=== PATIENT | female | born 1960 | race Caucasian/White ===

== ENCOUNTER → 2016-05-05 | Outpatient (REF) | payer OTHER, MEDICARE ==
[~2016-05-05] MED LIST: /DULO30CA PO; ACET500C PO; AMRIX ER PO; BABY81CH PO; BIOT50004 PO; CALC500T49 PO; CINN500C9 PO; ESTR0.5T OR; FEXO30TA PO; FISH100035 PO; HYDR1TAB97 PO; HYDR25TA6; IRON1TAB PO; Iron PO; KEFL500C PO; LYSINE PO; MULTLIQ7 PO; NAPR375T2 PO; Nucynta PO; OMEP20TA7 OR; OXYC1TAB23 PO; SOMA350T OR; TIZA4CAP3 PO; TRAM50TA2 PO; VITA500S3 SL; VITAMIN D50000 UNT PO; [UNRECOGNIZED DRUG - REMARK]; tps cream TD
[2016-05-05 12:07] LABS: MEAN CORPUSCULAR HEMOGLOBIN 28.9 pg (27.0-33.0); MEAN CORPUSCULAR HGB CONC 32.2 g/dl (32.0-36.5); MEAN CORPUSCULAR VOLUME 89.8 fl (80.0-96.0); RED CELL DISTRIBUTION WIDTH 14.1 % (11.5-14.5); WHITE BLOOD COUNT 3.6 K/mm3 (4.0-10.0)
[2016-05-05 12:29] LABS: ALBUMIN 3.6 GM/DL (3.2-5.2); ALBUMIN/GLOBULIN RATIO 1.03 (1.00-1.93); BILIRUBIN,TOTAL 0.4 MG/DL (0.2-1.0); CALCIUM LEVEL 9.6 MG/DL (8.5-10.1); CREATININE FOR GFR 1.04 MG/DL (0.55-1.02); FREE T4 0.91 NG/DL (0.76-1.46); GLOMERULAR FILTRATION RATE 58.8 (>51); MAGNESIUM LEVEL 2.2 MG/DL (1.8-2.4); POTASSIUM SERUM 4.4 MEQ/L (3.5-5.1); TOTAL PROTEIN 7.1 GM/DL (6.4-8.2)
== END | disposition home or self-care (01) ==
LOC: M SFHCPLAZ 09:36
PROVIDERS: ATTEND Nurse Practitioner Family
DX: R05 Cough (principal); E66.01 Morbid (severe) obesity due to excess calories; K21.9 Gastro-esophageal reflux disease without esophagitis

== ENCOUNTER → 2016-07-22 | Outpatient (CLI) | payer OTHER, MEDICARE ==
[~2016-07-22] MED LIST changes: +BUPIVACAINE HCL 0.25% 10 ML VIAL As Ordered ONE; +BUPIVACAINE HCL 0.25% 30 ML VIAL As Ordered ONE; +HYDR-3713 PO; -HYDR1TAB97 PO; +TRIAMCINOLONE ACETONIDE SUSP 40 MG/ML VIAL (J3301) As Ordered ONE; +diazePAM 5 MG TAB As Ordered ONE; +oxyCODONE 5MG TAB As Ordered ONE
--- NOTE | 2016-07-28 02:00 | ECWPNPC ---
PATIENT NAME: JANAE PORTER : 1960 GENDER: FEMALE VISIT DATE: 07/22/2016 DISCHARGE DATE: 07/22/16 1615 VISIT LOCKED DATE TIME: PHYSICIAN: ILENE TEMPLE RESOURCE: ILENE TEMLPE REASON FOR APPOINTMENT 1. TPI- W/C NECK HISTORY OF PRESENT ILLNESS HISTORY OF PRESENT ILLNESS: PAIN THE PATIENT DESCRIBES THE PAIN... THE PATIENT DESCRIBES THE PAIN... PAIN THE PATIENT DESCRIBES THE PAIN... THE PATIENT DESCRIBES THE PAIN... FALL RISK SCREENING: SCREENING :NO FALLS IN THE PAST YEAR :NO FALLS IN THE PAST YEAR SCREENING :NO FALLS IN THE PAST YEAR :NO FALLS IN THE PAST YEAR CURRENT MEDICATIONS TAKING ASPIR-81 81 MG TABLET DELAYED RELEASE 1 TABLET ORALLY ONCE A DAY, NOTES: 07/22/16899 TAKING CALCIUM CITRATE PLUS TABLET 1 TAB ORALLY THREE TIMES DAILY, NOTES: 07/22/16899 TAKING LYSINE 500 MG TABLET 1 TABLET ORALLY TWICE DAILY, NOTES: 07/22/16899 TAKING VITAMIN D3 5000 UNIT CAPSULE 2 CAPS ORALLY 5 DAYS A WEEK, NOTES: 07/22/16899 TAKING FISH OIL 1200 MG CAPSULE 1 CAPSULE ORALLY ONCE A DAY, NOTES: 07/22/16899 TAKING MULTIVITAMINS TABLET 1 TAB ORALLY DAILY, NOTES: 07/22/16899 TAKING VITAMIN B-12 500 MCG TABLET SUBLINGUAL 1 TABLET UNDER THE TONGUE AND ALLOW TO DISSOLVE SUBLINGUAL ONCE A DAY, NOTES: 07/22/16899 TAKING BIOTIN 5000 MCG TABLET 2 TAB ORALLY ONCE A DAY, NOTES: 07/22/16899 TAKING FERROUS SULFATE 325 (65 FE) MG TABLET 1 TABLET ORALLY THREE TIMES A WEEK, NOTES: 07/22/16899 TAKING COLACE 100 MG CAPSULE 1 CAPSULE NEEDED ORALLY ONCE A DAY, NOTES: 07/22/16899 TAKING OMEPRAZOLE 20 MG CAPSULE DELAYED RELEASE 1 CAPSULE ORALLY TWICE DAILY, NOTES: 07/22/16899 TAKING CYMBALTA 30 MG CAPSULE DELAYED RELEASE PARTICLES 1 CAPSULE ORALLY TWICE A DAY, NOTES: 07/22/16899 TAKING NUCYNTA 50 MG TABLET 1 ORALLY Q8H MDD2, NOTES: 07/21/16 1300 TAKING ESTRADIOL 1 MG TABLET [address] BUSBY ORALLY ONCE A DAY, NOTES: 07/22/16899 NOT-TAKING BLACK COHOSH 40 MG CAPSULE 2 TABS ORALLY DAILY NOT-TAKING ESTROVEN MAXIMUM STRENGTH 1 CAP ORALLY DAILY NOT-TAKING TUSSIONEX PENNKINETIC ER 10-8 MG/5ML SUSPENSION EXTENDED RELEASE 5 ML NEEDED ORALLY EVERY 12 HRS NOT-TAKING FLUTICASONE PROPIONATE 50 MCG/ACT SUSPENSION 1 SPRAY IN EACH NOSTRIL NASALLY ONCE A DAY NOT-TAKING SALINE NASAL SPRAY 0.65 % SOLUTION DIRECTED NASALLY MEDICATION LIST REVIEWED AND RECONCILED WITH THE PATIENT PAST MEDICAL HISTORY CHRONIC PAIN: BACK, NECK, R SHOULDER- FOLLOWS WITH PAIN CLINIC, UNDER WORKER'S COMP ESOPHAGEAL REFLUX - (PULMONARY EVAL FOR COUGH NEG.) OBESITY ALLERGIES RUBELLA VIRUS VACCINE: KNEES LOCKED: ALLERGY FOSAMAX: HAND SWELLING: ALLERGY CODEINE SULFATE: NAUSEA/VOMITING: ALLERGY REVIEW OF SYSTEMS CONSTITUTIONAL: ANY CHANGE IN YOUR MEDICAL CONDITION? YES RETORE RIGHT ROTATOR CUFF, NO . CHILLS NO, NO . FEVER NO, NO . INFECTION: DO YOU HAVE NEW INFECTIONS? NO, NO . DO YOU HAVE HISTORY OF MRSA? NO, NO . MUSCULOSKELETAL: ANY NEW PATTERNS OF PAIN OR NUMBNESS? NO, NO . GASTROENTEROLOGY: ANY NEW CHANGE IN BOWEL CONTROL? NO, NO . GENITOURINARY: ANY NEW CHANGE IN BLADDER CONTROL? NO, NO . IS THERE A CHANCE YOU COULD BE ? NO, NO . HEMATOLOGY/LYMPH: DO YOU TAKE ANY BLOOD THINNERS? (FOR EXAMPLE- COUMADIN, PLAVIX, AGGRENOX, PLATEL, PRADAXA, OR XARELTO) NO, NO . WHEN WAS YOUR LAST DOSE? DATE: TIME: , DATE: TIME: . NEUROLOGY: HAVE YOU FALLEN IN THE PAST 6 MONTHS? NO, NO . ANY NEW EXTREMITY NUMBNESS OR WEAKNESS? NO, NO . CARDIOLOGY: DO YOU HAVE A PACEMAKER OR DEFIBRILLATOR? NO, NO . RESPIRATORY: HAVE YOU BEEN SICK IN THE PAST WEEK? NO, NO . FEVER NO, NO . FLU LIKE SYMPTOMS? NO, NO . COUGH NO, NO . INTEGUMENTARY: DO YOU HAVE ANY RASHES OR OPEN SORES? NO, NO . ALLERGIC/IMMUNO: ARE YOU ALLERGIC TO SHELLFISH OR IV DYE? NO, NO . ANY NEW ALLERGIES? NO, NO . PSYCHIATRIC: DO YOU HAVE THOUGHTS OF HURTING YOURSELF OR SOMEONE ELSE? NO, NO . ARE YOU ABUSED, NEGLECTED, OR IN AN UNSAFE ENVIRONMENT? NO, NO . ENDOCRINOLOGY: ARE YOU DIABETIC? NO, NO . OTHER: DO YOU NEED ANY PRESCRIPTIONS? NO, NO . IF YES, PLEASE LIST: ____, ____ . ANY NEW PROBLEMS WITH YOUR MEDICATIONS? NO, NO . WHEN DID YOU LAST EAT? ____07/21/16 1900, ____ . WHEN DID YOU LAST DRINK? ____07/22/16 0900, ____ . WHAT DID YOU LAST DRINK? ____WATER, ____ . NAME OF PERSON DRIVING YOU HOME? ____DORIS, ____ . DO YOU HAVE ANY OTHER QUESTIONS OR CONCERNS NO, NO . REVIEWED BY: PROVIDER: , . VITAL SIGNS WT 209.8 LBS, HT 63 IN, BMI 37.16 INDEX, BP 138/80 MM HG, HR 72 /MIN, RR 16 /MIN, TEMP 99.1 F, OXYGEN SAT % 98, SAFE IN ENV? (Y/N) YES, NA INITIALS TL 1416, REVIEWED BY: RUTH TEMP, 99.1- TL. ASSESSMENTS MYALGIA - M79.1 (PRIMARY) PROCEDURES PN TRIGGER POINT INJECTION WITH STEROIDS PRE PROCEDURE DIAGNOSIS 1. MYALGIA 2. PAIN AT BILATERAL NECK AREA POST PROCEDURE DIAGNOSIS 1. MYALGIA 2. PAIN AT BILATERAL NECK AREA PROCEDURE TRIGGER POINT INJECTION AT BILATERAL NECK AREA SURGEON DR. ILENE TEMPLE FUEL TECHNICIAN NONE ANESTHESIA LOCAL PRE PROCEDURE NOTE THE PATIENT HAS A HISTORY OF CHRONIC PAIN AT THE RIGHT AND LEFT NECK AREA. I EVALUATE THE PATIENT AND REVIEWED THE CHART. THERE IS EVIDENCE OF BANDS OF TISSUE WITH RESTRICTION OF MOVEMENT AND PRESENCE OF TRIGGER POINT AT THE AFFECTED AREA. I WENT OVER THE RISKS, ALTERNATIVES, AND BENEFITS ASSOCIATED WITH THIS PROCEDURE. THE PATIENT WOULD LIKE TO PROCEED AND GIVE CONSENT TO PERFORMED THE PROCEDURE. THE PATIENT DENIES UNEXPLAINABLE WEIGHT LOSS, FEVER, CHILLS, OR NEW CHANGES IN URINARY OR BOWEL CONTROL DESCRIPTION OF PROCEDURE THE PATIENT WAS BROUGHT TO THE PROCEDURE ROOM AND PLACED IN THE SITTING POSITION. THE AREA WAS CLEANED WITH ALCOHOL. THE PROCEDURE WAS DONE USING ASEPTIC STERILE TECHNIQUE. I CHECKED LATERALITY AND THE LEVEL WHERE THE PROCEDURE WAS GOING TO BE PERFORMED WITH THE PATIENT AND THE SUPPORTING STAFF AT THE MOMENT OF THE TIME OUT IN THE PROCEDURE ROOM. USING A 25-GAUGE NEEDLE, TRIGGER POINTS WERE INJECTED AT THE RIGHT AND LEFT NECK AREA WITH A TOTAL OF 40 ML OF BUPIVACAINE 0.25% AND KENALOG 40 MG. THERE WAS NO EVIDENCE OF BLOOD, PARESTHESIA OR CEREBROSPINAL FLUID DURING THE PROCEDURE. THE PATIENT WAS SENT TO THE RECOVERY ROOM. THE PATIENT WAS MOVING THE EXTREMITIES AND DOING WELL. THERE WAS NO COMPLICATION DURING THE PROCEDURE POST PROCEDURE NOTE THE PATIENT WILL BE SEEN IN A FOLLOW UP IN THE NEXT FEW WEEKS. INSTRUCTIONS WERE GIVEN, QUESTIONS WERE ANSWERED, AND THE PATIENT EXPRESSED UNDERSTANDING AND AGREES WITH THE PLAN. I, TOPHER LOVE, DOCUMENTED THE ABOVE INFORMATION ACTING A SCRIBE FOR DR. TEMPLE. I HAVE REVIEWED THE ABOVE DOCUMENT, WRITTEN BY TOPHER LOVE SCRIBBrijesh AND I VERIFY THAT IT IS ACCURATE PROCEDURE CODES 01292 INJ TRIGGER POINT / MUSCL DISPOSITION & COMMUNICATION FOLLOW UP 3 WEEKS ELECTRONICALLY SIGNED BY ILENE TEMPLE MD ON 07/27/2016 AT 09:33 AM EDT DISCLAIMER : THIS IS A VISIT SUMMARY EXTRACTED FROM THE [email or web address] CHART. IT IS NOT A COPY OF THE [email or web address] PROGRESS NOTE. MTDFannie
== END ==
LOC: M PAIN 14:20
PROVIDERS: ATTEND Anesthesiology
DX: G89.29 Other chronic pain (principal); M79.1 Myalgia; M54.2 Cervicalgia; M25.511 Pain in right shoulder; K21.9 Gastro-esophageal reflux disease without esophagitis; E66.9 Obesity, unspecified; Z68.37 Body mass index [BMI] 37.0-37.9, adult; Z79.82 Long term (current) use of aspirin; Z79.899 Other long term (current) drug therapy; Z79.891 Long term (current) use of opiate analgesic; Z88.7 Allergy status to serum and vaccine; Z88.8 Allergy status to other drugs, medicaments and biological substances; Z88.5 Allergy status to narcotic agent
CPT/HCPCS: 20552; J3301

== ENCOUNTER → 2016-08-19 | Outpatient (CLI) | payer OTHER, MEDICARE ==
[~2016-08-19] MED LIST changes: -BUPIVACAINE HCL 0.25% 10 ML VIAL As Ordered ONE; -BUPIVACAINE HCL 0.25% 30 ML VIAL As Ordered ONE; -TRIAMCINOLONE ACETONIDE SUSP 40 MG/ML VIAL (J3301) As Ordered ONE; -diazePAM 5 MG TAB As Ordered ONE; -oxyCODONE 5MG TAB As Ordered ONE
--- NOTE | 2016-08-24 00:24 | ECWPNPC ---
PATIENT NAME: JANAE PORTER : 1960 GENDER: FEMALE VISIT DATE: 08/19/2016 DISCHARGE DATE: 08/19/16 0846 VISIT LOCKED DATE TIME: PHYSICIAN: ILENE TEMPLE RESOURCE: ILENE TEMPLE REASON FOR APPOINTMENT 1. WC NECK PAIN HISTORY OF PRESENT ILLNESS HISTORY OF PRESENT ILLNESS: PAIN THE PATIENT DESCRIBES THE PAIN... 56 YEAR OLD FEMALE PATIENT WITH HISTORY OF CHRONIC CERVICAL PAIN. PATIENT DESCRIBES THE PAIN ACHING, SHARP, TENDER, SORE, AND HAVING IT ALL THE TIME WITH A PAIN SCORE OF 6/10. 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 PATIENT RECEIVED A NECK SURGERY IN 2010 AND STATES THAT IT DID AID IN FUNCTIONALITY BUT SHE IS STILL IN CONSTANT PAIN. PATIENT RECEIVED TRIGGER POINT INJECTIONS ON 07/22/16 AND PATIENT STATES THAT SHE HAS HAD OVER 50% PAIN RELIEF FROM THE INJECTION FOR OVER 3 WEEKS AT THIS TIME. CURRENTLY THE PATIENT IS USING NUCYNTA AND CYMBALTA WHICH SHE STATES KEEPS HER MOBILE AND FUNCTIONAL. PATIENT DENIES UNEXPLAINABLE WEIGHT LOSS, FEVER, CHILLS, NEW CHANGES ON HER URINARY OR BOWEL CONTROL. FALL RISK SCREENING: SCREENING :NO FALLS IN THE PAST YEAR CURRENT MEDICATIONS TAKING ASPIR-81 81 MG TABLET DELAYED RELEASE 1 TABLET ORALLY ONCE A DAY TAKING CALCIUM CITRATE PLUS TABLET 1 TAB ORALLY THREE TIMES DAILY TAKING LYSINE 500 MG TABLET 1 TABLET ORALLY TWICE DAILY TAKING VITAMIN D3 5000 UNIT CAPSULE 2 CAPS ORALLY 5 DAYS A WEEK TAKING FISH OIL 1200 MG CAPSULE 1 CAPSULE ORALLY ONCE A DAY TAKING MULTIVITAMINS TABLET 1 TAB ORALLY DAILY TAKING VITAMIN B-12 500 MCG TABLET SUBLINGUAL 1 TABLET UNDER THE TONGUE AND ALLOW TO DISSOLVE SUBLINGUAL ONCE A DAY TAKING BIOTIN 5000 MCG TABLET 2 TAB ORALLY ONCE A DAY TAKING FERROUS SULFATE 325 (65 FE) MG TABLET 1 TABLET ORALLY THREE TIMES A WEEK TAKING COLACE 100 MG CAPSULE 1 CAPSULE NEEDED ORALLY ONCE A DAY TAKING OMEPRAZOLE 20 MG CAPSULE DELAYED RELEASE 1 CAPSULE ORALLY TWICE DAILY TAKING ESTRADIOL 1 MG TABLET [address] BUSBY ORALLY ONCE A DAY TAKING NUCYNTA 50 MG TABLET 1 ORALLY Q8H MDD2 TAKING CYMBALTA 30 MG CAPSULE DELAYED RELEASE PARTICLES 1 CAPSULE ORALLY TWICE A DAY NOT-TAKING BLACK COHOSH 40 MG CAPSULE 2 TABS ORALLY DAILY NOT-TAKING ESTROVEN MAXIMUM STRENGTH 1 CAP ORALLY DAILY NOT-TAKING TUSSIONEX PENNKINETIC ER 10-8 MG/5ML SUSPENSION EXTENDED RELEASE 5 ML NEEDED ORALLY EVERY 12 HRS NOT-TAKING FLUTICASONE PROPIONATE 50 MCG/ACT SUSPENSION 1 SPRAY IN EACH NOSTRIL NASALLY ONCE A DAY NOT-TAKING SALINE NASAL SPRAY 0.65 % SOLUTION DIRECTED NASALLY MEDICATION LIST REVIEWED AND RECONCILED WITH THE PATIENT PAST MEDICAL HISTORY CHRONIC PAIN: BACK, NECK, R SHOULDER- FOLLOWS WITH PAIN CLINIC, UNDER WORKER'S COMP ESOPHAGEAL REFLUX - (PULMONARY EVAL FOR COUGH NEG.) OBESITY ALLERGIES RUBELLA VIRUS VACCINE: KNEES LOCKED: ALLERGY FOSAMAX: HAND SWELLING: ALLERGY CODEINE SULFATE: NAUSEA/VOMITING: ALLERGY SURGICAL HISTORY R ANKLE SURGERY RECONSTRUCTION - DR Virginia MABRY WRIST SURGERY R - DR Virginia MABRY BREAST REDUCTION - CARLOS A ZAID & BSO - ROSAS KNEE ARTHROSCOPY- DR Virginia MABRY SHOULDER SURGERY R - DR Virginia MABRY KNEE SURGERY L MICROFRACTURING - DR YUNIER MABRY 04-06 R FOOT NERVE BX - DR Virginia MABRY R FOOT SCAR TISSUE - DR WILLS L FOOT HEEL SPUR - MICH CERVICAL DORSAL COLUMN STIMULATOR (TRIAL) - MAVERICK 07-09-10 SPINAL CORD STIMULATOR IMPLANT - DR GIBSON 08-26-10 L WRIST DEQUERVAINS RELEASE - DR SHANA RIVERO 10-05-12 COLONOSCOPY, INTERNAL HEMORRHOIDS - ABELARDO 09/24/11 EXCISION OF SCALP CYST - BENIGN, DR WADSWORTH 11/02 LAP VERTICAL SLEEVE GASTRECTOMY - DR BEST 04/25/13 LEFT BREAST BIOPSY - BENIGN, INTERVENTIONAL RADIOLOGY F/UP PER DR PARSONS 05/10 L WRIST ARTHOPLASTY - DR YUNIER MABRY 05-11 FAMILY HISTORY FATHER: ALIVE 83 YRS, DIAGNOSED WITH HYPERTENSION, HEART DISEASE MOTHER: ALIVE 81 YRS, DIAGNOSED WITH HYPERTENSION SIBLINGS: HTN - 2 BROTHERS, HEART DISEASE/ CABG - 1BR, DIAGNOSED WITH HEART DISEASE 2 BROTHER(S) , 1 SISTER(S) . SOCIAL HISTORY GENERAL: PAIN CLINIC PFS, CLERGY, PUBLIC HEALTH REFERRALS CLERGY REFERRAL NEEDED?NO WAS THE PROVIDER NOTIFIED OF ANY PERTINENT INFO?NO PFS REFERRAL NEEDED?NO PUBLIC HEALTH REFERRAL NEEDED?NO PATIENT: ____. HOSPITALIZATION/MAJOR DIAGNOSTIC PROCEDURE NO HOSPITALIZATION HISTORY. REVIEW OF SYSTEMS CONSTITUTIONAL: ANY CHANGE IN YOUR MEDICAL CONDITION? YES, TORN RIGHT ROTATOR CUFF . CHILLS NO . FEVER NO . INFECTION: DO YOU HAVE NEW INFECTIONS? NO . DO YOU HAVE HISTORY OF MRSA? NO . MUSCULOSKELETAL: ANY NEW PATTERNS OF PAIN OR NUMBNESS? NO . GASTROENTEROLOGY: ANY NEW CHANGE IN BOWEL CONTROL? NO . GENITOURINARY: ANY NEW CHANGE IN BLADDER CONTROL? NO . IS THERE A CHANCE YOU COULD BE ? NO . HEMATOLOGY/LYMPH: DO YOU TAKE ANY BLOOD THINNERS? (FOR EXAMPLE- COUMADIN, PLAVIX, AGGRENOX, PLATEL, PRADAXA, OR XARELTO) NO . WHEN WAS YOUR LAST DOSE? DATE: TIME: . NEUROLOGY: HAVE YOU FALLEN IN THE PAST 6 MONTHS? YES, SOFT LANDING ON [place] GROUND NO INJURY. (WALKING BACKWARD) . ANY NEW EXTREMITY NUMBNESS OR WEAKNESS? NO . CARDIOLOGY: DO YOU HAVE A PACEMAKER OR DEFIBRILLATOR? NO . RESPIRATORY: HAVE YOU BEEN SICK IN THE PAST WEEK? NO . FEVER NO . FLU LIKE SYMPTOMS? NO . COUGH NO . INTEGUMENTARY: DO YOU HAVE ANY RASHES OR OPEN SORES? NO . ALLERGIC/IMMUNO: ARE YOU ALLERGIC TO SHELLFISH OR IV DYE? NO . ANY NEW ALLERGIES? NO . PSYCHIATRIC: DO YOU HAVE THOUGHTS OF HURTING YOURSELF OR SOMEONE ELSE? NO . ARE YOU ABUSED, NEGLECTED, OR IN AN UNSAFE ENVIRONMENT? NO . ENDOCRINOLOGY: ARE YOU DIABETIC? NO . OTHER: DO YOU NEED ANY PRESCRIPTIONS? NO . IF YES, PLEASE LIST: ____ . ANY NEW PROBLEMS WITH YOUR MEDICATIONS? NO . WHEN DID YOU LAST EAT? ____ . WHEN DID YOU LAST DRINK? ____ . WHAT DID YOU LAST DRINK? ____ . NAME OF PERSON DRIVING YOU HOME? ____ . DO YOU HAVE ANY OTHER QUESTIONS OR CONCERNS NO . REVIEWED BY: PROVIDER: ILENE TEMPLE MD . VITAL SIGNS WT 208.6 LBS, HT 63 IN, BMI 36.95 INDEX, BP 139/80 MM HG, HR 83 /MIN, RR 18 /MIN, TEMP 98.3 F, OXYGEN SAT % 97%, NA INITIALS TL 1603. EXAMINATION : PATIENT IS ALERT O X 3 AND COOPERATIVE. TENDERNESS IN THE CERVICAL AREA AND PARASPINAL MUSCLE GROUP. PATIENT ABLE TO EXTEND THE NECK 30 DEGREES FLEX 45 DEGREES AND HAS LATERAL ROTATION OF 50 DEGREES. ASSESSMENTS MYALGIA - M79.1 (PRIMARY) CERVICALGIA - M54.2 TREATMENT OTHERS REFILL NUCYNTA TABLET, 50 MG, 1, ORALLY NEEDED FOR PAIN, Q8H MDD2, 30 DAY(S), 60, REFILLS 0 REFILL CYMBALTA CAPSULE DELAYED RELEASE PARTICLES, 30 MG, 1 CAPSULE, ORALLY, TWICE A DAY, 30 DAY(S), 60 CAPSULE, REFILLS 2 NOTES: WE DISCUSSED SEVERAL ISSUES WITH MRS. PORTER'S PAIN MANAGEMENT CASE. AT THIS TIME THE PATIENT WILL CONTINUE WITH THE SAME MEDICATION REGIME BEFORE. PATIENT WILL CONTINUE TO USE THE NUCYNTA FOR THE SOMATIC PAIN AND THE CYMBALTA FOR THE NEUROPATHIC PAIN. PATIENT DENIES ABUSE OF ANY MEDICATION, DENIES USE OF ILLEGAL SUBSTANCES, AND STATES THAT HE IS ONLY USING THE MEDICATION FOR PAIN MANAGEMENT. URINE TOXICOLOGY REPORT DONE ON 01/03/16 SHOWS CONSISTENT RESULTS WITH THE PATIENT'S MEDICATION LIST. AT THIS TIME THE PATIENT STATES THAT SHE DOES NOT NEED INTERVENTIONS THE TRIGGER POINT DONE ON 07/22/16 INCREASED HER MOBILITY AND FUNCTIONALITY AND DECREASED HER PAIN BY 50%. PATIENT WILL RETURN TO THE CLINIC IN 4 WEEKS TO FURTHER DISCUSS HER CASE. INSTRUCTIONS WERE GIVEN, QUESTIONS WERE ANSWERED, PATIENT REPORTS UNDERSTANDING AND AGREES WITH THE PLAN. I, AZIZA REBOLLAR, DOCUMENTED THE ABOVE INFORMATION ACTING A SCRIBE FOR DR. TEMPLE. I HAVE REVIEWED THE ABOVE DOCUMENT, WRITTEN BY AZIZA IBRAHIM AND I VERIFY THAT IT IS ACCURATE. PROCEDURES PN WORKMANS' COMP OPINION IN YOUR OPINION, WAS THE INCIDENT THAT THE PATIENT DESCRIBED THE COMPETENT MEDICAL CAUSE OF THIS INJURY/ILLNESS? YES ARE THE PATIENT'S COMPLAINTS CONSISTENT WITH HIS/HER HISTORY OF THE INJURY/ILLNESS? YES IS THE PATIENT'S HISTORY OF THE INJURY/ILLNESS CONSISTENT WITH YOUR OBJECTIVE FINDING? YES WHAT IS THE PERCENTAGE OF TEMPORARY IMPAIRMENT? MODERATE TO MARKED = 66.7% IS THE PATIENT WORKING? NO DOCTOR ON SITE: ILENE CHEW MD PROCEDURE CODES FA211 ESTABILISHED PATIENT [facility] FACILITY CHARGE G8427 DOC MEDS VERIFIED W/PT OR RE G8730 PAIN ASSESS POS TOOL F/U PLAN DOC DISPOSITION & COMMUNICATION FOLLOW UP 4 WEEKS ELECTRONICALLY SIGNED BY ILENE TEMPLE MD ON 08/23/2016 AT 12:22 PM EDT DISCLAIMER : THIS IS A VISIT SUMMARY EXTRACTED FROM THE [employer] CHART. IT IS NOT A COPY OF THE [employer] PROGRESS NOTE. MTDD
== END ==
LOC: M PAIN 15:40
PROVIDERS: ATTEND Anesthesiology
DX: G89.29 Other chronic pain (principal); M79.1 Myalgia; M54.2 Cervicalgia; M25.511 Pain in right shoulder; E66.9 Obesity, unspecified; K21.9 Gastro-esophageal reflux disease without esophagitis; Z88.5 Allergy status to narcotic agent; Z88.8 Allergy status to other drugs, medicaments and biological substances; Z88.7 Allergy status to serum and vaccine; Z79.82 Long term (current) use of aspirin; Z79.899 Other long term (current) drug therapy; Z79.891 Long term (current) use of opiate analgesic; Z68.36 Body mass index [BMI] 36.0-36.9, adult

== ENCOUNTER → 2016-09-23 | Outpatient (CLI) | payer OTHER, MEDICARE ==
--- NOTE | 2016-10-06 02:29 | ECWPNPC ---
PATIENT NAME: JANAE PORTER : 1960 GENDER: FEMALE VISIT DATE: 09/23/2016 DISCHARGE DATE: 09/23/16 1610 VISIT LOCKED DATE TIME: PHYSICIAN: ILENE TEMPLE RESOURCE: ILENE TEMPLE REASON FOR APPOINTMENT 1. NECK PAIN W/C HISTORY OF PRESENT ILLNESS HISTORY OF PRESENT ILLNESS: PAIN THE PATIENT DESCRIBES THE PAIN... 56 YEAR OLD FEMALE PATIENT WITH HISTORY OF CHRONIC CERVICAL PAIN. PATIENT DESCRIBES THE PAIN ACHING, SHARP, TENDER, SORE, AND HAVING IT ALL THE TIME WITH A PAIN SCORE OF 5/10. 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 PATIENT RECEIVED A NECK SURGERY IN 2010 AND STATES THAT IT DID AID IN FUNCTIONALITY BUT SHE IS STILL IN CONSTANT PAIN. PATIENT RECEIVED TRIGGER POINT INJECTIONS ON 07/22/16 AND PATIENT STATES THAT SHE HAS HAD OVER 50% PAIN RELIEF FROM THE INJECTION FOR OVER 6 WEEKS. CURRENTLY THE PATIENT IS USING NUCYNTA AND CYMBALTA WHICH SHE STATES KEEPS HER MOBILE AND FUNCTIONAL. PATIENT DENIES UNEXPLAINABLE WEIGHT LOSS, FEVER, CHILLS, NEW CHANGES ON HER URINARY OR BOWEL CONTROL. FALL RISK SCREENING: SCREENING :NO FALLS IN THE PAST YEAR CURRENT MEDICATIONS TAKING NUCYNTA 50 MG TABLET 1 ORALLY NEEDED FOR PAIN Q8H MDD2 TAKING CYMBALTA 30 MG CAPSULE DELAYED RELEASE PARTICLES 1 CAPSULE ORALLY TWICE A DAY TAKING ASPIR-81 81 MG TABLET DELAYED RELEASE 1 TABLET ORALLY ONCE A DAY TAKING CALCIUM CITRATE PLUS TABLET 1 TAB ORALLY THREE TIMES DAILY TAKING LYSINE 500 MG TABLET 1 TABLET ORALLY TWICE DAILY TAKING VITAMIN D3 5000 UNIT CAPSULE 2 CAPS ORALLY 5 DAYS A WEEK TAKING FISH OIL 1200 MG CAPSULE 1 CAPSULE ORALLY ONCE A DAY TAKING MULTIVITAMINS TABLET 1 TAB ORALLY DAILY TAKING VITAMIN B-12 500 MCG TABLET SUBLINGUAL 1 TABLET UNDER THE TONGUE AND ALLOW TO DISSOLVE SUBLINGUAL ONCE A DAY TAKING BIOTIN 5000 MCG TABLET 2 TAB ORALLY ONCE A DAY TAKING FERROUS SULFATE 325 (65 FE) MG TABLET 1 TABLET ORALLY THREE TIMES A WEEK TAKING COLACE 100 MG CAPSULE 1 CAPSULE NEEDED ORALLY ONCE A DAY TAKING OMEPRAZOLE 20 MG CAPSULE DELAYED RELEASE 1 CAPSULE ORALLY TWICE DAILY TAKING ESTRADIOL 1 MG TABLET [address] BUSBY ORALLY ONCE A DAY NOT-TAKING BLACK COHOSH 40 MG CAPSULE 2 TABS ORALLY DAILY NOT-TAKING ESTROVEN MAXIMUM STRENGTH 1 CAP ORALLY DAILY NOT-TAKING TUSSIONEX PENNKINETIC ER 10-8 MG/5ML SUSPENSION EXTENDED RELEASE 5 ML NEEDED ORALLY EVERY 12 HRS NOT-TAKING FLUTICASONE PROPIONATE 50 MCG/ACT SUSPENSION 1 SPRAY IN EACH NOSTRIL NASALLY ONCE A DAY NOT-TAKING SALINE NASAL SPRAY 0.65 % SOLUTION DIRECTED NASALLY MEDICATION LIST REVIEWED AND RECONCILED WITH THE PATIENT PAST MEDICAL HISTORY CHRONIC PAIN: BACK, NECK, R SHOULDER- FOLLOWS WITH PAIN CLINIC, UNDER WORKER'S COMP ESOPHAGEAL REFLUX - (PULMONARY EVAL FOR COUGH NEG.) OBESITY ALLERGIES RUBELLA VIRUS VACCINE: KNEES LOCKED: ALLERGY FOSAMAX: HAND SWELLING: ALLERGY CODEINE SULFATE: NAUSEA/VOMITING: ALLERGY SURGICAL HISTORY R ANKLE SURGERY RECONSTRUCTION - DR Virginia MABRY WRIST SURGERY R - DR Virginia MABRY BREAST REDUCTION - CARLOS A ZAID & BSO - ROSAS KNEE ARTHROSCOPY- DR Virginia MABRY SHOULDER SURGERY R - DR Virginia MABRY KNEE SURGERY L MICROFRACTURING - DR YUNIER MABRY 04-06 R FOOT NERVE BX - DR Virginia MABRY R FOOT SCAR TISSUE - DR WILLS L FOOT HEEL SPUR - MICH CERVICAL DORSAL COLUMN STIMULATOR (TRIAL) - TEMPLE 07-09-10 SPINAL CORD STIMULATOR IMPLANT - DR GIBSON 08-26-10 L WRIST DEQUERVAINS RELEASE - DR SHANA RIVERO 10-05-12 COLONOSCOPY, INTERNAL HEMORRHOIDS - ABELARDO 09/24/11 EXCISION OF SCALP CYST - BENIGN, DR WADSWORTH 11/02 LAP VERTICAL SLEEVE GASTRECTOMY - DR BEST 04/25/13 LEFT BREAST BIOPSY - BENIGN, INTERVENTIONAL RADIOLOGY F/UP PER DR PARSONS 05/10 L WRIST ARTHOPLASTY - DR YUNIER MABRY 05-11 FAMILY HISTORY FATHER: ALIVE 83 YRS, DIAGNOSED WITH HYPERTENSION, HEART DISEASE MOTHER: ALIVE 81 YRS, DIAGNOSED WITH HYPERTENSION SIBLINGS: HTN - 2 BROTHERS, HEART DISEASE/ CABG - 1BR, DIAGNOSED WITH HEART DISEASE 2 BROTHER(S) , 1 SISTER(S) . SOCIAL HISTORY GENERAL: PAIN CLINIC PFS, CLERGY, PUBLIC HEALTH REFERRALS PFS REFERRAL NEEDED?NO CLERGY REFERRAL NEEDED?NO PUBLIC HEALTH REFERRAL NEEDED?NO WAS THE PROVIDER NOTIFIED OF ANY PERTINENT INFO?NO PATIENT: ____. HOSPITALIZATION/MAJOR DIAGNOSTIC PROCEDURE NO HOSPITALIZATION HISTORY. REVIEW OF SYSTEMS CONSTITUTIONAL: ANY CHANGE IN YOUR MEDICAL CONDITION? NO . CHILLS NO . FEVER NO . INFECTION: DO YOU HAVE NEW INFECTIONS? NO . DO YOU HAVE HISTORY OF MRSA? NO . MUSCULOSKELETAL: ANY NEW PATTERNS OF PAIN OR NUMBNESS? NO . GASTROENTEROLOGY: ANY NEW CHANGE IN BOWEL CONTROL? NO . GENITOURINARY: ANY NEW CHANGE IN BLADDER CONTROL? NO . IS THERE A CHANCE YOU COULD BE ? NO . HEMATOLOGY/LYMPH: DO YOU TAKE ANY BLOOD THINNERS? (FOR EXAMPLE- COUMADIN, PLAVIX, AGGRENOX, PLATEL, PRADAXA, OR XARELTO) NO . WHEN WAS YOUR LAST DOSE? DATE: TIME: . NEUROLOGY: HAVE YOU FALLEN IN THE PAST 6 MONTHS? NO . ANY NEW EXTREMITY NUMBNESS OR WEAKNESS? NO . CARDIOLOGY: DO YOU HAVE A PACEMAKER OR DEFIBRILLATOR? NO . RESPIRATORY: HAVE YOU BEEN SICK IN THE PAST WEEK? NO . FEVER NO . FLU LIKE SYMPTOMS? NO . COUGH NO . INTEGUMENTARY: DO YOU HAVE ANY RASHES OR OPEN SORES? NO . ALLERGIC/IMMUNO: ARE YOU ALLERGIC TO SHELLFISH OR IV DYE? NO . ANY NEW ALLERGIES? NO . PSYCHIATRIC: DO YOU HAVE THOUGHTS OF HURTING YOURSELF OR SOMEONE ELSE? NO . ARE YOU ABUSED, NEGLECTED, OR IN AN UNSAFE ENVIRONMENT? NO . ENDOCRINOLOGY: ARE YOU DIABETIC? NO . OTHER: DO YOU NEED ANY PRESCRIPTIONS? NO . IF YES, PLEASE LIST: ____ . ANY NEW PROBLEMS WITH YOUR MEDICATIONS? NO . WHEN DID YOU LAST EAT? ____ . WHEN DID YOU LAST DRINK? ____ . WHAT DID YOU LAST DRINK? ____ . NAME OF PERSON DRIVING YOU HOME? ____ . DO YOU HAVE ANY OTHER QUESTIONS OR CONCERNS NO . REVIEWED BY: PROVIDER: ILENE TEMPLE MD . VITAL SIGNS WT 200.0 LBS, HT 63 IN, BMI 35.42 INDEX, BP 143/74 MM HG, HR 70 /MIN, RR 16 /MIN, TEMP 98.1 F, OXYGEN SAT % 98%, NA INITIALS TL 1455, REVIEWED BY: KG. EXAMINATION : PATIENT IS ALERT O X 3 AND COOPERATIVE. TENDERNESS IN THE CERVICAL AREA AND PARASPINAL MUSCLE GROUP. PATIENT ABLE TO EXTEND THE NECK 30 DEGREES FLEX 45 DEGREES AND HAS LATERAL ROTATION OF 50 DEGREES. ASSESSMENTS MYALGIA - M79.1 (PRIMARY) CERVICALGIA - M54.2 SPONDYLOSIS WITHOUT MYELOPATHY OR RADICULOPATHY, CERVICAL REGION - M47.812 TREATMENT MYALGIA NOTES: WE DISCUSSED SEVERAL ISSUES WITH MRS. PORTER'S PAIN MANAGEMENT CASE. AT THIS TIME THE PATIENT WILL CONTINUE WITH THE SAME MEDICATION REGIME BEFORE. PATIENT WILL CONTINUE TO USE THE NUCYNTA FOR THE SOMATIC PAIN AND THE CYMBALTA FOR THE NEUROPATHIC PAIN. PATIENT DENIES ABUSE OF ANY MEDICATION, DENIES USE OF ILLEGAL SUBSTANCES, AND STATES THAT HE IS ONLY USING THE MEDICATION FOR PAIN MANAGEMENT. URINE TOXICOLOGY REPORT DONE ON 01/03/16 SHOWS CONSISTENT RESULTS WITH THE PATIENT'S MEDICATION LIST. AT THIS TIME THE PATIENT STATES THAT THE PAIN IS SLOWLY STATING TO RETURN TO THE CERVICAL AREA. AFTER VIEWING THE PATIENT I WOULD LIKE TO MOVE FORWARD WITH CERVICAL FACET BLOCK. WE DISCUSSED THE RISKS, BENENFITS, AND ALTNERATIVES OF THE INJECTION AND THE PATIENT WOULD LIKE TO PROCEED AT THIS TIME. INSTRUCTIONS WERE GIVEN, QUESTIONS WERE ANSWERED, PATIENT REPORTS UNDERSTANDING AND AGREES WITH THE PLAN. I, AZIZA REBOLLAR, DOCUMENTED THE ABOVE INFORMATION ACTING A SCRIBE FOR DR. TEMPLE. I HAVE REVIEWED THE ABOVE DOCUMENT, WRITTEN BY AZIZA IBRAHIM AND I VERIFY THAT IT IS ACCURATE. OTHERS REFILL NUCYNTA TABLET, 50 MG, 1, ORALLY NEEDED FOR PAIN, Q8H MDD2, 30 DAY(S), 55, REFILLS 0 REFILL CYMBALTA CAPSULE DELAYED RELEASE PARTICLES, 30 MG, 1 CAPSULE, ORALLY, TWICE A DAY, 30 DAY(S), 60 CAPSULE, REFILLS 2 NOTES: FACET JOINT INJECTION MATERIAL WAS PRINTED. PROCEDURES PN WORKMANS' COMP OPINION IN YOUR OPINION, WAS THE INCIDENT THAT THE PATIENT DESCRIBED THE COMPETENT MEDICAL CAUSE OF THIS INJURY/ILLNESS? YES ARE THE PATIENT'S COMPLAINTS CONSISTENT WITH HIS/HER HISTORY OF THE INJURY/ILLNESS? YES IS THE PATIENT'S HISTORY OF THE INJURY/ILLNESS CONSISTENT WITH YOUR OBJECTIVE FINDING? YES WHAT IS THE PERCENTAGE OF TEMPORARY IMPAIRMENT? MODERATE TO MARKED = 66.7% IS THE PATIENT WORKING? NO DOCTOR ON SITE: ILENE CHEW MD PROCEDURE CODES FA211 ESTABILISHED PATIENT [facility] CHARGE DISPOSITION & COMMUNICATION FOLLOW UP 3 WEEKS ELECTRONICALLY SIGNED BY ILENE TEMPLE MD ON 10/05/2016 AT 07:44 PM EDT DISCLAIMER : THIS IS A VISIT SUMMARY EXTRACTED FROM THE [employer] CHART. IT IS NOT A COPY OF THE [employer] PROGRESS NOTE. MTDD
== END ==
LOC: M PAIN 14:40
PROVIDERS: ATTEND Anesthesiology
DX: G89.29 Other chronic pain (principal); M79.1 Myalgia; M54.2 Cervicalgia; M47.812 Spondylosis without myelopathy or radiculopathy, cervical region; K21.9 Gastro-esophageal reflux disease without esophagitis; E66.9 Obesity, unspecified; M25.511 Pain in right shoulder; Z88.5 Allergy status to narcotic agent; Z88.8 Allergy status to other drugs, medicaments and biological substances; Z88.7 Allergy status to serum and vaccine; Z79.82 Long term (current) use of aspirin; Z79.899 Other long term (current) drug therapy; Z68.35 Body mass index [BMI] 35.0-35.9, adult

== ENCOUNTER → 2016-11-05 | Outpatient (CLI) | payer OTHER, MEDICARE ==
[~2016-11-05] MED LIST changes: +BUPIVACAINE HCL 0.25% 30 ML VIAL As Ordered ONE; +ISOVUE-M 300 61% 15ML VIAL (Q9967) As Ordered ONE; +LIDOCAINE 1% SDV INJ 30 ML VIAL As Ordered ONE; +MIDAZOLAM INJ 2 MG/2 ML VIAL (J2250) As Ordered ONE; +NAPR-855 PO; -NAPR375T2 PO; +TRIAMCINOLONE ACETONIDE SUSP 40 MG/ML VIAL (J3301) As Ordered ONE; +fentaNYL 100 MCG/2 ML INJECTION (J3010) As Ordered ONE
--- NOTE | 2016-11-05 14:07 | REP ---
Partial cervical spine series: Single view . History: Injection procedure for pain. 10 seconds of fluoroscopy time is reported. Findings: A sequence of three fluoroscopically obtained last image hold procedural spot radiographs of the cervical spine document needle position and contrast injection associated with injection procedure. Signed by Kirill Sanchez MD 11/05/2016 01:57 P
--- NOTE | 2016-11-17 00:57 | ECWPNPC ---
PATIENT NAME: JANAE PORTER : 1960 GENDER: FEMALE VISIT DATE: 11/05/2016 DISCHARGE DATE: 11/05/16 142 VISIT LOCKED DATE TIME: PHYSICIAN: ILENE TEMPLE RESOURCE: ILENE TEMPLE REASON FOR APPOINTMENT 1. CFBT WITH IV SEDATION HISTORY OF PRESENT ILLNESS HISTORY OF PRESENT ILLNESS: PAIN THE PATIENT DESCRIBES THE PAIN... FALL RISK SCREENING: SCREENING :NO FALLS IN THE PAST YEAR CURRENT MEDICATIONS TAKING CYMBALTA 30 MG CAPSULE DELAYED RELEASE PARTICLES 1 CAPSULE ORALLY TWICE A DAY, NOTES: 11/05/16544 TAKING ASPIR-81 81 MG TABLET DELAYED RELEASE 1 TABLET ORALLY ONCE A DAY, NOTES: 10/31/16 TAKING CALCIUM CITRATE PLUS TABLET 1 TAB ORALLY THREE TIMES DAILY, NOTES: 11/05/16544 TAKING LYSINE 500 MG TABLET 1 TABLET ORALLY TWICE DAILY, NOTES: 11/05/16544 TAKING FISH OIL 1200 MG CAPSULE 1 CAPSULE ORALLY ONCE A DAY, NOTES: 11/05/16544 TAKING VITAMIN D3 5000 UNIT CAPSULE 2 CAPS ORALLY 5 DAYS A WEEK, NOTES: 11/05/16544 TAKING MULTIVITAMINS TABLET 1 TAB ORALLY DAILY, NOTES: 11/05/16544 TAKING VITAMIN B-12 500 MCG TABLET SUBLINGUAL 1 TABLET UNDER THE TONGUE AND ALLOW TO DISSOLVE SUBLINGUAL ONCE A DAY, NOTES: 11/05/16544 TAKING BIOTIN 5000 MCG TABLET 2 TAB ORALLY ONCE A DAY, NOTES: 11/05/16544 TAKING FERROUS SULFATE 325 (65 FE) MG TABLET 1 TABLET ORALLY THREE TIMES A WEEK, NOTES: 11/04/16544 TAKING COLACE 100 MG CAPSULE 1 CAPSULE NEEDED ORALLY ONCE A DAY, NOTES: 544 TAKING OMEPRAZOLE 20 MG CAPSULE DELAYED RELEASE 1 CAPSULE ORALLY TWICE DAILY, NOTES: 11/05/16544 TAKING ESTRADIOL 1 MG TABLET [address] BUSBY ORALLY ONCE A DAY, NOTES: 11/05/16544 NOT-TAKING BLACK COHOSH 40 MG CAPSULE 2 TABS ORALLY DAILY NOT-TAKING ESTROVEN MAXIMUM STRENGTH 1 CAP ORALLY DAILY NOT-TAKING TUSSIONEX PENNKINETIC ER 10-8 MG/5ML SUSPENSION EXTENDED RELEASE 5 ML NEEDED ORALLY EVERY 12 HRS NOT-TAKING FLUTICASONE PROPIONATE 50 MCG/ACT SUSPENSION 1 SPRAY IN EACH NOSTRIL NASALLY ONCE A DAY NOT-TAKING SALINE NASAL SPRAY 0.65 % SOLUTION DIRECTED NASALLY DISCONTINUED NUCYNTA 50 MG TABLET 1 ORALLY NEEDED FOR PAIN Q8H MDD2, NOTES: 11/04/16 1030 MEDICATION LIST REVIEWED AND RECONCILED WITH THE PATIENT PAST MEDICAL HISTORY CHRONIC PAIN: BACK, NECK, R SHOULDER- FOLLOWS WITH PAIN CLINIC, UNDER WORKER'S COMP ESOPHAGEAL REFLUX - (PULMONARY EVAL FOR COUGH NEG.) OBESITY ALLERGIES RUBELLA VIRUS VACCINE: KNEES LOCKED: ALLERGY FOSAMAX: HAND SWELLING: ALLERGY CODEINE SULFATE: NAUSEA/VOMITING: ALLERGY SURGICAL HISTORY R ANKLE SURGERY RECONSTRUCTION - DR Virginia MABRY WRIST SURGERY R - DR Virginia MABRY BREAST REDUCTION - CARLOS A ZAID & BSO - ROSAS KNEE ARTHROSCOPY- DR Virginia MABRY SHOULDER SURGERY R - DR Virginia MABRY KNEE SURGERY L MICROFRACTURING - DR YUNIER MABRY 04-06 R FOOT NERVE BX - DR Virginia MABRY R FOOT SCAR TISSUE - DR WILLS L FOOT HEEL SPUR - MICH CERVICAL DORSAL COLUMN STIMULATOR (TRIAL) - MAVERICK 07-09-10 SPINAL CORD STIMULATOR IMPLANT - DR GIBSON 08-26-10 L WRIST DEQUERVAINS RELEASE - DR SHANA RIVERO 10-05-12 COLONOSCOPY, INTERNAL HEMORRHOIDS - ABELARDO 09/24/11 EXCISION OF SCALP CYST - BENIGN, DR WADSWORTH 11/02 LAP VERTICAL SLEEVE GASTRECTOMY - DR BEST 04/25/13 LEFT BREAST BIOPSY - BENIGN, INTERVENTIONAL RADIOLOGY F/UP PER DR PARSONS 05/10 L WRIST ARTHOPLASTY - DR YUNIER MABRY 05-11 FAMILY HISTORY FATHER: ALIVE 83 YRS, DIAGNOSED WITH HYPERTENSION, HEART DISEASE MOTHER: ALIVE 81 YRS, DIAGNOSED WITH HYPERTENSION SIBLINGS: HTN - 2 BROTHERS, HEART DISEASE/ CABG - 1BR, DIAGNOSED WITH HEART DISEASE 2 BROTHER(S) , 1 SISTER(S) . REVIEW OF SYSTEMS REVIEWED BY: PROVIDER: . CONSTITUTIONAL: ANY CHANGE IN YOUR MEDICAL CONDITION? NO . CHILLS NO . FEVER NO . INFECTION: DO YOU HAVE NEW INFECTIONS? NO . DO YOU HAVE HISTORY OF MRSA? NO . MUSCULOSKELETAL: ANY NEW PATTERNS OF PAIN OR NUMBNESS? NO . GASTROENTEROLOGY: ANY NEW CHANGE IN BOWEL CONTROL? NO . GENITOURINARY: ANY NEW CHANGE IN BLADDER CONTROL? NO . IS THERE A CHANCE YOU COULD BE ? NO . HEMATOLOGY/LYMPH: DO YOU TAKE ANY BLOOD THINNERS? (FOR EXAMPLE- COUMADIN, PLAVIX, AGGRENOX, PLATEL, PRADAXA, OR XARELTO) NO . WHEN WAS YOUR LAST DOSE? DATE: TIME: . NEUROLOGY: HAVE YOU FALLEN IN THE PAST 6 MONTHS? NO . ANY NEW EXTREMITY NUMBNESS OR WEAKNESS? NO . CARDIOLOGY: DO YOU HAVE A PACEMAKER OR DEFIBRILLATOR? NO . RESPIRATORY: HAVE YOU BEEN SICK IN THE PAST WEEK? NO . FEVER NO . FLU LIKE SYMPTOMS? NO . COUGH NO . INTEGUMENTARY: DO YOU HAVE ANY RASHES OR OPEN SORES? NO . ALLERGIC/IMMUNO: ARE YOU ALLERGIC TO SHELLFISH OR IV DYE? NO . ANY NEW ALLERGIES? NO . PSYCHIATRIC: DO YOU HAVE THOUGHTS OF HURTING YOURSELF OR SOMEONE ELSE? NO . ARE YOU ABUSED, NEGLECTED, OR IN AN UNSAFE ENVIRONMENT? NO . ENDOCRINOLOGY: ARE YOU DIABETIC? NO . OTHER: DO YOU NEED ANY PRESCRIPTIONS? NO . IF YES, PLEASE LIST: ____ . ANY NEW PROBLEMS WITH YOUR MEDICATIONS? NO . WHEN DID YOU LAST EAT? ____545 . WHEN DID YOU LAST DRINK? [employer] . WHAT DID YOU LAST DRINK? WATER . NAME OF PERSON DRIVING YOU HOME? _DORIS . DO YOU HAVE ANY OTHER QUESTIONS OR CONCERNS NO . VITAL SIGNS WT 207.6 LBS, HT 63 IN, BMI 36.77 INDEX, BP 136/83 MM HG, HR 71 /MIN, RR 16 /MIN, TEMP 97.3 F, OXYGEN SAT % 98%, NA INITIALS SC 11:46, REVIEWED BY: NL. ASSESSMENTS SPONDYLOSIS WITHOUT MYELOPATHY OR RADICULOPATHY, CERVICAL REGION - M47.812 (PRIMARY) PROCEDURES PN CERVICAL FACET BLOCK LOW BILATERAL CERVICAL PRE PROCEDURE DIAGNOSIS CERVICAL SPONDYLOSIS POST PROCEDURE DIAGNOSIS CERVICAL SPONDYLOSIS PROCEDURE BILATERAL C4-C5 AND BILATERAL C5-C6 CERVICAL FACET BLOCK SURGEON DR. ILENE TEMPLE PIPELINE DISPATCH OPERATOR NONE ANESTHESIA LOCAL WITH IV SEDATION PRE PROCEDURE NOTE THE PATIENT HAS HISTORY OF CHRONIC CERVICAL PAIN. I EVALUATE THE PATIENT AND REVIEWED THE CHART. I WENT OVER THE RISKS, ALTERNATIVES, AND BENEFITS ASSOCIATED WITH THIS PROCEDURE. THE PATIENT WOULD LIKE TO PROCEED AND GIVE CONSENT TO PERFORMED THE PROCEDURE. PATIENT WOULD LIKE TO MOVE FORWARD WITH IV SEDATION DUE TO DISCOMFORT, PAIN AND ANXIETY ASSOCIATED WITH THE PROCEDURE. THE PATIENT DENIES UNEXPLAINABLE WEIGHT LOSS, FEVER, CHILLS, OR NEW CHANGES IN URINARY OR BOWEL CONTROL. DESCRIPTION OF PROCEDURE THE PATIENT WAS BROUGHT TO THE PROCEDURE ROOM AND PLACED IN THE PRONE POSITION. THE CERVICOTHORACIC AREA WAS CLEANED WITH CHLORAPREP SOLUTION AND DRAPED ASEPTICALLY. THE PROCEDURE WAS DONE UNDER STERILE CONDITIONS. I CHECKED LATERALITY AND THE LEVEL WHERE THE PROCEDURE WAS GOING TO BE PERFORMED WITH THE PATIENT AND THE SUPPORTING STAFF AT THE MOMENT OF THE TIME OUT IN THE PROCEDURE ROOM. UNDER FLUOROSCOPIC GUIDANCE, TARGET POINT WAS SELECTED AT THE RIGHT AND LEFT C4-C5 AND RIGHT AND LEFT C5-C6 CERVICAL FACET JOINT. TARGET POINTS WERE SELECTED AFTER LATERAL ROTATION AND TILT OF THE MAGNIFIER OF THE C-ARM. LIDOCAINE 0.5% WAS USED TO NUMB THE SKIN AND THE SUBCUTANEOUS TISSUE BELOW IT. SPINAL NEEDLES, 22-GAUGE, WERE ADVANCED UNDER FLUOROSCOPIC GUIDANCE AND FOLLOWING PATIENT FEEDBACK UNTIL THE TARGETS WERE TOUCHED. THE POSITION OF THE NEEDLES WAS VERIFIED WITH AP AND LATERAL VIEWS. AFTER PROPER POSITION OF THE NEEDLES WAS ACHIEVED, ISOVUE M DYE 30, 0.1 ML WAS INJECTED SHOWING SPREAD OF THE DYE. THEN A SOLUTION OF 0.9 ML OF BUPIVACAINE 0.125% AND KENALOG 10 MG WAS INJECTED AT EACH SITE. PATIENT RECEIVED VERSED 1 MG AND FENTANYL 200 MCG IV DIVIDED DOSES THERE WAS NO EVIDENCE OF BLOOD, PARESTHESIA OR CEREBROSPINAL FLUID DURING THE PROCEDURE. THE PATIENT WAS SENT TO THE RECOVERY ROOM. THE PATIENT WAS MOVING THE EXTREMITIES AND DOING WELL. THERE WAS NO COMPLICATION DURING THE PROCEDURE. FLUOROSCOPY TIME WAS 10 SECONDS. I, AZIZA REBOLLAR, DOCUMENTED THE ABOVE INFORMATION ACTING A SCRIBE FOR DR. TEMPLE. I HAVE REVIEWED THE ABOVE DOCUMENT, WRITTEN BY AZIZA IBRAHIM AND I VERIFY THAT IT IS ACCURATE POST PROCEDURE NOTE THE PATIENT WILL BE SEEN IN A FOLLOW UP IN THE NEXT FEW WEEKS. INSTRUCTIONS WERE GIVEN, QUESTIONS WERE ANSWERED, AND THE PATIENT EXPRESSED UNDERSTANDING AND AGREES WITH THE PLAN. PN WORKMANS' COMP OPINION IN YOUR OPINION, WAS THE INCIDENT THAT THE PATIENT DESCRIBED THE COMPETENT MEDICAL CAUSE OF THIS INJURY/ILLNESS? YES ARE THE PATIENT'S COMPLAINTS CONSISTENT WITH HIS/HER HISTORY OF THE INJURY/ILLNESS? YES IS THE PATIENT'S HISTORY OF THE INJURY/ILLNESS CONSISTENT WITH YOUR OBJECTIVE FINDING? YES WHAT IS THE PERCENTAGE OF TEMPORARY IMPAIRMENT? MODERATE TO MARKED = 66.7% IS THE PATIENT WORKING? NO DOCTOR ON SITE: ILENE CHEW MD DIAGNOSTIC IMAGING [facility] FACET BLOCK (PAIN)[id number] PROCEDURE CODES 26252 INJ PARAVERT F JNT C/T 1 LEV 56923 INJ PARAVERT F JNT C/T 2 LEV 6045F RADXPS IN END [id number] PXD 87431 MOD SED SAME PHYS/QHP 5/>YRS DISPOSITION & COMMUNICATION FOLLOW UP 3 WEEKS ELECTRONICALLY SIGNED BY ILENE TEMPLE MD ON 11/16/2016 AT 08:16 PM EDT DISCLAIMER : THIS IS A VISIT SUMMARY EXTRACTED FROM THE [employer] CHART. IT IS NOT A COPY OF THE [employer] PROGRESS NOTE. MTDD
== END ==
LOC: M PAIN 11:40
PROVIDERS: ATTEND Anesthesiology
DX: G89.29 Other chronic pain (principal); M47.812 Spondylosis without myelopathy or radiculopathy, cervical region; M54.2 Cervicalgia; M25.511 Pain in right shoulder; K21.9 Gastro-esophageal reflux disease without esophagitis; E66.9 Obesity, unspecified; Z68.36 Body mass index [BMI] 36.0-36.9, adult; Z79.82 Long term (current) use of aspirin; Z79.899 Other long term (current) drug therapy; Z88.5 Allergy status to narcotic agent; Z88.8 Allergy status to other drugs, medicaments and biological substances; Z88.7 Allergy status to serum and vaccine
CPT/HCPCS: 64490; 64491; 99152; J2250; J3010; J3301; Q9967

== ENCOUNTER → 2016-12-04 | Outpatient (CLI) | payer OTHER, MEDICARE ==
[~2016-12-04] MED LIST changes: -BUPIVACAINE HCL 0.25% 30 ML VIAL As Ordered ONE; -ISOVUE-M 300 61% 15ML VIAL (Q9967) As Ordered ONE; -LIDOCAINE 1% SDV INJ 30 ML VIAL As Ordered ONE; -MIDAZOLAM INJ 2 MG/2 ML VIAL (J2250) As Ordered ONE; -TRIAMCINOLONE ACETONIDE SUSP 40 MG/ML VIAL (J3301) As Ordered ONE; -fentaNYL 100 MCG/2 ML INJECTION (J3010) As Ordered ONE
--- NOTE | 2016-12-23 02:01 | ECWPNPC ---
PATIENT NAME: JANAE PORTER : 1960 GENDER: FEMALE VISIT DATE: 12/04/2016 DISCHARGE DATE: 12/04/16 1338 VISIT LOCKED DATE TIME: PHYSICIAN: ILENE TEMPLE RESOURCE: ILENE TEMPLE REASON FOR APPOINTMENT 1. CERVICAL PAIN W/C HISTORY OF PRESENT ILLNESS HISTORY OF PRESENT ILLNESS: PAIN THE PATIENT DESCRIBES THE PAIN... 56 YEAR OLD FEMALE PATIENT WITH HISTORY OF CHRONIC CERVICAL PAIN. PATIENT DESCRIBES THE PAIN ACHING, SHARP, TENDER, SORE, AND HAVING IT ALL THE TIME WITH A PAIN SCORE OF 4/10. 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 PATIENT RECEIVED A NECK SURGERY IN 2010 AND STATES THAT IT DID AID IN FUNCTIONALITY BUT SHE IS STILL IN CONSTANT PAIN. PATIENT RECEIVED A CERVICAL FACET BLOCK ON 11/05/16 AND PATIENT STATES THAT SHE HAS HAD OVER 50% PAIN RELIEF FROM THE INJECTION FOR OVER 6 WEEKS AND WAS ABLE TO REDUCE THE CONSUMPTION OF MEDICATION. CURRENTLY THE PATIENT IS USING NUCYNTA AND CYMBALTA WHICH SHE STATES KEEPS HER MOBILE AND FUNCTIONAL. PATIENT DENIES UNEXPLAINABLE WEIGHT LOSS, FEVER, CHILLS, NEW CHANGES ON HER URINARY OR BOWEL CONTROL. FALL RISK SCREENING: SCREENING :NO FALLS IN THE PAST YEAR CURRENT MEDICATIONS TAKING CYMBALTA 30 MG CAPSULE DELAYED RELEASE PARTICLES 1 CAPSULE ORALLY TWICE A DAY TAKING ASPIR-81 81 MG TABLET DELAYED RELEASE 1 TABLET ORALLY ONCE A DAY TAKING CALCIUM CITRATE PLUS TABLET 1 TAB ORALLY THREE TIMES DAILY TAKING LYSINE 500 MG TABLET 1 TABLET ORALLY TWICE DAILY TAKING FISH OIL 1200 MG CAPSULE 1 CAPSULE ORALLY ONCE A DAY TAKING VITAMIN D3 5000 UNIT CAPSULE 2 CAPS ORALLY 5 DAYS A WEEK TAKING MULTIVITAMINS TABLET 1 TAB ORALLY DAILY TAKING VITAMIN B-12 500 MCG TABLET SUBLINGUAL 1 TABLET UNDER THE TONGUE AND ALLOW TO DISSOLVE SUBLINGUAL ONCE A DAY TAKING BIOTIN 5000 MCG TABLET 2 TAB ORALLY ONCE A DAY TAKING FERROUS SULFATE 325 (65 FE) MG TABLET 1 TABLET ORALLY THREE TIMES A WEEK TAKING COLACE 100 MG CAPSULE 1 CAPSULE NEEDED ORALLY ONCE A DAY TAKING OMEPRAZOLE 20 MG CAPSULE DELAYED RELEASE 1 CAPSULE ORALLY TWICE DAILY TAKING ESTRADIOL 1 MG TABLET [address] BUSBY ORALLY ONCE A DAY NOT-TAKING BLACK COHOSH 40 MG CAPSULE 2 TABS ORALLY DAILY NOT-TAKING ESTROVEN MAXIMUM STRENGTH 1 CAP ORALLY DAILY NOT-TAKING TUSSIONEX PENNKINETIC ER 10-8 MG/5ML SUSPENSION EXTENDED RELEASE 5 ML NEEDED ORALLY EVERY 12 HRS NOT-TAKING FLUTICASONE PROPIONATE 50 MCG/ACT SUSPENSION 1 SPRAY IN EACH NOSTRIL NASALLY ONCE A DAY NOT-TAKING SALINE NASAL SPRAY 0.65 % SOLUTION DIRECTED NASALLY MEDICATION LIST REVIEWED AND RECONCILED WITH THE PATIENT PAST MEDICAL HISTORY CHRONIC PAIN: BACK, NECK, R SHOULDER- FOLLOWS WITH PAIN CLINIC, UNDER WORKER'S COMP ESOPHAGEAL REFLUX - (PULMONARY EVAL FOR COUGH NEG.) OBESITY ALLERGIES RUBELLA VIRUS VACCINE: KNEES LOCKED: ALLERGY FOSAMAX: HAND SWELLING: ALLERGY CODEINE SULFATE: NAUSEA/VOMITING: ALLERGY SURGICAL HISTORY R ANKLE SURGERY RECONSTRUCTION - DR Virginia MABRY WRIST SURGERY R - DR Virginia MABRY BREAST REDUCTION - CARLOS A ZAID & BSO - ROSAS KNEE ARTHROSCOPY- DR Virginia MABRY SHOULDER SURGERY R - DR Virginia MABRY KNEE SURGERY L MICROFRACTURING - DR YUNIER MABRY 04-06 R FOOT NERVE BX - DR Virginia MABRY R FOOT SCAR TISSUE - DR WILLS L FOOT HEEL SPUR - MICH CERVICAL DORSAL COLUMN STIMULATOR (TRIAL) - MAVERICK 07-09-10 SPINAL CORD STIMULATOR IMPLANT - DR GIBSON 08-26-10 L WRIST DEQUERVAINS RELEASE - DR SHANA RIVERO 10-05-12 COLONOSCOPY, INTERNAL HEMORRHOIDS - ABELARDO 09/24/11 EXCISION OF SCALP CYST - BENIGN, DR WADSWORTH 11/02 LAP VERTICAL SLEEVE GASTRECTOMY - DR BEST 04/25/13 LEFT BREAST BIOPSY - BENIGN, INTERVENTIONAL RADIOLOGY F/UP PER DR PARSONS 05/10 L WRIST ARTHOPLASTY - DR YUNIER MABRY 05-11 REVIEW OF SYSTEMS REVIEWED BY: PROVIDER: ILENE TEMPLE MD . CONSTITUTIONAL: ANY CHANGE IN YOUR MEDICAL CONDITION? NO . CHILLS NO . FEVER NO . INFECTION: DO YOU HAVE NEW INFECTIONS? NO . DO YOU HAVE HISTORY OF MRSA? NO . MUSCULOSKELETAL: ANY NEW PATTERNS OF PAIN OR NUMBNESS? YES. PT STATES SHE HAD BILAT CERVICAL FACET BLOCK TO C4/C5-C5/C6 ON 11/05/16. PRE PROCEDURE PAIN WAS 7-8/10, POST PROCEDURE PAIN WAS 0/10, GRADUALLY CREEPING TO 4/10, TODAYS PAIN IS RATED AT 5/10. PT STATES SHE HAS A CERVICAL DCS, AND GETS CERVICAL FACET BLOCKS FOR BREAKTHROUGH PAIN. . GASTROENTEROLOGY: ANY NEW CHANGE IN BOWEL CONTROL? NO . GENITOURINARY: ANY NEW CHANGE IN BLADDER CONTROL? NO . IS THERE A CHANCE YOU COULD BE ? NO . HEMATOLOGY/LYMPH: DO YOU TAKE ANY BLOOD THINNERS? (FOR EXAMPLE- COUMADIN, PLAVIX, AGGRENOX, PLATEL, PRADAXA, OR XARELTO) NO . WHEN WAS YOUR LAST DOSE? DATE: TIME: . NEUROLOGY: HAVE YOU FALLEN IN THE PAST 6 MONTHS? NO . ANY NEW EXTREMITY NUMBNESS OR WEAKNESS? NO . CARDIOLOGY: DO YOU HAVE A PACEMAKER OR DEFIBRILLATOR? NO . RESPIRATORY: HAVE YOU BEEN SICK IN THE PAST WEEK? NO . FEVER NO . FLU LIKE SYMPTOMS? NO . COUGH NO . INTEGUMENTARY: DO YOU HAVE ANY RASHES OR OPEN SORES? NO . ALLERGIC/IMMUNO: ARE YOU ALLERGIC TO SHELLFISH OR IV DYE? NO . ANY NEW ALLERGIES? NO . PSYCHIATRIC: DO YOU HAVE THOUGHTS OF HURTING YOURSELF OR SOMEONE ELSE? NO . ARE YOU ABUSED, NEGLECTED, OR IN AN UNSAFE ENVIRONMENT? NO . ENDOCRINOLOGY: ARE YOU DIABETIC? NO . OTHER: DO YOU NEED ANY PRESCRIPTIONS? NO . IF YES, PLEASE LIST: ____ . ANY NEW PROBLEMS WITH YOUR MEDICATIONS? NO . WHEN DID YOU LAST EAT? ____ . WHEN DID YOU LAST DRINK? ____ . WHAT DID YOU LAST DRINK? ____ . NAME OF PERSON DRIVING YOU HOME? ____ . DO YOU HAVE ANY OTHER QUESTIONS OR CONCERNS NO . VITAL SIGNS WT 199.6 LBS, HT 63 IN, BMI 35.35 INDEX, BP 134/78 MM HG, HR 69 /MIN, RR 16 /MIN, TEMP 97.9 F, OXYGEN SAT % 99%, NA INITIALS SC 13:02, REVIEWED BY: JACEK. EXAMINATION : PATIENT IS ALERT O X 3 AND COOPERATIVE. TENDERNESS IN THE CERVICAL AREA AND PARASPINAL MUSCLE GROUP. PATIENT ABLE TO EXTEND THE NECK 30 DEGREES FLEX 45 DEGREES AND HAS LATERAL ROTATION OF 50 DEGREES. MRI OF THE CERVICAL SPINE DONE ON 02/27/2010 SHOWS DISC BULGE AT C5-C6 AND OSTEOPHYTE COMPLEX. ASSESSMENTS MYALGIA - M79.1 (PRIMARY) SPONDYLOSIS WITHOUT MYELOPATHY OR RADICULOPATHY, CERVICAL REGION - M47.812 CERVICALGIA - M54.2 TREATMENT MYALGIA NOTES: WE DISCUSSED SEVERAL ISSUES WITH MRS. PORTER'S PAIN MANAGEMENT CASE. AT THIS TIME THE PATIENT WILL CONTINUE WITH THE SAME MEDICATION REGIME BEFORE. PATIENT WILL CONTINUE TO USE THE NUCYNTA FOR THE SOMATIC PAIN AND THE CYMBALTA FOR THE NEUROPATHIC PAIN. PATIENT DENIES ABUSE OF ANY MEDICATION, DENIES USE OF ILLEGAL SUBSTANCES, AND STATES THAT HE IS ONLY USING THE MEDICATION FOR PAIN MANAGEMENT. URINE TOXICOLOGY REPORT DONE ON 08/2016 SHOWS CONSISTENT RESULTS WITH THE PATIENT'S MEDICATION LIST. DUE TO THE PATIENT STILL GETTING OVER 50% RELIEF FROM THE INJECTION WITH INCREASED MOBILITY AND FUNCTIONALITY WE WILL NOT HOLD ANY INTERVENTIONS AT THIS TIME. PATIENT WILL RETURN TO THE CLINIC IN 6 WEEKS. INSTRUCTIONS WERE GIVEN, QUESTIONS WERE ANSWERED, PATIENT REPORTS UNDERSTANDING AND AGREES WITH THE PLAN. I, AZIZA REBOLLAR, DOCUMENTED THE ABOVE INFORMATION ACTING A SCRIBE FOR DR. TEMPLE. I HAVE REVIEWED THE ABOVE DOCUMENT, WRITTEN BY AZIZA IBRAHIM AND I VERIFY THAT IT IS ACCURATE. OTHERS START TAPENTADOL HCL TABLET, 50 MG, 1 TABLET, ORALLY, EVERY 6 HRS PRN FOR PAIN MDD2, 30 DAY(S), 50, REFILLS 0 PROCEDURES PN WORKMANS' COMP OPINION IN YOUR OPINION, WAS THE INCIDENT THAT THE PATIENT DESCRIBED THE COMPETENT MEDICAL CAUSE OF THIS INJURY/ILLNESS? YES ARE THE PATIENT'S COMPLAINTS CONSISTENT WITH HIS/HER HISTORY OF THE INJURY/ILLNESS? YES IS THE PATIENT'S HISTORY OF THE INJURY/ILLNESS CONSISTENT WITH YOUR OBJECTIVE FINDING? YES WHAT IS THE PERCENTAGE OF TEMPORARY IMPAIRMENT? MODERATE TO MARKED = 66.7% IS THE PATIENT WORKING? NO DOCTOR ON SITE: ILENE CHEW MD PROCEDURE CODES FA211 ESTABILISHED PATIENT [facility] FACILITY CHARGE [id number] DOC MEDS VERIFIED W/PT OR RE G8730 PAIN ASSESS POS TOOL F/U PLAN DOC DISPOSITION & COMMUNICATION FOLLOW UP 6 WEEKS ELECTRONICALLY SIGNED BY ILENE TEMPLE MD ON 12/21/2016 AT 07:01 PM EDT DISCLAIMER : THIS IS A VISIT SUMMARY EXTRACTED FROM THE [employer] CHART. IT IS NOT A COPY OF THE [employer] PROGRESS NOTE. AUDREY
== END ==
LOC: M PAIN 13:00
PROVIDERS: ATTEND Anesthesiology
DX: G89.29 Other chronic pain (principal); M79.1 Myalgia; M47.812 Spondylosis without myelopathy or radiculopathy, cervical region; M54.2 Cervicalgia; K21.9 Gastro-esophageal reflux disease without esophagitis; E66.9 Obesity, unspecified; Z88.5 Allergy status to narcotic agent; Z88.7 Allergy status to serum and vaccine; Z88.8 Allergy status to other drugs, medicaments and biological substances; Z68.35 Body mass index [BMI] 35.0-35.9, adult; Z79.82 Long term (current) use of aspirin; Z79.899 Other long term (current) drug therapy

== ENCOUNTER → 2017-01-13 | Outpatient (REF) | payer OTHER, MEDICARE ==
[2017-01-13 12:49] LABS: ANION GAP 8 MEQ/L (8-16); BLOOD UREA NITROGEN 17 MG/DL (7-18); CALCIUM LEVEL 9.7 MG/DL (8.5-10.1); CARBON DIOXIDE LEVEL 28 MEQ/L (21-32); CHLORIDE LEVEL 107 MEQ/L (98-107); GLOMERULAR FILTRATION RATE > 60.0 (>51); GLUCOSE, FASTING 77 MG/DL (70-105); POTASSIUM SERUM 4.9 MEQ/L (3.5-5.1); SODIUM LEVEL 143 MEQ/L (136-145)
[2017-01-13 13:26] LABS: MEAN CORPUSCULAR HEMOGLOBIN 31.2 pg (27.0-33.0); MEAN CORPUSCULAR HGB CONC 33.8 g/dl (32.0-36.5); MEAN CORPUSCULAR VOLUME 92.2 fl (80.0-96.0); RED CELL DISTRIBUTION WIDTH 13.1 % (11.5-14.5); WHITE BLOOD COUNT 5.1 K/mm3 (4.0-10.0)
[2017-01-13 14:01] LABS: INR 0.94
== END ==
LOC: M SFHCPLAZ 09:53
PROVIDERS: ATTEND Physician Assistant
DX: Z01.812 Encounter for preprocedural laboratory examination (principal)

== ENCOUNTER → 2017-01-15 | Outpatient (CLI) | payer OTHER, MEDICARE ==
--- NOTE | 2017-01-29 02:01 | ECWPNPC ---
PATIENT NAME: JANAE PORTER : 1960 GENDER: FEMALE VISIT DATE: 01/15/2017 DISCHARGE DATE: 01/15/17 1111 VISIT LOCKED DATE TIME: PHYSICIAN: ILENE TEMPLE RESOURCE: ILENE TEMPLE REASON FOR APPOINTMENT 1. W/C NECK HISTORY OF PRESENT ILLNESS HISTORY OF PRESENT ILLNESS: PAIN THE PATIENT DESCRIBES THE PAIN... 56 YEAR OLD FEMALE PATIENT WITH HISTORY OF CHRONIC CERVICAL PAIN. PATIENT DESCRIBES THE PAIN ACHING, SHARP, TENDER, SORE, AND HAVING IT ALL THE TIME WITH A PAIN SCORE OF 6/10. 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 PATIENT RECEIVED A NECK SURGERY IN 2010 AND STATES THAT IT DID AID IN FUNCTIONALITY BUT SHE IS STILL IN CONSTANT PAIN. PATIENT RECEIVED A CERVICAL FACET BLOCK ON 11/05/16 AND PATIENT STATES THAT SHE HAS HAD OVER 50% PAIN RELIEF FROM THE INJECTION FOR OVER 8 WEEKS AND WAS ABLE TO REDUCE THE CONSUMPTION OF MEDICATION. PATIENT STATES THAT THE PAIN IS SLOWLY STARTING TO RETURN AT THIS TIME. CURRENTLY THE PATIENT IS USING NUCYNTA AND CYMBALTA WHICH SHE STATES KEEPS HER MOBILE AND FUNCTIONAL. PATIENT DENIES UNEXPLAINABLE WEIGHT LOSS, FEVER, CHILLS, NEW CHANGES ON HER URINARY OR BOWEL CONTROL. FALL RISK SCREENING: SCREENING :NO FALLS IN THE PAST YEAR CURRENT MEDICATIONS TAKING ASPIR-81 81 MG TABLET DELAYED RELEASE 1 TABLET ORALLY ONCE A DAY TAKING FISH OIL 1200 MG CAPSULE 1 CAPSULE ORALLY ONCE A DAY TAKING OMEPRAZOLE 20 MG CAPSULE DELAYED RELEASE 1 CAPSULE ORALLY TWICE DAILY TAKING CYMBALTA 30 MG CAPSULE DELAYED RELEASE PARTICLES 1 CAPSULE ORALLY TWICE A DAY TAKING NUCYNTA 50 MG TABLET 1 ORALLY NEEDED FOR PAIN Q8H MDD2 TAKING ESTRADIOL 1 MG TABLET [address] BUSBY ORALLY ONCE A DAY TAKING VITAMIN D3 5000 UNIT CAPSULE 2 CAPS ORALLY 5 DAYS A WEEK TAKING CALCIUM CITRATE PLUS TABLET 1 TAB ORALLY THREE TIMES DAILY TAKING MULTIVITAMINS TABLET 1 TAB ORALLY DAILY TAKING LYSINE 500 MG TABLET 1 TABLET ORALLY TWICE DAILY TAKING FERROUS SULFATE 325 (65 FE) MG TABLET 1 TABLET ORALLY THREE TIMES A WEEK TAKING BIOTIN 5000 MCG TABLET 2 TAB ORALLY ONCE A DAY TAKING COLACE 100 MG CAPSULE 1 CAPSULE NEEDED ORALLY ONCE A DAY TAKING VITAMIN B12 1000 MCG TABLET EXTENDED RELEASE 1 5000 MCG TABLET ORALLY ONCE A DAY TAKING MAGNESIUM-ZINC 133.33-5 MG TABLET 1 TABLET ORALLY TWICE A DAY NOT-TAKING VITAMIN B-12 500 MCG TABLET SUBLINGUAL 1 TABLET UNDER THE TONGUE AND ALLOW TO DISSOLVE SUBLINGUAL ONCE A DAY MEDICATION LIST REVIEWED AND RECONCILED WITH THE PATIENT PAST MEDICAL HISTORY CHRONIC PAIN: BACK, NECK, R SHOULDER- FOLLOWS WITH PAIN CLINIC, UNDER WORKER'S COMP ESOPHAGEAL REFLUX - (PULMONARY EVAL FOR COUGH NEG.) OBESITY ENVIRONMENTAL AND SEASONAL ALLERGIES ALLERGIES RUBELLA VIRUS VACCINE: KNEES LOCKED: ALLERGY FOSAMAX: HAND SWELLING: ALLERGY CODEINE SULFATE: NAUSEA/VOMITING: ALLERGY SURGICAL HISTORY R ANKLE SURGERY RECONSTRUCTION - DR Virginia MABRY WRIST SURGERY R (DE QUERVAINS) - DR Virginia MABRY REMOVAL OF SCAR TISSUE FROM RIGHT WRIST - DR. VALDEZ R FOOT NERVE BX - DR Virginia MABRY BREAST REDUCTION - CARLOS A R FOOT SCAR TISSUE - DR WILLS ZAID & BSO - ROSAS R KNEE ARTHROSCOPY- SHAVED CONDROMALACIA - DR Virginia MABRY -2003 L FOOT HEEL SPUR - MICH RIGHT ROTATOR CUFF REPAIR R - DR Virginia MABRY EXCISION OF SCALP CYST - BENIGN, DR WADSWORTH 10/2009 CERVICAL DORSAL COLUMN STIMULATOR (TRIAL) - MAVERICK SPINAL CORD STIMULATOR IMPLANT - DR GIBSON --2010 COLONOSCOPY, INTERNAL HEMORRHOIDS - ABELARDO KNEE SURGERY L MICROFRACTURING - DR YUNIER MABRY L WRIST DEQUERVAINS RELEASE - DR SHANA RIVERO LAP VERTICAL SLEEVE GASTRECTOMY - DR BEST - LEFT BREAST BIOPSY - BENIGN, INTERVENTIONAL RADIOLOGY F/UP PER DR PARSONS 04/2014 LEFT ROTATOR CUFF REPAIR - DR. YUNIER MABRY -2014 L THUMB/WRIST CMC ARTHOPLASTY - DR YUNIER MABRY -2015 R ROTATOR CUFF REPAIR - DR YUNIER MABRY -2016 SOCIAL HISTORY GENERAL: TOBACCO USE ARE YOU A:NONSMOKER BMI CARE GOAL FOLLOW-UP ABOVE NORMAL BMI FOLLOW-UPGIVING ENCOURAGEMENT TO EXERCISE ALCOHOL SCREENING DID YOU HAVE A DRINK CONTAINING ALCOHOL IN THE PAST YEAR?NO POINTS0 INTERPRETATIONNEGATIVE RECREATIONAL DRUG USE DENIES. CAFFEINE NONE. HIV / HEP-C SCREENING HIV TEST OFFERED TO PATIENT:YES DATE OFFERED:03/21/2013 TEST ACCEPTED:YES HEP-C TEST OFFERED TO PATIENT:NO OCCUPATION: DISABLED. DIET: REGULAR BARIATRIC DIET CURRENTLY. EXERCISE: WALKING AND OCCASIONAL SNOWSHOEING. MARITAL STATUS: .. OTHERS AT HOME: FATHER, MOTHER. TENRIISM NO TENRIISM BELIEFS THAT WOULD IMPACT HEALTH CARE. LANGUAGE NAMIBIAN. 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 LEARNING BARRIERS / SPECIAL NEEDS CHANGE FROM LAST VISIT?NO BARRIERS TO LEARNING?NO HEARING IMPAIRED?NO VISION IMPAIRED?YES :CORRECTIVE LENSES COGNITIVELY IMPAIRED?NO READINESS TO LEARN?YES LEARNING PREFERENCES?YES :TAPES/VIDEOS, BOOKLETS, HANDOUTS LEARNING CAPABILITIES PRESENT?YES EMOTIONAL BARRIERS?NO SPECIAL DEVICES?NO PAIN CLINIC PFS, CLERGY, PUBLIC HEALTH REFERRALS PFS REFERRAL NEEDED?NO CLERGY REFERRAL NEEDED?NO PUBLIC HEALTH REFERRAL NEEDED?NO WAS THE PROVIDER NOTIFIED OF ANY PERTINENT INFO?NO HAS THE PATIENT BEEN EDUCATED REGARDING HIS/HER PLAN OF CARE?YES HAS THE PATIENT BEEN EDUCATED REGARDING PAIN, THE RISK FOR PAIN, THE IMPORTANCE OF EFFECTIVE PAIN MANAGEMENT, AND THE PAIN ASSESSMENT PROCESS?YES PATIENT: ____. ADVANCE DIRECTIVES HEALTH CARE PROXY?YES [facility] OR [facility] TRAVEL OUTSIDE US: NO. HOUSING: PARENTS HOME. DOMESTIC VIOLENCE NONE. HOSPITALIZATION/MAJOR DIAGNOSTIC PROCEDURE SURGERIES ABOVE REVIEW OF SYSTEMS REVIEWED BY: PROVIDER: . CONSTITUTIONAL: ANY CHANGE IN YOUR MEDICAL CONDITION? NO . CHILLS NO . FEVER NO . INFECTION: DO YOU HAVE NEW INFECTIONS? NO . DO YOU HAVE HISTORY OF MRSA? NO . MUSCULOSKELETAL: ANY NEW PATTERNS OF PAIN OR NUMBNESS? YES, RIGHT SHOULDER PAIN, S/P ROTATOR CUFF TEAR 2005 AND AGIN SUMMER 2015. PT STATES SHE IS HAVING SURGERY 01/27/17 FOR THIS WITH [facility] . GASTROENTEROLOGY: ANY NEW CHANGE IN BOWEL CONTROL? NO . GENITOURINARY: ANY NEW CHANGE IN BLADDER CONTROL? NO . IS THERE A CHANCE YOU COULD BE ? NO . HEMATOLOGY/LYMPH: DO YOU TAKE ANY BLOOD THINNERS? (FOR EXAMPLE- COUMADIN, PLAVIX, AGGRENOX, PLATEL, PRADAXA, OR XARELTO) NO . WHEN WAS YOUR LAST DOSE? DATE: TIME: . NEUROLOGY: HAVE YOU FALLEN IN THE PAST 6 MONTHS? NO . ANY NEW EXTREMITY NUMBNESS OR WEAKNESS? NO . CARDIOLOGY: DO YOU HAVE A PACEMAKER OR DEFIBRILLATOR? NO . RESPIRATORY: HAVE YOU BEEN SICK IN THE PAST WEEK? NO . FEVER NO . FLU LIKE SYMPTOMS? NO . COUGH NO . INTEGUMENTARY: DO YOU HAVE ANY RASHES OR OPEN SORES? YES, SCRAPES AND CUTS ON LEFT HAND AND ARM FROM LANDSCAPING . ALLERGIC/IMMUNO: ARE YOU ALLERGIC TO SHELLFISH OR IV DYE? NO . ANY NEW ALLERGIES? NO . PSYCHIATRIC: DO YOU HAVE THOUGHTS OF HURTING YOURSELF OR SOMEONE ELSE? NO . ARE YOU ABUSED, NEGLECTED, OR IN AN UNSAFE ENVIRONMENT? NO . ENDOCRINOLOGY: ARE YOU DIABETIC? NO . OTHER: DO YOU NEED ANY PRESCRIPTIONS? YES, CYMBALTA . IF YES, PLEASE LIST: ____ . ANY NEW PROBLEMS WITH YOUR MEDICATIONS? NO . WHEN DID YOU LAST EAT? ____ . WHEN DID YOU LAST DRINK? ____ . WHAT DID YOU LAST DRINK? ____ . NAME OF PERSON DRIVING YOU HOME? ____ . DO YOU HAVE ANY OTHER QUESTIONS OR CONCERNS YES, PT STATES SHE NEVER STARTED TAPENTADOL, NEVER RECEIVED A SCRIPT FOR IT . VITAL SIGNS WT 199.2 LBS, HT 63 IN, BMI 35.28 INDEX, BP 132/78 MM HG, HR 70 /MIN, RR 16 /MIN, TEMP 97.2 F, OXYGEN SAT % 96, REVIEWED BY: RANDALL. EXAMINATION : PATIENT IS ALERT O X 3 AND COOPERATIVE. TENDERNESS IN THE CERVICAL AREA AND PARASPINAL MUSCLE GROUP. PATIENT ABLE TO EXTEND THE NECK 30 DEGREES FLEX 45 DEGREES AND HAS LATERAL ROTATION OF 50 DEGREES. MRI OF THE CERVICAL SPINE DONE ON 02/27/2010 SHOWS DISC BULGE AT C5-C6 AND OSTEOPHYTE COMPLEX. ASSESSMENTS MYALGIA - M79.1 (PRIMARY) SPONDYLOSIS OF CERVICAL REGION WITHOUT MYELOPATHY OR RADICULOPATHY - M47.812 CERVICALGIA - M54.2 TREATMENT MYALGIA NOTES: WE DISCUSSED SEVERAL ISSUES WITH MRS. PORTER'S PAIN MANAGEMENT CASE. AT THIS TIME THE PATIENT WILL CONTINUE WITH THE SAME MEDICATION REGIME BEFORE. PATIENT WILL CONTINUE TO USE THE NUCYNTA FOR THE SOMATIC PAIN AND THE CYMBALTA FOR THE NEUROPATHIC PAIN. PATIENT DENIES ABUSE OF ANY MEDICATION, DENIES USE OF ILLEGAL SUBSTANCES, AND STATES THAT HE IS ONLY USING THE MEDICATION FOR PAIN MANAGEMENT. URINE TOXICOLOGY REPORT DONE ON 08/2016 SHOWS CONSISTENT RESULTS WITH THE PATIENT'S MEDICATION LIST. ISTOP WAS REVIEWED [id number]. PATIENT REPORTS STILL SEEING A BENENFITS FROM, THE CERVICAL FACET BLOCK DONE ON 11/05/16 AND STATES SHE DOES NOT WANT TO MOVE FORWARD WITH INTERVENTIONS AT THIS TIME. PATIENT WILL FOLLOW UP IN 2 MONTHS. INSTRUCTIONS WERE GIVEN, QUESTIONS WERE ANSWERED, PATIENT REPORTS UNDERSTANDING AND AGREES WITH THE PLAN. I, AZIZA REBOLLAR, DOCUMENTED THE ABOVE INFORMATION ACTING A SCRIBE FOR DR. TEMPLE. I HAVE REVIEWED THE ABOVE DOCUMENT, WRITTEN BY AZIZA IBRAHIM AND I VERIFY THAT IT IS ACCURATE. OTHERS REFILL CYMBALTA CAPSULE DELAYED RELEASE PARTICLES, 30 MG, 1 CAPSULE, ORALLY, TWICE A DAY, 30 DAY(S), 60 CAPSULE, REFILLS 2 REFILL NUCYNTA TABLET, 50 MG, 1, ORALLY NEEDED FOR PAIN, Q8H MDD2, 30 DAYS, 55, REFILLS 0 PROCEDURES PN WORKMANS' COMP OPINION IN YOUR OPINION, WAS THE INCIDENT THAT THE PATIENT DESCRIBED THE COMPETENT MEDICAL CAUSE OF THIS INJURY/ILLNESS? YES ARE THE PATIENT'S COMPLAINTS CONSISTENT WITH HIS/HER HISTORY OF THE INJURY/ILLNESS? YES IS THE PATIENT'S HISTORY OF THE INJURY/ILLNESS CONSISTENT WITH YOUR OBJECTIVE FINDING? YES WHAT IS THE PERCENTAGE OF TEMPORARY IMPAIRMENT? MODERATE TO MARKED = 66.7% IS THE PATIENT WORKING? NO DOCTOR ON SITE: ILENE CHEW MD PROCEDURE CODES FA211 ESTABILISHED PATIENT [facility] FACILITY CHARGE G8427 DOC MEDS VERIFIED W/PT OR RE G8730 PAIN ASSESS POS TOOL F/U PLAN DOC DISPOSITION & COMMUNICATION FOLLOW UP 2 MONTHS ELECTRONICALLY SIGNED BY ILENE TEMPLE MD ON 01/25/2017 AT 01:19 PM EDT DISCLAIMER : THIS IS A VISIT SUMMARY EXTRACTED FROM THE [id number] CHART. IT IS NOT A COPY OF THE [employer] PROGRESS NOTE. AUDREY
== END ==
LOC: M PAIN 10:00
PROVIDERS: ATTEND Anesthesiology
DX: G89.29 Other chronic pain (principal); M47.812 Spondylosis without myelopathy or radiculopathy, cervical region; M79.1 Myalgia; K21.9 Gastro-esophageal reflux disease without esophagitis; E11.9 Type 2 diabetes mellitus without complications; J30.2 Other seasonal allergic rhinitis; Z68.35 Body mass index [BMI] 35.0-35.9, adult; Z88.7 Allergy status to serum and vaccine; Z88.5 Allergy status to narcotic agent; Z88.8 Allergy status to other drugs, medicaments and biological substances; Z79.52 Long term (current) use of systemic steroids; Z79.899 Other long term (current) drug therapy

== ENCOUNTER → 2017-03-12 | Outpatient (CLI) | payer OTHER ==
--- NOTE | 2017-03-13 00:39 | ECWPNPC ---
PATIENT NAME: JANAE PORTER : 1960 GENDER: FEMALE VISIT DATE: 03/12/2017 DISCHARGE DATE: 03/12/17 1125 VISIT LOCKED DATE TIME: PHYSICIAN: KIMBER ENCINAS RESOURCE: KIMBER ENCINAS REASON FOR APPOINTMENT 1. W/C NECK HISTORY OF PRESENT ILLNESS HISTORY OF PRESENT ILLNESS: PAIN THE PATIENT DESCRIBES THE PAIN... THE PATIENT DESCRIBES THE PAIN... THE PATIENT DESCRIBES THE PAIN... THE PATIENT DESCRIBES THE PAIN... PAIN THE PATIENT DESCRIBES THE PAIN... THE PATIENT DESCRIBES THE PAIN... THE PATIENT DESCRIBES THE PAIN... THE PATIENT DESCRIBES THE PAIN... HERE FOR 2MOS F/U.HAD TPI 11-14-15.REPORTED SIGNIFICANT IMPROVEMENT IN PAIN.THIS IS A WORK RELATED INJURY [id number].SUFFERS FROM CHRONIC NECK AND RIGHT SHOULDER PAIN.CURRENTLY USING NUCYNTA 50 MG PERIODICALLY FOR SEVERE PAIN EPISODES W GOOD EFFECT.USING CYMBALTA 30MG BID FOR CHRONIC NECK JOINT PAIN AND NEUROPATHIC PAIN.RATING PAIN VAS 7/10.DESCRIBES PAIN CONSTANT ACHING ,SORE AND PINCHING.HAS RESPONDED WELL TO TPI IN PAST.HAD RIGHT SHOULDER SURGERY 2007.DCS PLACED 2010.CONTINUES TO FIND IT EFFECTIVE AND HAS IT ON 24HR PER DAY. FALL RISK SCREENING: SCREENING :NO FALLS IN THE PAST YEAR CURRENT MEDICATIONS TAKING ASPIR-81 81 MG TABLET DELAYED RELEASE 1 TABLET ORALLY ONCE A DAY TAKING FISH OIL 1200 MG CAPSULE 1 CAPSULE ORALLY ONCE A DAY TAKING ESTRADIOL 1 MG TABLET [address] BUSBY ORALLY ONCE A DAY TAKING VITAMIN D3 5000 UNIT CAPSULE 2 CAPS ORALLY 5 DAYS A WEEK TAKING CALCIUM CITRATE PLUS TABLET 1 TAB ORALLY THREE TIMES DAILY TAKING MULTIVITAMINS TABLET 1 TAB ORALLY DAILY TAKING LYSINE 500 MG TABLET 1 TABLET ORALLY TWICE DAILY TAKING FERROUS SULFATE 325 (65 FE) MG TABLET 1 TABLET ORALLY THREE TIMES A WEEK TAKING BIOTIN 5000 MCG TABLET 2 TAB ORALLY ONCE A DAY TAKING COLACE 100 MG CAPSULE 1 CAPSULE NEEDED ORALLY ONCE A DAY TAKING VITAMIN B12 1000 MCG TABLET EXTENDED RELEASE 1 5000 MCG TABLET ORALLY ONCE A DAY TAKING MAGNESIUM-ZINC 133.33-5 MG TABLET 1 TABLET ORALLY TWICE A DAY TAKING CYMBALTA 30 MG CAPSULE DELAYED RELEASE PARTICLES 1 CAPSULE ORALLY TWICE A DAY TAKING NUCYNTA 50 MG TABLET 1 ORALLY NEEDED FOR PAIN Q8H MDD2, NOTES: PAIN CLINIC TAKING OMEPRAZOLE 20 MG CAPSULE DELAYED RELEASE 1 CAPSULE ORALLY TWICE DAILY TAKING VITAMIN B-12 500 MCG TABLET SUBLINGUAL 1 TABLET UNDER THE TONGUE AND ALLOW TO DISSOLVE SUBLINGUAL ONCE A DAY MEDICATION LIST REVIEWED AND RECONCILED WITH THE PATIENT PAST MEDICAL HISTORY CHRONIC PAIN: BACK, NECK, R SHOULDER- FOLLOWS WITH PAIN CLINIC, UNDER WORKER'S COMP ESOPHAGEAL REFLUX - (PULMONARY EVAL FOR COUGH NEG.) OBESITY ENVIRONMENTAL AND SEASONAL ALLERGIES RIGHT SHOULDER SURGERY ALLERGIES RUBELLA VIRUS VACCINE: KNEES LOCKED: ALLERGY FOSAMAX: HAND SWELLING: ALLERGY CODEINE SULFATE: NAUSEA/VOMITING: ALLERGY PERCOCET: SWELLING: ALLERGY SURGICAL HISTORY R ANKLE SURGERY RECONSTRUCTION - DR Virginia MABRY -1982 WRIST SURGERY R (DE QUERVAINS) - DR Virginia MABRY -1992 REMOVAL OF SCAR TISSUE FROM RIGHT WRIST - DR. VALDEZ -1993 R FOOT NERVE BX - DR Virginia MABRY -1999 BREAST REDUCTION - CARLOS A R FOOT SCAR TISSUE - DR WILLS ZAID & BSO - ROSAS -2002 R KNEE ARTHROSCOPY- SHAVED CONDROMALACIA - DR Virginia MABRY -2003 L FOOT HEEL SPUR - MICH RIGHT ROTATOR CUFF REPAIR R - DR Virginia MABRY -2007 EXCISION OF SCALP CYST - BENIGN, DR WADSWORTH 10/2009 CERVICAL DORSAL COLUMN STIMULATOR (TRIAL) - MAVERICK -2010 SPINAL CORD STIMULATOR IMPLANT - DR GIBSON --2010 COLONOSCOPY, INTERNAL HEMORRHOIDS - ABELARDO KNEE SURGERY L MICROFRACTURING - DR YUNIER MABRY -2011 L WRIST DEQUERVAINS RELEASE - DR SHANA RIVERO LAP VERTICAL SLEEVE GASTRECTOMY - DR BEST - LEFT BREAST BIOPSY - BENIGN, INTERVENTIONAL RADIOLOGY F/UP PER DR PARSONS 04/2014 LEFT ROTATOR CUFF REPAIR - DR. YUNIER MABRY -2014 L THUMB/WRIST CMC ARTHOPLASTY - DR YUNIER MABRY -2015 R ROTATOR CUFF REPAIR - DR YUNIER MABRY -2016 RIGHT SHOULDER SHOULDER 01/27/17 HOSPITALIZATION/MAJOR DIAGNOSTIC PROCEDURE SURGERIES ABOVE REVIEW OF SYSTEMS REVIEWED BY: PROVIDER: KIMBER CUNNINGHAM . CONSTITUTIONAL: ANY CHANGE IN YOUR MEDICAL CONDITION? NO . CHILLS NO . FEVER NO . INFECTION: DO YOU HAVE NEW INFECTIONS? NO . DO YOU HAVE HISTORY OF MRSA? NO . MUSCULOSKELETAL: ANY NEW PATTERNS OF PAIN OR NUMBNESS? NO . GASTROENTEROLOGY: ANY NEW CHANGE IN BOWEL CONTROL? NO . GENITOURINARY: ANY NEW CHANGE IN BLADDER CONTROL? NO . IS THERE A CHANCE YOU COULD BE ? NO . HEMATOLOGY/LYMPH: DO YOU TAKE ANY BLOOD THINNERS? (FOR EXAMPLE- COUMADIN, PLAVIX, AGGRENOX, PLATEL, PRADAXA, OR XARELTO) NO . WHEN WAS YOUR LAST DOSE? DATE: TIME: . NEUROLOGY: HAVE YOU FALLEN IN THE PAST 6 MONTHS? NO . ANY NEW EXTREMITY NUMBNESS OR WEAKNESS? NO . CARDIOLOGY: DO YOU HAVE A PACEMAKER OR DEFIBRILLATOR? NO . RESPIRATORY: HAVE YOU BEEN SICK IN THE PAST WEEK? NO . FEVER NO . FLU LIKE SYMPTOMS? NO . COUGH NO . INTEGUMENTARY: DO YOU HAVE ANY RASHES OR OPEN SORES? NO . ALLERGIC/IMMUNO: ARE YOU ALLERGIC TO SHELLFISH OR IV DYE? NO . ANY NEW ALLERGIES? NO . PSYCHIATRIC: DO YOU HAVE THOUGHTS OF HURTING YOURSELF OR SOMEONE ELSE? NO . ARE YOU ABUSED, NEGLECTED, OR IN AN UNSAFE ENVIRONMENT? NO . ENDOCRINOLOGY: ARE YOU DIABETIC? NO . OTHER: DO YOU NEED ANY PRESCRIPTIONS? YES . IF YES, PLEASE LIST: ____ . ANY NEW PROBLEMS WITH YOUR MEDICATIONS? NO . WHEN DID YOU LAST EAT? ____ . WHEN DID YOU LAST DRINK? ____ . WHAT DID YOU LAST DRINK? ____ . NAME OF PERSON DRIVING YOU HOME? ____ . DO YOU HAVE ANY OTHER QUESTIONS OR CONCERNS NO . VITAL SIGNS WT 209.8 LBS, HT 63 IN, BMI 37.16 INDEX, BP 138/78 MM HG, HR 76 /MIN, RR 16 /MIN, TEMP 97.1 F, OXYGEN SAT % 98%, SAFE IN ENV? (Y/N) YES, NA INITIALS SC 10:34, REVIEWED BY: BROCK. EXAMINATION GENERAL EXAMINATION: LUNGS:LUNG SOUNDS ARE CLEAR. HEART:HEART RATE REGULAR. MUSCULOSKELETAL:ELICITED WITH PALPATION OVER CERVICAL SPINOUS PROCESSES AND ACROSS THE TRAPEZIUS MUSCLES BILATERALLY. RESTRICTION OF ROM IS NOTED. , TRIGGER POINTS:, ELICITED WITH PALPATION OVER CERVICAL SPINOUS PROCESSES AND ACROSS THE TRAPEZIUS MUSCLES BILATERALLY. RESTRICTION OF ROM IS NOTED. . ASSESSMENTS SPONDYLOSIS OF CERVICAL REGION WITHOUT MYELOPATHY OR RADICULOPATHY - M47.812 (PRIMARY) MYALGIA - M79.1 TREATMENT SPONDYLOSIS OF CERVICAL REGION WITHOUT MYELOPATHY OR RADICULOPATHY CONTINUE CYMBALTA CAPSULE DELAYED RELEASE PARTICLES, 30 MG, 1 CAPSULE, ORALLY, TWICE A DAY CONTINUE NUCYNTA TABLET, 50 MG, 1, ORALLY NEEDED FOR PAIN, Q8H MDD2, NOTES: PAIN CLINIC NOTES: ISTOP REGISTRY REVIEWED [id number] DEMNOSTRATES COMPLLIANCE. BRINGS IN MEDICATIONS WHICH IS APPROPRIATE FOR WHAT WAS DISPENSED. RECENT URINE TOXICOLOGY REVIEWED. NO UNAUTHORIZED MEDICATIONS. NO ILLICIT SUBSTANCES AND PRESCRIBED MEDICATIONS WERE PRESENT. TPI NECK W/C. PROCEDURES PN WORKMANS' COMP OPINION IN YOUR OPINION, WAS THE INCIDENT THAT THE PATIENT DESCRIBED THE COMPETENT MEDICAL CAUSE OF THIS INJURY/ILLNESS? YES ARE THE PATIENT'S COMPLAINTS CONSISTENT WITH HIS/HER HISTORY OF THE INJURY/ILLNESS? YES IS THE PATIENT'S HISTORY OF THE INJURY/ILLNESS CONSISTENT WITH YOUR OBJECTIVE FINDING? YES WHAT IS THE PERCENTAGE OF TEMPORARY IMPAIRMENT? MODERATE TO MARKED = 66.7% IS THE PATIENT WORKING? NO DOCTOR ON SITE: ILENE CHEW MD PROCEDURE CODES FA211 ESTABILISHED PATIENT [facility] FACILITY CHARGE DISPOSITION & COMMUNICATION FOLLOW UP 2 MONTHS (REASON: TPI NECK W/C) ELECTRONICALLY SIGNED BY MARISA COLLADO ON 03/12/2017 AT 11:50 AM EST DISCLAIMER : THIS IS A VISIT SUMMARY EXTRACTED FROM THE [employer] CHART. IT IS NOT A COPY OF THE [employer] PROGRESS NOTE. AUDREY
== END ==
LOC: M PAIN 09:45
PROVIDERS: ATTEND Nurse Practitioner Family
DX: G89.29 Other chronic pain (principal); M47.812 Spondylosis without myelopathy or radiculopathy, cervical region; M79.1 Myalgia; K21.9 Gastro-esophageal reflux disease without esophagitis; J30.2 Other seasonal allergic rhinitis; Z88.7 Allergy status to serum and vaccine; Z88.5 Allergy status to narcotic agent; Z88.8 Allergy status to other drugs, medicaments and biological substances; Z79.82 Long term (current) use of aspirin; Z79.899 Other long term (current) drug therapy

== ENCOUNTER → 2017-04-15 | Outpatient (CLI) | payer MEDICARE ==
--- NOTE | 2017-04-15 09:11 | REPMRS ---
Patient History The patient states she had a clinical breast exam in January 2017. Patient is postmenopausal and is nulliparous. Family history of endometrial cancer in paternal grandmother at age 50 or over and prostate cancer in 2 paternal uncles at age 50 or over. [place] Guided Breast Biopsy of the left breast, May 07, 2014. Reductions of both breasts, 2000. Took hormonal contraceptives for 4 years. Taking unspecified hormones for 9 years. Digital Mammo Screening Bilat: April 15, 2017 - Exam #: [id number] Bilateral CC and MLO view(s) were taken. Technologist: Sonai Fleming, Technologist Prior study comparison: April 13, 2016, bilateral digital mammo screening bilat performed at [facility]. April 11, 2015, bilateral digital mammo screening bilat performed at [facility]. FINDINGS: There are scattered fibroglandular densities. There has been no change in the appearance of the mammogram from the prior studies. There is a mild amount of residual fibroglandular tissue which is fairly symmetric. There is no interval development of dominant mass, architectural distortion, or clustered microcalcification suggestive of malignancy. ASSESSMENT: BI-RADS/ACR category 1 mammogram. Negative. Recommendation Routine screening mammogram in 1 year (for women over age 40). This mammogram was interpreted with the aid of an FDA-approved computer-aided dectection system. Electronically Signed By: Chuck Baker MD 04/15/17 0911
== END ==
LOC: M RAD 07:17
PROVIDERS: ATTEND Obstetrics & Gynecology
DX: Z12.31 Encounter for screening mammogram for malignant neoplasm of breast (principal); Z78.0 Asymptomatic menopausal state; Z92.0 Personal history of contraception; Z79.890 Hormone replacement therapy

== ENCOUNTER → 2017-05-12 | Outpatient (CLI) | payer OTHER | LOC: M PAIN 09:00 | DX: M47.812 Spondylosis without myelopathy or radiculopathy, cervical region (principal); M79.1 Myalgia; Z79.82 Long term (current) use of aspirin; Z79.899 Other long term (current) drug therapy; Z88.5 Allergy status to narcotic agent; Z88.8 Allergy status to other drugs, medicaments and biological substances | CPT/HCPCS: G0463 ==

== ENCOUNTER → 2017-05-25 | Outpatient (CLI) | payer OTHER, MEDICARE ==
[~2017-05-25] MED LIST changes: -/DULO30CA PO; -ACET500C PO; -AMRIX ER PO; -BABY81CH PO; -BIOT50004 PO; +BUPIVACAINE HCL 0.25% 10 ML VIAL As Ordered; +BUPIVACAINE HCL 0.25% 30 ML VIAL As Ordered; -CALC500T49 PO; -CINN500C9 PO; -ESTR0.5T OR; -FEXO30TA PO; -FISH100035 PO; -HYDR-3713 PO; -HYDR25TA6; -IRON1TAB PO; -Iron PO; -KEFL500C PO; -LYSINE PO; -MULTLIQ7 PO; -NAPR-855 PO; -Nucynta PO; -OMEP20TA7 OR; -OXYC1TAB23 PO; -SOMA350T OR; -TIZA4CAP3 PO; -TRAM50TA2 PO; +TRIAMCINOLONE ACETONIDE SUSP 40 MG/ML VIAL (J3301) As Ordered; -VITA500S3 SL; -VITAMIN D50000 UNT PO; -[UNRECOGNIZED DRUG - REMARK]; +diazePAM 5 MG TAB As Ordered; +oxyCODONE 5MG TAB As Ordered; -tps cream TD
== END ==
LOC: M PAIN 14:45
DX: G89.29 Other chronic pain (principal); M79.1 Myalgia; K21.9 Gastro-esophageal reflux disease without esophagitis; E66.9 Obesity, unspecified; J30.2 Other seasonal allergic rhinitis; F32.9 Major depressive disorder, single episode, unspecified; Z79.82 Long term (current) use of aspirin; Z79.899 Other long term (current) drug therapy; Z88.7 Allergy status to serum and vaccine; Z88.5 Allergy status to narcotic agent; Z88.8 Allergy status to other drugs, medicaments and biological substances
CPT/HCPCS: J3301

== ENCOUNTER → 2017-06-14 | Outpatient (CLI) | payer OTHER, MEDICARE | LOC: M PAIN 08:45 | DX: M47.812 Spondylosis without myelopathy or radiculopathy, cervical region (principal); M79.1 Myalgia; K21.9 Gastro-esophageal reflux disease without esophagitis; F32.9 Major depressive disorder, single episode, unspecified; Z79.82 Long term (current) use of aspirin; Z79.899 Other long term (current) drug therapy; J30.2 Other seasonal allergic rhinitis; Z88.8 Allergy status to other drugs, medicaments and biological substances; Z88.5 Allergy status to narcotic agent; Z88.7 Allergy status to serum and vaccine | CPT/HCPCS: G0463 ==

== ENCOUNTER → 2017-09-06 | Outpatient (CLI) | payer OTHER | LOC: M PAIN 10:15 | DX: G89.29 Other chronic pain (principal); M47.812 Spondylosis without myelopathy or radiculopathy, cervical region; M79.1 Myalgia; M54.2 Cervicalgia; M25.511 Pain in right shoulder; K21.9 Gastro-esophageal reflux disease without esophagitis; E66.9 Obesity, unspecified; J30.2 Other seasonal allergic rhinitis; F32.9 Major depressive disorder, single episode, unspecified; Z79.82 Long term (current) use of aspirin; Z79.891 Long term (current) use of opiate analgesic; Z88.7 Allergy status to serum and vaccine; Z88.5 Allergy status to narcotic agent; Z88.8 Allergy status to other drugs, medicaments and biological substances | CPT/HCPCS: G0463 ==

== ENCOUNTER → 2017-11-09 | Outpatient (CLI) | payer OTHER | LOC: M PAIN 08:45 | DX: M47.812 Spondylosis without myelopathy or radiculopathy, cervical region (principal); M79.1 Myalgia; G89.29 Other chronic pain; K21.9 Gastro-esophageal reflux disease without esophagitis; J30.2 Other seasonal allergic rhinitis; F32.9 Major depressive disorder, single episode, unspecified; E66.01 Morbid (severe) obesity due to excess calories; Z68.38 Body mass index [BMI] 38.0-38.9, adult; Z79.82 Long term (current) use of aspirin; Z79.899 Other long term (current) drug therapy; Z88.5 Allergy status to narcotic agent; Z88.8 Allergy status to other drugs, medicaments and biological substances; Z88.7 Allergy status to serum and vaccine | CPT/HCPCS: G0463 ==

== ENCOUNTER → 2017-12-13 | Outpatient (CLI) | payer OTHER ==
[~2017-12-13] MED LIST changes: -BUPIVACAINE HCL 0.25% 10 ML VIAL As Ordered; +ISOVUE-M 300 61% 15ML VIAL (Q9967) As Ordered; +LIDOCAINE 1% SDV INJ 30 ML VIAL As Ordered; +diphenhydrAMINE 25 MG CAP As Ordered
== END ==
LOC: M PAIN 08:30
DX: M47.812 Spondylosis without myelopathy or radiculopathy, cervical region (principal); M25.511 Pain in right shoulder; K21.9 Gastro-esophageal reflux disease without esophagitis; E66.9 Obesity, unspecified; J30.2 Other seasonal allergic rhinitis; F32.9 Major depressive disorder, single episode, unspecified; Z79.82 Long term (current) use of aspirin; Z79.899 Other long term (current) drug therapy; Z88.7 Allergy status to serum and vaccine; Z88.5 Allergy status to narcotic agent; Z88.8 Allergy status to other drugs, medicaments and biological substances
CPT/HCPCS: J3301

== ENCOUNTER → 2018-01-06 | Outpatient (CLI) | payer OTHER | LOC: M PAIN 09:00 | DX: M47.812 Spondylosis without myelopathy or radiculopathy, cervical region (principal); G89.29 Other chronic pain; K21.9 Gastro-esophageal reflux disease without esophagitis; J30.2 Other seasonal allergic rhinitis; F32.9 Major depressive disorder, single episode, unspecified; Z79.82 Long term (current) use of aspirin; Z79.899 Other long term (current) drug therapy; Z88.5 Allergy status to narcotic agent; Z88.8 Allergy status to other drugs, medicaments and biological substances; Z88.7 Allergy status to serum and vaccine | CPT/HCPCS: G0463 ==

== ENCOUNTER → 2018-03-08 | Outpatient (CLI) | payer OTHER | LOC: M PAIN 08:30 | DX: M47.812 Spondylosis without myelopathy or radiculopathy, cervical region (principal); K21.9 Gastro-esophageal reflux disease without esophagitis; J30.2 Other seasonal allergic rhinitis; F32.9 Major depressive disorder, single episode, unspecified; E66.01 Morbid (severe) obesity due to excess calories; Z68.38 Body mass index [BMI] 38.0-38.9, adult; Z79.82 Long term (current) use of aspirin; Z79.891 Long term (current) use of opiate analgesic; Z79.899 Other long term (current) drug therapy; Z88.5 Allergy status to narcotic agent; Z88.7 Allergy status to serum and vaccine; Z88.8 Allergy status to other drugs, medicaments and biological substances | CPT/HCPCS: G0463 ==

== ENCOUNTER → 2018-04-21 | Outpatient (CLI) | payer MEDICARE ==
[~2018-04-21] MED LIST changes: +/DULO30CA PO; +ACET500C PO; +AMRIX ER PO; +BABY81CH PO; +BIOT50004 PO; -BUPIVACAINE HCL 0.25% 30 ML VIAL As Ordered; +CALC500T49 PO; +CINN500C9 PO; +ESTR0.5T OR; +FEXO30TA PO; +FISH100035 PO; +HYDR-3713 PO; +HYDR25TA6; +IRON1TAB PO; -ISOVUE-M 300 61% 15ML VIAL (Q9967) As Ordered; +Iron PO; +KEFL500C PO; -LIDOCAINE 1% SDV INJ 30 ML VIAL As Ordered; +LYSINE PO; +MULTLIQ7 PO; +NAPR-855 PO; +Nucynta PO; +OMEP20TA7 OR; +OXYC1TAB23 PO; +SOMA350T OR; +TIZA4CAP PO; +TRAM50TA2 PO; -TRIAMCINOLONE ACETONIDE SUSP 40 MG/ML VIAL (J3301) As Ordered; +VITA500S3 SL; +VITAMIN D50000 UNT PO; +[UNRECOGNIZED DRUG - REMARK]; -diazePAM 5 MG TAB As Ordered; -diphenhydrAMINE 25 MG CAP As Ordered; -oxyCODONE 5MG TAB As Ordered; +tps cream TD
--- NOTE | 2018-04-21 10:36 | REPMRS ---
Patient History The patient states she had a clinical breast exam in January 2018. Family history of prostate cancer at age 50 or over in paternal uncle, prostate cancer at age 50 or over in paternal uncle, endometrial cancer at age 50 or over in paternal grandmother. US Guided Breast Biopsy of the left breast, May 07, 2014. Reductions of both breasts, 2000. Took hormonal contraceptives for 4 years. Taking unspecified hormones for 9 years. Digital Mammo Screening Bilat: April 21, 2018 - Exam #: [id number] Bilateral CC and MLO view(s) were taken. Technologist: Kelsy Reilly, Technologist Prior study comparison: April 15, 2017, bilateral digital mammo screening bilat performed at [facility]. April 13, 2016, bilateral digital mammo screening bilat performed at [facility]. April 11, 2015, bilateral digital mammo screening bilat performed at [facility]. FINDINGS: The breast tissue is almost entirely fat. There is a needle biopsy marker clip in the left breast medially. Benign stable areas of fibrosis are seen bilaterally in each medial breast unchanged. There has been no change in the appearance of the mammogram from the prior studies. There is no interval development of dominant mass, architectural distortion, or clustered microcalcification typical of malignancy. 3-D tomosynthesis shows no additional findings. Assessment: BI-RADS/ACR category 2 mammogram. Benign finding(s). Recommendation Routine screening mammogram of both breasts in 1 year (for women over age 40). This patient's Lifetime Breast Cancer RIsk is estimated at 8.5 %. This mammogram was interpreted with the aid of an FDA-approved computer-aided dectection system. Electronically Signed By: Bryan Sanchez MD 04/21/18 6113
== END ==
LOC: M RAD 09:25
PROVIDERS: ATTEND Obstetrics & Gynecology
DX: Z12.31 Encounter for screening mammogram for malignant neoplasm of breast (principal); Z80.42 Family history of malignant neoplasm of prostate; Z80.49 Family history of malignant neoplasm of other genital organs

== ENCOUNTER → 2018-06-24 | Outpatient (CLI) | payer OTHER ==
--- NOTE | 2018-07-12 00:29 | ECWPNPC ---
PATIENT NAME: JANAE PORTER : 1960 GENDER: FEMALE VISIT DATE: 06/24/2018 DISCHARGE DATE: 06/24/18 1543 VISIT LOCKED DATE TIME: PHYSICIAN: KIMBER ENCINAS RESOURCE: KIMBER ENCINAS REASON FOR APPOINTMENT 1. W/C BACK/NECK HISTORY OF PRESENT ILLNESS HISTORY OF PRESENT ILLNESS: PAIN THE PATIENT DESCRIBES THE PAIN... THE PATIENT DESCRIBES THE PAIN... THE PATIENT DESCRIBES THE PAIN... THE PATIENT DESCRIBES THE PAIN... THE PATIENT DESCRIBES THE PAIN... THE PATIENT DESCRIBES THE PAIN... THE PATIENT DESCRIBES THE PAIN... THE PATIENT DESCRIBES THE PAIN... THE PATIENT DESCRIBES THE PAIN... THE PATIENT DESCRIBES THE PAIN... THE PATIENT DESCRIBES THE PAIN... THE PATIENT DESCRIBES THE PAIN... THE PATIENT DESCRIBES THE PAIN... THE PATIENT DESCRIBES THE PAIN... THE PATIENT DESCRIBES THE PAIN... THE PATIENT DESCRIBES THE PAIN... THE PATIENT DESCRIBES THE PAIN... HERE FOR 3MOS F/U.THIS IS A WORK RELATED INJURY [id number].SUFFERS FROM CHRONIC NECK AND RIGHT SHOULDER PAIN.SCHEDULED FOR RIGHT SHOULDER SURGERY TOMORROW.REPORTING CONTINUED IMPROVEMENT IN NECK AND HEADACHES SINCE CERVICAL FACET BLOCK C4/5-C5/6 12-13-17.REPORTING INCREASE IN RIGHT SHOULDER PAIN LATELY. USING CYMBALTA 30MG BID AND NUCYNTA 50MG Q8H PRN FOR SEVERE PAIN.USING NUCYNTA FOR CHRONIC NECK AND RIGHT SHOULDER ACUTE NEUROPATHIC PAIN EPISODES.RATING PAIN VAS 5/10.DESCRIBES PAIN CONSTANT ACHING ,SORE AND PINCHING.DCS PLACED 2010.CONTINUES TO FIND DCS EFFECTIVE AND HAS IT ON 24HR PER DAY. FALL RISK SCREENING: SCREENING : NO FALLS IN THE PAST YEAR. CURRENT MEDICATIONS TAKING ASPIR-81 81 MG TABLET DELAYED RELEASE 1 TABLET ORALLY ONCE A DAY TAKING FISH OIL 1200 MG CAPSULE 1 CAPSULE ORALLY ONCE A DAY TAKING ESTRADIOL 1 MG TABLET [address] BUSBY ORALLY ONCE A DAY TAKING VITAMIN D3 5000 UNIT CAPSULE 2 CAPS ORALLY 5 DAYS A WEEK TAKING CALCIUM CITRATE PLUS TABLET 1 TAB ORALLY THREE TIMES DAILY TAKING MULTIVITAMINS TABLET 1 TAB ORALLY DAILY TAKING LYSINE 500 MG TABLET 1 TABLET ORALLY TWICE DAILY TAKING FERROUS SULFATE 325 (65 FE) MG TABLET 1 TABLET ORALLY THREE TIMES A WEEK TAKING BIOTIN 5000 MCG TABLET 2 TAB ORALLY ONCE A DAY TAKING COLACE 100 MG CAPSULE 1 CAPSULE NEEDED ORALLY ONCE A DAY TAKING MAGNESIUM-ZINC 133.33-5 MG TABLET 1 TABLET ORALLY TWICE A DAY TAKING VITAMIN B-12 500 MCG TABLET SUBLINGUAL 1 TABLET UNDER THE TONGUE AND ALLOW TO DISSOLVE SUBLINGUAL ONCE A DAY TAKING CINNAMON 500 MG CAPSULE ORALLY TAKING CYMBALTA 30 MG CAPSULE DELAYED RELEASE PARTICLES 1 CAPSULE ORALLY THREE TIMES DAILY, NOTES: PRESCRIBED THIRD DOSE BY PRIMARY TAKING OMEPRAZOLE 20 MG CAPSULE DELAYED RELEASE 1 CAPSULE ORALLY TWICE DAILY TAKING CYMBALTA 30 MG CAPSULE DELAYED RELEASE PARTICLES 1 CAPSULE ORALLY BID TAKING NUCYNTA 50 MG TABLET 1 ORALLY NEEDED FOR PAIN Q8H MDD2, NOTES: WORKERS COMP MEDICATION LIST REVIEWED AND RECONCILED WITH THE PATIENT PAST MEDICAL HISTORY CHRONIC PAIN: BACK, NECK, R SHOULDER- FOLLOWS WITH PAIN CLINIC, UNDER WORKER'S COMP ESOPHAGEAL REFLUX - (PULMONARY EVAL FOR COUGH NEG.) OBESITY ENVIRONMENTAL AND SEASONAL ALLERGIES RIGHT SHOULDER SURGERY OTHER DEPRESSION ALLERGIES RUBELLA VIRUS VACCINE: KNEES LOCKED - ALLERGY FOSAMAX: HAND SWELLING - ALLERGY CODEINE SULFATE: NAUSEA/VOMITING - ALLERGY SURGICAL HISTORY R ANKLE SURGERY RECONSTRUCTION - DR Virginia MABRY WRIST SURGERY R (DE QUERVAINS) - DR Virginia MABRY -1992 REMOVAL OF SCAR TISSUE FROM RIGHT WRIST - DR. VALDEZ -1993 R FOOT NERVE BX - DR Virginia MABRY -1999 BREAST REDUCTION - CARLOS A R FOOT SCAR TISSUE - DR WILLS ZAID & BSO - ROSAS R KNEE ARTHROSCOPY- SHAVED CONDROMALACIA - DR Virginia MABRY -2003 L FOOT HEEL SPUR - MICH RIGHT ROTATOR CUFF REPAIR R - DR Virginia MABRY -2007 EXCISION OF SCALP CYST - BENIGN, DR WADSWORTH 10/2009 CERVICAL DORSAL COLUMN STIMULATOR (TRIAL) - MAVERICK -2010 SPINAL CORD STIMULATOR IMPLANT - DR GIBSON --2010 COLONOSCOPY, INTERNAL HEMORRHOIDS - ABELARDO -2011 KNEE SURGERY L MICROFRACTURING - DR YUNIER MABRY -2011 L WRIST DEQUERVAINS RELEASE - DR SHANA RIVERO LAP VERTICAL SLEEVE GASTRECTOMY - DR BEST - LEFT BREAST BIOPSY - BENIGN, INTERVENTIONAL RADIOLOGY F/UP PER DR PARSONS 04/2014 LEFT ROTATOR CUFF REPAIR - DR. YUNIER MABRY -2014 L THUMB/WRIST [facility]MC ARTHOPLASTY - DR YUNIER MABRY -2015 R ROTATOR CUFF REPAIR - DR YUNIER MABRY -2016 RIGHT SHOULDER SURGERY 08/19/17 FAMILY HISTORY FATHER: ALIVE 85 YRS, DIAGNOSED WITH HYPERTENSION, HEART DISEASE MOTHER: ALIVE 83 YRS, HYPERTENSION SIBLINGS: HTN - 2 BROTHERS, HEART DISEASE/ CABG - 1BR, HEART DISEASE 2 BROTHER(S) , 1 SISTER(S) . SOCIAL HISTORY GENERAL: TOBACCO USE ARE YOU A:NONSMOKER BMI CARE GOAL FOLLOW-UP ABOVE NORMAL BMI FOLLOW-UPGIVING ENCOURAGEMENT TO EXERCISE ALCOHOL SCREENING DID YOU HAVE A DRINK CONTAINING ALCOHOL IN THE PAST YEAR?NO POINTS0 INTERPRETATIONNEGATIVE RECREATIONAL DRUG USE DRUG USE?NO CAFFEINE CAFFEINE USE?YES SODA OCC SEXUAL HX HAD SEX IN THE LAST 12 MONTHS (VAGINAL, ORAL, OR ANAL)?NO HAVE YOU EVER HAD AN STD?NO HIV / HEP-C SCREENING HIV TEST OFFERED TO PATIENT:YES DATE OFFERED:03/21/2013 TEST ACCEPTED:YES HEP-C TEST OFFERED TO PATIENT:NO ISLAM [id number] NONE LANGUAGE LANGUAGES SPOKEN:[employer] EDUCATION 2 YEARS OF COLLEGE. LEARNING BARRIERS / SPECIAL NEEDS CHANGE FROM LAST VISIT?NO BARRIERS TO LEARNING?NO HEARING IMPAIRED?NO VISION IMPAIRED?YES :CORRECTIVE LENSES COGNITIVELY IMPAIRED?NO READINESS TO LEARN?YES LEARNING PREFERENCES?YES :TAPES/VIDEOS, BOOKLETS, HANDOUTS LEARNING CAPABILITIES PRESENT?YES EMOTIONAL BARRIERS?NO SPECIAL DEVICES?NO MANAGER PATHOLOGY NEEDED?NO DOMESTIC VIOLENCE NONE. OCCUPATION: DISABLED. DIET: REGULAR BARIATRIC DIET CURRENTLY. EXERCISE: WALKING AND OCCASIONAL SNOWSHOEING. MARITAL STATUS: .. OTHERS AT HOME: FATHER, MOTHER. PAIN CLINIC PFS, CLERGY, PUBLIC HEALTH REFERRALS PFS REFERRAL NEEDED?NO CLERGY REFERRAL NEEDED?NO PUBLIC HEALTH REFERRAL NEEDED?NO WAS THE PROVIDER NOTIFIED OF ANY PERTINENT INFO?YES HAS THE PATIENT BEEN EDUCATED REGARDING HIS/HER PLAN OF CARE?YES HAS THE PATIENT BEEN EDUCATED REGARDING PAIN, THE RISK FOR PAIN, THE IMPORTANCE OF EFFECTIVE PAIN MANAGEMENT, AND THE PAIN ASSESSMENT PROCESS?YES HOUSING: PARENTS HOME. ADVANCE DIRECTIVE ADVANCE DIRECTIVE DISCUSSED WITH PATIENT:YES HCP IS PARENTS CARLIN PORTER [phone] REVIEWED WITH PATIENT 01/06/18936 LASREVIEWED WITH PT 03/08/18 0904 BV. HOSPITALIZATION/MAJOR DIAGNOSTIC PROCEDURE SURGERIES ABOVE REVIEW OF SYSTEMS REVIEWED BY: PROVIDER: KIMBER CUNNINGHAM . CONSTITUTIONAL: ANY CHANGE IN YOUR MEDICAL CONDITION? NO . CHILLS NO . FEVER NO . INFECTION: DO YOU HAVE NEW INFECTIONS? NO . DO YOU HAVE HISTORY OF MRSA? NO . MUSCULOSKELETAL: ANY NEW PATTERNS OF PAIN OR NUMBNESS? INCREASED PAIN IN NECK, PT STATES IT MAY BE RADIATING FROM SHOULDER . GASTROENTEROLOGY: ANY NEW CHANGE IN BOWEL CONTROL? NO . GENITOURINARY: ANY NEW CHANGE IN BLADDER CONTROL? NO . IS THERE A CHANCE YOU COULD BE ? NO . HEMATOLOGY/LYMPH: DO YOU TAKE ANY BLOOD THINNERS? (FOR EXAMPLE- COUMADIN, PLAVIX, AGGRENOX, PLATEL, PRADAXA, OR XARELTO) NO . WHEN WAS YOUR LAST DOSE? DATE: TIME: . NEUROLOGY: HAVE YOU FALLEN IN THE PAST 12 MONTHS? NO . ANY NEW EXTREMITY NUMBNESS OR WEAKNESS? NO . CARDIOLOGY: DO YOU HAVE A PACEMAKER OR DEFIBRILLATOR? NO, DCS . RESPIRATORY: HAVE YOU BEEN SICK IN THE PAST WEEK? YES, NAGGING COUGH . FEVER NO . FLU LIKE SYMPTOMS? NO . COUGH NO . INTEGUMENTARY: DO YOU HAVE ANY RASHES OR OPEN SORES? NO . ALLERGIC/IMMUNO: ARE YOU ALLERGIC TO IV DYE? NO . ANY NEW ALLERGIES? NO . PSYCHIATRIC: DO YOU HAVE THOUGHTS OF HURTING YOURSELF OR SOMEONE ELSE? NO . ARE YOU ABUSED, NEGLECTED, OR IN AN UNSAFE ENVIRONMENT? NO . ENDOCRINOLOGY: ARE YOU DIABETIC? NO . OTHER: DO YOU NEED ANY PRESCRIPTIONS? REFILL CYMBALTA, NUCYNTA . IF YES, PLEASE LIST: ____ . ANY NEW PROBLEMS WITH YOUR MEDICATIONS? NO . WHEN DID YOU LAST EAT? ____ . WHEN DID YOU LAST DRINK? ____ . WHAT DID YOU LAST DRINK? ____ . NAME OF PERSON DRIVING YOU HOME? ____ . DO YOU HAVE ANY OTHER QUESTIONS OR CONCERNS NO . VITAL SIGNS WT 221.6 LBS, HT 63 IN, BMI 39.25 INDEX, BP 146/86 MM HG, HR 100 /MIN, RR 18 /MIN, TEMP 96%, OXYGEN SAT % 96%, NA INITIALS SC 15:05. EXAMINATION GENERAL EXAMINATION: LUNGS:LUNG SOUNDS ARE CLEAR. HEART:HEART RATE REGULAR. MUSCULOSKELETAL:PALPATION: + DISCOMFORT NECK AND PARASPINALS.ROJM NECK LIMITED . ASSESSMENTS SPONDYLOSIS OF CERVICAL REGION WITHOUT MYELOPATHY OR RADICULOPATHY - M47.812 TREATMENT SPONDYLOSIS OF CERVICAL REGION WITHOUT MYELOPATHY OR RADICULOPATHY REFILL CYMBALTA CAPSULE DELAYED RELEASE PARTICLES, 30 MG, 1 CAPSULE, ORALLY, BID, 90 DAY(S), 180, REFILLS 0, NOTES: PRESCRIBED THIRD DOSE BY PRIMARY REFILL NUCYNTA TABLET, 50 MG, 1, ORALLY NEEDED FOR PAIN, Q8H MDD2, 30 DAY(S), 55, REFILLS 0, NOTES: WORKERS COMP NOTES: ISTOP REGISTRY REVIEWED AND DEMONSTRATES COMPLLIANCE. BRINGS IN MEDICATIONS WHICH IS APPROPRIATE FOR WHAT WAS DISPENSED. RECENT URINE TOXICOLOGY REVIEWED. NO UNAUTHORIZED MEDICATIONS. NO ILLICIT SUBSTANCES AND PRESCRIBED MEDICATIONS WERE PRESENT. URINE TOX TODAY, RISKS AND BENEFITS OF NARCOTIC/OPIOD MEDICATIONS WERE REVIEWED WITH PATIENT - THIS INCLUDES BUT IS NOT LIMITED TO RISK OF DEPENDANCE/DEVELOPMENT OF ADDICTION, MOOD DISTURBANCE AND DEPRESSION, OSTEOPOROSIS, HORMONAL AND LABIDAL CHANGES, RESPIRATORY DEPRESSION AND . PATIENT IS ADVISED NOT TO DRIVE OR DRINK ALCOHOL WHILE ON THESE MEDICATIONS. PROCEDURES PN WORKMANS' COMP OPINION IN YOUR OPINION, WAS THE INCIDENT THAT THE PATIENT DESCRIBED THE COMPETENT MEDICAL CAUSE OF THIS INJURY/ILLNESS? YES ARE THE PATIENT'S COMPLAINTS CONSISTENT WITH HIS/HER HISTORY OF THE INJURY/ILLNESS? YES IS THE PATIENT'S HISTORY OF THE INJURY/ILLNESS CONSISTENT WITH YOUR OBJECTIVE FINDING? YES WHAT IS THE PERCENTAGE OF TEMPORARY IMPAIRMENT? MODERATE TO MARKED = 66.7% IS THE PATIENT WORKING? NO DOCTOR ON SITE: ILENE CHEW MD PROCEDURE CODES FA211 ESTABILISHED PATIENT [facility] CHARGE DISPOSITION & COMMUNICATION FOLLOW UP 3 MONTHS ELECTRONICALLY SIGNED BY MARISA MICHAUD ON 07/11/2018 AT 11:07 AM EDT DISCLAIMER : THIS IS A VISIT SUMMARY EXTRACTED FROM THE [employer] CHART. IT IS NOT A COPY OF THE [employer] PROGRESS NOTE. AUDREY
== END ==
LOC: M PAIN 15:15
PROVIDERS: ATTEND Nurse Practitioner Family
DX: M47.812 Spondylosis without myelopathy or radiculopathy, cervical region (principal); G89.29 Other chronic pain; K21.9 Gastro-esophageal reflux disease without esophagitis; F32.89 Other specified depressive episodes; Z79.82 Long term (current) use of aspirin; Z79.899 Other long term (current) drug therapy; Z88.5 Allergy status to narcotic agent; Z88.7 Allergy status to serum and vaccine; Z88.8 Allergy status to other drugs, medicaments and biological substances

== ENCOUNTER → 2018-10-03 | Outpatient (CLI) | payer OTHER ==
[~2018-10-03] MED LIST changes: -/DULO30CA PO; +CYMB1CAP5 PO
== END ==
LOC: M PAIN 14:15
PROVIDERS: ATTEND Nurse Practitioner Family
DX: M47.812 Spondylosis without myelopathy or radiculopathy, cervical region (principal); G89.29 Other chronic pain; Z79.899 Other long term (current) drug therapy; J32.0 Chronic maxillary sinusitis; Z88.7 Allergy status to serum and vaccine; Z88.8 Allergy status to other drugs, medicaments and biological substances

== ENCOUNTER → 2018-11-02 | Outpatient (REF) | payer MEDICARE ==
[2018-11-02 10:37] LABS: ALBUMIN 3.6 GM/DL (3.2-5.2); ALT/SGPT 25 U/L (12-78); BILIRUBIN,TOTAL 0.3 MG/DL (0.2-1.0); BLOOD UREA NITROGEN 16 MG/DL (7-18); CALCIUM LEVEL 8.8 MG/DL (8.5-10.1); CARBON DIOXIDE LEVEL 27 MEQ/L (21-32); CHLORIDE LEVEL 106 MEQ/L (98-107); CHOLESTEROL LEVEL 228 MG/DL (<200); CHOLESTEROL RISK RATIO 3.211 (<5); GLOMERULAR FILTRATION RATE > 60.0 (>51); GLUCOSE, FASTING 83 MG/DL (70-100); HDL CHOLESTEROL 71 MG/DL (>40); LDL CHOLESTEROL 115 MG/DL (<100); NON-HDL-C 157 MG/DL; POTASSIUM SERUM 4.1 MEQ/L (3.5-5.1); SODIUM LEVEL 140 MEQ/L (136-145); TOTAL PROTEIN 7.5 GM/DL (6.4-8.2); TRIGLYCERIDES LEVEL 210 MG/DL (<150)
[2018-11-02 10:38] LABS: TOTAL 25(OH) VITAMIN D 63.9 NG/ML (30.0-100.0)
== END ==
LOC: M SFHCPLAZ 08:17
PROVIDERS: ATTEND Nurse Practitioner Family
DX: E78.00 Pure hypercholesterolemia, unspecified (principal); E66.9 Obesity, unspecified

== ENCOUNTER → 2019-01-10 | Outpatient (CLI) | payer MEDICARE ==
[~2019-01-10] MED LIST changes: +BUPIVACAINE HCL 0.25% 30 ML VIAL As Ordered ONE; +ISOVUE-M 300 61% 15ML VIAL (Q9967) As Ordered ONE; +LIDOCAINE 1% SDV INJ 30 ML VIAL As Ordered ONE; +TRIAMCINOLONE ACETONIDE SUSP 40 MG/ML VIAL (J3301) As Ordered ONE; +diazePAM 5 MG TAB As Ordered ONE; +diphenhydrAMINE 25 MG CAP As Ordered ONE; +oxyCODONE 5MG TAB As Ordered ONE
--- NOTE | 2019-01-10 18:34 | REP ---
C-ARM VIEWS CERVICAL SPINE: CLINICAL HISTORY: Pain. C-ARM view of cervical spine region performed during a cervical facet injection by Dr. Granger. Bilateral needles are seen along the cervical facets and a small amount of contrast is visualized along the tips of the needles. 6 seconds of fluoroscopy time was utilized. Electronically Signed by Chuck Baker MD 01/12/2019 04:33 P
--- NOTE | 2019-01-21 01:53 | ECWPNPC ---
PATIENT NAME: JANAE PORTER : 1960 GENDER: FEMALE VISIT DATE: 01/10/2019 DISCHARGE DATE: 01/10/19 1201 VISIT LOCKED DATE TIME: PHYSICIAN: ILENE TEMPLE MD RESOURCE: ILENE TEMPLE MD REASON FOR APPOINTMENT 1. W/C BILAT C4-5, C5-6 FB THERAPEUTIC HISTORY OF PRESENT ILLNESS HISTORY OF PRESENT ILLNESS: PAIN THE PATIENT DESCRIBES THE PAIN... FALL RISK SCREENING: SCREENING :NO FALLS REPORTED IN THE LAST YEAR CURRENT MEDICATIONS TAKING FISH OIL 1200 MG CAPSULE 1 CAPSULE ORALLY ONCE A DAY TAKING ESTRADIOL 1 MG TABLET [address] BUSBY ORALLY ONCE A DAY TAKING VITAMIN D3 5000 UNIT CAPSULE 2 CAPS ORALLY 5 DAYS A WEEK TAKING CALCIUM CITRATE PLUS TABLET 1 TAB ORALLY THREE TIMES DAILY TAKING MULTIVITAMINS TABLET 1 TAB ORALLY DAILY TAKING LYSINE 500 MG TABLET 1 TABLET ORALLY TWICE DAILY TAKING FERROUS SULFATE 325 (65 FE) MG TABLET 1 TABLET ORALLY THREE TIMES A WEEK TAKING BIOTIN 5000 MCG TABLET 2 TAB ORALLY ONCE A DAY TAKING COLACE 100 MG CAPSULE 1 CAPSULE NEEDED ORALLY ONCE A DAY TAKING MAGNESIUM-ZINC 133.33-5 MG TABLET 1 TABLET ORALLY TWICE A DAY TAKING VITAMIN B-12 500 MCG TABLET SUBLINGUAL 1 TABLET UNDER THE TONGUE AND ALLOW TO DISSOLVE SUBLINGUAL ONCE A DAY TAKING CINNAMON 500 MG CAPSULE 1 CAP ORALLY DAILY TAKING GLUCOSAMINE 500 MG CAPSULE 1 CAPSULE WITH A MEAL ORALLY BID TAKING CYMBALTA 30 MG CAPSULE DELAYED RELEASE PARTICLES 1 CAPSULE ORALLY BID TAKING CYMBALTA 30 MG CAPSULE DELAYED RELEASE PARTICLES 1 CAPSULE ORALLY DAILY, NOTES: PRESCRIBED THIRD DOSE BY PRIMARY TAKING OMEPRAZOLE 20 MG CAPSULE DELAYED RELEASE 1 CAPSULE ORALLY ONCE DAILY TAKING NUCYNTA 50 MG TABLET 1 ORALLY NEEDED FOR PAIN Q8H MDD2, NOTES: WORKERS COMP NOT-TAKING ASPIR-81 81 MG TABLET DELAYED RELEASE 1 TABLET ORALLY ONCE A DAY MEDICATION LIST REVIEWED AND RECONCILED WITH THE PATIENT PAST MEDICAL HISTORY CHRONIC PAIN: BACK, NECK, R SHOULDER- FOLLOWS WITH PAIN CLINIC, UNDER WORKER'S COMP ESOPHAGEAL REFLUX - (PULMONARY EVAL FOR COUGH NEG.) OBESITY ENVIRONMENTAL AND SEASONAL ALLERGIES RIGHT SHOULDER SURGERY OTHER DEPRESSION ALLERGIES RUBELLA VIRUS VACCINE: KNEES LOCKED - ALLERGY FOSAMAX: HAND SWELLING - ALLERGY CODEINE SULFATE: NAUSEA/VOMITING - ALLERGY SURGICAL HISTORY R ANKLE SURGERY RECONSTRUCTION - DR Virginia MBARY WRIST SURGERY R (DE QUERVAINS) - DR Virginia MABRY REMOVAL OF SCAR TISSUE FROM RIGHT WRIST - DR. VALDEZ -1993 R FOOT NERVE BX - DR Virginia MABRY -1999 BREAST REDUCTION - CARLOS A R FOOT SCAR TISSUE - DR WILLS ZAID & BSO - ROSAS R KNEE ARTHROSCOPY- SHAVED CONDROMALACIA - DR Virginia MABRY -2003 L FOOT HEEL SPUR - MICH RIGHT ROTATOR CUFF REPAIR R - DR Virginia MABRY -2007 EXCISION OF SCALP CYST - BENIGN, DR WADSWORTH 10/2009 CERVICAL DORSAL COLUMN STIMULATOR (TRIAL) - MAVERICK SPINAL CORD STIMULATOR IMPLANT - DR GIBSON --2010 COLONOSCOPY, INTERNAL HEMORRHOIDS - ABELARDO KNEE SURGERY L MICROFRACTURING - DR YUNIER MABRY L WRIST DEQUERVAINS RELEASE - DR SHANA RIVERO LAP VERTICAL SLEEVE GASTRECTOMY - DR BEST LEFT BREAST BIOPSY - BENIGN, INTERVENTIONAL RADIOLOGY F/UP PER DR PARSONS 04/2014 LEFT ROTATOR CUFF REPAIR - DR. YUNIER MABRY -2014 L THUMB/WRIST [facility] ARTHOPLASTY - DR YUNIER MABRY -2015 R ROTATOR CUFF REPAIR - DR YUNIER MABRY -2016 RIGHT SHOULDER SURGERY 08/19/17 RIGHT SHOULDER AND BICEP SURGERY 06/28/18 NEG STRESS TEST, HOLTER - DE JESUS 05/2018 FAMILY HISTORY FATHER: ALIVE 85 YRS, DIAGNOSED WITH HYPERTENSION, UNSPECIFIED HEART DISEASE MOTHER: ALIVE 83 YRS, HYPERTENSION SIBLINGS: HTN - 2 BROTHERS, HEART DISEASE/ CABG - 1BR, UNSPECIFIED HEART DISEASE 2 BROTHER(S) , 1 SISTER(S) . SOCIAL HISTORY GENERAL: TOBACCO USE ARE YOU A:NONSMOKER HIV / HEP-C SCREENING HIV TEST OFFERED TO PATIENT:YES DATE OFFERED:03/21/2013 TEST ACCEPTED:YES HEP-C TEST OFFERED TO PATIENT:NO OTHERS AT HOME: FATHER, MOTHER. HOUSING: PARENTS HOME. 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 DIET: REGULAR BARIATRIC DIET CURRENTLY. LANGUAGE LANGUAGES SPOKEN:OCCITAN DOMESTIC VIOLENCE NONE. BMI CARE GOAL FOLLOW-UP ABOVE NORMAL BMI FOLLOW-UPGIVING ENCOURAGEMENT TO EXERCISE RECREATIONAL DRUG USE DRUG USE?NO EXERCISE: WALKING AND OCCASIONAL SNOWSHOEING. LEARNING BARRIERS / SPECIAL NEEDS CHANGE FROM LAST VISIT?NO BARRIERS TO LEARNING?NO HEARING IMPAIRED?NO VISION IMPAIRED?YES :CORRECTIVE LENSES COGNITIVELY IMPAIRED?NO READINESS TO LEARN?YES LEARNING PREFERENCES?YES :TAPES/VIDEOS, BOOKLETS, HANDOUTS LEARNING CAPABILITIES PRESENT?YES EMOTIONAL BARRIERS?NO SPECIAL DEVICES?NO SENIOR EXAMINER NEEDED?NO PAIN CLINIC PFS, CLERGY, PUBLIC HEALTH REFERRALS PFS REFERRAL NEEDED?NO CLERGY REFERRAL NEEDED?NO PUBLIC HEALTH REFERRAL NEEDED?NO WAS THE PROVIDER NOTIFIED OF ANY PERTINENT INFO? N/A HAS THE PATIENT BEEN EDUCATED REGARDING HIS/HER PLAN OF CARE?YES HAS THE PATIENT BEEN EDUCATED REGARDING PAIN, THE RISK FOR PAIN, THE IMPORTANCE OF EFFECTIVE PAIN MANAGEMENT, AND THE PAIN ASSESSMENT PROCESS?YES LATEX QUESTIONNAIRE LATEX ALLERGY : HAVE YOU EVER DEVELOPED ANY TYPE OF REACTION AFTER HANDLING LATEX PRODUCTS SUCH RUBBER GLOVES, CONDOMS, DIAPHRAGMS, BALLOONS, SOCKS, OR UNDERWEAR?NO LATEX ALLERGY : HAVE YOU EVER DEVELOPED ANY TYPE OF REACTION DURING OR AFTER DENTAL APPOINTMENT, VAGINAL/RECTAL EXAMINATION, SURGICAL PROCEDURE, OR ANY OTHER EXPOSURE?NO LATEX RISK : HAVE YOU EVER HAD ANY DIFFICULTY BREATHING OR HIVES AFTER EATING OR HANDLING ANY FRUITS, OR VEGETABLES; SUCH KIWI, BANANAS, STONE FRUITS, OR CHESTNUTSNO LATEX RISK : DO YOU HAVE A PREVIOUS PERSONAL HISTORY OF MORE THAN NINE SURGERIES, SPINA BIFIDA, OR REPEATED CATHERIZATIONS? YES - PLEASE INDICATE : > 9 SURGERIES LATEX RISK : ARE YOU FREQUENTLY EXPOSED TO LATEX PRODUCTS IN YOUR OCCUPATION?NO DATE ASKED : 01/10/2019 CAFFEINE CAFFEINE USE?YES [facility] ADVANCE DIRECTIVE ADVANCE DIRECTIVE DISCUSSED WITH PATIENT:YES HCP IS [facility] [phone] ZOROASTRIAN [id number] NONE MARITAL STATUS: .. ALCOHOL SCREENING DID YOU HAVE A DRINK CONTAINING ALCOHOL IN THE PAST YEAR?NO POINTS0 INTERPRETATIONNEGATIVE OCCUPATION: DISABLED. SEXUAL HX HAD SEX IN THE LAST 12 MONTHS (VAGINAL, ORAL, OR ANAL)?NO HAVE YOU EVER HAD AN STD?NO REVIEWED WITH PATIENT 01/06/18 0937 LASREVIEWED WITH PT 03/08/18 0904 BVREVIEWED WITH PT 10/03/18 1500 BV01-10-19 REVIEWED WITH PT. AD. HOSPITALIZATION/MAJOR DIAGNOSTIC PROCEDURE SURGERIES ABOVE REACTION TO RUBELLA VACCINE AGE 9 REVIEW OF SYSTEMS REVIEWED BY: PROVIDER: . CONSTITUTIONAL: ANY CHANGE IN YOUR MEDICAL CONDITION? NO . CHILLS NO . FEVER NO . INFECTION: DO YOU HAVE NEW INFECTIONS? NO . DO YOU HAVE HISTORY OF MRSA? NO . MUSCULOSKELETAL: ANY NEW PATTERNS OF PAIN OR NUMBNESS? YES, INCREASE IN NECK PAIN OVER THE PAST COUPLE OF MONTHS . GASTROENTEROLOGY: ANY NEW CHANGE IN BOWEL CONTROL? NO . GENITOURINARY: ANY NEW CHANGE IN BLADDER CONTROL? NO . IS THERE A CHANCE YOU COULD BE ? NO . HEMATOLOGY/LYMPH: DO YOU TAKE ANY BLOOD THINNERS? (FOR EXAMPLE- COUMADIN, PLAVIX, AGGRENOX, PLATEL, PRADAXA, OR XARELTO) NO . WHEN WAS YOUR LAST DOSE? DATE: TIME: . NEUROLOGY: HAVE YOU FALLEN IN THE PAST 12 MONTHS? NO . ANY NEW EXTREMITY NUMBNESS OR WEAKNESS? YES, PAIN AND WEAKNESS RIGHT SHOULDER--FOLLOWS WITH DR MABRY . CARDIOLOGY: DO YOU HAVE A PACEMAKER OR DEFIBRILLATOR? NO DCS-OFF AT PRESENT TIME . RESPIRATORY: HAVE YOU BEEN SICK IN THE PAST WEEK? NO . FEVER NO . FLU LIKE SYMPTOMS? NO . COUGH NO . INTEGUMENTARY: DO YOU HAVE ANY RASHES OR OPEN SORES? NO . ALLERGIC/IMMUNO: ARE YOU ALLERGIC TO IV DYE? NO . ANY NEW ALLERGIES? NO . PSYCHIATRIC: DO YOU HAVE THOUGHTS OF HURTING YOURSELF OR SOMEONE ELSE? NO . ARE YOU ABUSED, NEGLECTED, OR IN AN UNSAFE ENVIRONMENT? NO . ENDOCRINOLOGY: ARE YOU DIABETIC? NO . OTHER: DO YOU NEED ANY PRESCRIPTIONS? NO . IF YES, PLEASE LIST: ____ . ANY NEW PROBLEMS WITH YOUR MEDICATIONS? NO . WHEN DID YOU LAST EAT? 01/10 2000 . WHEN DID YOU LAST DRINK? 01/100 . WHAT DID YOU LAST DRINK? WATER . NAME OF PERSON DRIVING YOU HOME? CHAPO PORTER . DO YOU HAVE ANY OTHER QUESTIONS OR CONCERNS NO . VITAL SIGNS WT 220.0 LBS, HT 63 IN, BMI 38.97 INDEX, BP 140/67 MM HG, HR 74 /MIN, RR 18 /MIN, TEMP 97.9 F, OXYGEN SAT % 99%, SAFE IN ENV? (Y/N) Y, NA INITIALS AW 1005, REVIEWED BY: AD. ASSESSMENTS SPONDYLOSIS OF CERVICAL REGION WITHOUT MYELOPATHY OR RADICULOPATHY - M47.812 (PRIMARY) PROCEDURES PN CERVICAL FACET BLOCK LOW BILATERAL CERVICAL PRE PROCEDURE DIAGNOSIS CERVICAL SPONDYLOSIS POST PROCEDURE DIAGNOSIS CERVICAL SPONDYLOSIS PROCEDURE BILATERAL C4-C5 AND BILATERAL C5-C6 CERVICAL THERAPEUTIC FACET BLOCK SURGEON DR. ILENE TEMPLE ROUNDER AND BACKER NONE ANESTHESIA LOCAL PRE PROCEDURE NOTE THE PATIENT HAS HISTORY OF CHRONIC CERVICAL PAIN. I EVALUATED THE PATIENT AND REVIEWED THE CHART. I WENT OVER THE RISKS, ALTERNATIVES, AND BENEFITS ASSOCIATED WITH THIS PROCEDURE. THE PATIENT WOULD LIKE TO PROCEED AND GIVE CONSENT TO PERFORMED THE PROCEDURE. THE PATIENT DENIES UNEXPLAINABLE WEIGHT LOSS, FEVER, CHILLS, OR NEW CHANGES IN URINARY OR BOWEL CONTROL. DESCRIPTION OF PROCEDURE THE PATIENT WAS BROUGHT TO THE PROCEDURE ROOM AND PLACED IN THE PRONE POSITION. THE CERVICOTHORACIC AREA WAS CLEANED WITH CHLORAPREP SOLUTION AND DRAPED ASEPTICALLY. THE PROCEDURE WAS DONE UNDER STERILE CONDITIONS. I CHECKED LATERALITY AND THE LEVEL WHERE THE PROCEDURE WAS GOING TO BE PERFORMED WITH THE PATIENT AND THE SUPPORTING STAFF AT THE MOMENT OF THE TIME OUT IN THE PROCEDURE ROOM. UNDER FLUOROSCOPIC GUIDANCE, TARGET POINT WAS SELECTED AT THE RIGHT AND LEFT C4-C5 AND RIGHT AND LEFT C5-C6 CERVICAL FACET JOINTS. TARGET POINTS WERE SELECTED AFTER LATERAL ROTATION AND TILT OF THE MAGNIFIER OF THE C-ARM. LIDOCAINE 0.5% WAS USED TO NUMB THE SKIN AND THE SUBCUTANEOUS TISSUE BELOW IT. SPINAL NEEDLES, 22-GAUGE, WERE ADVANCED UNDER FLUOROSCOPIC GUIDANCE AND FOLLOWING PATIENT FEEDBACK UNTIL THE TARGETS WERE TOUCHED. THE POSITION OF THE NEEDLES WAS VERIFIED WITH AP AND LATERAL VIEWS. AFTER PROPER POSITION OF THE NEEDLES WAS ACHIEVED, ISOVUE M DYE 30, 0.1 ML WAS INJECTED SHOWING SPREAD OF THE DYE. THEN A SOLUTION OF 0.9 ML OF BUPIVACAINE 0.125% AND KENALOG 10 MG WAS INJECTED AT EACH SITE. THERE WAS NO EVIDENCE OF BLOOD, PARESTHESIA OR CEREBROSPINAL FLUID DURING THE PROCEDURE. THE PATIENT WAS SENT TO THE RECOVERY ROOM. THE PATIENT WAS MOVING THE EXTREMITIES AND DOING WELL. THERE WAS NO COMPLICATION DURING THE PROCEDURE. FLUOROSCOPY TIME WAS 6 SECONDS POST PROCEDURE NOTE THE PATIENT WILL BE SEEN IN A FOLLOW UP IN THE NEXT FEW WEEKS. INSTRUCTIONS WERE GIVEN, QUESTIONS WERE ANSWERED, AND THE PATIENT EXPRESSED UNDERSTANDING AND AGREES WITH THE PLAN. I, KESHAV LEMOS, DOCUMENTED THE ABOVE INFORMATION ACTING A SCRIBE FOR DR. TEMPLE. I HAVE REVIEWED THE ABOVE DOCUMENT, WRITTEN BY KESHAV IBRAHIM AND I VERIFY THAT IT IS ACCURATE. PN CERVICAL EPIDURAL PRE PROCEDURE DIAGNOSIS CERVICAL DISC DISORDER WITH RADICULOPATHY , CERVICAL RADICULOPATHY CERVICAL SPINAL STENOSIS , CERVICAL POST LAMINECTOMY PAIN SYNDROME POST PROCEDURE DIAGNOSIS CERVICAL DISC DISORDER WITH RADICULOPATHY , CERVICAL RADICULOPATHY CERVICAL SPINAL STENOSIS , CERVICAL POST LAMINECTOMY PAIN SYNDROME PROCEDURE CERVICAL EPIDURAL STEROID INJECTION UNDER FLUOROSCOPIC GUIDANCE SURGEON DR. ILENE TEMPLE ROUNDER AND BACKER NONE ANESTHESIA LOCAL PRE PROCEDURE NOTE THE PATIENT HAS A HISTORY OF CHRONIC CERVICAL PAIN. I EVALUATE THE PATIENT AND REVIEWED THE CHART. I WENT OVER THE RISKS, ALTERNATIVES, AND BENEFITS ASSOCIATED WITH THIS PROCEDURE. THE PATIENT WOULD LIKE TO PROCEED AND GIVE CONSENT TO PERFORMED THE PROCEDURE. THE PATIENT DENIES UNEXPLAINABLE WEIGHT LOSS, FEVER, CHILLS, OR NEW CHANGES IN URINARY OR BOWEL CONTROL DESCRIPTION OF PROCEDURE THE PATIENT WAS BROUGHT TO THE PROCEDURE ROOM AND PLACED IN THE PRONE POSITION. THE CERVICOTHORACIC AREA WAS CLEANED WITH BETADINE SOLUTION AND DRAPED ASEPTICALLY. THE PROCEDURE WAS DONE UNDER STERILE CONDITIONS. I CHECKED LATERALITY AND THE LEVEL WHERE THE PROCEDURE WAS GOING TO BE PERFORMED WITH THE PATIENT AND THE SUPPORTING STAFF AT THE MOMENT OF THE TIME OUT IN THE PROCEDURE ROOM. UNDER FLUOROSCOPIC GUIDANCE, THE TARGET WAS SELECTED AT THE INTERLAMINAR LEVEL OF C7-T1. LIDOCAINE WAS USED TO NUMB THE SKIN AND THE SUBCUTANEOUS TISSUE BELOW IT. EPIDURAL TUOHY NEEDLE 17-GAUGE WAS ADVANCED UNDER FLUOROSCOPIC GUIDANCE AND FOLLOWING PATIENT FEEDBACK UNTIL THE EPIDURAL SPACE WAS REACHED [] CM DEEP INTO THE SKIN BY THE LOSS OF RESISTANCE TECHNIQUE. ISOVUE M DYE 30%, 0.25 ML, WAS INJECTED SHOWING ADEQUATE SPREAD OF THE DYE. THEN, A SOLUTION OF 3 ML OF NORMAL SALINE WITH DEPO-MEDROL 60 MG WAS INJECTED SLOWLY FOLLOWING PATIENT FEEDBACK. THERE WAS NO EVIDENCE OF BLOOD, PARESTHESIA OR CEREBROSPINAL FLUID DURING THE PROCEDURE. THE PATIENT WAS SENT TO THE RECOVERY ROOM. THE PATIENT WAS MOVING THE EXTREMITIES AND DOING WELL. THERE WAS NO COMPLICATION DURING THE PROCEDURE. FLUOROSCOPY TIME WAS [] SECONDS POST PROCEDURE NOTE THE PATIENT WILL BE SEEN IN A FOLLOW UP IN THE NEXT FEW WEEKS. INSTRUCTIONS WERE GIVEN, QUESTIONS WERE ANSWERED, AND THE PATIENT EXPRESSED UNDERSTANDING AND AGREES WITH THE PLAN PN WORKMANS' COMP OPINION IN YOUR OPINION, WAS THE INCIDENT THAT THE PATIENT DESCRIBED THE COMPETENT MEDICAL CAUSE OF THIS INJURY/ILLNESS? YES ARE THE PATIENT'S COMPLAINTS CONSISTENT WITH HIS/HER HISTORY OF THE INJURY/ILLNESS? YES IS THE PATIENT'S HISTORY OF THE INJURY/ILLNESS CONSISTENT WITH YOUR OBJECTIVE FINDING? YES WHAT IS THE PERCENTAGE OF TEMPORARY IMPAIRMENT? MODERATE TO MARKED = 66.7% IS THE PATIENT WORKING? NO DOCTOR ON SITE: ILENE CHEW MD DIAGNOSTIC IMAGING [facility] FACET BLOCK (PAIN)[id number] PROCEDURE CODES [id number] INJ PARAVERT F JNT C/T 1 LEV, MODIFIERS: 50 [id number] INJ PARAVERT F JNT C/T 2 LEV, MODIFIERS: 50 [id number] RADXPS IN END [id number] PXD DISPOSITION & COMMUNICATION FOLLOW UP 3 WEEKS ELECTRONICALLY SIGNED BY ILENE TEMPLE MD, MD ON 01/20/2019 AT 11:27 AM EDT DISCLAIMER : THIS IS A VISIT SUMMARY EXTRACTED FROM THE [employer] CHART. IT IS NOT A COPY OF THE [employer] PROGRESS NOTE. MTDD
== END ==
LOC: M PAIN 10:00
PROVIDERS: ATTEND Anesthesiology
DX: M47.812 Spondylosis without myelopathy or radiculopathy, cervical region (principal); G89.29 Other chronic pain; K21.9 Gastro-esophageal reflux disease without esophagitis; E66.9 Obesity, unspecified; J30.2 Other seasonal allergic rhinitis; F32.9 Major depressive disorder, single episode, unspecified; Z79.899 Other long term (current) drug therapy; Z90.710 Acquired absence of both cervix and uterus; Z88.7 Allergy status to serum and vaccine; Z88.5 Allergy status to narcotic agent; Z88.8 Allergy status to other drugs, medicaments and biological substances
CPT/HCPCS: 64490; 64491; J3301; Q9967

== ENCOUNTER → 2019-02-01 | Outpatient (CLI) | payer OTHER ==
[~2019-02-01] MED LIST changes: -BUPIVACAINE HCL 0.25% 30 ML VIAL As Ordered ONE; -ISOVUE-M 300 61% 15ML VIAL (Q9967) As Ordered ONE; -LIDOCAINE 1% SDV INJ 30 ML VIAL As Ordered ONE; -TRIAMCINOLONE ACETONIDE SUSP 40 MG/ML VIAL (J3301) As Ordered ONE; -diazePAM 5 MG TAB As Ordered ONE; -diphenhydrAMINE 25 MG CAP As Ordered ONE; -oxyCODONE 5MG TAB As Ordered ONE
--- NOTE | 2019-02-16 01:37 | ECWPNPC ---
PATIENT NAME: JANAE PORTER : 1960 GENDER: FEMALE VISIT DATE: 02/01/2019 DISCHARGE DATE: 02/01/19 1037 VISIT LOCKED DATE TIME: PHYSICIAN: KIMBER ENCINAS RESOURCE: KIMBER ENCINAS REASON FOR APPOINTMENT 1. W/C POST PROC HISTORY OF PRESENT ILLNESS HISTORY OF PRESENT ILLNESS: PAIN THE PATIENT DESCRIBES THE PAIN... THE PATIENT DESCRIBES THE PAIN... HERE FOR 3MOS F/U.THIS IS A WORK RELATED INJURY [id number].SUFFERS FROM CHRONIC NECK AND RIGHT SHOULDER PAIN.SHE HAD RIGHT SHOULDER SURGERY 06/28/18.HAD BILAT.CFBT ON 01/10/19.REPORTING MARKED IMPROVEMENT IN PAIN AND MOBILITY POST PROCEDURE. USING CYMBALTA 30MG BID AND NUCYNTA 50MG Q8H PRN FOR SEVERE PAIN.USING NUCYNTA FOR CHRONIC NECK AND RIGHT SHOULDER ACUTE NEUROPATHIC PAIN EPISODES.RATING PAIN VAS 8/10.DESCRIBES PAIN CONSTANT ACHING ,SORE AND PINCHING.DCS PLACED 2010.CONTINUES TO FIND DCS EFFECTIVE. FALL RISK SCREENING: SCREENING :NO FALLS REPORTED IN THE LAST YEAR CURRENT MEDICATIONS TAKING FISH OIL 1200 MG CAPSULE 1 CAPSULE ORALLY ONCE A DAY TAKING ESTRADIOL 1 MG TABLET [address] BUSBY ORALLY ONCE A DAY TAKING VITAMIN D3 5000 UNIT CAPSULE 2 CAPS ORALLY 5 DAYS A WEEK TAKING CALCIUM CITRATE PLUS TABLET 1 TAB ORALLY THREE TIMES DAILY TAKING MULTIVITAMINS TABLET 1 TAB ORALLY DAILY TAKING LYSINE 500 MG TABLET 1 TABLET ORALLY TWICE DAILY TAKING FERROUS SULFATE 325 (65 FE) MG TABLET 1 TABLET ORALLY THREE TIMES A WEEK TAKING BIOTIN 5000 MCG TABLET 2 TAB ORALLY ONCE A DAY TAKING COLACE 100 MG CAPSULE 1 CAPSULE NEEDED ORALLY ONCE A DAY TAKING MAGNESIUM-ZINC 133.33-5 MG TABLET 1 TABLET ORALLY TWICE A DAY TAKING VITAMIN B-12 500 MCG TABLET SUBLINGUAL 1 TABLET UNDER THE TONGUE AND ALLOW TO DISSOLVE SUBLINGUAL ONCE A DAY TAKING CINNAMON 500 MG CAPSULE 1 CAP ORALLY DAILY TAKING CYMBALTA 30 MG CAPSULE DELAYED RELEASE PARTICLES 1 CAPSULE ORALLY BID TAKING CYMBALTA 30 MG CAPSULE DELAYED RELEASE PARTICLES 1 CAPSULE ORALLY DAILY, NOTES: PRESCRIBED THIRD DOSE BY PRIMARY TAKING OMEPRAZOLE 20 MG CAPSULE DELAYED RELEASE BI ORALLY BID TAKING NUCYNTA 50 MG TABLET 1 ORALLY NEEDED FOR PAIN Q8H MDD2, NOTES: WORKERS COMP NOT-TAKING GLUCOSAMINE 500 MG CAPSULE 1 CAPSULE WITH A MEAL ORALLY BID NOT-TAKING ASPIR-81 81 MG TABLET DELAYED RELEASE 1 TABLET ORALLY ONCE A DAY PAST MEDICAL HISTORY CHRONIC PAIN: BACK, NECK, R SHOULDER- FOLLOWS WITH PAIN CLINIC, UNDER WORKER'S COMP ESOPHAGEAL REFLUX - (PULMONARY EVAL FOR COUGH NEG.) OBESITY ENVIRONMENTAL AND SEASONAL ALLERGIES RIGHT SHOULDER SURGERY OTHER DEPRESSION ALLERGIES RUBELLA VIRUS VACCINE: KNEES LOCKED - ALLERGY FOSAMAX: HAND SWELLING - ALLERGY CODEINE SULFATE: NAUSEA/VOMITING - ALLERGY SURGICAL HISTORY R ANKLE SURGERY RECONSTRUCTION - DR Virginia MABRY WRIST SURGERY R (DE QUERVAINS) - DR Virginia MABRY REMOVAL OF SCAR TISSUE FROM RIGHT WRIST - DR. VALDEZ R FOOT NERVE BX - DR Virginia MABRY -1999 BREAST REDUCTION - CARLOS A R FOOT SCAR TISSUE - DR WILLS ZAID & BSO - ROSAS R KNEE ARTHROSCOPY- SHAVED CONDROMALACIA - DR Virginia MABRY -2003 L FOOT HEEL SPUR - MICH RIGHT ROTATOR CUFF REPAIR R - DR Virginia MABRY -2007 EXCISION OF SCALP CYST - BENIGN, DR WADSWORTH 10/2009 CERVICAL DORSAL COLUMN STIMULATOR (TRIAL) - MAVERICK SPINAL CORD STIMULATOR IMPLANT - DR GIBSON --2010 COLONOSCOPY, INTERNAL HEMORRHOIDS - ABELARDO KNEE SURGERY L MICROFRACTURING - DR YUNIER MABRY -2011 L WRIST DEQUERVAINS RELEASE - DR SHANA RIVERO LAP VERTICAL SLEEVE GASTRECTOMY - DR BEST LEFT BREAST BIOPSY - BENIGN, INTERVENTIONAL RADIOLOGY F/UP PER DR PARSONS 04/2014 LEFT ROTATOR CUFF REPAIR - DR. YUNIER MABRY -2014 L THUMB/WRIST CMC ARTHOPLASTY - DR YUNIER MABRY -2015 R ROTATOR CUFF REPAIR - DR YUNIER MABRY -2016 RIGHT SHOULDER SURGERY 08/19/17 RIGHT SHOULDER AND BICEP SURGERY 06/28/18 NEG STRESS TEST, HOLTER - DE JESUS 05/2018 FAMILY HISTORY FATHER: ALIVE 85 YRS, DIAGNOSED WITH HYPERTENSION, UNSPECIFIED HEART DISEASE MOTHER: ALIVE 83 YRS, HYPERTENSION SIBLINGS: HTN - 2 BROTHERS, HEART DISEASE/ CABG - 1BR, UNSPECIFIED HEART DISEASE 2 BROTHER(S) , 1 SISTER(S) . SOCIAL HISTORY GENERAL: TOBACCO USE ARE YOU A:NONSMOKER HIV / HEP-C SCREENING HIV TEST OFFERED TO PATIENT:YES DATE OFFERED:03/21/2013 TEST ACCEPTED:YES HEP-C TEST OFFERED TO PATIENT:NO OTHERS AT HOME: FATHER, MOTHER. HOUSING: PARENTS HOME. 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 DIET: REGULAR BARIATRIC DIET CURRENTLY. LANGUAGE LANGUAGES SPOKEN:CHINESE DOMESTIC VIOLENCE NONE. BMI CARE GOAL FOLLOW-UP ABOVE NORMAL BMI FOLLOW-UPGIVING ENCOURAGEMENT TO EXERCISE RECREATIONAL DRUG USE DRUG USE?NO EXERCISE: WALKING AND OCCASIONAL SNOWSHOEING. LEARNING BARRIERS / SPECIAL NEEDS CHANGE FROM LAST VISIT?NO BARRIERS TO LEARNING?NO HEARING IMPAIRED?NO VISION IMPAIRED?YES COGNITIVELY IMPAIRED?NO :CORRECTIVE LENSES READINESS TO LEARN?YES LEARNING PREFERENCES?YES :TAPES/VIDEOS, BOOKLETS, HANDOUTS LEARNING CAPABILITIES PRESENT?YES EMOTIONAL BARRIERS?NO SPECIAL DEVICES?NO KILN STOKER NEEDED?NO PAIN CLINIC PFS, CLERGY, PUBLIC HEALTH REFERRALS PFS REFERRAL NEEDED?NO CLERGY REFERRAL NEEDED?NO PUBLIC HEALTH REFERRAL NEEDED?NO WAS THE PROVIDER NOTIFIED OF ANY PERTINENT INFO? N/A HAS THE PATIENT BEEN EDUCATED REGARDING HIS/HER PLAN OF CARE?YES HAS THE PATIENT BEEN EDUCATED REGARDING PAIN, THE RISK FOR PAIN, THE IMPORTANCE OF EFFECTIVE PAIN MANAGEMENT, AND THE PAIN ASSESSMENT PROCESS?YES LATEX QUESTIONNAIRE LATEX ALLERGY : HAVE YOU EVER DEVELOPED ANY TYPE OF REACTION AFTER HANDLING LATEX PRODUCTS SUCH RUBBER GLOVES, CONDOMS, DIAPHRAGMS, BALLOONS, SOCKS, OR UNDERWEAR?NO LATEX ALLERGY : HAVE YOU EVER DEVELOPED ANY TYPE OF REACTION DURING OR AFTER DENTAL APPOINTMENT, VAGINAL/RECTAL EXAMINATION, SURGICAL PROCEDURE, OR ANY OTHER EXPOSURE?NO DATE ASKED : 01/10/2019 LATEX RISK : HAVE YOU EVER HAD ANY DIFFICULTY BREATHING OR HIVES AFTER EATING OR HANDLING ANY FRUITS, OR VEGETABLES; SUCH KIWI, BANANAS, STONE FRUITS, OR CHESTNUTSNO LATEX RISK : DO YOU HAVE A PREVIOUS PERSONAL HISTORY OF MORE THAN NINE SURGERIES, SPINA BIFIDA, OR REPEATED CATHERIZATIONS? YES - PLEASE INDICATE : > 9 SURGERIES LATEX RISK : ARE YOU FREQUENTLY EXPOSED TO LATEX PRODUCTS IN YOUR OCCUPATION?NO CAFFEINE CAFFEINE USE?YES SODA OCC ADVANCE DIRECTIVE ADVANCE DIRECTIVE DISCUSSED WITH PATIENT:YES HCP IS [facility] [phone] [employer] [id number] NONE MARITAL STATUS: .. ALCOHOL SCREENING DID YOU HAVE A DRINK CONTAINING ALCOHOL IN THE PAST YEAR?NO POINTS0 INTERPRETATIONNEGATIVE OCCUPATION: DISABLED. SEXUAL HX HAD SEX IN THE LAST 12 MONTHS (VAGINAL, ORAL, OR ANAL)?NO HAVE YOU EVER HAD AN STD?NO REVIEWED WITH PATIENT 01/06/[id number] LASREVIEWED WITH PT 03/08/18 0904 BVREVIEWED WITH PT 10/03/18 1500 BV01-10-19 REVIEWED WITH PT. AD. HOSPITALIZATION/MAJOR DIAGNOSTIC PROCEDURE SURGERIES ABOVE REACTION TO RUBELLA VACCINE AGE 9 REVIEW OF SYSTEMS REVIEWED BY: PROVIDER: KIMBER CUNNINGHAM . CONSTITUTIONAL: ANY CHANGE IN YOUR MEDICAL CONDITION? NO . CHILLS NO . FEVER NO . INFECTION: DO YOU HAVE NEW INFECTIONS? NO . DO YOU HAVE HISTORY OF MRSA? NO . MUSCULOSKELETAL: ANY NEW PATTERNS OF PAIN OR NUMBNESS? NO- SATTES CERVICAL FACET WORKED WELL AND SHE CONTINUES TO FEEL RELIEF, STATES SHE CONTINUES TO FEEL 50-80% RELIEF FROM INJECTION . GASTROENTEROLOGY: ANY NEW CHANGE IN BOWEL CONTROL? NO . GENITOURINARY: ANY NEW CHANGE IN BLADDER CONTROL? NO . IS THERE A CHANCE YOU COULD BE ? NO . HEMATOLOGY/LYMPH: DO YOU TAKE ANY BLOOD THINNERS? (FOR EXAMPLE- COUMADIN, PLAVIX, AGGRENOX, PLATEL, PRADAXA, OR XARELTO) NO . WHEN WAS YOUR LAST DOSE? DATE: TIME: . NEUROLOGY: HAVE YOU FALLEN IN THE PAST 12 MONTHS? YES- FELL 12/2018 STATES NO INJURIES . ANY NEW EXTREMITY NUMBNESS OR WEAKNESS? NO . CARDIOLOGY: DO YOU HAVE A PACEMAKER OR DEFIBRILLATOR? YES- DORSAL COLUMN STIMULATOR . RESPIRATORY: HAVE YOU BEEN SICK IN THE PAST WEEK? NO . FEVER NO . FLU LIKE SYMPTOMS? NO . COUGH NO . INTEGUMENTARY: DO YOU HAVE ANY RASHES OR OPEN SORES? YES- STATES SHE HAS OPEN SORES FROM NEW PUPPY BITING . ALLERGIC/IMMUNO: ARE YOU ALLERGIC TO IV DYE? NO . ANY NEW ALLERGIES? NO . PSYCHIATRIC: DO YOU HAVE THOUGHTS OF HURTING YOURSELF OR SOMEONE ELSE? NO . ARE YOU ABUSED, NEGLECTED, OR IN AN UNSAFE ENVIRONMENT? NO . ENDOCRINOLOGY: ARE YOU DIABETIC? NO . OTHER: DO YOU NEED ANY PRESCRIPTIONS? YES . IF YES, PLEASE LIST: ____NUCYNTA . ANY NEW PROBLEMS WITH YOUR MEDICATIONS? NO . WHEN DID YOU LAST EAT? ____ . WHEN DID YOU LAST DRINK? ____ . WHAT DID YOU LAST DRINK? ____ . NAME OF PERSON DRIVING YOU HOME? ____ . DO YOU HAVE ANY OTHER QUESTIONS OR CONCERNS YES- RECEIVED FLU SHOT 01/31/19, STATES THAT [employer] HAS A NEW PAIN SYSTEM OF DCS AND SHE IS INTERESTED IN TRYING THAT . VITAL SIGNS WT 219.2 LBS, HT 63 IN, BMI 38.83 INDEX, BP 131/69 MM HG, HR 93 /MIN, RR 18 /MIN, TEMP 97.1 F, OXYGEN SAT % 98%, SAFE IN ENV? (Y/N) YES, NA INITIALS AW 0947, REVIEWED BY: UNA. EXAMINATION GENERAL EXAMINATION: LUNGS:LUNG SOUNDS ARE CLEAR. HEART:HEART RATE REGULAR. MUSCULOSKELETAL:PALPATION: + DISCOMFORT NECK AND PARASPINALS.ROJM NECK LIMITED SPECIFIC POINT TENDERNESS OVER C5/6 FACETS BILAT.. ASSESSMENTS SPONDYLOSIS OF CERVICAL REGION WITHOUT MYELOPATHY OR RADICULOPATHY - M47.812 (PRIMARY) TREATMENT SPONDYLOSIS OF CERVICAL REGION WITHOUT MYELOPATHY OR RADICULOPATHY CONTINUE CYMBALTA CAPSULE DELAYED RELEASE PARTICLES, 30 MG, 1 CAPSULE, ORALLY, BID REFILL NUCYNTA TABLET, 50 MG, 1, ORALLY NEEDED FOR PAIN, Q8H MDD2, 30 DAY(S), 55, REFILLS 0, NOTES: WORKERS COMP NOTES: ISTOP REGISTRY REVIEWED AND DEMONSTRATES COMPLLIANCE. BRINGS IN MEDICATIONS WHICH IS APPROPRIATE FOR WHAT WAS DISPENSED. RECENT URINE TOXICOLOGY REVIEWED. NO UNAUTHORIZED MEDICATIONS. NO ILLICIT SUBSTANCES AND PRESCRIBED MEDICATIONS WERE PRESENT. URINE TOX TODAY, RISKS OF NARCOTIC/OPIOD MEDICATIONS INCLUDES BUT IS NOT LIMITED TO RISK OF DEPENDANCE/DEVELOPMENT OF ADDICTION, MOOD DISTURBANCE AND DEPRESSION, OSTEOPOROSIS, HORMONAL AND LABIDAL CHANGES, RESPIRATORY DEPRESSION AND . PATIENT IS ADVISED NOT TO DRIVE OR DRINK ALCOHOL WHILE ON THESE MEDICATIONS. PROCEDURES PN WORKMANS' COMP OPINION IN YOUR OPINION, WAS THE INCIDENT THAT THE PATIENT DESCRIBED THE COMPETENT MEDICAL CAUSE OF THIS INJURY/ILLNESS? YES ARE THE PATIENT'S COMPLAINTS CONSISTENT WITH HIS/HER HISTORY OF THE INJURY/ILLNESS? YES IS THE PATIENT'S HISTORY OF THE INJURY/ILLNESS CONSISTENT WITH YOUR OBJECTIVE FINDING? YES WHAT IS THE PERCENTAGE OF TEMPORARY IMPAIRMENT? MODERATE TO MARKED = 66.7% IS THE PATIENT WORKING? NO DOCTOR ON SITE: ILENE CHEW MD PROCEDURE CODES FA211 ESTABILISHED PATIENT [facility]AC[facility] CHARGE DISPOSITION & COMMUNICATION FOLLOW UP F/U W DR Rosales DISCUSS NEW DCS-3MOS KIMBER WEINBERG MGMNT (REASON: W/C) ELECTRONICALLY SIGNED BY MARISA MICHAUD ON 02/15/2019 AT 01:14 PM EDT DISCLAIMER : THIS IS A VISIT SUMMARY EXTRACTED FROM THE [employer] CHART. IT IS NOT A COPY OF THE [employer] PROGRESS NOTE. AUDREY
== END ==
LOC: M PAIN 09:30
PROVIDERS: ATTEND Nurse Practitioner Family
DX: M47.812 Spondylosis without myelopathy or radiculopathy, cervical region (principal); G89.29 Other chronic pain; K21.9 Gastro-esophageal reflux disease without esophagitis; Z86.59 Personal history of other mental and behavioral disorders; Z88.5 Allergy status to narcotic agent; Z88.7 Allergy status to serum and vaccine; Z88.8 Allergy status to other drugs, medicaments and biological substances; Z79.899 Other long term (current) drug therapy

== ENCOUNTER → 2019-04-05 | Outpatient (CLI) | payer OTHER ==
--- NOTE | 2019-04-12 04:16 | ECWPNPC ---
PATIENT NAME: JANAE PORTER : 1960 GENDER: FEMALE VISIT DATE: 04/05/2019 DISCHARGE DATE: 04/05/191533 VISIT LOCKED DATE TIME: PHYSICIAN: ILENE TEMPLE MD RESOURCE: ILENE TEMPLE MD REASON FOR APPOINTMENT 1. W/C DISCUSS DCS PER LB HISTORY OF PRESENT ILLNESS HISTORY OF PRESENT ILLNESS: PAIN THE PATIENT DESCRIBES THE PAIN... 58 YEAR OLD FEMALE PATIENT WITH A HISTORY OF CHRONIC CERVICAL PAIN. THE PATIENT DESCRIBES THE PAIN ACHING, SHARP, STABBING, AND CONTINUOUS WITH A PAIN SCORE OF 5-7/10 DEPENDING ON PHYSICAL ACTIVITY. 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 THE PATIENT SAYS HER PAIN BEGINS IN HER NECK AND RADIATES DOWN BOTH SIDES OF HER SHOULDER, BUT MORE ON THE RIGHT SIDE, AND ALSO IN BETWEEN HER SHOULDER BLADES. THE PATIENT STATES SHE HAD A DCS TRIAL AT OUR CLINIC IN 2010 AND THEN HAD THE IMPLANT SURGERY DONE IN [place]. THE PATIENT SAYS HER DCS IMPLANT IS ON AND IS HELPING WITH HER PAIN, AND HER PAIN INCREASES AND WORSENS DOWN HER NECK WHEN THE DEVICE IS TURNED OFF. HOWEVER, THE PATIENT SAYS HER DEVICE BATTERY IS NOT WORKING GOOD AND SHE IS HAVING DIFFICULTIES WITH RECHARGING THE BATTERY. THE PATIENT SAYS IT TAKES A LOT LONGER TO CHARGE THE BATTERY ON THE RIGHT SIDE, AND SHE CHARGES THE INTERNAL ONCE A MONTH THAT TAKES 4 HOURS TO FULLY CHARGE. PATIENT DENIES UNEXPLAINABLE WEIGHT LOSS, FEVER, CHILLS, NEW CHANGES ON HER URINARY OR BOWEL CONTROL. FALL RISK SCREENING: SCREENING :NO FALLS REPORTED IN THE LAST YEAR CURRENT MEDICATIONS TAKING FISH OIL 1200 MG CAPSULE 1 CAPSULE ORALLY ONCE A DAY TAKING ESTRADIOL 1 MG TABLET [address] BUSBY ORALLY ONCE A DAY TAKING VITAMIN D3 5000 UNIT CAPSULE 2 CAPS ORALLY 5 DAYS A WEEK TAKING CALCIUM CITRATE PLUS TABLET 1 TAB ORALLY THREE TIMES DAILY TAKING MULTIVITAMINS TABLET 1 TAB ORALLY DAILY TAKING LYSINE 500 MG TABLET 1 TABLET ORALLY TWICE DAILY TAKING FERROUS SULFATE 325 (65 FE) MG TABLET 1 TABLET ORALLY THREE TIMES A WEEK TAKING BIOTIN 5000 MCG TABLET 2 TAB ORALLY ONCE A DAY TAKING COLACE 100 MG CAPSULE 1 CAPSULE NEEDED ORALLY ONCE A DAY TAKING MAGNESIUM-ZINC 133.33-5 MG TABLET 1 TABLET ORALLY TWICE A DAY TAKING VITAMIN B-12 500 MCG TABLET SUBLINGUAL 1 TABLET UNDER THE TONGUE AND ALLOW TO DISSOLVE SUBLINGUAL ONCE A DAY TAKING CINNAMON 500 MG CAPSULE 1 CAP ORALLY DAILY TAKING CYMBALTA 30 MG CAPSULE DELAYED RELEASE PARTICLES 1 CAPSULE ORALLY DAILY, NOTES: PRESCRIBED THIRD DOSE BY PRIMARY TAKING OMEPRAZOLE 20 MG CAPSULE DELAYED RELEASE BI ORALLY BID TAKING CYMBALTA 30 MG CAPSULE DELAYED RELEASE PARTICLES 1 CAPSULE ORALLY BID TAKING NUCYNTA 50 MG TABLET 1 ORALLY NEEDED FOR PAIN Q8H MDD2, NOTES: WORKERS COMP NOT-TAKING GLUCOSAMINE 500 MG CAPSULE 1 CAPSULE WITH A MEAL ORALLY BID NOT-TAKING ASPIR-81 81 MG TABLET DELAYED RELEASE 1 TABLET ORALLY ONCE A DAY MEDICATION LIST REVIEWED AND RECONCILED WITH THE PATIENT PAST MEDICAL HISTORY CHRONIC PAIN: BACK, NECK, R SHOULDER- FOLLOWS WITH PAIN CLINIC, UNDER WORKER'S COMP ESOPHAGEAL REFLUX - (PULMONARY EVAL FOR COUGH NEG.) OBESITY ENVIRONMENTAL AND SEASONAL ALLERGIES RIGHT SHOULDER SURGERY OTHER DEPRESSION ALLERGIES RUBELLA VIRUS VACCINE: KNEES LOCKED - ALLERGY FOSAMAX: HAND SWELLING - ALLERGY CODEINE SULFATE: NAUSEA/VOMITING SURGICAL HISTORY R ANKLE SURGERY RECONSTRUCTION - DR Virginia MABRY WRIST SURGERY R (DE QUERVAINS) - DR Virginia MABRY REMOVAL OF SCAR TISSUE FROM RIGHT WRIST - DR. VALDEZ R FOOT NERVE BX - DR Virginia MABRY -1999 BREAST REDUCTION - CARLOS A R FOOT SCAR TISSUE - DR WILLS ZAID & BSO - ROSAS R KNEE ARTHROSCOPY- SHAVED CONDROMALACIA - DR Virginia MABRY -2003 L FOOT HEEL SPUR - MICH RIGHT ROTATOR CUFF REPAIR R - DR Virginia MABRY EXCISION OF SCALP CYST - BENIGN, DR WADSWORTH 10/2009 CERVICAL DORSAL COLUMN STIMULATOR (TRIAL) - TEMPLE SPINAL CORD STIMULATOR IMPLANT - DR GIBSON --2010 COLONOSCOPY, INTERNAL HEMORRHOIDS - ABELARDO KNEE SURGERY L MICROFRACTURING - DR YUNIER MABRY L WRIST DEQUERVAINS RELEASE - DR SHANA RIVERO LAP VERTICAL SLEEVE GASTRECTOMY - DR BEST - LEFT BREAST BIOPSY - BENIGN, INTERVENTIONAL RADIOLOGY F/UP PER DR PARSONS 04/2014 LEFT ROTATOR CUFF REPAIR - DR. YUNIER MABRY -2014 L THUMB/WRIST CMC ARTHOPLASTY - DR YUNIER MABRY -2015 R ROTATOR CUFF REPAIR - DR YUNIER MABRY RIGHT SHOULDER SURGERY 08/19/17 RIGHT SHOULDER AND BICEP SURGERY 06/28/18 NEG STRESS TEST, ANTON DE JESUS 05/2018 FAMILY HISTORY FATHER: ALIVE 85 YRS, DIAGNOSED WITH HYPERTENSION, UNSPECIFIED HEART DISEASE MOTHER: ALIVE 83 YRS, HYPERTENSION SIBLINGS: HTN - 2 BROTHERS, HEART DISEASE/ CABG - 1BR, UNSPECIFIED HEART DISEASE 2 BROTHER(S) , 1 SISTER(S) . SOCIAL HISTORY GENERAL: TOBACCO USE ARE YOU A:NONSMOKER HIV / HEP-C SCREENING HIV TEST OFFERED TO PATIENT:YES DATE OFFERED:03/21/2013 TEST ACCEPTED:YES HEP-C TEST OFFERED TO PATIENT:NO OTHERS AT HOME: FATHER, MOTHER. HOUSING: PARENTS HOME. 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 DIET: REGULAR BARIATRIC DIET CURRENTLY. LANGUAGE LANGUAGES SPOKEN:DIVEHI DOMESTIC VIOLENCE NONE. BMI CARE GOAL FOLLOW-UP ABOVE NORMAL BMI FOLLOW-UPGIVING ENCOURAGEMENT TO EXERCISE RECREATIONAL DRUG USE DRUG USE?NO EXERCISE: WALKING AND OCCASIONAL SNOWSHOEING. LEARNING BARRIERS / SPECIAL NEEDS CHANGE FROM LAST VISIT?NO BARRIERS TO LEARNING?NO HEARING IMPAIRED?NO VISION IMPAIRED?YES :CORRECTIVE LENSES COGNITIVELY IMPAIRED?NO READINESS TO LEARN?YES LEARNING PREFERENCES?YES :TAPES/VIDEOS, BOOKLETS, HANDOUTS LEARNING CAPABILITIES PRESENT?YES EMOTIONAL BARRIERS?NO SPECIAL DEVICES?NO FORCE ADJUSTMENT SUPERVISOR NEEDED?NO PAIN CLINIC PFS, CLERGY, PUBLIC HEALTH REFERRALS PFS REFERRAL NEEDED?NO CLERGY REFERRAL NEEDED?NO PUBLIC HEALTH REFERRAL NEEDED?NO WAS THE PROVIDER NOTIFIED OF ANY PERTINENT INFO? N/A HAS THE PATIENT BEEN EDUCATED REGARDING HIS/HER PLAN OF CARE?YES HAS THE PATIENT BEEN EDUCATED REGARDING PAIN, THE RISK FOR PAIN, THE IMPORTANCE OF EFFECTIVE PAIN MANAGEMENT, AND THE PAIN ASSESSMENT PROCESS?YES LATEX QUESTIONNAIRE LATEX ALLERGY : HAVE YOU EVER DEVELOPED ANY TYPE OF REACTION AFTER HANDLING LATEX PRODUCTS SUCH RUBBER GLOVES, CONDOMS, DIAPHRAGMS, BALLOONS, SOCKS, OR UNDERWEAR?NO LATEX ALLERGY : HAVE YOU EVER DEVELOPED ANY TYPE OF REACTION DURING OR AFTER DENTAL APPOINTMENT, VAGINAL/RECTAL EXAMINATION, SURGICAL PROCEDURE, OR ANY OTHER EXPOSURE?NO LATEX RISK : HAVE YOU EVER HAD ANY DIFFICULTY BREATHING OR HIVES AFTER EATING OR HANDLING ANY FRUITS, OR VEGETABLES; SUCH KIWI, BANANAS, STONE FRUITS, OR CHESTNUTSNO LATEX RISK : DO YOU HAVE A PREVIOUS PERSONAL HISTORY OF MORE THAN NINE SURGERIES, SPINA BIFIDA, OR REPEATED CATHERIZATIONS? YES - PLEASE INDICATE : > 9 SURGERIES LATEX RISK : ARE YOU FREQUENTLY EXPOSED TO LATEX PRODUCTS IN YOUR OCCUPATION?NO DATE ASKED : 04/05/2019 CAFFEINE CAFFEINE USE?YES SODA OCC ADVANCE DIRECTIVE ADVANCE DIRECTIVE DISCUSSED WITH PATIENT:YES HCP IS PARENTS [facility]LIN [facility]TER [phone] [facility] [id number] NONE MARITAL STATUS: .. ALCOHOL SCREENING DID YOU HAVE A DRINK CONTAINING ALCOHOL IN THE PAST YEAR?NO POINTS0 INTERPRETATIONNEGATIVE OCCUPATION: DISABLED. SEXUAL HX HAD SEX IN THE LAST 12 MONTHS (VAGINAL, ORAL, OR ANAL)?NO HAVE YOU EVER HAD AN STD?NO REVIEWED WITH PATIENT 01/06/18 0937 LASREVIEWED WITH PT 03/08/18 0904 BVREVIEWED WITH PT 10/03/18 1500 BV01-10-19 REVIEWED WITH PT. AD04/05/19 1439 REVIEWED WITH PT. AD. HOSPITALIZATION/MAJOR DIAGNOSTIC PROCEDURE SURGERIES ABOVE REACTION TO RUBELLA VACCINE AGE 9 REVIEW OF SYSTEMS REVIEWED BY: PROVIDER: ILENE TEMPLE MD . CONSTITUTIONAL: ANY CHANGE IN YOUR MEDICAL CONDITION? NO . CHILLS NO . FEVER NO . INFECTION: DO YOU HAVE NEW INFECTIONS? NO . DO YOU HAVE HISTORY OF MRSA? NO . MUSCULOSKELETAL: ANY NEW PATTERNS OF PAIN OR NUMBNESS? NO . GASTROENTEROLOGY: ANY NEW CHANGE IN BOWEL CONTROL? NO . GENITOURINARY: ANY NEW CHANGE IN BLADDER CONTROL? NO . IS THERE A CHANCE YOU COULD BE ? NO . HEMATOLOGY/LYMPH: DO YOU TAKE ANY BLOOD THINNERS? (FOR EXAMPLE- COUMADIN, PLAVIX, AGGRENOX, PLATEL, PRADAXA, OR XARELTO) NO . WHEN WAS YOUR LAST DOSE? DATE: TIME: . NEUROLOGY: HAVE YOU FALLEN IN THE PAST 12 MONTHS? YES, X 1 TRIPPED OVER WATER HOSE-NO INJURY . ANY NEW EXTREMITY NUMBNESS OR WEAKNESS? NO . CARDIOLOGY: DO YOU HAVE A PACEMAKER OR DEFIBRILLATOR? NO HAS DCS . RESPIRATORY: HAVE YOU BEEN SICK IN THE PAST WEEK? NO . FEVER NO . FLU LIKE SYMPTOMS? NO . COUGH NO . INTEGUMENTARY: DO YOU HAVE ANY RASHES OR OPEN SORES? NO . ALLERGIC/IMMUNO: ARE YOU ALLERGIC TO IV DYE? NO . ANY NEW ALLERGIES? NO . PSYCHIATRIC: DO YOU HAVE THOUGHTS OF HURTING YOURSELF OR SOMEONE ELSE? NO . ARE YOU ABUSED, NEGLECTED, OR IN AN UNSAFE ENVIRONMENT? NO . ENDOCRINOLOGY: ARE YOU DIABETIC? NO . OTHER: DO YOU NEED ANY PRESCRIPTIONS? YES . IF YES, PLEASE LIST: NUCYNTA 50MG, CYMBALTA 30MGS . ANY NEW PROBLEMS WITH YOUR MEDICATIONS? NO . WHEN DID YOU LAST EAT? ____ . WHEN DID YOU LAST DRINK? ____ . WHAT DID YOU LAST DRINK? ____ . NAME OF PERSON DRIVING YOU HOME? ____ . DO YOU HAVE ANY OTHER QUESTIONS OR CONCERNS YES, [employer] HAS A NEW STIMULATOR AVAILABLE, PRESCRIPTION COVERAGE IS CHANGING-HER MEDS SHE GETS WILL NO LONGER BE COVERED . VITAL SIGNS WT 222.8 LBS, HT 63 IN, BMI 39.46 INDEX, BP 139/77 MM HG, HR 96 /MIN, RR 18 /MIN, TEMP 97.1 F, OXYGEN SAT % 100%, SAFE IN ENV? (Y/N) Y, NA INITIALS SC 14:30, REVIEWED BY: JOSH. EXAMINATION GENERAL EXAMINATION: PATIENT IS ALERT O X 3 AND COOPERATIVE. PATIENT HAD DIFFICULTIES ABDUCTING BOTH ARMS. EXTENSION AND ROTATION OF PATIENT'S HEAD PINCHES NERVE IN NECK, ESPECIALLY ON THE LEFT SIDE. RIGHT ARM IS WEAKER AT EXTENSION AND FLEXION. RIGHT HAND STEEL DIVISION SUPERVISOR IS REDUCED COMPARED WITH THE LEFT SIDE. TENDERNESS OVER THE PARASPINAL MUSCLE GROUP ON BOTH SIDES OF THE NECK. MRI OF THE CERVICAL SPINE DONE ON 02/27/2010 SHOWS A BULGING DISC AT C5-C6 AND FACET ARTHROPATHY CHANGES. ASSESSMENTS CERVICAL DISC DISORDER WITH RADICULOPATHY, UNSPECIFIED CERVICAL REGION - M50.10 (PRIMARY) CERVICALGIA - M54.2 TREATMENT CERVICAL DISC DISORDER WITH RADICULOPATHY, UNSPECIFIED CERVICAL REGION CLINICAL NOTES: WE DISCUSSED SEVERAL ISSUES WITH MS. PORTER'S PAIN MANAGEMENT CASE. THE PATIENT EXPRESSED SHE IS HAVING DIFFICULTIES WITH CHARGING HER DCS IMPLANT BATTERY AND SHE IS INTERESTED IN PURSUING A NEW DCS IMPLANT WITH A MRI COMPATIBLE BATTERY ALONG WITH NEW NEUROMODULATION THERAPIES TO BETTER CONTROL HER PAIN. THEREFORE, I WILL REQUEST AUTHORIZATION FOR A SCS IMPLANT WITH A MRI COMPATIBLE BATTERY AND WITH [employer] SCS SYSTEM. IF THE PATIENT IS APPROVED, I WILL REFER HER TO [facility] FOR THE SURGERY. THE PATIENT WILL FOLLOW UP WITH THE NURSE PRACTITIONER IN SEVERAL WEEKS. INSTRUCTIONS WERE GIVEN, QUESTIONS WERE ANSWERED, PATIENT REPORTS UNDERSTANDING AND AGREES WITH THE PLAN. I, MOLLY MAKI, DOCUMENTED THE ABOVE INFORMATION ACTING A SCRIBE FOR DR. TEMPLE. I HAVE REVIEWED THE ABOVE DOCUMENT, WRITTEN BY MOLLY IBRAHIM AND I VERIFY THAT IT IS ACCURATE. . PROCEDURES PN WORKMANS' COMP OPINION IN YOUR OPINION, WAS THE INCIDENT THAT THE PATIENT DESCRIBED THE COMPETENT MEDICAL CAUSE OF THIS INJURY/ILLNESS? YES ARE THE PATIENT'S COMPLAINTS CONSISTENT WITH HIS/HER HISTORY OF THE INJURY/ILLNESS? YES IS THE PATIENT'S HISTORY OF THE INJURY/ILLNESS CONSISTENT WITH YOUR OBJECTIVE FINDING? YES WHAT IS THE PERCENTAGE OF TEMPORARY IMPAIRMENT? MODERATE TO MARKED = 66.7% IS THE PATIENT WORKING? NO DOCTOR ON SITE: ILENE CHEW MD , ILENE CHEW MD PROCEDURE CODES G8427 CURRENT MEDS W/DOSAGES DOCUMENTED G8730 PAIN ASSESS POS TOOL F/U PLAN DOC FA211 ESTABILISHED PATIENT [facility] FACILITY CHARGE DISPOSITION & COMMUNICATION FOLLOW UP REASON: F/UP WITH CONTROL PANEL OPERATOR. RQSTING FOR UPDATED DCS IMPLANT/IF APPROVED WILL BE REFERRED TO [place] FOR SURGERY ELECTRONICALLY SIGNED BY ILENE TEMPLE MD, MD ON 04/11/2019 AT 10:59 AM EST DISCLAIMER : THIS IS A VISIT SUMMARY EXTRACTED FROM THE THE [employer] CHART. IT IS NOT A COPY OF THE [employer] PROGRESS NOTE. DAVIDD
== END ==
LOC: M PAIN 14:30
PROVIDERS: ATTEND Anesthesiology
DX: M50.10 Cervical disc disorder with radiculopathy, unspecified cervical region (principal); G89.29 Other chronic pain; K21.9 Gastro-esophageal reflux disease without esophagitis; Z86.59 Personal history of other mental and behavioral disorders; Z88.5 Allergy status to narcotic agent; Z88.7 Allergy status to serum and vaccine; Z88.8 Allergy status to other drugs, medicaments and biological substances; Z79.899 Other long term (current) drug therapy

== ENCOUNTER → 2019-04-12 | Outpatient (REF) | payer MEDICARE ==
[2019-04-12 11:36] LABS: BASO # 0.1 10^3/uL (0.0-0.2); BASO % 0.8 % (0.0-1.0); EOS # 0.1 10^3/uL (0.0-0.5); HEMATOCRIT 41.9 % (36.0-47.0); HEMOGLOBIN 12.6 g/dl (12.0-15.5); LYMPH # 1.5 10^3/uL (1.5-5.0); LYMPH % 25.2 % (24.0-44.0); MEAN CORPUSCULAR HEMOGLOBIN 26.6 pg (27.0-33.0); MEAN CORPUSCULAR HGB CONC 30.1 g/dl (32.0-36.5); MEAN CORPUSCULAR VOLUME 88.4 fl (80.0-96.0); MONO # 0.4 10^3/uL (0.0-0.8); MONO % 5.9 % (0.0-5.0); NEUTROPHILS # 3.9 10^3/uL (1.5-8.5); NEUTROPHILS % 65.8 % (36.0-66.0); PLATELET COUNT, AUTOMATED 278 10^3/uL (150-450); RED BLOOD COUNT 4.74 10^6/uL (4.00-5.40); WHITE BLOOD COUNT 5.9 10^3/uL (4.0-10.0)
[2019-04-12 11:58] LABS: ALBUMIN 3.5 GM/DL (3.2-5.2); ALT/SGPT 19 U/L (12-78); BILIRUBIN,TOTAL 0.2 MG/DL (0.2-1.0); BLOOD UREA NITROGEN 15 MG/DL (7-18); C REACTIVE PROTEIN QUANTITATIV 1.47 MG/DL (0.00-0.30); CARBON DIOXIDE LEVEL 27 MEQ/L (21-32); CHLORIDE LEVEL 109 MEQ/L (98-107); CREATININE FOR GFR 0.99 MG/DL (0.55-1.30); FERRITIN 8 NG/ML (8-252); GLOMERULAR FILTRATION RATE > 60.0 (>51); GLUCOSE, FASTING 93 MG/DL (70-100); POTASSIUM SERUM 4.8 MEQ/L (3.5-5.1); RHEUMATOID FACTOR QUANT < 10.0 IU/ML (<15.0); SODIUM LEVEL 140 MEQ/L (136-145); TOTAL PROTEIN 7.7 GM/DL (6.4-8.2)
[2019-04-12 12:02] LABS: ERYTHROCYTE SEDIMENTATION RATE 27 mm/hr (0-30)
[2019-04-14 00:07] LABS: ANA (HEP2) Positive (.); Lyme Disease IgG/IgM Antibodie <0.91 ISR (0.00-0.90); Lyme Disease IgM Ab Quantitati <0.80 index (0.00-0.79)
== END ==
LOC: M SFHCPLAZ 09:53
PROVIDERS: ATTEND Nurse Practitioner Family
DX: M25.50 Pain in unspecified joint (principal)
CPT/HCPCS: 36415; 80053; 82728; 85025; 85652; 86038; 86140; 86431; 86617; G0463

== ENCOUNTER → 2019-04-24 | Outpatient (CLI) | payer MEDICARE ==
--- NOTE | 2019-04-24 11:20 | REPMRS ---
Patient History The patient states she had a clinical breast exam in January 2019.Family history of prostate cancer at age 50 or over in paternal uncle, prostate cancer at age 50 or over in paternal uncle, endometrial cancer at age 50 or over in paternal grandmother. US Guided Breast Biopsy of the left breast, May 07, 2014. Reductions of both breasts, 2000. Took hormonal contraceptives for 4 years. Taking unspecified hormones for 9 years. Digital Woman Screen Mammo: April 24, 2019 - Exam #: [id number] Bilateral CC and MLO view(s) were taken. Technologist: Sonia Fleming, Technologist Prior study comparison: April 21, 2018, bilateral digital mammo screening bilat, performed at [facility]. April 15, 2017, bilateral digital mammo screening bilat, performed at [facility]. April 13, 2016, bilateral digital mammo screening bilat, performed at [facility]. FINDINGS: There are scattered fibroglandular densities. There has been no change in the appearance of the mammogram from the prior studies. There is a mild amount of scattered fibroglandular density which is fairly symmetric. There is no interval development of dominant mass, architectural distortion, or grouped microcalcification suggestive of malignancy. 3-D tomosynthesis shows no additional findings. Assessment: BI-RADS/ACR category 1 mammogram. Negative Mammogram. Recommendation Routine screening mammogram of both breasts in 1 year (for women over age 40). This patient's Lifetime Breast Cancer Risk is estimated at 8.3 %. This mammogram was interpreted with the aid of an FDA-approved computer-aided dectection system. Electronically Signed By: Bryan Sanchez MD 04/24/19 2548
== END ==
LOC: M WHC 08:54
PROVIDERS: ATTEND Obstetrics & Gynecology
DX: Z12.31 Encounter for screening mammogram for malignant neoplasm of breast (principal); Z92.0 Personal history of contraception

== ENCOUNTER → 2019-05-04 | Outpatient (CLI) | payer OTHER, MEDICARE ==
--- NOTE | 2019-05-24 02:27 | ECWPNPC ---
PATIENT NAME: JANAE PORTER : 1960 GENDER: FEMALE VISIT DATE: 05/04/2019 DISCHARGE DATE: 05/04/19 1123 VISIT LOCKED DATE TIME: PHYSICIAN: KIMBER ENCINAS RESOURCE: KIMBER ENCINAS REASON FOR APPOINTMENT 1. W/C BACK/NECK/MEDS HISTORY OF PRESENT ILLNESS HISTORY OF PRESENT ILLNESS: PAIN THE PATIENT DESCRIBES THE PAIN... HERE FOR 3MOS F/U.THIS IS A WORK RELATED INJURY [id number].SUFFERS FROM CHRONIC NECK AND RIGHT SHOULDER PAIN.SHE HAD RIGHT SHOULDER SURGERY 06/28/18.HAD BILAT.CFBT ON 01/10/19.REPORTING MARKED IMPROVEMENT IN PAIN AND MOBILITY POST PROCEDURE. USING CYMBALTA 30MG BID AND NUCYNTA 50MG Q8H PRN FOR SEVERE PAIN.USING NUCYNTA FOR CHRONIC NECK AND RIGHT SHOULDER ACUTE NEUROPATHIC PAIN EPISODES.RATING PAIN VAS 6/10.DESCRIBES PAIN CONSTANT ACHING ,SORE AND PINCHING.DCS PLACED 2010.CONTINUES TO FIND DCS EFFECTIVE. FALL RISK SCREENING: SCREENING :NO FALLS REPORTED IN THE LAST YEAR CURRENT MEDICATIONS TAKING FISH OIL 1200 MG CAPSULE 1 CAPSULE ORALLY ONCE A DAY TAKING ESTRADIOL 1 MG TABLET [address] BUSBY ORALLY ONCE A DAY TAKING VITAMIN D3 5000 UNIT CAPSULE 2 CAPS ORALLY 5 DAYS A WEEK TAKING CALCIUM CITRATE PLUS TABLET 1 TAB ORALLY THREE TIMES DAILY TAKING MULTIVITAMINS TABLET 1 TAB ORALLY DAILY TAKING LYSINE 500 MG TABLET 1 TABLET ORALLY TWICE DAILY TAKING FERROUS SULFATE 325 (65 FE) MG TABLET 1 TABLET ORALLY THREE TIMES A WEEK TAKING BIOTIN 5000 MCG TABLET 2 TAB ORALLY ONCE A DAY TAKING COLACE 100 MG CAPSULE 1 CAPSULE NEEDED ORALLY ONCE A DAY TAKING MAGNESIUM-ZINC 133.33-5 MG TABLET 1 TABLET ORALLY TWICE A DAY TAKING VITAMIN B-12 500 MCG TABLET SUBLINGUAL 1 TABLET UNDER THE TONGUE AND ALLOW TO DISSOLVE SUBLINGUAL ONCE A DAY TAKING CINNAMON 500 MG CAPSULE 1 CAP ORALLY DAILY TAKING CYMBALTA 30 MG CAPSULE DELAYED RELEASE PARTICLES 1 CAPSULE ORALLY BID TAKING NUCYNTA 50 MG TABLET 1 ORALLY NEEDED FOR PAIN Q8H MDD2, NOTES: WORKERS COMP TAKING TYLENOL ARTHRITIS PAIN _ 2 TAB ORALLY DAILY NEEDED TAKING DICLOFENAC SODIUM 1 % GEL DIRECTED 4GM TO KNEES, 2GM TO HANDS TRANSDERMAL FOUR TIMES DAILY NEEDED TAKING OMEPRAZOLE 20 MG CAPSULE DELAYED RELEASE 1 CAP ORALLY TWICE A DAY NOT-TAKING CYMBALTA 30 MG CAPSULE DELAYED RELEASE PARTICLES 1 CAPSULE ORALLY DAILY, NOTES: PRESCRIBED THIRD DOSE BY PRIMARY NOT-TAKING GLUCOSAMINE 500 MG CAPSULE 1 CAPSULE WITH A MEAL ORALLY BID NOT-TAKING ASPIR-81 81 MG TABLET DELAYED RELEASE 1 TABLET ORALLY ONCE A DAY MEDICATION LIST REVIEWED AND RECONCILED WITH THE PATIENT PAST MEDICAL HISTORY CHRONIC PAIN: BACK, NECK, R SHOULDER- FOLLOWS WITH PAIN CLINIC, UNDER WORKER'S COMP ESOPHAGEAL REFLUX - (PULMONARY EVAL FOR COUGH NEG.) OBESITY ENVIRONMENTAL AND SEASONAL ALLERGIES RIGHT SHOULDER SURGERY OTHER DEPRESSION RHEUMATOID ARTHRITIS ALLERGIES RUBELLA VIRUS VACCINE: KNEES LOCKED - ALLERGY FOSAMAX: HAND SWELLING - ALLERGY CODEINE SULFATE: NAUSEA/VOMITING SURGICAL HISTORY R ANKLE SURGERY RECONSTRUCTION - DR Virginia MABRY -1982 WRIST SURGERY R (DE QUERVAINS) - DR Virginia MABRY REMOVAL OF SCAR TISSUE FROM RIGHT WRIST - DR. VALDEZ R FOOT NERVE BX - DR Virginia MABRY -1999 BREAST REDUCTION - CARLOS A R FOOT SCAR TISSUE - DR WILLS ZAID & BSO - ROSAS R KNEE ARTHROSCOPY- SHAVED CONDROMALACIA - DR Virginia MABRY -2003 L FOOT HEEL SPUR - MICH RIGHT ROTATOR CUFF REPAIR R - DR Virginia MABRY -2007 EXCISION OF SCALP CYST - BENIGN, DR WADSWORTH 10/2009 CERVICAL DORSAL COLUMN STIMULATOR (TRIAL) - MAVERICK SPINAL CORD STIMULATOR IMPLANT - DR GIBSON --2010 COLONOSCOPY, INTERNAL HEMORRHOIDS - ABELARDO KNEE SURGERY L MICROFRACTURING - DR YUNIER MABRY -2011 L WRIST DEQUERVAINS RELEASE - DR SHANA RIVERO LAP VERTICAL SLEEVE GASTRECTOMY - DR BEST LEFT BREAST BIOPSY - BENIGN, INTERVENTIONAL RADIOLOGY F/UP PER DR PARSONS 04/2014 LEFT ROTATOR CUFF REPAIR - DR. YUNIER MABRY -2014 L THUMB/WRIST CMC ARTHOPLASTY - DR YUNIER MABRY -2015 R ROTATOR CUFF REPAIR - DR YUNIER MABRY -2016 RIGHT SHOULDER SURGERY 08/19/17 RIGHT SHOULDER AND BICEP SURGERY 06/28/18 NEG STRESS TEST, HOLTER - DE JESUS 05/2018 FAMILY HISTORY FATHER: ALIVE 86 YRS, DIAGNOSED WITH UNSPECIFIED HEART DISEASE, HYPERTENSION MOTHER: ALIVE 84 YRS, HYPERTENSION SIBLINGS: HTN - 2 BROTHERS, HEART DISEASE/ CABG - 1BR, UNSPECIFIED HEART DISEASE 2 BROTHER(S) , 1 SISTER(S) . SOCIAL HISTORY GENERAL: TOBACCO USE ARE YOU A:NONSMOKER HIV / HEP-C SCREENING HIV TEST OFFERED TO PATIENT:YES DATE OFFERED:03/21/2013 TEST ACCEPTED:YES HEP-C TEST OFFERED TO PATIENT:NO OTHERS AT HOME: FATHER, MOTHER. HOUSING: PARENTS HOME. 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 DIET: REGULAR BARIATRIC DIET CURRENTLY. LANGUAGE LANGUAGES SPOKEN:SIERRA LEONEAN DOMESTIC VIOLENCE NONE. BMI CARE GOAL FOLLOW-UP ABOVE NORMAL BMI FOLLOW-UPGIVING ENCOURAGEMENT TO EXERCISE RECREATIONAL DRUG USE DRUG USE?NO EXERCISE: WALKING AND OCCASIONAL SNOWSHOEING. LEARNING BARRIERS / SPECIAL NEEDS CHANGE FROM LAST VISIT?NO BARRIERS TO LEARNING?NO HEARING IMPAIRED?NO VISION IMPAIRED?YES COGNITIVELY IMPAIRED?NO :CORRECTIVE LENSES READINESS TO LEARN?YES LEARNING PREFERENCES?YES :TAPES/VIDEOS, BOOKLETS, HANDOUTS LEARNING CAPABILITIES PRESENT?YES EMOTIONAL BARRIERS?NO SPECIAL DEVICES?NO EMERGENCY DISPATCH OPERATOR NEEDED?NO PAIN CLINIC PFS, CLERGY, PUBLIC HEALTH REFERRALS PFS REFERRAL NEEDED?NO CLERGY REFERRAL NEEDED?NO PUBLIC HEALTH REFERRAL NEEDED?NO WAS THE PROVIDER NOTIFIED OF ANY PERTINENT INFO? N/A HAS THE PATIENT BEEN EDUCATED REGARDING HIS/HER PLAN OF CARE?YES HAS THE PATIENT BEEN EDUCATED REGARDING PAIN, THE RISK FOR PAIN, THE IMPORTANCE OF EFFECTIVE PAIN MANAGEMENT, AND THE PAIN ASSESSMENT PROCESS?YES LATEX QUESTIONNAIRE LATEX ALLERGY : HAVE YOU EVER DEVELOPED ANY TYPE OF REACTION AFTER HANDLING LATEX PRODUCTS SUCH RUBBER GLOVES, CONDOMS, DIAPHRAGMS, BALLOONS, SOCKS, OR UNDERWEAR?NO LATEX ALLERGY : HAVE YOU EVER DEVELOPED ANY TYPE OF REACTION DURING OR AFTER DENTAL APPOINTMENT, VAGINAL/RECTAL EXAMINATION, SURGICAL PROCEDURE, OR ANY OTHER EXPOSURE?NO LATEX RISK : HAVE YOU EVER HAD ANY DIFFICULTY BREATHING OR HIVES AFTER EATING OR HANDLING ANY FRUITS, OR VEGETABLES; SUCH KIWI, BANANAS, STONE FRUITS, OR CHESTNUTSNO LATEX RISK : DO YOU HAVE A PREVIOUS PERSONAL HISTORY OF MORE THAN NINE SURGERIES, SPINA BIFIDA, OR REPEATED CATHERIZATIONS? YES - PLEASE INDICATE : > 9 SURGERIES LATEX RISK : ARE YOU FREQUENTLY EXPOSED TO LATEX PRODUCTS IN YOUR OCCUPATION?NO DATE ASKED : 04/05/2019 CAFFEINE CAFFEINE USE?YES SODA OCC ADVANCE DIRECTIVE ADVANCE DIRECTIVE DISCUSSED WITH PATIENT:YES HCP IS PARENTS CARLIN PORTER [phone] QUAKER [id number] NONE MARITAL STATUS: .. ALCOHOL SCREENING DID YOU HAVE A DRINK CONTAINING ALCOHOL IN THE PAST YEAR?NO POINTS0 INTERPRETATIONNEGATIVE OCCUPATION: DISABLED. SEXUAL HX HAD SEX IN THE LAST 12 MONTHS (VAGINAL, ORAL, OR ANAL)?NO HAVE YOU EVER HAD AN STD?NO REVIEWED WITH PATIENT 01/06/18 0937 LASREVIEWED WITH PT 03/08/18 0904 BVREVIEWED WITH PT 10/03/18 1500 [id number] REVIEWED WITH PT. AD04/05/19 1439 REVIEWED WITH PT. ADREVIEWED WITH PATIENT 05/04/2019 1037 JS. HOSPITALIZATION/MAJOR DIAGNOSTIC PROCEDURE SURGERIES ABOVE REACTION TO RUBELLA VACCINE AGE 9 REVIEW OF SYSTEMS REVIEWED BY: PROVIDER: KIMBER CUNNINGHAM . CONSTITUTIONAL: ANY CHANGE IN YOUR MEDICAL CONDITION? YES, DIAGNOSED WITH RHEUMATOID ARTHRITIS, SEEING RHEUMATOLOGY ON WEDNESDAY . CHILLS NO . FEVER NO . INFECTION: DO YOU HAVE NEW INFECTIONS? NO . DO YOU HAVE HISTORY OF MRSA? NO . MUSCULOSKELETAL: ANY NEW PATTERNS OF PAIN OR NUMBNESS? NO . GASTROENTEROLOGY: ANY NEW CHANGE IN BOWEL CONTROL? NO . GENITOURINARY: ANY NEW CHANGE IN BLADDER CONTROL? NO . IS THERE A CHANCE YOU COULD BE ? NO . HEMATOLOGY/LYMPH: DO YOU TAKE ANY BLOOD THINNERS? (FOR EXAMPLE- COUMADIN, PLAVIX, AGGRENOX, PLATEL, PRADAXA, OR XARELTO) NO . WHEN WAS YOUR LAST DOSE? DATE: TIME: . NEUROLOGY: HAVE YOU FALLEN IN THE PAST 12 MONTHS? YES, STATES PRIOR TO LAST VISIT, DISCUSSED AT PREVIOUS VISIT . ANY NEW EXTREMITY NUMBNESS OR WEAKNESS? NO . CARDIOLOGY: DO YOU HAVE A PACEMAKER OR DEFIBRILLATOR? DCS . RESPIRATORY: HAVE YOU BEEN SICK IN THE PAST WEEK? NO . FEVER YES . FLU LIKE SYMPTOMS? NO . COUGH YES . INTEGUMENTARY: DO YOU HAVE ANY RASHES OR OPEN SORES? NO . ALLERGIC/IMMUNO: ARE YOU ALLERGIC TO IV DYE? NO . ANY NEW ALLERGIES? NO . PSYCHIATRIC: DO YOU HAVE THOUGHTS OF HURTING YOURSELF OR SOMEONE ELSE? NO . ARE YOU ABUSED, NEGLECTED, OR IN AN UNSAFE ENVIRONMENT? NO . ENDOCRINOLOGY: ARE YOU DIABETIC? NO . OTHER: DO YOU NEED ANY PRESCRIPTIONS? NO . IF YES, PLEASE LIST: ____ . ANY NEW PROBLEMS WITH YOUR MEDICATIONS? NO . WHEN DID YOU LAST EAT? ____ . WHEN DID YOU LAST DRINK? ____ . WHAT DID YOU LAST DRINK? ____ . NAME OF PERSON DRIVING YOU HOME? ____ . DO YOU HAVE ANY OTHER QUESTIONS OR CONCERNS YES, PATIENT RECEIVED LETTER FROM W/C - W/C DOESN'T WANT TO COVER HER MEDICATIONS AND NEEDS CHANGES BY SEPTEMBER 2019 . VITAL SIGNS WT 225.4 LBS, HT 63 IN, BMI 39.92 INDEX, BP 133/80 MM HG, HR 80 /MIN, RR 18 /MIN, TEMP 97.0 F, OXYGEN SAT % 99%, SAFE IN ENV? (Y/N) YES, NA INITIALS AW 1033, REVIEWED BY: JARAD. EXAMINATION GENERAL EXAMINATION: LUNGS:LUNG SOUNDS ARE CLEAR. HEART:HEART RATE REGULAR. ASSESSMENTS OTHER DEPRESSION - F32.89 (PRIMARY) SPONDYLOSIS OF CERVICAL REGION WITHOUT MYELOPATHY OR RADICULOPATHY - M47.812 TREATMENT OTHER DEPRESSION NOTES: JANAE HAS BEEN DOING WELL OVER THE YEARS WITH HER CURRENT CHRONIC PAIN MEDICATIONS. CURRENTLY USING CYMBALTA 30 MG TWICE A DAY. THIS IS BEING USED FOR BOTH JOINT PAIN AND DEPRESSION ASSOCIATED WITH HER CHRONIC NECK AND BACK PAIN. SHE IS USING CYMBALTA 30 MG TWICE A DAY. HAS BEEN USING NUCYNTA 50 MG 1-2 TABLETS PER DAY FOR SEVERAL YEARS WITHOUT SIDE EFFECTS AND REPORTS OF IMPROVED PAIN CONTROL AND FUNCTION. HYDROCODONE, OXYCODONE AND TRAMADOL WERE TRIALED IN THE PAST, WHICH CAUSED GI UPSET AND WERE INEFFECTIVE. HAS TRIALED MULTIPLE NSAIDS WITH REPORTS OF GI UPSET AND INEFFECTIVE. CURRENT DOSAGE OF NUCYNTA IS BELOW RECOMMENDATIONS FOR MORPHINE MILLIEQUIVALENTS DAILY. RECOMMEND CONTINUING CURRENT CHRONIC PAIN MEDICATIONS. CONTINUE EVERY 2 MONTH MONITORING AND EVALUATION AT PAIN CENTER., ISTOP REGISTRY REVIEWED AND DEMONSTRATES COMPLLIANCE. (REF # ) BRINGS IN MEDICATIONS WHICH IS APPROPRIATE FOR WHAT WAS DISPENSED. RECENT URINE TOXICOLOGY REVIEWED. NO UNAUTHORIZED MEDICATIONS. NO ILLICIT SUBSTANCES AND PRESCRIBED MEDICATIONS WERE PRESENT. , RISKS AOF NARCOTIC/OPIOD MEDICATIONS INCLUDES BUT IS NOT LIMITED TO RISK OF DEPENDANCE/DEVELOPMENT OF ADDICTION, MOOD DISTURBANCE AND DEPRESSION, OSTEOPOROSIS, HORMONAL AND LABIDAL CHANGES, RESPIRATORY DEPRESSION AND . PATIENT IS ADVISED NOT TO DRIVE OR DRINK ALCOHOL WHILE ON THESE MEDICATIONS. PROCEDURES PN WORKMANS' COMP OPINION IN YOUR OPINION, WAS THE INCIDENT THAT THE PATIENT DESCRIBED THE COMPETENT MEDICAL CAUSE OF THIS INJURY/ILLNESS? YES ARE THE PATIENT'S COMPLAINTS CONSISTENT WITH HIS/HER HISTORY OF THE INJURY/ILLNESS? YES IS THE PATIENT'S HISTORY OF THE INJURY/ILLNESS CONSISTENT WITH YOUR OBJECTIVE FINDING? YES WHAT IS THE PERCENTAGE OF TEMPORARY IMPAIRMENT? MODERATE TO MARKED = 66.7% IS THE PATIENT WORKING? NO DOCTOR ON SITE: ILENE CHEW MD PROCEDURE CODES FA211 ESTABILISHED PATIENT [facility] CHARGE DISPOSITION & COMMUNICATION FOLLOW UP 2 MONTHS (REASON: W/C NECK/BACK) ELECTRONICALLY SIGNED BY MARISA MICHAUD ON 05/23/2019 AT 02:43 PM EST DISCLAIMER : THIS IS A VISIT SUMMARY EXTRACTED FROM THE [employer] CHART. IT IS NOT A COPY OF THE [employer] PROGRESS NOTE. AUDREY
== END ==
LOC: M PAIN 09:45
PROVIDERS: ATTEND Nurse Practitioner Family
DX: M47.812 Spondylosis without myelopathy or radiculopathy, cervical region (principal); G89.29 Other chronic pain; F32.89 Other specified depressive episodes; K21.9 Gastro-esophageal reflux disease without esophagitis; Z88.5 Allergy status to narcotic agent; Z88.7 Allergy status to serum and vaccine; Z88.8 Allergy status to other drugs, medicaments and biological substances; Z79.899 Other long term (current) drug therapy

== ENCOUNTER → 2019-05-08 | Outpatient (CLI) | payer MEDICARE ==
[2019-05-08 13:14] LABS: AMORPHOUS SEDIMENT SMALL (NEGATIVE); APPEARANCE, URINE CLEAR (CLEAR); BACTERIA, URINE AUTO NEGATIVE (NEGATIVE); BILIRUBIN, URINE AUTO NEGATIVE (NEGATIVE); BLOOD, URINE BLOOD NEGATIVE (NEGATIVE); COLOR, URINE YELLOW (YELLOW); GLUCOSE, URINE (UA) AUTO NEGATIVE (NEGATIVE); KETONE, URINE AUTO NEGATIVE (NEGATIVE); LEUKOCYTE ESTERASE, URINE AUTO NEGATIVE (NEGATIVE); MUCUS, URINE SMALL (NEGATIVE); NITRITE, URINE AUTO NEGATIVE (NEGATIVE); PROTEIN, URINE AUTO NEGATIVE (NEGATIVE); RBC, URINE AUTO 1 /HPF (0-3); SPECIFIC GRAVITY URINE AUTO 1.025 (1.002-1.035); SQUAMOUS EPITHELIAL CELL UR AU 6 /HPF (0-6); UROBILINOGEN, URINE AUTO 0.2 mg/dL (0.0-2.0); WBC, URINE AUTO 0 /HPF (0-3)
[2019-05-08 13:24] LABS: ALBUMIN 3.7 GM/DL (3.2-5.2); ALT/SGPT 18 U/L (12-78); BILIRUBIN,TOTAL 0.4 MG/DL (0.2-1.0); BLOOD UREA NITROGEN 14 MG/DL (7-18); C REACTIVE PROTEIN QUANTITATIV 1.31 MG/DL (0.00-0.30); CALCIUM LEVEL 9.4 MG/DL (8.5-10.1); CARBON DIOXIDE LEVEL 27 MEQ/L (21-32); CHLORIDE LEVEL 107 MEQ/L (98-107); COMPLEMENT C3 120 MG/DL (90-180); COMPLEMENT C4 22 MG/DL (10-40); CPK CREATINE PHOSPHOKINASE 79 U/L (26-192); CREATININE FOR GFR 0.94 MG/DL (0.55-1.30); GLOMERULAR FILTRATION RATE > 60.0 (>51); GLUCOSE, FASTING 84 MG/DL (70-100); POTASSIUM SERUM 4.4 MEQ/L (3.5-5.1); SODIUM LEVEL 139 MEQ/L (136-145); TOTAL PROTEIN 7.4 GM/DL (6.4-8.2)
[2019-05-08 13:33] LABS: TOTAL PROTEIN,RANDOM URINE 11.3 MG/DL (0.0-12.0)
[2019-05-08 13:45] LABS: HEPATITIS B SURFACE ANTIGEN NEGATIVE (NEGATIVE)
[2019-05-11 00:08] LABS: ANTI DS-DNA AB Negative (Negative); CYCLIC CITRULLINATED PEPTIDE 6 units (0-19); HEPATITIS B CORE ANTIBODY IGG Negative (Negative); RNP ANTIBODY < 0.2 AI (0.0-0.9); SMITHS ANTIBODY < 0.2 AI (0.0-0.9); SSA SJOGRENS A <0.2 AI (0.0-0.9); SSB SJOGRENS B <0.2 AI (0.0-0.9)
== END ==
LOC: M LAB 11:41
PROVIDERS: ATTEND Internal Medicine
DX: M06.4 Inflammatory polyarthropathy (principal); R76.8 Other specified abnormal immunological findings in serum
CPT/HCPCS: 36415; 80053; 81001; 82550; 82570; 84156; 85652; 86140; 86160; 86200; 86225; 86235; 86255; 86480; 86704; 86803; 87340; G0463

== ENCOUNTER → 2019-06-27 | Outpatient (CLI) | payer MEDICARE ==
[2019-06-27 11:17] LABS: BASO # 0.1 10^3/uL (0.0-0.2); BASO % 0.6 % (0.0-1.0); EOS # 0.1 10^3/uL (0.0-0.5); EOS % 0.8 % (0.0-3.0); HEMATOCRIT 41.4 % (36.0-47.0); HEMOGLOBIN 13.2 g/dl (12.0-15.5); LYMPH # 3.6 10^3/uL (1.5-5.0); MEAN CORPUSCULAR HGB CONC 31.9 g/dl (32.0-36.5); MEAN CORPUSCULAR VOLUME 87.7 fl (80.0-96.0); MONO # 0.5 10^3/uL (0.0-0.8); MONO % 4.9 % (0.0-5.0); NEUTROPHILS # 5.2 10^3/uL (1.5-8.5); NEUTROPHILS % 55.1 % (36.0-66.0); PLATELET COUNT, AUTOMATED 264 10^3/uL (150-450); RED BLOOD COUNT 4.72 10^6/uL (4.00-5.40); WHITE BLOOD COUNT 9.5 10^3/uL (4.0-10.0)
[2019-06-27 11:44] LABS: ALBUMIN 3.4 GM/DL (3.2-5.2); BILIRUBIN,TOTAL 0.4 MG/DL (0.2-1.0); C REACTIVE PROTEIN QUANTITATIV 0.44 MG/DL (0.00-0.30); CALCIUM LEVEL 9.3 MG/DL (8.5-10.1); CREATININE FOR GFR 1.11 MG/DL (0.55-1.30); GLOMERULAR FILTRATION RATE 53.7 (>51); POTASSIUM SERUM 4.6 MEQ/L (3.5-5.1); TOTAL PROTEIN 7.1 GM/DL (6.4-8.2)
[2019-06-27 11:51] LABS: ERYTHROCYTE SEDIMENTATION RATE 12 mm/hr (0-30)
== END ==
LOC: M PLALAB 09:42
PROVIDERS: ATTEND Internal Medicine
DX: M06.4 Inflammatory polyarthropathy (principal)

== ENCOUNTER → 2019-07-03 | Outpatient (CLI) | payer OTHER, MEDICARE ==
--- NOTE | 2019-07-19 04:40 | ECWPNPC ---
PATIENT NAME: JANAE PORTER : 1960 GENDER: FEMALE VISIT DATE: 07/03/2019 DISCHARGE DATE: 07/03/19 0957 VISIT LOCKED DATE TIME: PHYSICIAN: KIMBER ENCINAS RESOURCE: KIMBER ENCINAS REASON FOR APPOINTMENT 1. W/C NECK/BACK HISTORY OF PRESENT ILLNESS HISTORY OF PRESENT ILLNESS: PAIN THE PATIENT DESCRIBES THE PAIN... HERE FOR 3MOS F/U.THIS IS A WORK RELATED INJURY [id number].SUFFERS FROM CHRONIC NECK AND RIGHT SHOULDER PAIN.SHE HAD RIGHT SHOULDER SURGERY 06/28/18.HAD BILAT.CFBT ON 01/10/19.REPORTING MARKED IMPROVEMENT IN PAIN AND MOBILITY POST PROCEDURE. USING CYMBALTA 30MG BID AND NUCYNTA 50MG Q8H PRN FOR SEVERE PAIN.USING NUCYNTA FOR CHRONIC NECK AND RIGHT SHOULDER ACUTE NEUROPATHIC PAIN EPISODES.RATING PAIN VAS 6/10.DESCRIBES PAIN CONSTANT ACHING ,SORE AND PINCHING.DCS PLACED 2010.CONTINUES TO FIND DCS EFFECTIVE. FALL RISK SCREENING: SCREENING :NO FALLS REPORTED IN THE LAST YEAR CURRENT MEDICATIONS TAKING FISH OIL 1200 MG CAPSULE 1 CAPSULE ORALLY ONCE A DAY TAKING ESTRADIOL 1 MG TABLET [address] BUSBY ORALLY ONCE A DAY TAKING VITAMIN D3 5000 UNIT CAPSULE 2 CAPS ORALLY 5 DAYS A WEEK TAKING CALCIUM CITRATE PLUS TABLET 1 TAB ORALLY THREE TIMES DAILY TAKING MULTIVITAMINS TABLET 1 TAB ORALLY DAILY TAKING LYSINE 500 MG TABLET 1 TABLET ORALLY TWICE DAILY TAKING FERROUS SULFATE 325 (65 FE) MG TABLET 1 TABLET ORALLY THREE TIMES A WEEK TAKING BIOTIN 5000 MCG TABLET 2 TAB ORALLY ONCE A DAY TAKING COLACE 100 MG CAPSULE 1 CAPSULE NEEDED ORALLY ONCE A DAY TAKING MAGNESIUM-ZINC 133.33-5 MG TABLET 1 TABLET ORALLY TWICE A DAY TAKING VITAMIN B-12 500 MCG TABLET SUBLINGUAL 1 TABLET UNDER THE TONGUE AND ALLOW TO DISSOLVE SUBLINGUAL ONCE A DAY TAKING CINNAMON 500 MG CAPSULE 1 CAP ORALLY DAILY TAKING TYLENOL ARTHRITIS PAIN _ 2 TAB ORALLY DAILY NEEDED TAKING METHYLPREDNISOLONE 4 MG TABLET 1 TABLET WITH FOOD OR MILK ORALLY BID TAKING OMEPRAZOLE 20 MG CAPSULE DELAYED RELEASE 1 CAP ORALLY TWICE A DAY TAKING CYMBALTA 30 MG CAPSULE DELAYED RELEASE PARTICLES 1 CAPSULE ORALLY TWICE DAILY TAKING NUCYNTA 50 MG TABLET 1 ORALLY NEEDED FOR PAIN Q8H MDD2, NOTES: WORKERS COMP NOT-TAKING DICLOFENAC SODIUM 1 % GEL DIRECTED 4GM TO KNEES, 2GM TO HANDS TRANSDERMAL FOUR TIMES DAILY NEEDED NOT-TAKING CYMBALTA 30 MG CAPSULE DELAYED RELEASE PARTICLES 1 CAPSULE ORALLY DAILY, NOTES: PRESCRIBED THIRD DOSE BY PRIMARY NOT-TAKING GLUCOSAMINE 500 MG CAPSULE 1 CAPSULE WITH A MEAL ORALLY BID NOT-TAKING ASPIR-81 81 MG TABLET DELAYED RELEASE 1 TABLET ORALLY ONCE A DAY MEDICATION LIST REVIEWED AND RECONCILED WITH THE PATIENT PAST MEDICAL HISTORY CHRONIC PAIN: BACK, NECK, R SHOULDER- FOLLOWS WITH PAIN CLINIC, UNDER WORKER'S COMP ESOPHAGEAL REFLUX - (PULMONARY EVAL FOR COUGH NEG.) OBESITY ENVIRONMENTAL AND SEASONAL ALLERGIES RIGHT SHOULDER SURGERY OTHER DEPRESSION ALLERGIES RUBELLA VIRUS VACCINE: KNEES LOCKED - ALLERGY FOSAMAX: HAND SWELLING - ALLERGY CODEINE SULFATE: NAUSEA/VOMITING VOLTAREN: BLOOD IN STOOL - ALLERGY T-DAP VACCINE: JOINT PAIN/SWELLING - ALLERGY SURGICAL HISTORY R ANKLE SURGERY RECONSTRUCTION - DR Virginia MABRY WRIST SURGERY R (DE QUERVAINS) - DR Virginia MABRY REMOVAL OF SCAR TISSUE FROM RIGHT WRIST - DR. VALDEZ -1993 R FOOT NERVE BX - DR Virginia MABRY BREAST REDUCTION - CARLOS A R FOOT SCAR TISSUE - DR WILLS ZAID & BSO - ROSAS R KNEE ARTHROSCOPY- SHAVED CONDROMALACIA - DR Virginia MABRY -2003 L FOOT HEEL SPUR - MICH RIGHT ROTATOR CUFF REPAIR R - DR Virginia MABRY EXCISION OF SCALP CYST - BENIGN, DR WADSWORTH 10/2009 CERVICAL DORSAL COLUMN STIMULATOR (TRIAL) - MAVERICK SPINAL CORD STIMULATOR IMPLANT - DR GIBSON --2010 COLONOSCOPY, INTERNAL HEMORRHOIDS - ABELARDO KNEE SURGERY L MICROFRACTURING - DR YUNIER MABRY L WRIST DEQUERVAINS RELEASE - DR SHANA RIVERO LAP VERTICAL SLEEVE GASTRECTOMY - DR BEST - LEFT BREAST BIOPSY - BENIGN, INTERVENTIONAL RADIOLOGY F/UP PER DR PARSONS 04/2014 LEFT ROTATOR CUFF REPAIR - DR. YUNIER MABRY -2014 L THUMB/WRIST CMC ARTHOPLASTY - DR YUNIER MABRY -2015 R ROTATOR CUFF REPAIR - DR YUNIER MABRY -2016 RIGHT SHOULDER SURGERY 08/19/17 RIGHT SHOULDER AND BICEP SURGERY 06/28/18 NEG STRESS TEST, HOLTER - DE JESUS 05/2018 FAMILY HISTORY FATHER: ALIVE 86 YRS, DIAGNOSED WITH HYPERTENSION, UNSPECIFIED HEART DISEASE MOTHER: ALIVE 84 YRS, HYPERTENSION SIBLINGS: HTN - 2 BROTHERS, HEART DISEASE/ CABG - 1BR, UNSPECIFIED HEART DISEASE 2 BROTHER(S) , 1 SISTER(S) . MOTHER - STROKE. SOCIAL HISTORY GENERAL: TOBACCO USE ARE YOU A:NONSMOKER HIV / HEP-C SCREENING HIV TEST OFFERED TO PATIENT:YES DATE OFFERED:03/21/2013 TEST ACCEPTED:YES HEP-C TEST OFFERED TO PATIENT:NO OTHERS AT HOME: FATHER, MOTHER. HOUSING: PARENTS HOME. 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 DIET: REGULAR BARIATRIC DIET CURRENTLY. LANGUAGE LANGUAGES SPOKEN:SAMI DOMESTIC VIOLENCE NONE. BMI CARE GOAL FOLLOW-UP ABOVE NORMAL BMI FOLLOW-UPGIVING ENCOURAGEMENT TO EXERCISE RECREATIONAL DRUG USE DRUG USE?NO EXERCISE: WALKING AND OCCASIONAL SNOWSHOEING. LEARNING BARRIERS / SPECIAL NEEDS CHANGE FROM LAST VISIT?NO BARRIERS TO LEARNING?NO HEARING IMPAIRED?NO VISION IMPAIRED?YES COGNITIVELY IMPAIRED?NO :CORRECTIVE LENSES READINESS TO LEARN?YES LEARNING PREFERENCES?YES :TAPES/VIDEOS, BOOKLETS, HANDOUTS LEARNING CAPABILITIES PRESENT?YES EMOTIONAL BARRIERS?NO SPECIAL DEVICES?NO EMBEDDED FIRMWARE DEVELOPER NEEDED?NO PAIN CLINIC PFS, CLERGY, PUBLIC HEALTH REFERRALS PFS REFERRAL NEEDED?NO CLERGY REFERRAL NEEDED?NO PUBLIC HEALTH REFERRAL NEEDED?NO WAS THE PROVIDER NOTIFIED OF ANY PERTINENT INFO? N/A HAS THE PATIENT BEEN EDUCATED REGARDING HIS/HER PLAN OF CARE?YES HAS THE PATIENT BEEN EDUCATED REGARDING PAIN, THE RISK FOR PAIN, THE IMPORTANCE OF EFFECTIVE PAIN MANAGEMENT, AND THE PAIN ASSESSMENT PROCESS?YES LATEX QUESTIONNAIRE LATEX ALLERGY : HAVE YOU EVER DEVELOPED ANY TYPE OF REACTION AFTER HANDLING LATEX PRODUCTS SUCH RUBBER GLOVES, CONDOMS, DIAPHRAGMS, BALLOONS, SOCKS, OR UNDERWEAR?NO LATEX ALLERGY : HAVE YOU EVER DEVELOPED ANY TYPE OF REACTION DURING OR AFTER DENTAL APPOINTMENT, VAGINAL/RECTAL EXAMINATION, SURGICAL PROCEDURE, OR ANY OTHER EXPOSURE?NO LATEX RISK : HAVE YOU EVER HAD ANY DIFFICULTY BREATHING OR HIVES AFTER EATING OR HANDLING ANY FRUITS, OR VEGETABLES; SUCH KIWI, BANANAS, STONE FRUITS, OR CHESTNUTSNO LATEX RISK : DO YOU HAVE A PREVIOUS PERSONAL HISTORY OF MORE THAN NINE SURGERIES, SPINA BIFIDA, OR REPEATED CATHERIZATIONS? YES - PLEASE INDICATE : > 9 SURGERIES LATEX RISK : ARE YOU FREQUENTLY EXPOSED TO LATEX PRODUCTS IN YOUR OCCUPATION?NO DATE ASKED : 06/05/2019 CAFFEINE CAFFEINE USE?YES SODA OCC ADVANCE DIRECTIVE ADVANCE DIRECTIVE DISCUSSED WITH PATIENT:YES HCP IS PARENTS [facility] [phone] SHINTO [id number] NONE MARITAL STATUS: .. ALCOHOL SCREENING DID YOU HAVE A DRINK CONTAINING ALCOHOL IN THE PAST YEAR?NO POINTS0 INTERPRETATIONNEGATIVE OCCUPATION: DISABLED. SEXUAL HX HAD SEX IN THE LAST 12 MONTHS (VAGINAL, ORAL, OR ANAL)?NO HAVE YOU EVER HAD AN STD?NO HOSPITALIZATION/MAJOR DIAGNOSTIC PROCEDURE SURGERIES ABOVE REACTION TO RUBELLA VACCINE AGE 9 REVIEW OF SYSTEMS REVIEWED BY: PROVIDER: KIMBER CUNNINGHAM . CONSTITUTIONAL: ANY CHANGE IN YOUR MEDICAL CONDITION? NO . CHILLS NO . FEVER NO . INFECTION: DO YOU HAVE NEW INFECTIONS? NO . DO YOU HAVE HISTORY OF MRSA? NO . MUSCULOSKELETAL: ANY NEW PATTERNS OF PAIN OR NUMBNESS? NO . GASTROENTEROLOGY: ANY NEW CHANGE IN BOWEL CONTROL? NO . GENITOURINARY: ANY NEW CHANGE IN BLADDER CONTROL? NO . IS THERE A CHANCE YOU COULD BE ? NO . HEMATOLOGY/LYMPH: DO YOU TAKE ANY BLOOD THINNERS? (FOR EXAMPLE- COUMADIN, PLAVIX, AGGRENOX, PLATEL, PRADAXA, OR XARELTO) NO . WHEN WAS YOUR LAST DOSE? DATE: TIME: . NEUROLOGY: HAVE YOU FALLEN IN THE PAST 12 MONTHS? YES, STATES FALL DUE TO SLIPPING ON THE ICE - NO MAJOR INJURIES OTHER THAN A BRUISE TO HER RIGHT ARM, NO ED VISIT . ANY NEW EXTREMITY NUMBNESS OR WEAKNESS? NO . CARDIOLOGY: DO YOU HAVE A PACEMAKER OR DEFIBRILLATOR? NO, DCS . RESPIRATORY: HAVE YOU BEEN SICK IN THE PAST WEEK? NO . FEVER NO . FLU LIKE SYMPTOMS? NO . COUGH NO . INTEGUMENTARY: DO YOU HAVE ANY RASHES OR OPEN SORES? NO . ALLERGIC/IMMUNO: ARE YOU ALLERGIC TO IV DYE? NO . ANY NEW ALLERGIES? YES - T-DAP VACCINE, ADDED TO ALLERGY LIST . PSYCHIATRIC: DO YOU HAVE THOUGHTS OF HURTING YOURSELF OR SOMEONE ELSE? NO . ARE YOU ABUSED, NEGLECTED, OR IN AN UNSAFE ENVIRONMENT? NO . ENDOCRINOLOGY: ARE YOU DIABETIC? NO . OTHER: DO YOU NEED ANY PRESCRIPTIONS? NO . IF YES, PLEASE LIST: ____ . ANY NEW PROBLEMS WITH YOUR MEDICATIONS? NO . WHEN DID YOU LAST EAT? ____ . WHEN DID YOU LAST DRINK? ____ . WHAT DID YOU LAST DRINK? ____ . NAME OF PERSON DRIVING YOU HOME? ____ . DO YOU HAVE ANY OTHER QUESTIONS OR CONCERNS NO . VITAL SIGNS WT 227.0 LBS, HT 63 IN, BMI 40.21 INDEX, BP 134/86 MM HG, HR 75 /MIN, RR 18 /MIN, TEMP 96.5 F, OXYGEN SAT % 97%, SAFE IN ENV? (Y/N) YES, NA INITIALS AW 0936, REVIEWED BY: JARAD. EXAMINATION GENERAL EXAMINATION: LUNGS:LUNG SOUNDS ARE CLEAR. HEART:HEART RATE REGULAR. ASSESSMENTS SPONDYLOSIS OF CERVICAL REGION WITHOUT MYELOPATHY OR RADICULOPATHY - M47.812 (PRIMARY) TREATMENT SPONDYLOSIS OF CERVICAL REGION WITHOUT MYELOPATHY OR RADICULOPATHY CONTINUE CYMBALTA CAPSULE DELAYED RELEASE PARTICLES, 30 MG, 1 CAPSULE, ORALLY, TWICE DAILY CONTINUE NUCYNTA TABLET, 50 MG, 1, ORALLY NEEDED FOR PAIN, Q8H MDD2, NOTES: WORKERS COMP NOTES: ISTOP REGISTRY REVIEWED AND DEMONSTRATES COMPLLIANCE. BRINGS IN MEDICATIONS WHICH IS APPROPRIATE FOR WHAT WAS DISPENSED. RECENT URINE TOXICOLOGY REVIEWED. NO UNAUTHORIZED MEDICATIONS. NO ILLICIT SUBSTANCES AND PRESCRIBED MEDICATIONS WERE PRESENT. PROCEDURES PN WORKMANS' COMP OPINION IN YOUR OPINION, WAS THE INCIDENT THAT THE PATIENT DESCRIBED THE COMPETENT MEDICAL CAUSE OF THIS INJURY/ILLNESS? YES ARE THE PATIENT'S COMPLAINTS CONSISTENT WITH HIS/HER HISTORY OF THE INJURY/ILLNESS? YES IS THE PATIENT'S HISTORY OF THE INJURY/ILLNESS CONSISTENT WITH YOUR OBJECTIVE FINDING? YES WHAT IS THE PERCENTAGE OF TEMPORARY IMPAIRMENT? MODERATE TO MARKED = 66.7% IS THE PATIENT WORKING? NO DOCTOR ON SITE: ILENE CHEW MD PROCEDURE CODES FA211 ESTABILISHED PATIENT [facility] FACILITY CHARGE DISPOSITION & COMMUNICATION FOLLOW UP 2 MONTHS (REASON: W/C) ELECTRONICALLY SIGNED BY MARISA MICHAUD ON 07/18/2019 AT 03:16 PM EDT DISCLAIMER : THIS IS A VISIT SUMMARY EXTRACTED FROM THE [facility] CHART. IT IS NOT A COPY OF THE [facility] PROGRESS NOTE. AUDREY
== END ==
LOC: M PAIN 09:15
PROVIDERS: ATTEND Nurse Practitioner Family
DX: M47.812 Spondylosis without myelopathy or radiculopathy, cervical region (principal)

== ENCOUNTER → 2019-08-15 | Outpatient (CLI) | payer MEDICARE ==
[~2019-08-15] MED LIST changes: +CONRAY-43 43% 50ML VIAL (Q9960) As Ordered ONE
--- NOTE | 2019-08-15 09:58 | REP ---
REASON: Knee pain. History of arthritis. PRIORS: None. The knee joint injection was performed by WYATT Cook. No abnormal contrast is seen in any portion of either medial or lateral meniscus. There is irregularity of the femoral and tibial chondral surfaces suggestive of chondromalacia. Although the cruciate ligaments cannot be identified, per say, their outline suggests that they are intact. That same premise also indicates intact collateral ligaments. IMPRESSION: 1. No CT evidence of internal derangement. 2. Evidence of chondromalacia as described above. Electronically Signed by Osbaldo Elise DO 08/15/2019 10:03 A
--- NOTE | 2019-08-15 17:00 | REP ---
LEFT KNEE ARTHROGRAM The procedure was performed under the direct supervision of Dr. Baker. The benefits and risks including but not limited to pain infection bleeding and anaphylaxis were explained to the patient and informed consent was obtained. The left patellofemoral joint space was localized using fluoroscopic guidance. The skin was prepped and draped in a sterile fashion. 1% lidocaine was used as a local anesthetic. Using fluoroscopic guidance a 22-gauge needle was inserted and advanced into the joint. 40 ml of Conray 43 was injected. The needle was removed and the patient has taken to CT scan for postprocedural imaging. The patient tolerated the procedure well and there were no immediate complications. Less than 6 seconds of fluoroscopy time was utilized for this procedure. Electronically Signed by WYATT Cook 08/15/2019 03:17 P Electronically Signed by Chuck Baker MD 08/15/2019 04:50 P
== END ==
LOC: M RADPRO 08:27
PROVIDERS: ATTEND Physician Assistant
DX: M94.262 Chondromalacia, left knee (principal); M25.562 Pain in left knee
CPT/HCPCS: 27369; 73701; 77002; Q9960

== ENCOUNTER → 2019-09-04 | Outpatient (CLI) | payer MEDICARE ==
[~2019-09-04] MED LIST changes: -CONRAY-43 43% 50ML VIAL (Q9960) As Ordered ONE
[2019-09-04 13:51] LABS: BASO # 0.1 10^3/uL (0.0-0.2); EOS # 0.3 10^3/uL (0.0-0.5); EOS % 3.3 % (0.0-3.0); HEMOGLOBIN 14.1 g/dl (12.0-15.5); LYMPH # 2.9 10^3/uL (1.5-5.0); LYMPH % 37.4 % (24.0-44.0); MEAN CORPUSCULAR HGB CONC 32.8 g/dl (32.0-36.5); MEAN CORPUSCULAR VOLUME 94.5 fl (80.0-96.0); MONO # 0.5 10^3/uL (0.0-0.8); NEUTROPHILS % 51.8 % (36.0-66.0); PLATELET COUNT, AUTOMATED 247 10^3/uL (150-450); RED BLOOD COUNT 4.55 10^6/uL (4.00-5.40); WHITE BLOOD COUNT 7.8 10^3/uL (4.0-10.0)
[2019-09-04 14:12] LABS: ALBUMIN 3.6 GM/DL (3.2-5.2); ALT/SGPT 37 U/L (12-78); BILIRUBIN,TOTAL 0.4 MG/DL (0.2-1.0); BLOOD UREA NITROGEN 17 MG/DL (7-18); C REACTIVE PROTEIN QUANTITATIV 0.66 MG/DL (0.00-0.30); CALCIUM LEVEL 9.9 MG/DL (8.5-10.1); CARBON DIOXIDE LEVEL 29 MEQ/L (21-32); CHLORIDE LEVEL 108 MEQ/L (98-107); CREATININE FOR GFR 0.98 MG/DL (0.55-1.30); GLOMERULAR FILTRATION RATE > 60.0 (>51); GLUCOSE, FASTING 91 MG/DL (70-100); POTASSIUM SERUM 4.4 MEQ/L (3.5-5.1); SODIUM LEVEL 141 MEQ/L (136-145); TOTAL PROTEIN 7.1 GM/DL (6.4-8.2)
[2019-09-04 14:14] LABS: ERYTHROCYTE SEDIMENTATION RATE 10 mm/hr (0-30)
== END ==
LOC: M PLALAB 11:42
PROVIDERS: ATTEND Internal Medicine
DX: M06.4 Inflammatory polyarthropathy (principal)

== ENCOUNTER → 2019-10-03 | Outpatient (CLI) | payer OTHER ==
--- NOTE | 2019-10-05 04:00 | ECWPNPC ---
PATIENT NAME: JANAE PORTER : 1960 GENDER: FEMALE VISIT DATE: 10/03/2019 DISCHARGE DATE: 10/03/19 1017 VISIT LOCKED DATE TIME: PHYSICIAN: KIMBER ENCINAS RESOURCE: KIMBER ENCINAS REASON FOR APPOINTMENT 1. W/C 3 MONTHS HISTORY OF PRESENT ILLNESS GENERAL: -. FALL RISK SCREENING: SCREENING :ONE FALL WITHOUT INJURY IN THE PAST YEAR PAIN SCREENING: PATIENT HAS A COMPLAINT OF ACUTE OR CHRONIC PAIN :YES 10/03/19 INTENSITY OF PAIN (SCALE OF 1 TO 10):7.5 WHAT DOES YOUR PAIN FEEL LIKE:ACHING, CONTINOUS, SHARP, THROBBING PAIN IS INCREASED BY: STANDING, WALKING, LIFTING, DRIVING PAIN IS DECREASED BY: MEDS, DCS, REST, HEAT/ICE NURSING NOTE: -. PAIN CENTER INTAKE QUESTIONS: DO YOU HAVE A HISTORY OF MRSA? :NO DO YOU TAKE A BLOOD THINNERS? :NO DO YOU HAVE ANY BLEEDING DISORDERS? :NO ANY NEW NUMBNESS OR WEAKNESS IN YOUR LEGS OR ARMS? :NO ANY PACEMAKER,DEFIBRILLATOR, OR DORSAL COLUMN STIMULATOR? :YES DCS DO YOU HAVE ANY RASHES OR OPEN SORES? :NO ARE YOU ALLERGIC TO IV DYE? :NO ARE YOU DIABETIC? :NO ANY NEW PROBLEMS WITH YOUR MEDICATIONS? :NO HAVE YOU RECEIVED A VACCINE IN THE PAST 30 DAYS? :NO DO YOU PLAN TO RECEIVE A VACCINE IN THE NEXT 21 DAYS? :NO DO YOU NEED ANY PRESCRIPTION? :YES NUCYNTA DO YOU TAKE ANY IMMUNOSUPPRESSIVE MEDICATIONS? :NO IS THERE A CHANCE YOU COULD BE ? :NO ARE YOU BREAST FEEDING? :NO HISTORY OF PRESENT ILLNESS: PAIN THE PATIENT DESCRIBES THE PAIN... HERE FOR 3MOS F/U.THIS IS A WORK RELATED INJURY [id number].SUFFERS FROM CHRONIC NECK AND RIGHT SHOULDER PAIN.SHE HAD RIGHT SHOULDER SURGERY 06/28/18. REPORTING AN INCREASE IN NECK PAIN OVER THE PAST 4 WEEKS. HAS RESPONDED WELL TO CERVICAL FACET BLOCK, THERAPEUTIC IN THE PAST. SHE GETS LONG LASTING RELIEF POST PROCEDURE. USING CYMBALTA 30MG BID AND NUCYNTA 50MG Q8H PRN FOR SEVERE PAIN.USING NUCYNTA FOR CHRONIC NECK AND RIGHT SHOULDER ACUTE NEUROPATHIC PAIN EPISODES.RATING PAIN VAS 6/10.DESCRIBES PAIN CONSTANT ACHING ,SORE AND PINCHING.DCS PLACED 2010.CONTINUES TO FIND DCS EFFECTIVE. DISCUSSED TREATMENT PLAN. CURRENT MEDICATIONS TAKING FISH OIL 1200 MG CAPSULE 1 CAPSULE ORALLY ONCE A DAY TAKING ESTRADIOL 1 MG TABLET [address] BUSBY ORALLY ONCE A DAY TAKING VITAMIN D3 5000 UNIT CAPSULE 2 CAPS ORALLY 5 DAYS A WEEK TAKING CALCIUM CITRATE PLUS TABLET 1 TAB ORALLY THREE TIMES DAILY TAKING MULTIVITAMINS TABLET 1 TAB ORALLY DAILY TAKING LYSINE 500 MG TABLET 1 TABLET ORALLY TWICE DAILY TAKING FERROUS SULFATE 325 (65 FE) MG TABLET 1 TABLET ORALLY THREE TIMES A WEEK TAKING BIOTIN 5000 MCG TABLET 2 TAB ORALLY ONCE A DAY TAKING COLACE 100 MG CAPSULE 1 CAPSULE NEEDED ORALLY ONCE A DAY TAKING MAGNESIUM-ZINC 133.33-5 MG TABLET 1 TABLET ORALLY TWICE A DAY TAKING VITAMIN B-12 500 MCG TABLET SUBLINGUAL 1 TABLET UNDER THE TONGUE AND ALLOW TO DISSOLVE SUBLINGUAL ONCE A DAY TAKING CINNAMON 500 MG CAPSULE 1 CAP ORALLY DAILY TAKING METHYLPREDNISOLONE 4 MG TABLET 1 TABLET WITH FOOD OR MILK ORALLY BID, NOTES: ONLY TAKING 1 TIME DAILY TAKING CYMBALTA 30 MG CAPSULE DELAYED RELEASE PARTICLES 1 CAPSULE ORALLY TWICE DAILY TAKING OMEPRAZOLE 20 MG CAPSULE DELAYED RELEASE 1 CAP ORALLY TWICE A DAY TAKING NUCYNTA 50 MG TABLET 1 ORALLY NEEDED FOR PAIN Q8H MDD2, NOTES: WORKERS COMP TAKING METHOTREXATE SODIUM 2.5 MG TABLET 5 TABLETS DIRECTED ORALLY ONCE WEEKLY TAKING FOLIC ACID 1 MG TABLET 1 TABLET ORALLY ONCE A DAY NOT-TAKING TYLENOL ARTHRITIS PAIN _ 2 TAB ORALLY DAILY NEEDED NOT-TAKING DICLOFENAC SODIUM 1 % GEL DIRECTED 4GM TO KNEES, 2GM TO HANDS TRANSDERMAL FOUR TIMES DAILY NEEDED NOT-TAKING CYMBALTA 30 MG CAPSULE DELAYED RELEASE PARTICLES 1 CAPSULE ORALLY DAILY, NOTES: PRESCRIBED THIRD DOSE BY PRIMARY NOT-TAKING GLUCOSAMINE 500 MG CAPSULE 1 CAPSULE WITH A MEAL ORALLY BID NOT-TAKING ASPIR-81 81 MG TABLET DELAYED RELEASE 1 TABLET ORALLY ONCE A DAY MEDICATION LIST REVIEWED AND RECONCILED WITH THE PATIENT PAST MEDICAL HISTORY CHRONIC PAIN: BACK, NECK, R SHOULDER- FOLLOWS WITH PAIN CLINIC, UNDER WORKER'S COMP ESOPHAGEAL REFLUX - (PULMONARY EVAL FOR COUGH NEG.) OBESITY ENVIRONMENTAL AND SEASONAL ALLERGIES RIGHT SHOULDER SURGERY OTHER DEPRESSION POLYARTHRITIS ALLERGIES RUBELLA VIRUS VACCINE: KNEES LOCKED - ALLERGY FOSAMAX: HAND SWELLING - ALLERGY CODEINE SULFATE: NAUSEA/VOMITING VOLTAREN: BLOOD IN STOOL - ALLERGY T-DAP VACCINE: JOINT PAIN/SWELLING - ALLERGY SURGICAL HISTORY R ANKLE SURGERY RECONSTRUCTION - DR Virginia MABRY WRIST SURGERY R (DE QUERVAINS) - DR Virginia MABRY REMOVAL OF SCAR TISSUE FROM RIGHT WRIST - DR. VALDEZ -1993 R FOOT NERVE BX - DR Virginia MABRY -1999 BREAST REDUCTION - CARLOS A R FOOT SCAR TISSUE - DR WILLS ZAID & BSO - ROSAS -2002 R KNEE ARTHROSCOPY- SHAVED CONDROMALACIA - DR Virginia MABRY -2003 L FOOT HEEL SPUR - MICH RIGHT ROTATOR CUFF REPAIR R - DR Virginia MABRY -2007 EXCISION OF SCALP CYST - BENIGN, DR WADSWORTH 10/2009 CERVICAL DORSAL COLUMN STIMULATOR (TRIAL) - MAVERICK -2010 SPINAL CORD STIMULATOR IMPLANT - DR GIBSON --2010 COLONOSCOPY, INTERNAL HEMORRHOIDS - ABELARDO -2011 KNEE SURGERY L MICROFRACTURING - DR YUNIER MABRY -2011 L WRIST DEQUERVAINS RELEASE - DR SHANA RIVERO LAP VERTICAL SLEEVE GASTRECTOMY - DR BEST LEFT BREAST BIOPSY - BENIGN, INTERVENTIONAL RADIOLOGY F/UP PER DR PARSONS 04/2014 LEFT ROTATOR CUFF REPAIR - DR. YUNIER MABRY -2014 L THUMB/WRIST CMC ARTHOPLASTY - DR YUNIER MABRY -2015 R ROTATOR CUFF REPAIR - DR YUNIER MABRY -2016 RIGHT SHOULDER SURGERY 08/19/17 RIGHT SHOULDER AND BICEP SURGERY 06/28/18 NEG STRESS TEST, HOLTER - DE JESUS 05/2018 FAMILY HISTORY FATHER: ALIVE 86 YRS, DIAGNOSED WITH HYPERTENSION, UNSPECIFIED HEART DISEASE MOTHER: ALIVE 84 YRS, HYPERTENSION SIBLINGS: HTN - 2 BROTHERS, HEART DISEASE/ CABG - 1BR, UNSPECIFIED HEART DISEASE 2 BROTHER(S) , 1 SISTER(S) . MOTHER - STROKE. SOCIAL HISTORY GENERAL: TOBACCO USE ARE YOU A:NONSMOKER LATEX QUESTIONNAIRE LATEX ALLERGY : HAVE YOU EVER DEVELOPED ANY TYPE OF REACTION AFTER HANDLING LATEX PRODUCTS SUCH RUBBER GLOVES, CONDOMS, DIAPHRAGMS, BALLOONS, SOCKS, OR UNDERWEAR?NO LATEX ALLERGY : HAVE YOU EVER DEVELOPED ANY TYPE OF REACTION DURING OR AFTER DENTAL APPOINTMENT, VAGINAL/RECTAL EXAMINATION, SURGICAL PROCEDURE, OR ANY OTHER EXPOSURE?NO DATE ASKED : 07/04/2019 LATEX RISK : HAVE YOU EVER HAD ANY DIFFICULTY BREATHING OR HIVES AFTER EATING OR HANDLING ANY FRUITS, OR VEGETABLES; SUCH KIWI, BANANAS, STONE FRUITS, OR CHESTNUTSNO LATEX RISK : DO YOU HAVE A PREVIOUS PERSONAL HISTORY OF MORE THAN NINE SURGERIES, SPINA BIFIDA, OR REPEATED CATHERIZATIONS? YES - PLEASE INDICATE : > 9 SURGERIES LATEX RISK : ARE YOU FREQUENTLY EXPOSED TO LATEX PRODUCTS IN YOUR OCCUPATION?NO BMI CARE GOAL FOLLOW-UP ABOVE NORMAL BMI FOLLOW-UPGIVING ENCOURAGEMENT TO EXERCISE ALCOHOL SCREENING DID YOU HAVE A DRINK CONTAINING ALCOHOL IN THE PAST YEAR?NO POINTS0 INTERPRETATIONNEGATIVE RECREATIONAL DRUG USE DRUG USE?NO CAFFEINE CAFFEINE USE?YES SODA OCC SEXUAL HX HAD SEX IN THE LAST 12 MONTHS (VAGINAL, ORAL, OR ANAL)?NO HAVE YOU EVER HAD AN STD?NO HIV / HEP-C SCREENING HIV TEST OFFERED TO PATIENT:YES DATE OFFERED:03/21/2013 TEST ACCEPTED:YES HEP-C TEST OFFERED TO PATIENT:NO CHRISTIANITY [id number] NONE LANGUAGE LANGUAGES SPOKEN:STATELESS EDUCATION 2 YEARS OF COLLEGE. LEARNING BARRIERS / SPECIAL NEEDS CHANGE FROM LAST VISIT?NO BARRIERS TO LEARNING?NO HEARING IMPAIRED?NO VISION IMPAIRED?YES COGNITIVELY IMPAIRED?NO :CORRECTIVE LENSES READINESS TO LEARN?YES LEARNING PREFERENCES?YES :TAPES/VIDEOS, BOOKLETS, HANDOUTS LEARNING CAPABILITIES PRESENT?YES EMOTIONAL BARRIERS?NO SPECIAL DEVICES?NO CLINICAL CONSULTANT NEEDED?NO DOMESTIC VIOLENCE NONE. OCCUPATION: DISABLED. DIET: REGULAR BARIATRIC DIET CURRENTLY. EXERCISE: WALKING AND OCCASIONAL SNOWSHOEING. MARITAL STATUS: .. OTHERS AT HOME: FATHER, MOTHER. PAIN CLINIC PFS, CLERGY, PUBLIC HEALTH REFERRALS PFS REFERRAL NEEDED?NO CLERGY REFERRAL NEEDED?NO PUBLIC HEALTH REFERRAL NEEDED?NO WAS THE PROVIDER NOTIFIED OF ANY PERTINENT INFO? N/A HAS THE PATIENT BEEN EDUCATED REGARDING HIS/HER PLAN OF CARE?YES HAS THE PATIENT BEEN EDUCATED REGARDING PAIN, THE RISK FOR PAIN, THE IMPORTANCE OF EFFECTIVE PAIN MANAGEMENT, AND THE PAIN ASSESSMENT PROCESS?YES HOUSING: PARENTS HOME. ADVANCE DIRECTIVE ADVANCE DIRECTIVE DISCUSSED WITH PATIENT:YES HCP IS PARENTS [facility] [phone] HOSPITALIZATION/MAJOR DIAGNOSTIC PROCEDURE SURGERIES ABOVE REACTION TO RUBELLA VACCINE AGE 9 REVIEW OF SYSTEMS CONSTITUTIONAL: ANY RECENT FEVER OR ILLNESS NO . CHILLS NO . GASTROENTEROLOGY: BOWEL INCONTINENCE NO . ANY NEW CHANGE IN BOWEL CONTROL? NO . ABDOMINAL PAIN NO . CONSTIPATION NO . GENITOURINARY: ANY NEW CHANGE IN BLADDER CONTROL? NO . IS THERE A CHANCE YOU COULD BE ? NO . URINARY INCONTINENCE NO . CARDIOLOGY: CHEST PRESSURE NO . CHEST PAIN NO . RESPIRATORY: COUGH NO . SHORTNESS OF BREATH NO . VITAL SIGNS WT 224.2 LBS, HT 63 IN, BMI 39.71 INDEX, BP 175/92 MM HG, REPEAT BP 130/97 MM HG, HR 81 /MIN, RR 18 /MIN, TEMP 96.1 F, OXYGEN SAT % 100%, NA INITIALS SC 09:15REPEAT B/P MANUAL. EM. EXAMINATION GENERAL EXAMINATION: LUNGS:LUNG SOUNDS ARE CLEAR. HEART:HEART RATE REGULAR. MUSCULOSKELETAL:PALPATION: + DISCOMFORT NECK AND PARASPINALS.ROJM NECK LIMITED SPECIFIC POINT TENDERNESS OVER C4/5, C5/6 FACETS BILAT.. ASSESSMENTS SPONDYLOSIS OF CERVICAL REGION WITHOUT MYELOPATHY OR RADICULOPATHY - M47.812 (PRIMARY) TREATMENT SPONDYLOSIS OF CERVICAL REGION WITHOUT MYELOPATHY OR RADICULOPATHY NOTES: WORKMEN'S COMP BILATERAL C4-5, C5-C6 CERVICAL FACET BLOCK, THERAPEUTIC WITH IV SEDATION PATIENT WAS RECENTLY STARTED ON METHOTREXATE AND METHYLPREDNISOLONE FOR INFLAMMATORY ARTHROPATHY AND DTAP ALLERGY. WILL NEED AN OKAY TO STOP METHYLPREDNISOLONE/METHOTREXATE PRE-PROCEDURE PER DR. TEMPLE'S RECOMMENDATIONS. I'VE ASKED NURSING TO FAX A REQUEST WITH DOCTOR'S RECOMMENDATIONS TO [facility]OR[facility] OPERATOR. SAW A RHEUMATOLOGIS IN THE [facility] A FEW WEEKS AGO. PROCEDURES PN WORKMANS' COMP OPINION IN YOUR OPINION, WAS THE INCIDENT THAT THE PATIENT DESCRIBED THE COMPETENT MEDICAL CAUSE OF THIS INJURY/ILLNESS? YES ARE THE PATIENT'S COMPLAINTS CONSISTENT WITH HIS/HER HISTORY OF THE INJURY/ILLNESS? YES IS THE PATIENT'S HISTORY OF THE INJURY/ILLNESS CONSISTENT WITH YOUR OBJECTIVE FINDING? YES WHAT IS THE PERCENTAGE OF TEMPORARY IMPAIRMENT? MODERATE TO MARKED = 66.7% IS THE PATIENT WORKING? NO DOCTOR ON SITE: ILENE CHEW MD PROCEDURE CODES FA211 ESTABILISHED PATIENT [facility] CHARGE DISPOSITION & COMMUNICATION FOLLOW UP PRE IV SED WITH DR. TEMPLE, POST PROCEDURE WITH KIMBER (REASON: C4-5, C5-6 CERVICAL BLOCK, THERAPEUTIC WITH IV SEDATION) ELECTRONICALLY SIGNED BY MARISA MICHAUD ON 10/04/2019 AT 02:10 PM EDT DISCLAIMER : THIS IS A VISIT SUMMARY EXTRACTED FROM THE [employer] CHART. IT IS NOT A COPY OF THE [employer] PROGRESS NOTE. AUDREY
== END ==
LOC: M PAIN 09:00
PROVIDERS: ATTEND Nurse Practitioner Family
DX: M47.812 Spondylosis without myelopathy or radiculopathy, cervical region (principal)

== ENCOUNTER → 2019-10-20 | Outpatient (CLI) | payer OTHER ==
--- NOTE | 2019-10-21 00:12 | ECWPNPC ---
PATIENT NAME: JANAE PORTER : 1960 GENDER: FEMALE VISIT DATE: 10/20/2019 DISCHARGE DATE: 10/20/19 1535 VISIT LOCKED DATE TIME: PHYSICIAN: ILENE TEMPLE MD RESOURCE: ILENE TEMPLE MD REASON FOR APPOINTMENT 1. PRE SEDATE PAT DONE HISTORY OF PRESENT ILLNESS GENERAL: 59 YEAR OLD FEMALE PATIENT WITH A HISTORY OF CHRONIC NECK PAIN. THE PATIENT DESCRIBES HER PAIN ACHING, CONTINUING, SHARP WITH A PAIN SCORE OF 6-10/10 DEPENDING ON PHYSICAL ACTIVITY. THE PATIENT IS SUFFERING FROM A WORK RELATED INJURY FROM 01/01/2006. THE PATIENT SAYS HER PAIN IS AFFECTING HER ABILITY TO PERFORM HER DAILY ACTIVITIES SUCH COOKING, CLEANING, AND MOVING AROUND. THE PATIENT DENIES UNEXPLAINED WEIGHT LOSS, FEVER, CHILLS, NEW CHANGES IN HER URINARY OR BOWEL CONTROL. FALL RISK SCREENING: SCREENING :TWO OR MORE FALLS WITHOUT INJURY IN THE PAST YEAR PT SEEING ORTHOPEDIC MD FOR AMBULATION ISSUES, WALKING WITH CANE PAIN SCREENING: PATIENT HAS A COMPLAINT OF ACUTE OR CHRONIC PAIN :YES LOCATION OF PAIN:NECK, LEFT SHOULDER, RIGHT SHOULDER INTENSITY OF PAIN (SCALE OF 1 TO 10):8 WHAT DOES YOUR PAIN FEEL LIKE:ACHING, CONTINOUS, SHARP, TENDER, SORE NURSING NOTE: -. PAIN CENTER INTAKE QUESTIONS: DO YOU HAVE A HISTORY OF MRSA? :NO DO YOU TAKE A BLOOD THINNERS? :NO DO YOU HAVE ANY BLEEDING DISORDERS? :NO ANY NEW NUMBNESS OR WEAKNESS IN YOUR LEGS OR ARMS? :NO ANY PACEMAKER,DEFIBRILLATOR, OR DORSAL COLUMN STIMULATOR? :YES DCS IN NECK, BATTERY ON RIGHT SIDE DO YOU HAVE ANY RASHES OR OPEN SORES? :NO ARE YOU ALLERGIC TO IV DYE? :NO ARE YOU DIABETIC? :NO ANY NEW PROBLEMS WITH YOUR MEDICATIONS? :NO HAVE YOU RECEIVED A VACCINE IN THE PAST 30 DAYS? :NO DO YOU PLAN TO RECEIVE A VACCINE IN THE NEXT 21 DAYS? :NO DO YOU NEED ANY PRESCRIPTION? :NO DO YOU TAKE ANY IMMUNOSUPPRESSIVE MEDICATIONS? :YES PT TAKING METHOTREXATE, RECEIVED CLEARANCE TO STOP METHYLPRENISONE AND METHOTREXATE IS THERE A CHANCE YOU COULD BE ? :NO ARE YOU BREAST FEEDING? :NO CURRENT MEDICATIONS TAKING FISH OIL 1200 MG CAPSULE 1 CAPSULE ORALLY ONCE A DAY TAKING ESTRADIOL 1 MG TABLET [address] BUSBY ORALLY ONCE A DAY TAKING VITAMIN D3 5000 UNIT CAPSULE 2 CAPS ORALLY 5 DAYS A WEEK TAKING CALCIUM CITRATE PLUS TABLET 1 TAB ORALLY THREE TIMES DAILY TAKING MULTIVITAMINS TABLET 1 TAB ORALLY DAILY TAKING LYSINE 500 MG TABLET 1 TABLET ORALLY TWICE DAILY TAKING FERROUS SULFATE 325 (65 FE) MG TABLET 1 TABLET ORALLY THREE TIMES A WEEK TAKING BIOTIN 5000 MCG TABLET 2 TAB ORALLY ONCE A DAY TAKING COLACE 100 MG CAPSULE 1 CAPSULE NEEDED ORALLY ONCE A DAY TAKING MAGNESIUM-ZINC 133.33-5 MG TABLET 1 TABLET ORALLY TWICE A DAY TAKING VITAMIN B-12 500 MCG TABLET SUBLINGUAL 1 TABLET UNDER THE TONGUE AND ALLOW TO DISSOLVE SUBLINGUAL ONCE A DAY TAKING CINNAMON 500 MG CAPSULE 1 CAP ORALLY DAILY TAKING METHYLPREDNISOLONE 4 MG TABLET 1 TABLET WITH FOOD OR MILK ORALLY BID, NOTES: ONLY TAKING 1 TIME DAILY TAKING CYMBALTA 30 MG CAPSULE DELAYED RELEASE PARTICLES 1 CAPSULE ORALLY TWICE DAILY TAKING OMEPRAZOLE 20 MG CAPSULE DELAYED RELEASE 1 CAP ORALLY TWICE A DAY TAKING METHOTREXATE SODIUM 2.5 MG TABLET 5 TABLETS DIRECTED ORALLY ONCE WEEKLY, NOTES: LAST DOSE 10/09 TAKING FOLIC ACID 1 MG TABLET 1 TABLET ORALLY ONCE A DAY TAKING NUCYNTA 50 MG TABLET 1 ORALLY NEEDED FOR PAIN Q8H MDD2, NOTES: WORKERS COMP NOT-TAKING TYLENOL ARTHRITIS PAIN _ 2 TAB ORALLY DAILY NEEDED NOT-TAKING DICLOFENAC SODIUM 1 % GEL DIRECTED 4GM TO KNEES, 2GM TO HANDS TRANSDERMAL FOUR TIMES DAILY NEEDED NOT-TAKING CYMBALTA 30 MG CAPSULE DELAYED RELEASE PARTICLES 1 CAPSULE ORALLY DAILY, NOTES: PRESCRIBED THIRD DOSE BY PRIMARY NOT-TAKING GLUCOSAMINE 500 MG CAPSULE 1 CAPSULE WITH A MEAL ORALLY BID NOT-TAKING ASPIR-81 81 MG TABLET DELAYED RELEASE 1 TABLET ORALLY ONCE A DAY MEDICATION LIST REVIEWED AND RECONCILED WITH THE PATIENT PAST MEDICAL HISTORY CHRONIC PAIN: BACK, NECK, R SHOULDER- FOLLOWS WITH PAIN CLINIC, UNDER WORKER'S COMP ESOPHAGEAL REFLUX - (PULMONARY EVAL FOR COUGH NEG.) OBESITY ENVIRONMENTAL AND SEASONAL ALLERGIES RIGHT SHOULDER SURGERY OTHER DEPRESSION POLYARTHRITIS ALLERGIES RUBELLA VIRUS VACCINE: KNEES LOCKED - ALLERGY FOSAMAX: HAND SWELLING - ALLERGY CODEINE SULFATE: NAUSEA/VOMITING VOLTAREN: BLOOD IN STOOL - ALLERGY T-DAP VACCINE: JOINT PAIN/SWELLING - ALLERGY SURGICAL HISTORY R ANKLE SURGERY RECONSTRUCTION - DR Virginia MABRY WRIST SURGERY R (DE QUERVAINS) - DR Virginia MABRY REMOVAL OF SCAR TISSUE FROM RIGHT WRIST - DR. VALDEZ R FOOT NERVE BX - DR Virginia MABRY BREAST REDUCTION - CARLOS A R FOOT SCAR TISSUE - DR WILLS ZAID & BSO - ROSAS -2002 R KNEE ARTHROSCOPY- SHAVED CONDROMALACIA - DR Virginia MABRY -2003 L FOOT HEEL SPUR - MICH RIGHT ROTATOR CUFF REPAIR R - DR Virginia MABRY -2007 EXCISION OF SCALP CYST - BENIGN, DR WADSWORTH 10/2009 CERVICAL DORSAL COLUMN STIMULATOR (TRIAL) - MAVERICK -2010 SPINAL CORD STIMULATOR IMPLANT - DR GIBSON --2010 COLONOSCOPY, INTERNAL HEMORRHOIDS - ABELARDO -2011 KNEE SURGERY L MICROFRACTURING - DR YUNIER MABRY -2011 L WRIST DEQUERVAINS RELEASE - DR SHANA RIVERO -2012 LAP VERTICAL SLEEVE GASTRECTOMY - DR BEST - LEFT BREAST BIOPSY - BENIGN, INTERVENTIONAL RADIOLOGY F/UP PER DR PARSONS 04/2014 LEFT ROTATOR CUFF REPAIR - DR. YUNEIR MABRY -2014 L THUMB/WRIST CMC ARTHOPLASTY - DR YUNIER MABRY -2015 R ROTATOR CUFF REPAIR - DR YUNIER MABRY -2016 RIGHT SHOULDER SURGERY 08/19/17 RIGHT SHOULDER AND BICEP SURGERY 06/28/18 NEG STRESS TEST, ANTON - DE JESUS 05/2018 FAMILY HISTORY FATHER: ALIVE 86 YRS, DIAGNOSED WITH HYPERTENSION, UNSPECIFIED HEART DISEASE MOTHER: ALIVE 84 YRS, HYPERTENSION SIBLINGS: HTN - 2 BROTHERS, HEART DISEASE/ CABG - 1BR, UNSPECIFIED HEART DISEASE 2 BROTHER(S) , 1 SISTER(S) . MOTHER - STROKE. SOCIAL HISTORY GENERAL: TOBACCO USE ARE YOU A:NONSMOKER LATEX QUESTIONNAIRE LATEX ALLERGY : HAVE YOU EVER DEVELOPED ANY TYPE OF REACTION AFTER HANDLING LATEX PRODUCTS SUCH RUBBER GLOVES, CONDOMS, DIAPHRAGMS, BALLOONS, SOCKS, OR UNDERWEAR?NO LATEX ALLERGY : HAVE YOU EVER DEVELOPED ANY TYPE OF REACTION DURING OR AFTER DENTAL APPOINTMENT, VAGINAL/RECTAL EXAMINATION, SURGICAL PROCEDURE, OR ANY OTHER EXPOSURE?NO LATEX RISK : HAVE YOU EVER HAD ANY DIFFICULTY BREATHING OR HIVES AFTER EATING OR HANDLING ANY FRUITS, OR VEGETABLES; SUCH KIWI, BANANAS, STONE FRUITS, OR CHESTNUTSNO LATEX RISK : DO YOU HAVE A PREVIOUS PERSONAL HISTORY OF MORE THAN NINE SURGERIES, SPINA BIFIDA, OR REPEATED CATHERIZATIONS? YES - PLEASE INDICATE : > 9 SURGERIES LATEX RISK : ARE YOU FREQUENTLY EXPOSED TO LATEX PRODUCTS IN YOUR OCCUPATION?NO DATE ASKED : 10/19/2019 BMI CARE GOAL FOLLOW-UP ABOVE NORMAL BMI FOLLOW-UPGIVING ENCOURAGEMENT TO EXERCISE ALCOHOL SCREENING DID YOU HAVE A DRINK CONTAINING ALCOHOL IN THE PAST YEAR?NO POINTS0 INTERPRETATIONNEGATIVE RECREATIONAL DRUG USE DRUG USE?NO CAFFEINE CAFFEINE USE?YES SODA OCC SEXUAL HX HAD SEX IN THE LAST 12 MONTHS (VAGINAL, ORAL, OR ANAL)?NO HAVE YOU EVER HAD AN STD?NO HIV / HEP-C SCREENING HIV TEST OFFERED TO PATIENT:YES DATE OFFERED:03/21/2013 TEST ACCEPTED:YES HEP-C TEST OFFERED TO PATIENT:NO WORSHIP [id number] NONE LANGUAGE LANGUAGES SPOKEN:SPANISH EDUCATION 2 YEARS OF COLLEGE. LEARNING BARRIERS / SPECIAL NEEDS CHANGE FROM LAST VISIT?NO BARRIERS TO LEARNING?NO HEARING IMPAIRED?NO VISION IMPAIRED?YES COGNITIVELY IMPAIRED?NO :CORRECTIVE LENSES READINESS TO LEARN?YES LEARNING PREFERENCES?YES :TAPES/VIDEOS, BOOKLETS, HANDOUTS LEARNING CAPABILITIES PRESENT?YES EMOTIONAL BARRIERS?NO SPECIAL DEVICES?NO SPRING COVERER NEEDED?NO DOMESTIC VIOLENCE DO YOU FEEL SAFE IN YOUR ENVIRONMENT?YES OCCUPATION: DISABLED. DIET: REGULAR BARIATRIC DIET CURRENTLY. EXERCISE: WALKING AND OCCASIONAL SNOWSHOEING. MARITAL STATUS: .. OTHERS AT HOME: FATHER, MOTHER. PAIN CLINIC PFS, CLERGY, PUBLIC HEALTH REFERRALS PFS REFERRAL NEEDED?NO CLERGY REFERRAL NEEDED?NO PUBLIC HEALTH REFERRAL NEEDED?NO WAS THE PROVIDER NOTIFIED OF ANY PERTINENT INFO? N/A HAS THE PATIENT BEEN EDUCATED REGARDING HIS/HER PLAN OF CARE?YES HAS THE PATIENT BEEN EDUCATED REGARDING PAIN, THE RISK FOR PAIN, THE IMPORTANCE OF EFFECTIVE PAIN MANAGEMENT, AND THE PAIN ASSESSMENT PROCESS?YES HOUSING: PARENTS HOME. ADVANCE DIRECTIVE ADVANCE DIRECTIVE DISCUSSED WITH PATIENT:YES HCP IS PARENTS CARLIN PORTER [phone] HOSPITALIZATION/MAJOR DIAGNOSTIC PROCEDURE SURGERIES ABOVE REACTION TO RUBELLA VACCINE AGE 9 REVIEW OF SYSTEMS CONSTITUTIONAL: ANY RECENT FEVER NO . CHILLS NO . WEIGHT CHANGE OF UNKNOWN REASONS NO . GASTROENTEROLOGY: NEW UNEXPLAINABLE CHANGES IN BOWEL CONTROL NO . CONSTIPATION NO . GENITOURINARY: ANY NEW CHANGE IN BLADDER CONTROL? NO . NEUROLOGY: NEW ONSET DIZZINESS OR NEUROLOGICAL CHANGES NOT MENTIONED NO . NEW NUMBNESS OR PAIN PATTERNS NOT MENTIONED AND PERTINENT TO TODAY'S VISIT NO . CARDIOLOGY: NEW CHEST PRESSURE NO . NEW CHEST PAIN NO . RESPIRATORY: UNEXPLAINABLE COUGH NO . NEW SHORTNESS OF BREATH NO . VITAL SIGNS WT 227.4 LBS, HT 63 IN, BMI 40.28 INDEX, BP 140/78 MM HG, HR 88 /MIN, RR 18 /MIN, TEMP 96.9 F, OXYGEN SAT % 97%, SAFE IN ENV? (Y/N) YES, NA INITIALS IA 14:11, REVIEWED BY: KG. EXAMINATION GENERAL: PATIENT IS ALERT O X 3 AND COOPERATIVE. ANTALGIC GAIT. PATIENT IS LIMPING FROM LEFT LEG. PAIN INCREASES OVER CERVICAL FACET JOINTS WITH EXTENSION AND LATERAL ROTATION OF NECK. MRI CERVICAL SPINE DONE ON 03/05/2010 SHOWS CERVICAL FACET ARTHROPATHY. LUNGS CLEAR, TO AUSCULTATION. HEART: NO MURMURS OR GALLOPS; FACIAL CRANIAL NERVES ARE GROSSLY NORMAL. GOOD SYMMETRY OF FACIAL MUSCLE MOVEMENT. NORMAL VISUAL FENG. ASSESSMENTS SPONDYLOSIS WITHOUT MYELOPATHY OR RADICULOPATHY, CERVICAL REGION - M47.812 (PRIMARY) TREATMENT SPONDYLOSIS WITHOUT MYELOPATHY OR RADICULOPATHY, CERVICAL REGION CLINICAL NOTES: WE DISCUSSED SEVERAL ISSUES WITH MS. PORTER'S PAIN MANAGEMENT CASE. PATIENT IS HAVING SEVERE NECK PAIN. WE HAVE AGREED ON DOING A CERVICAL FACET BLOCK WITH IV SEDATION DUE TO PAIN AND ANXIETY. WE DISCUSSED THE BENEFITS, RISKS, AND ALTERNATIVES OF THE INJECTION AND THE PATIENT WOULD LIKE TO PROCEED. WE DISCUSSED THE CONCERNS OF STEROIDS POTENTIALLY CAUSING IMMUNOSUPPRESSION SHORT-TERM AND FURTHER COMPLICATIONS IF THEY COME IN CONTACT WITH COVID-19, SUCH WORSE SYMPTOMS OR . THE PATIENT UNDERSTANDS, WOULD LIKE TO PROCEED WITH THE PROCEDURE, AND AGREES SHE WILL BE CAREFUL BY SELF ISOLATING FOR A WEEK OR MORE. THE PATIENT WILL FOLLOW UP IN SEVERAL WEEKS TO SEE HOW THE INJECTION IS HELPING WITH HER PAIN. THE LAST CERVICAL MRI WAS DONE IN 2009, SO I FEEL WE SHOULD CONSIDER REPEATING ANOTHER CERVICAL MRI OR CT IN THE FUTURE. INSTRUCTIONS WERE GIVEN, QUESTIONS WERE ANSWERED, PATIENT REPORTS UNDERSTANDING AND AGREES WITH THE PLAN. I, MOLLY MAKI, DOCUMENTED THE ABOVE INFORMATION ACTING A SCRIBE FOR DR. TEMPLE. I HAVE REVIEWED THE ABOVE DOCUMENT, WRITTEN BY MOLLY KELLERIBBrijesh AND I VERIFY THAT IT IS ACCURATE. . PROCEDURES PN WORKMANS' COMP OPINION IN YOUR OPINION, WAS THE INCIDENT THAT THE PATIENT DESCRIBED THE COMPETENT MEDICAL CAUSE OF THIS INJURY/ILLNESS? YES ARE THE PATIENT'S COMPLAINTS CONSISTENT WITH HIS/HER HISTORY OF THE INJURY/ILLNESS? YES IS THE PATIENT'S HISTORY OF THE INJURY/ILLNESS CONSISTENT WITH YOUR OBJECTIVE FINDING? YES WHAT IS THE PERCENTAGE OF TEMPORARY IMPAIRMENT? MILD = 25% IS THE PATIENT WORKING? YES DOCTOR ON SITE: ILENE CHEW MD PREVENTIVE MEDICINE PAIN CLINIC TEACHING: PROCEDURE TEACHING PRE-PROCEDURE INSTRUCTIONS REVIEWED WITH PT. VERBALIZED UNDERSTANDING.. PROCEDURE CODES FA211 ESTABILISHED PATIENT [facility] FACILITY CHARGE G8427 CURRENT MEDS W/DOSAGES DOCUMENTED G8730 PAIN ASSESS POS TOOL F/U PLAN DOC DISPOSITION & COMMUNICATION FOLLOW UP 1 WEEK (REASON: CFB WITH IV SEDATION) ELECTRONICALLY SIGNED BY ILENE TEMPLE MD, MD ON 10/20/2019 AT 05:24 PM EDT DISCLAIMER : THIS IS A VISIT SUMMARY EXTRACTED FROM THE [employer] CHART. IT IS NOT A COPY OF THE [employer] PROGRESS NOTE. AUDREY
== END ==
LOC: M PAIN 14:15
PROVIDERS: ATTEND Anesthesiology
DX: M47.812 Spondylosis without myelopathy or radiculopathy, cervical region (principal); Z79.899 Other long term (current) drug therapy; Z88.7 Allergy status to serum and vaccine; Z88.5 Allergy status to narcotic agent; Z88.8 Allergy status to other drugs, medicaments and biological substances

== ENCOUNTER → 2019-10-21 | Outpatient (CLI) | payer OTHER | LOC: M LABSMTC 08:55 | PROVIDERS: ATTEND Anesthesiology | DX: Z11.59 Encounter for screening for other viral diseases (principal); Z03.89 Encounter for observation for other suspected diseases and conditions ruled out | CPT/HCPCS: C9803; U0003 ==

== ENCOUNTER → 2019-10-24 | Outpatient (CLI) | payer OTHER ==
[~2019-10-24] MED LIST changes: +BUPIVACAINE HCL 0.25% 30ML VIAL As Ordered ONE; +ISOVUE-M 300 61% 15ML VIAL As Ordered ONE; +LIDOCAINE 1% SDV 30ML VIAL As Ordered ONE; +MIDAZOLAM INJ 2MG/2ML VIAL (J2250 PER 1MG) As Ordered ONE; +TRIAMCINOLONE ACETONIDE SUSP 40 MG/ML VIAL (J3301) As Ordered ONE; +fentaNYL 100 MCG/2 ML INJECTION (J3010) As Ordered ONE
--- NOTE | 2019-10-24 14:54 | REP ---
CERVICAL SPINE: Single view. HISTORY: Bilateral cervical facet block for pain. 11 seconds of fluoroscopy time is reported. FINDINGS: A single last image hold fluoroscopically obtained spot radiograph of the cervical spine documents various needle positions and contrast injection Electronically Signed by Kirill Sanchez MD 10/24/2019 04:03 P
--- NOTE | 2019-11-02 01:40 | ECWPNPC ---
PATIENT NAME: JANAE PORTER : 1960 GENDER: FEMALE VISIT DATE: 10/24/2019 DISCHARGE DATE: 10/24/19 1416 VISIT LOCKED DATE TIME: PHYSICIAN: ILENE TEMPLE MD RESOURCE: ILENE TEMPLE MD REASON FOR APPOINTMENT 1. W/C C4-5, C5-6 CERVICAL BLOCK, THERAPEUTIC WITH IV SEDATION HISTORY OF PRESENT ILLNESS GENERAL: -. FALL RISK SCREENING: SCREENING :TWO OR MORE FALLS WITH INJURY IN THE PAST YEAR PAIN SCREENING: PATIENT HAS A COMPLAINT OF ACUTE OR CHRONIC PAIN :YES 10/24/19 INTENSITY OF PAIN (SCALE OF 1 TO 10):9 WHAT DOES YOUR PAIN FEEL LIKE:ACHING, CONTINOUS, SHARP PAIN IS INCREASED BY: WALKING, STANDING, SITTING PAIN IS DECREASED BY: REST NURSING NOTE: -. PAIN CENTER INTAKE QUESTIONS: DO YOU HAVE A HISTORY OF MRSA? :NO DO YOU TAKE A BLOOD THINNERS? :NO DO YOU HAVE ANY BLEEDING DISORDERS? :NO ANY NEW NUMBNESS OR WEAKNESS IN YOUR LEGS OR ARMS? :NO ANY PACEMAKER,DEFIBRILLATOR, OR DORSAL COLUMN STIMULATOR? :YES DCS DO YOU HAVE ANY RASHES OR OPEN SORES? :NO ARE YOU ALLERGIC TO IV DYE? :NO ARE YOU DIABETIC? :NO ANY NEW PROBLEMS WITH YOUR MEDICATIONS? :NO HAVE YOU RECEIVED A VACCINE IN THE PAST 30 DAYS? :NO DO YOU PLAN TO RECEIVE A VACCINE IN THE NEXT 21 DAYS? :NO DO YOU TAKE ANY IMMUNOSUPPRESSIVE MEDICATIONS? :YES METHOTREXATE, METHYLPREDNISOLONE ANY HISTORY OF SEIZURES? :NO ANY HISTORY OF CARDIAC ISSUES OR EVENTS? :NO DO YOU HAVE SLEEP APNEA? :NO ANY RECENT HEAD INJURY? :NO DO YOU HAVE ANY NEW INFECTIONS? :NO IS THERE A CHANCE YOU COULD BE ? :NO ARE YOU BREAST FEEDING? :NO WHEN DID YOU LAST EAT? : -10/23/19 WHEN DID YOU LAST DRINK? : -10/24/19 0900 WHAT DID YOU LAST DRINK? : -WATER NAME OF PERSON DRIVING YOU HOME? : -PARENTS DO YOU HAVE ANY OTHER QUESTIONS OR CONCERNS? : - CURRENT MEDICATIONS TAKING FISH OIL 1200 MG CAPSULE 1 CAPSULE ORALLY ONCE A DAY, NOTES: 10/23/19 TAKING ESTRADIOL 1 MG TABLET [address] BUSBY ORALLY ONCE A DAY, NOTES: 10/23/19 TAKING VITAMIN D3 5000 UNIT CAPSULE 2 CAPS ORALLY 5 DAYS A WEEK, NOTES: 10/23/19 TAKING CALCIUM CITRATE PLUS TABLET 1 TAB ORALLY THREE TIMES DAILY, NOTES: 10/23/19 TAKING MULTIVITAMINS TABLET 1 TAB ORALLY DAILY, NOTES: 10/23/19 TAKING LYSINE 500 MG TABLET 1 TABLET ORALLY TWICE DAILY, NOTES: 10/23/19 TAKING FERROUS SULFATE 325 (65 FE) MG TABLET 1 TABLET ORALLY THREE TIMES A WEEK, NOTES: 10/23/19 TAKING BIOTIN 5000 MCG TABLET 2 TAB ORALLY ONCE A DAY, NOTES: 10/23/19 TAKING COLACE 100 MG CAPSULE 1 CAPSULE NEEDED ORALLY ONCE A DAY, NOTES: 10/23/19 TAKING MAGNESIUM-ZINC 133.33-5 MG TABLET 1 TABLET ORALLY TWICE A DAY, NOTES: 10/23/19 TAKING VITAMIN B-12 500 MCG TABLET SUBLINGUAL 1 TABLET UNDER THE TONGUE AND ALLOW TO DISSOLVE SUBLINGUAL ONCE A DAY, NOTES: 10/23/19 TAKING CINNAMON 500 MG CAPSULE 1 CAP ORALLY DAILY, NOTES: 10/23/19 TAKING METHYLPREDNISOLONE 4 MG TABLET 1 TABLET WITH FOOD OR MILK ORALLY BID, NOTES: LAST WEDNESDAY TAKING CYMBALTA 30 MG CAPSULE DELAYED RELEASE PARTICLES 1 CAPSULE ORALLY TWICE DAILY, NOTES: 10/23/19 TAKING OMEPRAZOLE 20 MG CAPSULE DELAYED RELEASE 1 CAP ORALLY TWICE A DAY, NOTES: 10/23/19 TAKING METHOTREXATE SODIUM 2.5 MG TABLET 5 TABLETS DIRECTED ORALLY ONCE WEEKLY, NOTES: LAST DOSE 10/09 TAKING FOLIC ACID 1 MG TABLET 1 TABLET ORALLY ONCE A DAY, NOTES: 10/23/19 TAKING NUCYNTA 50 MG TABLET 1 ORALLY NEEDED FOR PAIN Q8H MDD2, NOTES: 10/23/19 NOT-TAKING TYLENOL ARTHRITIS PAIN _ 2 TAB ORALLY DAILY NEEDED NOT-TAKING DICLOFENAC SODIUM 1 % GEL DIRECTED 4GM TO KNEES, 2GM TO HANDS TRANSDERMAL FOUR TIMES DAILY NEEDED NOT-TAKING CYMBALTA 30 MG CAPSULE DELAYED RELEASE PARTICLES 1 CAPSULE ORALLY DAILY, NOTES: PRESCRIBED THIRD DOSE BY PRIMARY NOT-TAKING GLUCOSAMINE 500 MG CAPSULE 1 CAPSULE WITH A MEAL ORALLY BID NOT-TAKING ASPIR-81 81 MG TABLET DELAYED RELEASE 1 TABLET ORALLY ONCE A DAY MEDICATION LIST REVIEWED AND RECONCILED WITH THE PATIENT PAST MEDICAL HISTORY CHRONIC PAIN: BACK, NECK, R SHOULDER- FOLLOWS WITH PAIN CLINIC, UNDER WORKER'S COMP ESOPHAGEAL REFLUX - (PULMONARY EVAL FOR COUGH NEG.) OBESITY ENVIRONMENTAL AND SEASONAL ALLERGIES RIGHT SHOULDER SURGERY OTHER DEPRESSION POLYARTHRITIS ALLERGIES RUBELLA VIRUS VACCINE: KNEES LOCKED - ALLERGY FOSAMAX: HAND SWELLING - ALLERGY CODEINE SULFATE: NAUSEA/VOMITING VOLTAREN: BLOOD IN STOOL - ALLERGY T-DAP VACCINE: JOINT PAIN/SWELLING - ALLERGY SURGICAL HISTORY R ANKLE SURGERY RECONSTRUCTION - DR Virginia MABRY -1982 WRIST SURGERY R (DE QUERVAINS) - DR Virginia MABRY -1992 REMOVAL OF SCAR TISSUE FROM RIGHT WRIST - DR. VALDEZ -1993 R FOOT NERVE BX - DR Virginia MABRY -1999 BREAST REDUCTION - CARLOS A R FOOT SCAR TISSUE - DR WILLS ZAID & BSO - ROSAS -2002 R KNEE ARTHROSCOPY- SHAVED CONDROMALACIA - DR Virginia MABRY -2003 L FOOT HEEL SPUR - MICH -2004 RIGHT ROTATOR CUFF REPAIR R - DR Virginia MABRY -2007 EXCISION OF SCALP CYST - BENIGN, DR WADSWORTH 10/2009 CERVICAL DORSAL COLUMN STIMULATOR (TRIAL) - MAVERICK -2010 SPINAL CORD STIMULATOR IMPLANT - DR GIBSON --2010 COLONOSCOPY, INTERNAL HEMORRHOIDS - ABELARDO -2011 KNEE SURGERY L MICROFRACTURING - DR YUNIER MABRY -2011 L WRIST DEQUERVAINS RELEASE - DR SHANA RIVERO LAP VERTICAL SLEEVE GASTRECTOMY - DR BEST - LEFT BREAST BIOPSY - BENIGN, INTERVENTIONAL RADIOLOGY F/UP PER DR PARSONS 04/2014 LEFT ROTATOR CUFF REPAIR - DR. YUNIER MABRY -2014 L THUMB/WRIST [facility]MC ARTHOPLASTY - DR YUNIER MABRY -2015 R ROTATOR CUFF REPAIR - DR YUNIER MABRY -2016 RIGHT SHOULDER SURGERY 08/19/17 RIGHT SHOULDER AND BICEP SURGERY 06/28/18 NEG STRESS TEST, [facility] 05/2018 FAMILY HISTORY FATHER: ALIVE 86 YRS, DIAGNOSED WITH HYPERTENSION, UNSPECIFIED HEART DISEASE MOTHER: ALIVE 84 YRS, HYPERTENSION SIBLINGS: HTN - 2 BROTHERS, HEART DISEASE/ CABG - 1BR, UNSPECIFIED HEART DISEASE 2 BROTHER(S) , 1 SISTER(S) . MOTHER - STROKE. SOCIAL HISTORY GENERAL: TOBACCO USE ARE YOU A:NONSMOKER LATEX QUESTIONNAIRE LATEX ALLERGY : HAVE YOU EVER DEVELOPED ANY TYPE OF REACTION AFTER HANDLING LATEX PRODUCTS SUCH RUBBER GLOVES, CONDOMS, DIAPHRAGMS, BALLOONS, SOCKS, OR UNDERWEAR?NO LATEX ALLERGY : HAVE YOU EVER DEVELOPED ANY TYPE OF REACTION DURING OR AFTER DENTAL APPOINTMENT, VAGINAL/RECTAL EXAMINATION, SURGICAL PROCEDURE, OR ANY OTHER EXPOSURE?NO DATE ASKED : 10/19/2019 LATEX RISK : HAVE YOU EVER HAD ANY DIFFICULTY BREATHING OR HIVES AFTER EATING OR HANDLING ANY FRUITS, OR VEGETABLES; SUCH KIWI, BANANAS, STONE FRUITS, OR CHESTNUTSNO LATEX RISK : DO YOU HAVE A PREVIOUS PERSONAL HISTORY OF MORE THAN NINE SURGERIES, SPINA BIFIDA, OR REPEATED CATHERIZATIONS? YES - PLEASE INDICATE : > 9 SURGERIES LATEX RISK : ARE YOU FREQUENTLY EXPOSED TO LATEX PRODUCTS IN YOUR OCCUPATION?NO BMI CARE GOAL FOLLOW-UP ABOVE NORMAL BMI FOLLOW-UPGIVING ENCOURAGEMENT TO EXERCISE ALCOHOL SCREENING DID YOU HAVE A DRINK CONTAINING ALCOHOL IN THE PAST YEAR?NO POINTS0 INTERPRETATIONNEGATIVE RECREATIONAL DRUG USE DRUG USE?NO CAFFEINE CAFFEINE USE?YES SODA OCC SEXUAL HX HAD SEX IN THE LAST 12 MONTHS (VAGINAL, ORAL, OR ANAL)?NO HAVE YOU EVER HAD AN STD?NO HIV / HEP-C SCREENING HIV TEST OFFERED TO PATIENT:YES DATE OFFERED:03/21/2013 TEST ACCEPTED:YES HEP-C TEST OFFERED TO PATIENT:NO ORIENTAL ORTHODOX [id number] NONE LANGUAGE LANGUAGES SPOKEN:BENGALI EDUCATION 2 YEARS OF COLLEGE. LEARNING BARRIERS / SPECIAL NEEDS CHANGE FROM LAST VISIT?NO BARRIERS TO LEARNING?NO HEARING IMPAIRED?NO VISION IMPAIRED?YES COGNITIVELY IMPAIRED?NO :CORRECTIVE LENSES READINESS TO LEARN?YES LEARNING PREFERENCES?YES :TAPES/VIDEOS, BOOKLETS, HANDOUTS LEARNING CAPABILITIES PRESENT?YES EMOTIONAL BARRIERS?NO SPECIAL DEVICES?NO LOSS CONTROL TECHNICIAN NEEDED?NO DOMESTIC VIOLENCE DO YOU FEEL SAFE IN YOUR ENVIRONMENT?YES OCCUPATION: DISABLED. DIET: REGULAR BARIATRIC DIET CURRENTLY. EXERCISE: WALKING AND OCCASIONAL SNOWSHOEING. MARITAL STATUS: .. OTHERS AT HOME: FATHER, MOTHER. PAIN CLINIC PFS, CLERGY, PUBLIC HEALTH REFERRALS PFS REFERRAL NEEDED?NO CLERGY REFERRAL NEEDED?NO PUBLIC HEALTH REFERRAL NEEDED?NO WAS THE PROVIDER NOTIFIED OF ANY PERTINENT INFO? N/A HAS THE PATIENT BEEN EDUCATED REGARDING HIS/HER PLAN OF CARE?YES HAS THE PATIENT BEEN EDUCATED REGARDING PAIN, THE RISK FOR PAIN, THE IMPORTANCE OF EFFECTIVE PAIN MANAGEMENT, AND THE PAIN ASSESSMENT PROCESS?YES HOUSING: PARENTS HOME. ADVANCE DIRECTIVE ADVANCE DIRECTIVE DISCUSSED WITH PATIENT:YES HCP IS [facility] [phone] HOSPITALIZATION/MAJOR DIAGNOSTIC PROCEDURE SURGERIES ABOVE REACTION TO RUBELLA VACCINE AGE 9 VITAL SIGNS WT 227.4 LBS, HT 63 IN, BMI 40.28 INDEX, BP 142/92 MM HG, HR 71 /MIN, RR 18 /MIN, TEMP 96.8 F, OXYGEN SAT % 97%, SAFE IN ENV? (Y/N) Y, NA INITIALS NE 11:54, REVIEWED BY: EM. EXAMINATION GENERAL EXAMINATION: A HISTORY AND PHYSICAL EXAM ON THE PATIENT WAS DONE ON 10/20/2019 (DATE OF ORIGINAL ASSESSMENT) IN PREPARATION OF SURGERY/PROCEDURE. I HAVE NOW REASSESSED THIS PATIENT'S HEALTH STATUS AND PERFORMED AN UPDATED EXAM TODAY. ALL CHANGES IN THE PATIENT'S HISTORY, PHYSICAL EXAM, PRE-EXISTING CONDITONS, AND INDICATIONS/CONTRAINDICATIONS TO THE PLANNED PROCEDURE AND ANESTHESIA ARE DOCUMENTED AND EVALUATED BELOW. I ATTEST TO THE ADEQUACY AND APPROPRIATENESS OF MY ASSESSMENT, AND CONFIRM THE NECESSITY FOR THE PLANNED PROCEDURE. THE PATIENT IS ALERT, ORIENTED TIMES THREE AND COOPERATIVE. ASSESSMENTS SPONDYLOSIS OF CERVICAL REGION WITHOUT MYELOPATHY OR RADICULOPATHY - [id number] (PRIMARY) TREATMENT SPONDYLOSIS OF CERVICAL REGION WITHOUT MYELOPATHY OR RADICULOPATHY [facility] FACET BLOCK (PAIN)[id number] MEDICATION: FENTANYL CITRATE 25MCG IVDILEONARDO,CELESTE 10/24/2019 01:18:35 PM - SECOND DOSE ORDER, VERIFIED BY ANASTACIA MATAMOROS RN 10/24/2019 2:40:26 PM > FENTANYL 25 MCG IV GIVEN AT 1316 BY ANASTACIA DELGADO RN., RN 10/24/2019 2:43:51 PM > 1318 FENTANYL 25 MCG IV GIVEN BY Rex KITCHEN RN. ANASTACIA OSORIO RN, RN 10/24/2019 2:44:48 PM > 1330 VERSED 1 MG IV GIVEN BY Rex KITCHEN RN. JUDI BOX RN 10/24/2019 4:05:58 PM > LOT# [id number] EXP 10/24/2020 MEDICATION: VERSED 1MG IV (MIDAZOLAM)DILEONARDO,CELESTE 10/24/2019 01:29:42 PM - SECOND DOSE ORDERED, VERIFIED WITH ANASTACIA MATAMOROS RN 10/24/2019 2:42:48 PM > 1316 VERSED 1 MG IV GIVEN BY JUDI EAGLE RN., RN 10/24/2019 4:09:30 PM > LOT # [id number] EXP:11/2020 MEDICATION: FENTANYL CITRATE 50MCG IV DILEONARDO,CELESTE 10/24/2019 01:32:30 PM - SECOND DOSE ORDERED, VERIFIED WITH ANASTACIA MATAMOROS RN 10/24/2019 2:47:08 PM > 1326 FENTANYL 50 MCG IV GIVEN BY Rex KITCHEN RN. Julee HOLLY RN 1332 FENTANYL 50 MCG IV GIVEN BY Rex KITCHEN RN. Julee HOLLY RN JUDI LYNN 10/24/2019 4:10:20 PM > LOT# [id number] EXP: 10/24/2020 IV AT KVODILEONARDO,CELESTE 10/24/2019 12:22:21 PM - LACTATED RINGERS DILEONARDO,CELESTE 10/24/2019 01:36:54 PM - 200 ML ANASTACIA HOLLY RN 10/24/2019 2:48:09 PM > IV RL 200 ML ADMINISTERED DURING PROCEDURE PER ORDER. Julee HOLLY RN OXYGEN AT 2 LITERS PER NASAL CANNULARADHAINAANASTACIA CHAO RN 10/24/2019 2:48:46 PM > OXYGEN 2L/MIN ADMINISTERED DURING PROCEDURE PER ORDER. Julee HOLLY RN PROCEDURES PAIN NURSING RECORD PRE-PROCEDURE IV SITE LEFT ANTECUBITAL, IV STARTED # 22, IV STARTED BY: Julee HOLLY RN, IV ATTEMPTS 1 PROCEDURE IN ROOM 1250, PHYSICIAN IN ROOM 1314, START 1321, FINISH 1335, PHYSICIAN OUT OF ROOM 1338, OUT OF ROOM 1342, STEROID KENALOG , O2 NC , ECG NORMAL SINUS , PATIENT SHIELDED YES , SAFETY STRAP YES , PREP CHLOROPREP Julee HOLLY RN, IV INFUSED LACTATED RINGERS 200 ML, DRESSING TEGADERM LOC: 1. ALERT, ORIENTED RESP: 1. REGULAR, NO DYSPNEA COLOR: 1. PINK SKIN: 1. WARM, DRY POSITION: 1. PRONE VITALS: 1253 148/85 71-16 96% 1300 150/94 74-16 97% 1315 160/103 79-16 100% 1320 147/96 84-16 100% 1325 150/94 85-16 99% 1330 150/94 89-16 99% 1335 149/79 81-16 100% 1345 128/79 71-16 98% DISCHARGE: POST PAIN 0/10, DRESSING SITE DRY AND INTACT, IV DISCONTINUED, SITE CLEAR, CATHETER INTACT, GAIT WHEELCHAIR, TEACHING COMPLETED, PATIENT ACKNOWLEDGES UNDERSTANDING YES POST-SEDATION DISCHARGE INSTRUCTIONS REVIEWED WITH PT'S FAMILY MEMBER. VERBALIZED UNDERSTANDING., PATIENT DISCHARGED AT 1420 PN CERVICAL FACET BLOCK LOW BILATERAL CERVICAL PRE PROCEDURE DIAGNOSIS CERVICAL SPONDYLOSIS POST PROCEDURE DIAGNOSIS CERVICAL SPONDYLOSIS PROCEDURE BILATERAL C4-C5 AND BILATERAL C5-C6 THERAPEUTIC CERVICAL FACET BLOCK SURGEON DR. ILENE TEMPLE SITE AUDITOR NONE ANESTHESIA LOCAL WITH IV SEDATION PRE PROCEDURE NOTE THE PATIENT HAS HISTORY OF CHRONIC CERVICAL PAIN. I EVALUATED THE PATIENT AND REVIEWED THE CHART. I WENT OVER THE RISKS, ALTERNATIVES, AND BENEFITS ASSOCIATED WITH THIS PROCEDURE. I DISCUSSED THAT THE USE OF STEROIDS MAY CONTRIBUTE TO IMMUNOSUPPRESSION OF THE PATIENT'S BODY AGAINST INFECTIONS SUCH COVID-19. THE PATIENT IS AWARE OF THE POTENTIAL COMPLICATIONS ASSOCIATED WITH THIS VIRUS, INCLUDING, BUT NOT LIMITED TO, . PATIENT UNABLE TO SIGN DUE TO COVID-19 PRECAUTIONS. PATIENT GAVE VERBAL CONSENT. THE PATIENT WOULD LIKE TO PROCEED AND GIVE CONSENT TO PERFORMED THE PROCEDURE. THE PATIENT DENIES UNEXPLAINABLE WEIGHT LOSS, FEVER, CHILLS, OR NEW CHANGES IN URINARY OR BOWEL CONTROL. THE PATIENT IS COVID-19 NEGATIVE DESCRIPTION OF PROCEDURE THE PATIENT WAS BROUGHT TO THE PROCEDURE ROOM AND PLACED IN THE PRONE POSITION. THE CERVICOTHORACIC AREA WAS CLEANED WITH CHLORAPREP SOLUTION AND DRAPED ASEPTICALLY. THE PROCEDURE WAS DONE UNDER STERILE CONDITIONS. I CHECKED LATERALITY AND THE LEVEL WHERE THE PROCEDURE WAS GOING TO BE PERFORMED WITH THE PATIENT AND THE SUPPORTING STAFF AT THE MOMENT OF THE TIME OUT IN THE PROCEDURE ROOM. UNDER FLUOROSCOPIC GUIDANCE, TARGET POINT WAS SELECTED AT THE RIGHT AND LEFT C4-C5 AND RIGHT AND LEFT C5-C6 CERVICAL FACET JOINT. TARGET POINTS WERE SELECTED AFTER LATERAL ROTATION AND TILT OF THE MAGNIFIER OF THE C-ARM. LIDOCAINE 0.5% WAS USED TO NUMB THE SKIN AND THE SUBCUTANEOUS TISSUE BELOW IT. SPINAL NEEDLES, 22-GAUGE, WERE ADVANCED UNDER FLUOROSCOPIC GUIDANCE AND FOLLOWING PATIENT FEEDBACK UNTIL THE TARGETS WERE TOUCHED. THE POSITION OF THE NEEDLES WAS VERIFIED WITH AP AND LATERAL VIEWS. AFTER PROPER POSITION OF THE NEEDLES WAS ACHIEVED, ISOVUE M DYE 30, 0.1 ML, WAS INJECTED SHOWING SPREAD OF THE DYE. THEN A SOLUTION OF 0.5 ML OF KENALOG 20 MG WAS INJECTED AT EACH SITE. THE NEEDLES WERE FLUSHED WITH 4 ML OF BUPIVACAINE 0.125% AT EACH SITE THEY WERE REMOVED. THERE WAS NO EVIDENCE OF BLOOD, PARESTHESIA OR CEREBROSPINAL FLUID DURING THE PROCEDURE. THE PATIENT WAS SENT TO THE RECOVERY ROOM. THE PATIENT WAS MOVING THE EXTREMITIES AND DOING WELL. THERE WAS NO COMPLICATION DURING THE PROCEDURE. EBL LESS THAN 5 ML. FLUOROSCOPY TIME WAS 11 SECONDS. PATIENT RECEIVED VERSED 2 MG AND FENTANYL 150 MCG IV IN DIVIDED DOSES. DRIN-AN-JSMW START TIME WAS 1316. ECBJ-JU-RFZE END TIME WAS 1337. TOTAL ENNR-BB-BONO TIME WAS 21 MINUTES POST PROCEDURE NOTE THE PATIENT WILL BE SEEN IN A FOLLOW UP IN THE NEXT FEW WEEKS. I AM LOOKING FOR LONG LASTING RELIEF FOR THE PATIENT WITH THIS INTERVENTION. INSTRUCTIONS WERE GIVEN, QUESTIONS WERE ANSWERED, AND THE PATIENT EXPRESSED UNDERSTANDING AND AGREES WITH THE PLAN. THE PATIENT IS AWARE TO STAY HOME FOR THE NEXT WEEK, IF POSSIBLE, DUE TO COVID-19. I, CELESTE WOLFF, DOCUMENTED THE ABOVE INFORMATION ACTING A SCRIBE FOR DR. TEMPLE. I HAVE REVIEWED THE ABOVE DOCUMENT, WRITTEN BY CELESTE WOLFF, MACHINE SETTER AUTOMATIC, AND I VERIFY THAT IT IS ACCURATE PN WORKMANS' COMP OPINION IN YOUR OPINION, WAS THE INCIDENT THAT THE PATIENT DESCRIBED THE COMPETENT MEDICAL CAUSE OF THIS INJURY/ILLNESS? YES ARE THE PATIENT'S COMPLAINTS CONSISTENT WITH HIS/HER HISTORY OF THE INJURY/ILLNESS? YES IS THE PATIENT'S HISTORY OF THE INJURY/ILLNESS CONSISTENT WITH YOUR OBJECTIVE FINDING? YES WHAT IS THE PERCENTAGE OF TEMPORARY IMPAIRMENT? MODERATE TO MARKED = 66.7% . IS THE PATIENT WORKING? NO . DOCTOR ON SITE: ILENE CHEW MD PROCEDURE CODES 95282 INJ PARAVERT F JNT C/T 1 LEV, MODIFIERS: 50 [id number] INJ PARAVERT F JNT C/T 2 LEV, MODIFIERS: 50 [id number] MOD SED SAME PHYS/QHP 5/>YRS DISPOSITION & COMMUNICATION FOLLOW UP F/UP WITH ASSISTANT PROFESSOR SURGICAL TECHNOLOGY (REASON: W/C POST C4-C5, C5-C6 CFBT WITH IV SED) ELECTRONICALLY SIGNED BY ILENE TEMPLE MD, MD ON 11/01/2019 AT 04:46 PM EDT DISCLAIMER : THIS IS A VISIT SUMMARY EXTRACTED FROM THE [facility] CHART. IT IS NOT A COPY OF THE [facility] PROGRESS NOTE. MTDD
== END ==
LOC: M PAIN 11:45
PROVIDERS: ATTEND Anesthesiology
DX: M47.812 Spondylosis without myelopathy or radiculopathy, cervical region (principal)
CPT/HCPCS: 64490; 64491; 99152; J2250; J3010; J3301; Q9967

== ENCOUNTER → 2019-11-23 | Outpatient (CLI) | payer MEDICARE, OTHER ==
[~2019-11-23] MED LIST changes: -BUPIVACAINE HCL 0.25% 30ML VIAL As Ordered ONE; -ISOVUE-M 300 61% 15ML VIAL As Ordered ONE; -LIDOCAINE 1% SDV 30ML VIAL As Ordered ONE; -MIDAZOLAM INJ 2MG/2ML VIAL (J2250 PER 1MG) As Ordered ONE; -TRIAMCINOLONE ACETONIDE SUSP 40 MG/ML VIAL (J3301) As Ordered ONE; -fentaNYL 100 MCG/2 ML INJECTION (J3010) As Ordered ONE
== END ==
LOC: M LABSMTC 09:30
PROVIDERS: ATTEND Orthopaedic Surgery
DX: Z20.828 Contact with and (suspected) exposure to other viral communicable diseases (principal)
CPT/HCPCS: C9803; U0002

== ENCOUNTER → 2019-12-20 | Outpatient (CLI) | payer MEDICARE ==
[2019-12-20 14:02] LABS: BASO # 0.1 10^3/uL (0.0-0.2); BASO % 0.9 % (0.0-1.0); EOS # 0.2 10^3/uL (0.0-0.5); EOS % 2.9 % (0.0-3.0); HEMATOCRIT 41.8 % (36.0-47.0); HEMOGLOBIN 13.3 g/dl (12.0-15.5); LYMPH # 1.8 10^3/uL (1.5-5.0); LYMPH % 30.8 % (24.0-44.0); MEAN CORPUSCULAR HEMOGLOBIN 31.7 pg (27.0-33.0); MEAN CORPUSCULAR HGB CONC 31.8 g/dl (32.0-36.5); MEAN CORPUSCULAR VOLUME 99.5 fl (80.0-96.0); MONO # 0.4 10^3/uL (0.0-0.8); MONO % 7.6 % (0.0-5.0); NEUTROPHILS # 3.3 10^3/uL (1.5-8.5); NEUTROPHILS % 57.6 % (36.0-66.0); PLATELET COUNT, AUTOMATED 281 10^3/uL (150-450); WHITE BLOOD COUNT 5.8 10^3/uL (4.0-10.0)
[2019-12-20 14:22] LABS: ALBUMIN 3.6 GM/DL (3.2-5.2); ALT/SGPT 47 U/L (12-78); BILIRUBIN,TOTAL 0.3 MG/DL (0.2-1.0); BLOOD UREA NITROGEN 19 MG/DL (7-18); C REACTIVE PROTEIN QUANTITATIV 0.72 MG/DL (0.00-0.30); CALCIUM LEVEL 9.5 MG/DL (8.5-10.1); CARBON DIOXIDE LEVEL 28 MEQ/L (21-32); CHLORIDE LEVEL 109 MEQ/L (98-107); CREATININE FOR GFR 0.98 MG/DL (0.55-1.30); GLOMERULAR FILTRATION RATE > 60.0 (>51); GLUCOSE, FASTING 90 MG/DL (70-100); POTASSIUM SERUM 4.2 MEQ/L (3.5-5.1); SODIUM LEVEL 142 MEQ/L (136-145)
[2019-12-20 15:08] LABS: ERYTHROCYTE SEDIMENTATION RATE 20 mm/hr (0-30)
== END ==
LOC: M PLALAB 09:20
PROVIDERS: ATTEND Internal Medicine Rheumatology
DX: M06.4 Inflammatory polyarthropathy (principal)

== ENCOUNTER → 2020-02-15 | Outpatient (CLI) | payer OTHER ==
--- NOTE | 2020-02-16 09:58 | ECWPNPC ---
PATIENT NAME: JANAE PORTER : 1960 GENDER: FEMALE VISIT DATE: 02/15/2020 DISCHARGE DATE: 02/15/20 1121 VISIT LOCKED DATE TIME: PHYSICIAN: KIMBER ENCINAS PHYSICIAN PAGER NO: ACTIVE RESOURCE: KIMBER ENCINAS REASON FOR APPOINTMENT 1. WORKMEN'S COMP NECK PAIN HISTORY OF PRESENT ILLNESS DEPRESSION SCREENING: PHQ-2 (2015 EDITION) LITTLE INTEREST OR PLEASURE IN DOING THINGS?NOT AT ALL FEELING DOWN, DEPRESSED, OR HOPELESS?NOT AT ALL TOTAL SCORE0 GENERAL: HERE FOR ROUTINE FOLLOW-UP AND MANAGEMENT OF CHRONIC NECK PAIN. THIS IS A WORK RELATED INJURY WITH DATE OF INJURY 01/01/2006. PAIN HAS INCREASED IN HER NECK AREA OVER THE PAST 3 WEEKS. HAS BENEFITED FROM CERVICAL FACET THERAPEUTIC BLOCKS IN THE PAST WITH EXTENDED PERIODS OF RELIEF, IMPROVED ACTIVITY TOLERANCE AND ABILITY TO TAKE LESS PAIN MEDICATION POST PROCEDURE. CURRENTLY USING NUCYNTA 50 MG 1 TABLET PERIODICALLY FOR SEVERE PAIN EPISODES. SHE IS NOT TAKING THIS MEDICATION ON A SCHEDULED BASIS OR EVEN DAILY. URINE TOXICOLOGY DONE PER CLINIC GUIDELINES IN OCTOBER WAS NORMAL. IT IS NOT SHOWING NUCYNTA DUE TO THE FACT THAT SHE DID NOT TAKE IT THAT DAY AND THEREFORE NEGATIVE RESULTS WOULD BE EVALUATED NORMAL. SHE HAS TRIED MULTIPLE DIFFERENT OTHER PAIN MEDICATIONS INCLUDING NARCOTIC AND NON-NARCOTIC PAIN MEDICATIONS WITH ADVERSE/ALLERGIC TYPE REACTIONS. IT IS MEDICALLY NECESSARY FOR HER TO BE ON NUCYNTA FOR INTERMITTENT PAIN EXACERBATIONS FOR THE ABOVE STATED REASONS.-. FALL RISK SCREENING: SCREENING :NO FALLS REPORTED IN THE LAST YEAR NONE PAIN SCREENING: PATIENT HAS A COMPLAINT OF ACUTE OR CHRONIC PAIN :YES LOCATION OF PAIN:NECK INTENSITY OF PAIN (SCALE OF 1 TO 10):7 WHAT DOES YOUR PAIN FEEL LIKE:ACHING, SHARP, STABBING DURATION:CONTINOUS, CONSTANT PAIN IS INCREASED BY:ACTIVITIES, OTHERS PAIN IS DECREASED BY:USE OF PAIN MEDICATIONS NURSING NOTE: -. PAIN CENTER INTAKE QUESTIONS: DO YOU HAVE A HISTORY OF MRSA? :NO DO YOU TAKE A BLOOD THINNERS? :NO DO YOU HAVE ANY BLEEDING DISORDERS? :NO ANY NEW NUMBNESS OR WEAKNESS IN YOUR LEGS OR ARMS? :NO ANY PACEMAKER,DEFIBRILLATOR, OR DORSAL COLUMN STIMULATOR? :YES DORSAL COLUM STIMULATOR AUGUST OF 2010 DO YOU HAVE ANY RASHES OR OPEN SORES? :NO ARE YOU ALLERGIC TO IV DYE? :NO ARE YOU DIABETIC? :NO ANY NEW PROBLEMS WITH YOUR MEDICATIONS? :NO HAVE YOU RECEIVED A VACCINE IN THE PAST 30 DAYS? :YES FLU VAC DO YOU PLAN TO RECEIVE A VACCINE IN THE NEXT 21 DAYS? :NO DO YOU NEED ANY PRESCRIPTION? :NO DO YOU TAKE ANY IMMUNOSUPPRESSIVE MEDICATIONS? :NO IS THERE A CHANCE YOU COULD BE ? :NO ARE YOU BREAST FEEDING? :NO CURRENT MEDICATIONS TAKING FISH OIL 1200 MG CAPSULE 1 CAPSULE ORALLY ONCE A DAY, NOTES: 10/23/19 TAKING ESTRADIOL 1 MG TABLET [address] BUSBY ORALLY ONCE A DAY, NOTES: 10/23/19 TAKING LYSINE 500 MG TABLET 1 TABLET ORALLY TWICE DAILY, NOTES: 10/23/19 TAKING BIOTIN 5000 MCG TABLET 2 TAB ORALLY ONCE A DAY, NOTES: 10/23/19 TAKING COLACE 100 MG CAPSULE 1 CAPSULE NEEDED ORALLY ONCE A DAY, NOTES: 10/23/19 TAKING CINNAMON 500 MG CAPSULE 1 CAP ORALLY DAILY, NOTES: 10/23/19 TAKING METHYLPREDNISOLONE 4 MG TABLET 1/2 TABLET WITH FOOD OR MILK ORALLY BID, NOTES: LAST WEDNESDAY TAKING METHOTREXATE SODIUM 2.5 MG TABLET 5 TABLETS DIRECTED ORALLY ONCE WEEKLY, NOTES: LAST DOSE 10/09 TAKING VITAMIN D3 5000 UNIT CAPSULE 2 CAPS ORALLY 5 DAYS A WEEK, NOTES: 10/23/19 TAKING CALCIUM CITRATE PLUS TABLET 1 TAB ORALLY THREE TIMES DAILY, NOTES: 10/23/19 TAKING FERROUS SULFATE 325 (65 FE) MG TABLET 1 TABLET ORALLY THREE TIMES A WEEK, NOTES: 10/23/19 TAKING MULTIVITAMINS TABLET 1 TAB ORALLY DAILY, NOTES: 10/23/19 TAKING MAGNESIUM-ZINC 133.33-5 MG TABLET 1 TABLET ORALLY TWICE A DAY, NOTES: 10/23/19 TAKING VITAMIN B-12 500 MCG TABLET SUBLINGUAL 1 TABLET UNDER THE TONGUE AND ALLOW TO DISSOLVE SUBLINGUAL ONCE A DAY, NOTES: 10/23/19 TAKING OMEPRAZOLE 20 MG CAPSULE DELAYED RELEASE 1 CAP ORALLY TWICE A DAY TAKING FOLIC ACID 1 MG TABLET 1 TABLET ORALLY ONCE A DAY, NOTES: 10/23/19 TAKING DULOXETINE HCL 60 MG CAPSULE DELAYED RELEASE PARTICLES 1 CAPSULE ORALLY ONCE A DAY TAKING NUCYNTA 50 MG TABLET 1 ORALLY NEEDED FOR PAIN Q8H MDD2, NOTES: 10/23/19 MEDICATION LIST REVIEWED AND RECONCILED WITH THE PATIENT PAST MEDICAL HISTORY CHRONIC PAIN: BACK, NECK, R SHOULDER- FOLLOWS WITH PAIN CLINIC, UNDER WORKER'S COMP ESOPHAGEAL REFLUX - (PULMONARY EVAL FOR COUGH NEG.) OBESITY ENVIRONMENTAL AND SEASONAL ALLERGIES RIGHT SHOULDER SURGERY OTHER DEPRESSION POLYARTHRITIS ALLERGIES RUBELLA VIRUS VACCINE: KNEES LOCKED - ALLERGY FOSAMAX: HAND SWELLING - ALLERGY CODEINE SULFATE: NAUSEA/VOMITING VOLTAREN: BLOOD IN STOOL - ALLERGY T-DAP VACCINE: JOINT PAIN/SWELLING - ALLERGY SURGICAL HISTORY R ANKLE SURGERY RECONSTRUCTION - DR Virginia MABRY WRIST SURGERY R (DE QUERVAINS) - DR Virginia MABRY -1992 REMOVAL OF SCAR TISSUE FROM RIGHT WRIST - DR. VALDEZ -1993 R FOOT NERVE BX - DR Virginia MABRY -1999 BREAST REDUCTION - CARLOS A R FOOT SCAR TISSUE - DR WILLS ZAID & BSO - ROSAS -2002 R KNEE ARTHROSCOPY- SHAVED CONDROMALACIA - DR Virginia MABRY -2003 L FOOT HEEL SPUR - MICH RIGHT ROTATOR CUFF REPAIR R - DR Virginia MABRY -2007 EXCISION OF SCALP CYST - BENIGN, DR WADSWORTH 10/2009 CERVICAL DORSAL COLUMN STIMULATOR (TRIAL) - MAVERICK SPINAL CORD STIMULATOR IMPLANT - DR GIBSON --2010 COLONOSCOPY, INTERNAL HEMORRHOIDS - ABELARDO KNEE SURGERY L MICROFRACTURING - DR YUNIER MABRY -2011 L WRIST DEQUERVAINS RELEASE - DR SHANA RIVERO LAP VERTICAL SLEEVE GASTRECTOMY - DR BEST - LEFT BREAST BIOPSY - BENIGN, INTERVENTIONAL RADIOLOGY F/UP PER DR PARSONS 04/2014 LEFT ROTATOR CUFF REPAIR - DR. YUNIER MABRY -2014 L THUMB/WRIST [facility] ARTHOPLASTY - DR YUNIER MABRY -2015 R ROTATOR CUFF REPAIR - DR YUNIER MABRY -2016 RIGHT SHOULDER SURGERY 08/19/17 RIGHT SHOULDER AND BICEP SURGERY 06/28/18 NEG STRESS TEST, ANTON DE JESUS 05/2018 FAMILY HISTORY FATHER: ALIVE 86 YRS, DIAGNOSED WITH HYPERTENSION, UNSPECIFIED HEART DISEASE MOTHER: ALIVE 84 YRS, HYPERTENSION SIBLINGS: HTN - 2 BROTHERS, HEART DISEASE/ CABG - 1BR, UNSPECIFIED HEART DISEASE 2 BROTHER(S) , 1 SISTER(S) . MOTHER - STROKE. SOCIAL HISTORY GENERAL: TOBACCO USE ARE YOU A:NONSMOKER LATEX QUESTIONNAIRE LATEX ALLERGY : HAVE YOU EVER DEVELOPED ANY TYPE OF REACTION AFTER HANDLING LATEX PRODUCTS SUCH RUBBER GLOVES, CONDOMS, DIAPHRAGMS, BALLOONS, SOCKS, OR UNDERWEAR?NO LATEX ALLERGY : HAVE YOU EVER DEVELOPED ANY TYPE OF REACTION DURING OR AFTER DENTAL APPOINTMENT, VAGINAL/RECTAL EXAMINATION, SURGICAL PROCEDURE, OR ANY OTHER EXPOSURE?NO LATEX RISK : HAVE YOU EVER HAD ANY DIFFICULTY BREATHING OR HIVES AFTER EATING OR HANDLING ANY FRUITS, OR VEGETABLES; SUCH KIWI, BANANAS, STONE FRUITS, OR CHESTNUTSNO LATEX RISK : DO YOU HAVE A PREVIOUS PERSONAL HISTORY OF MORE THAN NINE SURGERIES, SPINA BIFIDA, OR REPEATED CATHERIZATIONS? YES - PLEASE INDICATE : > 9 SURGERIES LATEX RISK : ARE YOU FREQUENTLY EXPOSED TO LATEX PRODUCTS IN YOUR OCCUPATION?NO DATE ASKED : 02/15/2020 BMI CARE GOAL FOLLOW-UP ABOVE NORMAL BMI FOLLOW-UPGIVING ENCOURAGEMENT TO EXERCISE ALCOHOL SCREENING DID YOU HAVE A DRINK CONTAINING ALCOHOL IN THE PAST YEAR?NO POINTS0 INTERPRETATIONNEGATIVE RECREATIONAL DRUG USE DRUG USE?NO CAFFEINE CAFFEINE USE?YES SODA OCC SEXUAL HX HAD SEX IN THE LAST 12 MONTHS (VAGINAL, ORAL, OR ANAL)?NO HAVE YOU EVER HAD AN STD?NO HIV / HEP-C SCREENING HIV TEST OFFERED TO PATIENT:YES DATE OFFERED:03/21/2013 TEST ACCEPTED:YES HEP-C TEST OFFERED TO PATIENT:NO RESTORATION [id number] NONE LANGUAGE LANGUAGES SPOKEN:[employer] EDUCATION 2 YEARS OF COLLEGE. LEARNING BARRIERS / SPECIAL NEEDS CHANGE FROM LAST VISIT?NO BARRIERS TO LEARNING?NO HEARING IMPAIRED?NO VISION IMPAIRED?YES COGNITIVELY IMPAIRED?NO :CORRECTIVE LENSES READINESS TO LEARN?YES LEARNING PREFERENCES?YES :TAPES/VIDEOS, BOOKLETS, HANDOUTS LEARNING CAPABILITIES PRESENT?YES EMOTIONAL BARRIERS?NO SPECIAL DEVICES?NO RADIOGRAPHER TECHNOLOGIST NEEDED?NO DOMESTIC VIOLENCE DO YOU FEEL SAFE IN YOUR ENVIRONMENT?YES OCCUPATION: DISABLED. DIET: REGULAR BARIATRIC DIET CURRENTLY. EXERCISE: WALKING AND OCCASIONAL SNOWSHOEING. MARITAL STATUS: .. OTHERS AT HOME: FATHER, MOTHER. PAIN CLINIC PFS, CLERGY, PUBLIC HEALTH REFERRALS PFS REFERRAL NEEDED?NO CLERGY REFERRAL NEEDED?NO PUBLIC HEALTH REFERRAL NEEDED?NO WAS THE PROVIDER NOTIFIED OF ANY PERTINENT INFO? N/A HAS THE PATIENT BEEN EDUCATED REGARDING HIS/HER PLAN OF CARE?YES HAS THE PATIENT BEEN EDUCATED REGARDING PAIN, THE RISK FOR PAIN, THE IMPORTANCE OF EFFECTIVE PAIN MANAGEMENT, AND THE PAIN ASSESSMENT PROCESS?YES HOUSING: PARENTS HOME. ADVANCE DIRECTIVE ADVANCE DIRECTIVE DISCUSSED WITH PATIENT:YES HCP IS PARENTS CARLIN PORTER [phone] HOSPITALIZATION/MAJOR DIAGNOSTIC PROCEDURE SURGERIES ABOVE REACTION TO RUBELLA VACCINE AGE 9 REVIEW OF SYSTEMS CONSTITUTIONAL: ANY RECENT FEVER NO . CHILLS NO . WEIGHT CHANGE OF UNKNOWN REASONS NO . GASTROENTEROLOGY: NEW UNEXPLAINABLE CHANGES IN BOWEL CONTROL NO . CONSTIPATION NO . GENITOURINARY: ANY NEW CHANGE IN BLADDER CONTROL? NO . NEUROLOGY: NEW ONSET DIZZINESS OR NEUROLOGICAL CHANGES NOT MENTIONED NO . NEW NUMBNESS OR PAIN PATTERNS NOT MENTIONED AND PERTINENT TO TODAY'S VISIT NO . CARDIOLOGY: NEW CHEST PRESSURE NO . NEW CHEST PAIN NO . RESPIRATORY: UNEXPLAINABLE COUGH NO . NEW SHORTNESS OF BREATH NO . VITAL SIGNS WT 225.8 LBS, HT 63 IN, BMI 39.99 INDEX, BP 133/79 MM HG, HR 74 /MIN, RR 18 /MIN, TEMP 96.8 F, OXYGEN SAT % 98%, SAFE IN ENV? (Y/N) YES, NA INITIALS AW 1029, REVIEWED BY: JS. EXAMINATION GENERAL EXAMINATION: LUNGS: LUNG SOUNDS ARE CLEAR . HEART: HEART RATE REGULAR . MUSCULOSKELETAL:*, MUSCLE STRENGTH TESTING 5/5 BILATERAL UPPER EXTREMITIES. . CERVICAL:+ FOR PAIN WITH PALPATION OF CERVICAL SPINE. + FOR PAIN WITH PALPATION OF CERVICAL PARASPINALS.SPECIFIC POINT TENDERNESS NOTED OV C4/5-/C5/6 CERVICAL FACETS WITH EXTENSION AND FACET LOADING.. DIAGNOSTIC TESTS REVIEWED CERVICAL MRI -2009. ASSESSMENTS SPONDYLOSIS OF CERVICAL REGION WITHOUT MYELOPATHY OR RADICULOPATHY - M47.812 (PRIMARY) TREATMENT SPONDYLOSIS OF CERVICAL REGION WITHOUT MYELOPATHY OR RADICULOPATHY [facility] CT C SPINE W/O FOLL BY [id number] NOTES: BILATERAL C4-5 C5-C6 CERVICAL THERAPEUTIC FACET BLOCK WITH IV SEDATION/WORKMEN'S COMP REQUEST LAST MRI IMAGING WAS IN 2009 OF THE CERVICAL SPINE. PATIENT HAS A DORSAL COLUMN STIMULATOR AND IS UNABLE TO HAVE A MRI. REVIEWED HISTORY WITH DR. TEMPLE. HE IS REQUESTING CT SCAN WITH AND WITHOUT CONTRAST OF THE CERVICAL SPINE. HE WOULD LIKE THE RESULTS BEFORE HE WILL DO CERVICAL FACET BLOCK. WORKMEN'S COMP REQUEST CT SCAN WITH AND WITHOUT CONTRAST CERVICAL SPINE. PROCEDURES PN WORKMANS' COMP OPINION IN YOUR OPINION, WAS THE INCIDENT THAT THE PATIENT DESCRIBED THE COMPETENT MEDICAL CAUSE OF THIS INJURY/ILLNESS? YES ARE THE PATIENT'S COMPLAINTS CONSISTENT WITH HIS/HER HISTORY OF THE INJURY/ILLNESS? YES IS THE PATIENT'S HISTORY OF THE INJURY/ILLNESS CONSISTENT WITH YOUR OBJECTIVE FINDING? YES WHAT IS THE PERCENTAGE OF TEMPORARY IMPAIRMENT? MODERATE TO MARKED = 66.7% IS THE PATIENT WORKING? NO DOCTOR ON SITE: ILENE CHEW MD PROCEDURE CODES FA211 ESTABILISHED PATIENT [facility] CHARGE DISPOSITION & COMMUNICATION FOLLOW UP POST PROCEDURE WORKMEN'S COMP REQUEST CT SCAN WITH AND WITHOUT CONTRAST CERVICAL SPINE. (REASON: BILATERAL C4-5 C5-C6 CERVICAL THERAPEUTIC FACET BLOCK WITH IV SEDATION/WORKMEN'S COMP REQUEST) ELECTRONICALLY SIGNED BY MARISA MICHAUD ON 02/16/2020 AT 09:57 AM EDT DISCLAIMER : THIS IS A VISIT SUMMARY EXTRACTED FROM THE [facility] CHART. IT IS NOT A COPY OF THE [facility] PROGRESS NOTE. AUDREY
== END ==
LOC: M PAIN 09:45
PROVIDERS: ATTEND Nurse Practitioner Family
DX: M47.812 Spondylosis without myelopathy or radiculopathy, cervical region (principal); G89.29 Other chronic pain; K21.9 Gastro-esophageal reflux disease without esophagitis; Z86.59 Personal history of other mental and behavioral disorders; Z88.5 Allergy status to narcotic agent; Z88.7 Allergy status to serum and vaccine; Z88.8 Allergy status to other drugs, medicaments and biological substances; Z79.899 Other long term (current) drug therapy

== ENCOUNTER → 2020-02-15 | Outpatient (CLI) | payer MEDICARE, OTHER ==
[2020-02-15 16:56] LABS: ALBUMIN 3.7 GM/DL (3.2-5.2); ALT/SGPT 43 U/L (12-78); BILIRUBIN,TOTAL 0.4 MG/DL (0.2-1.0); BLOOD UREA NITROGEN 18 MG/DL (7-18); CALCIUM LEVEL 9.7 MG/DL (8.5-10.1); CARBON DIOXIDE LEVEL 30 MEQ/L (21-32); CHLORIDE LEVEL 106 MEQ/L (98-107); CREATININE FOR GFR 0.97 MG/DL (0.55-1.30); GLOMERULAR FILTRATION RATE > 60.0 (>51); GLUCOSE, FASTING 84 MG/DL (70-100); POTASSIUM SERUM 4.4 MEQ/L (3.5-5.1); SODIUM LEVEL 141 MEQ/L (136-145); TOTAL PROTEIN 7.4 GM/DL (6.4-8.2)
== END ==
LOC: M PLALAB 11:40
PROVIDERS: ATTEND Internal Medicine
DX: R94.5 Abnormal results of liver function studies (principal)

== ENCOUNTER → 2020-04-16 | Outpatient (CLI) | payer OTHER, MEDICARE ==
--- NOTE | 2020-04-30 04:16 | ECWPNPC ---
PATIENT NAME: JANAE PORTER : 1960 GENDER: FEMALE VISIT DATE: 04/16/2020 DISCHARGE DATE: 04/16/20 1526 VISIT LOCKED DATE TIME: PHYSICIAN: KIMBER ENCINAS PHYSICIAN PAGER NO: ACTIVE RESOURCE: KIMBER ENCINAS REASON FOR APPOINTMENT 1. CT REVIEW HISTORY OF PRESENT ILLNESS GENERAL: HERE FOR FOLLOW-UP OF PERSISTENT NECK PAIN. THIS IS A WORK RELATED INJURY. REPORTING INCREASE IN NECK PAIN OVER THE PAST FEW WEEKS. THIS RADIATES INTO A HEADACHE. HAS RESPONDED WELL TO CERVICAL THERAPEUTIC FACET BLOCKS IN THE PAST. CURRENTLY USING NUCYNTA 50 MG TABLET PERIODICALLY FOR SEVERE PAIN EPISODES. SHE RARELY USES THIS BUT WHEN SHE DOES IT IS VERY EFFECTIVE AT REDUCING SEVERE PAIN EPISODES. BRINGS IN HER MEDICATION WHICH IS APPROPRIATE FOR WHAT WAS DISPENSED. RECENT URINE TOXICOLOGY IS REVIEWED AND WITHIN NORMAL LIMITS. CERVICAL CT DONE ON 04/02/2020 IS REVIEWED. TREATMENT PLAN IS DISCUSSED. -. FALL RISK SCREENING: SCREENING :NO FALLS REPORTED IN THE LAST YEAR PAIN SCREENING: PATIENT HAS A COMPLAINT OF ACUTE OR CHRONIC PAIN :YES LOCATION OF PAIN:NECK, RIGHT SHOULDER INTENSITY OF PAIN (SCALE OF 1 TO 10):8 WHAT DOES YOUR PAIN FEEL LIKE:CONTINOUS, SHARP DURATION:CONTINOUS, CONSTANT, ALL DAY PAIN IS INCREASED BY:ACTIVITIES, OTHERS READING, DRIVING PAIN IS DECREASED BY:USE OF PAIN MEDICATIONS, OTHERS LAYING DOWN, HEAT, ICE NURSING NOTE: -. PAIN CENTER INTAKE QUESTIONS: DO YOU HAVE A HISTORY OF MRSA? :NO DO YOU TAKE A BLOOD THINNERS? :NO DO YOU HAVE ANY BLEEDING DISORDERS? :NO ANY NEW NUMBNESS OR WEAKNESS IN YOUR LEGS OR ARMS? :NO ANY PACEMAKER,DEFIBRILLATOR, OR DORSAL COLUMN STIMULATOR? :YES DCS DO YOU HAVE ANY RASHES OR OPEN SORES? :NO ARE YOU ALLERGIC TO IV DYE? :NO ARE YOU DIABETIC? :NO ANY NEW PROBLEMS WITH YOUR MEDICATIONS? :YES HYDROXYCHLOROQUIN PRESCRIBED BY PATIENT'S RESTORATIVE COORDINATOR IS UPSETTING HER GI TRACT HAVE YOU RECEIVED A VACCINE IN THE PAST 30 DAYS? :NO DO YOU PLAN TO RECEIVE A VACCINE IN THE NEXT 21 DAYS? :NO DO YOU NEED ANY PRESCRIPTION? :YES DULOXETINE DO YOU TAKE ANY IMMUNOSUPPRESSIVE MEDICATIONS? :YES HYDROXYCHLOROQUIN, METHOTREXATE, PREDNISONE IS THERE A CHANCE YOU COULD BE ? :NO ARE YOU BREAST FEEDING? :NO CURRENT MEDICATIONS TAKING FISH OIL 1200 MG CAPSULE 1 CAPSULE ORALLY ONCE A DAY TAKING ESTRADIOL 1 MG TABLET [address] BUSBY ORALLY ONCE A DAY TAKING LYSINE 500 MG TABLET 1 TABLET ORALLY TWICE DAILY TAKING BIOTIN 5000 MCG TABLET 1 TABLET ORALLY ONCE A DAY TAKING COLACE 100 MG CAPSULE 1 CAPSULE NEEDED ORALLY ONCE A DAY TAKING CINNAMON 500 MG CAPSULE 1 CAP ORALLY DAILY TAKING METHYLPREDNISOLONE 4 MG TABLET 1/2 TABLET ORALLY DAILY TAKING VITAMIN D3 5000 UNIT CAPSULE 2 CAPS ORALLY 5 DAYS A WEEK TAKING CALCIUM CITRATE PLUS TABLET 1 TAB ORALLY THREE TIMES DAILY TAKING FERROUS SULFATE 325 (65 FE) MG TABLET 1 TABLET ORALLY THREE TIMES A WEEK TAKING MULTIVITAMINS TABLET 1 TAB ORALLY DAILY TAKING MAGNESIUM-ZINC 133.33-5 MG TABLET 1 TABLET ORALLY TWICE A DAY TAKING VITAMIN B-12 500 MCG TABLET SUBLINGUAL 1 TABLET UNDER THE TONGUE AND ALLOW TO DISSOLVE SUBLINGUAL ONCE A DAY TAKING OMEPRAZOLE 20 MG CAPSULE DELAYED RELEASE 1 CAP ORALLY TWICE A DAY TAKING FOLIC ACID 1 MG TABLET 1 TABLET ORALLY ONCE A DAY TAKING DULOXETINE HCL 60 MG CAPSULE DELAYED RELEASE PARTICLES 1 CAPSULE ORALLY ONCE A DAY TAKING METHOTREXATE SODIUM 2.5 MG TABLET 5 TABLETS DIRECTED ORALLY ONCE WEEKLY TAKING PLAQUENIL 200 MG TABLET 1 TAB ORALLY TWICE DAILY TAKING NUCYNTA 50 MG TABLET 1 ORALLY NEEDED FOR PAIN Q8H MDD2 MEDICATION LIST REVIEWED AND RECONCILED WITH THE PATIENT PAST MEDICAL HISTORY CHRONIC PAIN: BACK, NECK, R SHOULDER- FOLLOWS WITH PAIN CLINIC, UNDER WORKER'S COMP ESOPHAGEAL REFLUX - (PULMONARY EVAL FOR COUGH NEG.) OBESITY ENVIRONMENTAL AND SEASONAL ALLERGIES RIGHT SHOULDER SURGERY OTHER DEPRESSION POLYARTHRITIS ALLERGIES RUBELLA VIRUS VACCINE: KNEES LOCKED - ALLERGY FOSAMAX: HAND SWELLING - ALLERGY CODEINE SULFATE: NAUSEA/VOMITING VOLTAREN: BLOOD IN STOOL - ALLERGY T-DAP VACCINE: JOINT PAIN/SWELLING - ALLERGY SURGICAL HISTORY R ANKLE SURGERY RECONSTRUCTION - DR Virginia MABRY WRIST SURGERY R (DE QUERVAINS) - DR Virginia MABRY REMOVAL OF SCAR TISSUE FROM RIGHT WRIST - DR. VALDEZ R FOOT NERVE BX - DR Virginia MABRY BREAST REDUCTION - CARLOS A R FOOT SCAR TISSUE - DR WILLS ZAID & BSO - ROSAS R KNEE ARTHROSCOPY- SHAVED CONDROMALACIA - DR Virginia MABRY -2003 L FOOT HEEL SPUR - MICH RIGHT ROTATOR CUFF REPAIR R - DR Virginia MABRY EXCISION OF SCALP CYST - BENIGN, DR WADSWORTH 10/2009 CERVICAL DORSAL COLUMN STIMULATOR (TRIAL) - MAVERICK -2010 SPINAL CORD STIMULATOR IMPLANT - DR GIBSON --2010 COLONOSCOPY, INTERNAL HEMORRHOIDS - ABELARDO KNEE SURGERY L MICROFRACTURING - DR YUNIER MABRY -2011 L WRIST DEQUERVAINS RELEASE - DR SHANA RIVERO LAP VERTICAL SLEEVE GASTRECTOMY - DR BEST - LEFT BREAST BIOPSY - BENIGN, INTERVENTIONAL RADIOLOGY F/UP PER DR PARSONS 04/2014 LEFT ROTATOR CUFF REPAIR - DR. YUNIER MABRY -2014 L THUMB/WRIST CMC ARTHOPLASTY - DR YUNIER MABRY -2015 R ROTATOR CUFF REPAIR - DR YUNIER MABRY -2016 RIGHT SHOULDER SURGERY 08/19/17 RIGHT SHOULDER AND BICEP SURGERY 06/28/18 NEG STRESS TEST, ANTON - NEAL 05/2018 LEFT KNEE ARTHROSCOPY 11/28/2019 FAMILY HISTORY FATHER: ALIVE 86 YRS, DIAGNOSED WITH HYPERTENSION, UNSPECIFIED HEART DISEASE MOTHER: ALIVE 84 YRS, HYPERTENSION SIBLINGS: HTN - 2 BROTHERS, HEART DISEASE/ CABG - 1BR, UNSPECIFIED HEART DISEASE 2 BROTHER(S) , 1 SISTER(S) . MOTHER - STROKE. SOCIAL HISTORY GENERAL: TOBACCO USE ARE YOU A:NONSMOKER LATEX QUESTIONNAIRE LATEX ALLERGY : HAVE YOU EVER DEVELOPED ANY TYPE OF REACTION AFTER HANDLING LATEX PRODUCTS SUCH RUBBER GLOVES, CONDOMS, DIAPHRAGMS, BALLOONS, SOCKS, OR UNDERWEAR?NO LATEX ALLERGY : HAVE YOU EVER DEVELOPED ANY TYPE OF REACTION DURING OR AFTER DENTAL APPOINTMENT, VAGINAL/RECTAL EXAMINATION, SURGICAL PROCEDURE, OR ANY OTHER EXPOSURE?NO LATEX RISK : HAVE YOU EVER HAD ANY DIFFICULTY BREATHING OR HIVES AFTER EATING OR HANDLING ANY FRUITS, OR VEGETABLES; SUCH KIWI, BANANAS, STONE FRUITS, OR CHESTNUTSNO LATEX RISK : DO YOU HAVE A PREVIOUS PERSONAL HISTORY OF MORE THAN NINE SURGERIES, SPINA BIFIDA, OR REPEATED CATHERIZATIONS? YES - PLEASE INDICATE : > 9 SURGERIES LATEX RISK : ARE YOU FREQUENTLY EXPOSED TO LATEX PRODUCTS IN YOUR OCCUPATION?NO DATE ASKED : 02/27/2020 BMI CARE GOAL FOLLOW-UP ABOVE NORMAL BMI FOLLOW-UPGIVING ENCOURAGEMENT TO EXERCISE ALCOHOL SCREENING DID YOU HAVE A DRINK CONTAINING ALCOHOL IN THE PAST YEAR?NO POINTS0 INTERPRETATIONNEGATIVE RECREATIONAL DRUG USE DRUG USE?NO CAFFEINE CAFFEINE USE?YES SODA OCC SEXUAL HX HAD SEX IN THE LAST 12 MONTHS (VAGINAL, ORAL, OR ANAL)?NO HAVE YOU EVER HAD AN STD?NO HIV / HEP-C SCREENING HIV TEST OFFERED TO PATIENT:YES DATE OFFERED:03/21/2013 TEST ACCEPTED:YES HEP-C TEST OFFERED TO PATIENT:NO AMISH [id number] NONE LANGUAGE LANGUAGES SPOKEN:BOLIVIAN EDUCATION 2 YEARS OF COLLEGE. LEARNING BARRIERS / SPECIAL NEEDS CHANGE FROM LAST VISIT?NO BARRIERS TO LEARNING?NO HEARING IMPAIRED?NO VISION IMPAIRED?YES :CORRECTIVE LENSES COGNITIVELY IMPAIRED?NO READINESS TO LEARN?YES LEARNING PREFERENCES?YES :TAPES/VIDEOS, BOOKLETS, HANDOUTS LEARNING CAPABILITIES PRESENT?YES EMOTIONAL BARRIERS?NO SPECIAL DEVICES?NO EDUCATION DEPARTMENT CHAIR NEEDED?NO OCCUPATION: DISABLED. DIET: REGULAR BARIATRIC DIET CURRENTLY. EXERCISE: WALKING AND OCCASIONAL SNOWSHOEING. MARITAL STATUS: .. OTHERS AT HOME: FATHER, MOTHER. PAIN CLINIC PFS, CLERGY, PUBLIC HEALTH REFERRALS PFS REFERRAL NEEDED?NO CLERGY REFERRAL NEEDED?NO PUBLIC HEALTH REFERRAL NEEDED?NO WAS THE PROVIDER NOTIFIED OF ANY PERTINENT INFO? N/A HAS THE PATIENT BEEN EDUCATED REGARDING HIS/HER PLAN OF CARE?YES HAS THE PATIENT BEEN EDUCATED REGARDING PAIN, THE RISK FOR PAIN, THE IMPORTANCE OF EFFECTIVE PAIN MANAGEMENT, AND THE PAIN ASSESSMENT PROCESS?YES HOUSING: PARENTS HOME. ADVANCE DIRECTIVE ADVANCE DIRECTIVE DISCUSSED WITH PATIENT:YES HCP IS PARENTS [facility] PORTER [phone] HOSPITALIZATION/MAJOR DIAGNOSTIC PROCEDURE SURGERIES ABOVE REACTION TO RUBELLA VACCINE AGE 9 REVIEW OF SYSTEMS CONSTITUTIONAL: ANY RECENT FEVER NO . CHILLS NO . WEIGHT CHANGE OF UNKNOWN REASONS NO . GASTROENTEROLOGY: NEW UNEXPLAINABLE CHANGES IN BOWEL CONTROL NO . CONSTIPATION NO . GENITOURINARY: ANY NEW CHANGE IN BLADDER CONTROL? NO . NEUROLOGY: NEW ONSET DIZZINESS OR NEUROLOGICAL CHANGES NOT MENTIONED NO . NEW NUMBNESS OR PAIN PATTERNS NOT MENTIONED AND PERTINENT TO TODAY'S VISIT NO . CARDIOLOGY: NEW CHEST PRESSURE NO . NEW CHEST PAIN NO . RESPIRATORY: UNEXPLAINABLE COUGH NO . NEW SHORTNESS OF BREATH NO . VITAL SIGNS WT 225.8 LBS, HT 63 IN, BMI 39.99 INDEX, BP 159/77 MM HG, HR 82 /MIN, RR 18 /MIN, TEMP 96.4 F, OXYGEN SAT % 99%, SAFE IN ENV? (Y/N) YES, NA INITIALS IA 14:11, REVIEWED BY: JSJ. TRACY RN. EXAMINATION GENERAL EXAMINATION: LUNGS: LUNG SOUNDS ARE CLEAR . HEART: HEART RATE REGULAR . MUSCULOSKELETAL:*, MUSCLE STRENGTH TESTING 5/5 BILATERAL UPPER EXTREMITIES. . CERVICAL:+ FOR PAIN WITH PALPATION OF CERVICAL SPINE. + FOR PAIN WITH PALPATION OF CERVICAL PARASPINALS.SPECIFIC POINT TENDERNESS NOTED OV C4/5-/C5/6 CERVICAL FACETS WITH EXTENSION AND FACET LOADING.. DIAGNOSTIC TESTS REVIEWEDCT CERVICAL SPINE-04/02/2020. ASSESSMENTS SPONDYLOSIS OF CERVICAL REGION WITHOUT MYELOPATHY OR RADICULOPATHY - M47.812 (PRIMARY) CHRONIC PRESCRIPTION OPIATE USE - Z79.899 PROCEDURES PN WORKMANS' COMP OPINION IN YOUR OPINION, WAS THE INCIDENT THAT THE PATIENT DESCRIBED THE COMPETENT MEDICAL CAUSE OF THIS INJURY/ILLNESS? YES ARE THE PATIENT'S COMPLAINTS CONSISTENT WITH HIS/HER HISTORY OF THE INJURY/ILLNESS? YES IS THE PATIENT'S HISTORY OF THE INJURY/ILLNESS CONSISTENT WITH YOUR OBJECTIVE FINDING? YES WHAT IS THE PERCENTAGE OF TEMPORARY IMPAIRMENT? MODERATE TO MARKED = 66.7% IS THE PATIENT WORKING? NO DOCTOR ON SITE: ILENE CHEW MD PROCEDURE CODES FA211 ESTABILISHED PATIENT [facility] FACILITY CHARGE DISPOSITION & COMMUNICATION FOLLOW UP IV SEDATION APT M/3 MOS MED MGMNT (REASON: WORKMANS COMP REQUEST BILAT. C4/5-C5/6 THERAPEUTIC CERVICAL FACET BLOCK W IV SEDATION ) ELECTRONICALLY SIGNED BY MARISA MICHAUD ON 04/29/2020 AT 09:08 AM EST DISCLAIMER : THIS IS A VISIT SUMMARY EXTRACTED FROM THE [employer] CHART. IT IS NOT A COPY OF THE [email or web address] PROGRESS NOTE. AUDREY
== END ==
LOC: M PAIN 14:15
PROVIDERS: ATTEND Nurse Practitioner Family
DX: M47.812 Spondylosis without myelopathy or radiculopathy, cervical region (principal); K21.9 Gastro-esophageal reflux disease without esophagitis; Z86.59 Personal history of other mental and behavioral disorders; Z96.89 Presence of other specified functional implants; Z88.5 Allergy status to narcotic agent; Z88.6 Allergy status to analgesic agent; Z88.7 Allergy status to serum and vaccine; Z88.8 Allergy status to other drugs, medicaments and biological substances; Z79.899 Other long term (current) drug therapy

== ENCOUNTER → 2020-04-23 | Outpatient (REF) | payer OTHER, MEDICARE ==
[2020-04-23 13:03] LABS: BASO # 0.1 10^3/uL (0.0-0.2); BASO % 1.4 % (0.0-1.0); EOS # 0.2 10^3/uL (0.0-0.5); EOS % 3.5 % (0.0-3.0); HEMATOCRIT 42.5 % (36.0-47.0); HEMOGLOBIN 13.4 g/dl (12.0-15.5); LYMPH # 1.8 10^3/uL (1.5-5.0); LYMPH % 34.9 % (24.0-44.0); MEAN CORPUSCULAR HEMOGLOBIN 30.5 pg (27.0-33.0); MEAN CORPUSCULAR HGB CONC 31.5 g/dl (32.0-36.5); MEAN CORPUSCULAR VOLUME 96.6 fl (80.0-96.0); MONO # 0.5 10^3/uL (0.0-0.8); MONO % 9.7 % (0.0-5.0); NEUTROPHILS # 2.6 10^3/uL (1.5-8.5); NEUTROPHILS % 50.1 % (36.0-66.0); PLATELET COUNT, AUTOMATED 232 10^3/uL (150-450); WHITE BLOOD COUNT 5.2 10^3/uL (4.0-10.0)
[2020-04-23 13:10] LABS: ALBUMIN 3.7 GM/DL (3.2-5.2); BILIRUBIN,TOTAL 0.5 MG/DL (0.2-1.0); C REACTIVE PROTEIN QUANTITATIV 1.13 MG/DL (0.00-0.30); CALCIUM LEVEL 9.5 MG/DL (8.5-10.1); CREATININE FOR GFR 1.04 MG/DL (0.55-1.30); GLOMERULAR FILTRATION RATE 57.9 (>51); POTASSIUM SERUM 4.4 MEQ/L (3.5-5.1); TOTAL PROTEIN 7.1 GM/DL (6.4-8.2)
[2020-04-23 14:07] LABS: ERYTHROCYTE SEDIMENTATION RATE 10 mm/hr (0-30)
== END ==
LOC: M PLALAB 11:07
PROVIDERS: ATTEND Internal Medicine
DX: M06.09 Rheumatoid arthritis without rheumatoid factor, multiple sites (principal)

== ENCOUNTER → 2020-04-29 | Outpatient (CLI) | payer MEDICARE ==
--- NOTE | 2020-04-29 09:56 | REPMRS ---
Patient History The patient states she had a clinical breast exam in 01/2020 Patient is postmenopausal and is nulliparous. Family history of prostate cancer at age 50 or over in paternal uncle, prostate cancer at age 50 or over in paternal uncle, endometrial cancer at age 50 or over in paternal grandmother. US Guided Breast Biopsy of the left breast, May 07, 2014. Reductions of both breasts, 2000. Took hormonal contraceptives for 4 years. Taking unspecified hormones for 10 years. 3D TOMOSYNTHESIS WAS PERFORMED. The [facility] lifetime risk for breast cancer is 8.1%. Volpara breast density a. Digital Woman Screen Mammo: April 29, 2020 - Exam #: [id number] Bilateral CC and MLO view(s) were taken. Technologist: Alysha Isabel, Technologist Prior study comparison: April 24, 2019, bilateral digital woman screen mammo performed at [facility]. April 21, 2018, bilateral digital mammo screening bilat, performed at [facility]. FINDINGS: There are scattered fibroglandular densities. There has been no change in the appearance of the mammogram from the prior studies. There is a mild amount of residual fibroglandular tissue which is fairly symmetric. There is no interval development of dominant mass, architectural distortion, or clustered microcalcification suggestive of malignancy. Assessment: BI-RADS/ACR category 1 mammogram. Negative Mammogram. Recommendation Routine screening mammogram in 1 year (for women over age 40). This mammogram was interpreted with the aid of an FDA-approved computer-aided dectection system. Electronically Signed By: Chuck Baker MD 04/29/20 0950
--- NOTE | 2020-04-29 10:15 | DEXAMM ---
INDICATION: Z13.820 [facility]STE[facility]. COMPARISON: 02/04/2015 as well as other prior exams. TECHNIQUE: Bone density was measured using dual-energy x-ray absorptiometry (DEXA). FINDINGS: AP SPINE L1-L4 BMD 1.037 g/cm2 Young Adult T-Score -1.3 Age Matched Z-Score -0.2. LT FEMUR, TOTAL BMD 1.012 g/cm2 Young Adult T-Score 0.0 Age Matched Z-Score mL 0.9. LT NECK BMD 0.933 g/cm2 Young Adult T-Score -0.8 Age Matched Z-Score 0.4. RT FEMUR, TOTAL BMD 0.991 g/cm2 Young Adult T-Score -0.1 Age Matched Z-Score 0.7. RT NECK BMD 0.972 g/cm2 Young Adult T-Score -0.5 Age Matched Z-Score 0.7. IMPRESSION: There is low bone density of the spine. There is normal bone density of the left hip. There is normal bone density of the right hip. The density of the spine has increased 2.4% since the initial exam on 02/14/2009. The density of the spine decreased 2.6% since most recent exam on 02/04/2015. The density of the left hip has decreased 16.2% since initial exam on 02/14/2009. The density of the left hip has decreased 11.3% since most recent exam on 02/04/2015. The density of the right hip has decreased 12.3% since the initial exam on 02/14/2009. The density of the right hip has decreased 8.7% since the most recent exam on 02/04/2015. FOLLOW-UP: Recommendation for the next bone density exam: 2 years. <Electronically signed by Chuck Baker > 04/29/20 1012
== END ==
LOC: M WHC 08:59
PROVIDERS: ATTEND Obstetrics & Gynecology
DX: Z12.31 Encounter for screening mammogram for malignant neoplasm of breast (principal); Z13.820 Encounter for screening for osteoporosis; Z92.0 Personal history of contraception; Z79.899 Other long term (current) drug therapy; Z86.018 Personal history of other benign neoplasm; M85.88 Other specified disorders of bone density and structure, other site

== ENCOUNTER → 2020-05-09 | Outpatient (CLI) | payer OTHER, MEDICARE ==
--- NOTE | 2020-05-11 01:26 | ECWPNPC ---
PATIENT NAME: JANAE PORTER : 1960 GENDER: FEMALE VISIT DATE: 05/09/2020 DISCHARGE DATE: 05/09/20 161 VISIT LOCKED DATE TIME: PHYSICIAN: ILENE TEMPLE MD PHYSICIAN PAGER NO: ACTIVE RESOURCE: ILENE TEMPLE MD REASON FOR APPOINTMENT 1. PRE SEDATE FOR BILATERAL C4-5 C5-C6 CERVICAL THERAPEUTIC FACET BLOCK HISTORY OF PRESENT ILLNESS GENERAL: 59-YEAR-OLD FEMALE PATIENT WITH A HISTORY OF CHRONIC NECK PAIN. THE PATIENT DESCRIBES THE PAIN CONSTANT AND SHARP WITH A PAIN SCORE RANGING FROM 7-10/10 DEPENDING ON PHYSICAL ACTIVITY. SHE SUFFERED FROM A WORK RELATED INJURY THAT OCCURRED IN 2005. THIS PAIN IS AFFECTING HER ABILITY TO DO ACTIVITIES SUCH CLEANING HER HOUSE, COOKING AND DOING DAILY NORMAL ACTIVITIES. SHE RECEIVED IN THE PAST, THERAPEUTIC BLOCKS THAT HAVE HELPED HER. SHE HAS HAD AN EXACERBATION IN HER PAIN IN THE LAST FEW MONTHS. THIS IS MAKING IT VERY DIFFICULT FOR HER TO FUNCTION. THE PATIENT HAS TRIED MEDICATIONS BY MOUTH AND ALSO TOPICAL PRODUCTS BUT THE PAIN PERSISTS. FALL RISK SCREENING: SCREENING :NO FALLS REPORTED IN THE LAST YEAR PAIN SCREENING: PATIENT HAS A COMPLAINT OF ACUTE OR CHRONIC PAIN :YES LOCATION OF PAIN:NECK, RIGHT SHOULDER INTENSITY OF PAIN (SCALE OF 1 TO 10):9 WHAT DOES YOUR PAIN FEEL LIKE:CONTINOUS, SHARP DURATION:CONTINOUS, CONSTANT, ALL DAY, AWAKENS FROM SLEEP PAIN IS INCREASED BY:ACTIVITIES, OTHERS READING, DRIVING PAIN IS DECREASED BY:USE OF PAIN MEDICATIONS, OTHERS LAYING DOWN, HEAT, ICE TREATMENT/MEDICATIONS USED TO MANAGE PAIN:OTC PAIN RELIEVERS, NSAIDS, TOPICAL CORTICOSTEROIDS, OPIOIDS, CORTICOSTEROIDS, PHYSICAL THERAPY LEVEL OF RELIEF FROM PAIN TREATMENTS IN THE PAST:25% PLAN/GOALS/TREATMENT/INTERVENTION/FOLLOW UP:SEE PLAN PAIN CENTER INTAKE QUESTIONS: DO YOU HAVE A HISTORY OF MRSA? :NO DO YOU TAKE A BLOOD THINNERS? :NO DO YOU HAVE ANY BLEEDING DISORDERS? :NO ANY NEW NUMBNESS OR WEAKNESS IN YOUR LEGS OR ARMS? :NO ANY PACEMAKER,DEFIBRILLATOR, OR DORSAL COLUMN STIMULATOR? :YES DCS DO YOU HAVE ANY RASHES OR OPEN SORES? :NO ARE YOU ALLERGIC TO IV DYE? :NO ARE YOU DIABETIC? :NO ANY NEW PROBLEMS WITH YOUR MEDICATIONS? :YES HYDROXYCHLOROQUINE PRESCRIBED BY PATIENT'S DIAMOND DIE POLISHER IS UPSETTING HER GI TRACT (DIARRHEA) HAVE YOU RECEIVED A VACCINE IN THE PAST 30 DAYS? :NO DO YOU PLAN TO RECEIVE A VACCINE IN THE NEXT 21 DAYS? :NO DO YOU NEED ANY PRESCRIPTION? :NO DO YOU TAKE ANY IMMUNOSUPPRESSIVE MEDICATIONS? :YES HYDROXYCHLOROQUIN, METHOTREXATE, PREDNISONE IS THERE A CHANCE YOU COULD BE ? :NO ARE YOU BREAST FEEDING? :NO CURRENT MEDICATIONS TAKING FISH OIL 1200 MG CAPSULE 1 CAPSULE ORALLY ONCE A DAY TAKING ESTRADIOL 1 MG TABLET [address] BUSBY ORALLY ONCE A DAY TAKING LYSINE 500 MG TABLET 1 TABLET ORALLY TWICE DAILY TAKING BIOTIN 5000 MCG TABLET 1 TABLET ORALLY ONCE A DAY TAKING COLACE 100 MG CAPSULE 1 CAPSULE NEEDED ORALLY ONCE A DAY TAKING CINNAMON 500 MG CAPSULE 1 CAP ORALLY DAILY TAKING METHYLPREDNISOLONE 4 MG TABLET 1/2 TABLET ORALLY DAILY TAKING VITAMIN D3 5000 UNIT CAPSULE 2 CAPS ORALLY 5 DAYS A WEEK TAKING CALCIUM CITRATE PLUS TABLET 1 TAB ORALLY THREE TIMES DAILY TAKING FERROUS SULFATE 325 (65 FE) MG TABLET 1 TABLET ORALLY THREE TIMES A WEEK TAKING MULTIVITAMINS TABLET 1 TAB ORALLY DAILY TAKING MAGNESIUM-ZINC 133.33-5 MG TABLET 1 TABLET ORALLY TWICE A DAY TAKING VITAMIN B-12 500 MCG TABLET SUBLINGUAL 1 TABLET UNDER THE TONGUE AND ALLOW TO DISSOLVE SUBLINGUAL ONCE A DAY TAKING OMEPRAZOLE 20 MG CAPSULE DELAYED RELEASE 1 CAP ORALLY TWICE A DAY TAKING FOLIC ACID 1 MG TABLET 1 TABLET ORALLY ONCE A DAY TAKING DULOXETINE HCL 60 MG CAPSULE DELAYED RELEASE PARTICLES 1 CAPSULE ORALLY ONCE A DAY TAKING METHOTREXATE SODIUM 2.5 MG TABLET 5 TABLETS DIRECTED ORALLY ONCE WEEKLY, NOTES: SEE [facility] NOTE [id number] TAKING PLAQUENIL 200 MG TABLET 1 TAB ORALLY TWICE DAILY, NOTES: SEE [facility] NOTE [id number] TAKING NUCYNTA 50 MG TABLET 1 ORALLY NEEDED FOR PAIN Q8H MDD2 TAKING HUMIRA PEN 40 MG/0.4ML PEN-INJECTOR KIT 1 INJECTION SUBCUTANEOUS QOW MEDICATION LIST REVIEWED AND RECONCILED WITH THE PATIENT PAST MEDICAL HISTORY CHRONIC PAIN: BACK, NECK, R SHOULDER- FOLLOWS WITH PAIN CLINIC, UNDER WORKER'S COMP ESOPHAGEAL REFLUX - (PULMONARY EVAL FOR COUGH NEG.) OBESITY ENVIRONMENTAL AND SEASONAL ALLERGIES RIGHT SHOULDER SURGERY OTHER DEPRESSION POLYARTHRITIS ALLERGIES RUBELLA VIRUS VACCINE: KNEES LOCKED - ALLERGY FOSAMAX: HAND SWELLING - ALLERGY CODEINE SULFATE: NAUSEA/VOMITING - SIDE EFFECTS VOLTAREN: BLOOD IN STOOL - ALLERGY T-DAP VACCINE: JOINT PAIN/SWELLING - ALLERGY SURGICAL HISTORY R ANKLE SURGERY RECONSTRUCTION - DR Virginia MABRY WRIST SURGERY R (DE QUERVAINS) - DR Virginia MABRY 1992 REMOVAL OF SCAR TISSUE FROM RIGHT WRIST - DR. VALDEZ -1993 R FOOT NERVE BX - DR Virginia MABRY -1999 BREAST REDUCTION - CARLOS A R FOOT SCAR TISSUE - DR WILLS ZAID & BSO - ROSAS -2002 R KNEE ARTHROSCOPY- SHAVED CONDROMALACIA - DR Virginia MABRY -2003 L FOOT HEEL SPUR - MICH RIGHT ROTATOR CUFF REPAIR R - DR Virginia MABRY -2007 EXCISION OF SCALP CYST - BENIGN, DR WADSWORHT 10/2009 CERVICAL DORSAL COLUMN STIMULATOR (TRIAL) - MAVERICK SPINAL CORD STIMULATOR IMPLANT - DR GIBSON --2010 COLONOSCOPY, INTERNAL HEMORRHOIDS - ABELARDO KNEE SURGERY L MICROFRACTURING - DR YUNIER MABRY L WRIST DEQUERVAINS RELEASE - DR SHANA RIVERO LAP VERTICAL SLEEVE GASTRECTOMY - DR BEST LEFT BREAST BIOPSY - BENIGN, INTERVENTIONAL RADIOLOGY F/UP PER DR PARSONS 04/2014 LEFT ROTATOR CUFF REPAIR - DR. YUNIER MABRY -2014 L THUMB/WRIST CMC ARTHOPLASTY - DR YUNIER MABRY -2015 R ROTATOR CUFF REPAIR - DR YUNIER MABRY -2016 RIGHT SHOULDER SURGERY 08/19/17 RIGHT SHOULDER AND BICEP SURGERY 06/28/18 NEG STRESS TEST, ANTON DE JESUS 05/2018 LEFT KNEE ARTHROSCOPY 11/28/2019 FAMILY HISTORY FATHER: ALIVE 87 YRS, DIAGNOSED WITH UNSPECIFIED HEART DISEASE, HYPERTENSION MOTHER: ALIVE 85 YRS, AORTIC STENOSIS, CVA, HYPERTENSION SIBLINGS: HTN - 2 BROTHERS, HEART DISEASE/ CABG - 1BR, UNSPECIFIED HEART DISEASE 2 BROTHER(S) , 1 SISTER(S) . MOTHER - STROKE. SOCIAL HISTORY GENERAL: TOBACCO USE ARE YOU A:NONSMOKER LATEX QUESTIONNAIRE LATEX ALLERGY : HAVE YOU EVER DEVELOPED ANY TYPE OF REACTION AFTER HANDLING LATEX PRODUCTS SUCH RUBBER GLOVES, CONDOMS, DIAPHRAGMS, BALLOONS, SOCKS, OR UNDERWEAR?NO LATEX ALLERGY : HAVE YOU EVER DEVELOPED ANY TYPE OF REACTION DURING OR AFTER DENTAL APPOINTMENT, VAGINAL/RECTAL EXAMINATION, SURGICAL PROCEDURE, OR ANY OTHER EXPOSURE?NO LATEX RISK : HAVE YOU EVER HAD ANY DIFFICULTY BREATHING OR HIVES AFTER EATING OR HANDLING ANY FRUITS, OR VEGETABLES; SUCH KIWI, BANANAS, STONE FRUITS, OR CHESTNUTSNO LATEX RISK : DO YOU HAVE A PREVIOUS PERSONAL HISTORY OF MORE THAN NINE SURGERIES, SPINA BIFIDA, OR REPEATED CATHERIZATIONS? YES - PLEASE INDICATE : > 9 SURGERIES LATEX RISK : ARE YOU FREQUENTLY EXPOSED TO LATEX PRODUCTS IN YOUR OCCUPATION?NO DATE ASKED : 05/09/2020 BMI CARE GOAL FOLLOW-UP ABOVE NORMAL BMI FOLLOW-UPGIVING ENCOURAGEMENT TO EXERCISE ALCOHOL SCREENING DID YOU HAVE A DRINK CONTAINING ALCOHOL IN THE PAST YEAR?NO POINTS0 INTERPRETATIONNEGATIVE RECREATIONAL DRUG USE DRUG USE?NO CAFFEINE CAFFEINE USE?YES SODA OCC SEXUAL HX HAD SEX IN THE LAST 12 MONTHS (VAGINAL, ORAL, OR ANAL)?NO HAVE YOU EVER HAD AN STD?NO HIV / HEP-C SCREENING HIV TEST OFFERED TO PATIENT:YES DATE OFFERED:03/21/2013 TEST ACCEPTED:YES HEP-C TEST OFFERED TO PATIENT:NO ANGLICAN [id number] NONE LANGUAGE LANGUAGES SPOKEN:POLISH EDUCATION 2 YEARS OF COLLEGE. LEARNING BARRIERS / SPECIAL NEEDS CHANGE FROM LAST VISIT?NO BARRIERS TO LEARNING?NO HEARING IMPAIRED?NO VISION IMPAIRED?YES COGNITIVELY IMPAIRED?NO :CORRECTIVE LENSES READINESS TO LEARN?YES LEARNING PREFERENCES?YES :TAPES/VIDEOS, BOOKLETS, HANDOUTS LEARNING CAPABILITIES PRESENT?YES EMOTIONAL BARRIERS?NO SPECIAL DEVICES?NO SENIOR BIOSTATISTICIAN/GROUP LEADER NEEDED?NO OCCUPATION: DISABLED. DIET: REGULAR BARIATRIC DIET CURRENTLY. EXERCISE: WALKING AND OCCASIONAL SNOWSHOEING. MARITAL STATUS: .. OTHERS AT HOME: FATHER, MOTHER. PAIN CLINIC PFS, CLERGY, PUBLIC HEALTH REFERRALS PFS REFERRAL NEEDED?NO CLERGY REFERRAL NEEDED?NO PUBLIC HEALTH REFERRAL NEEDED?NO WAS THE PROVIDER NOTIFIED OF ANY PERTINENT INFO? N/A HAS THE PATIENT BEEN EDUCATED REGARDING HIS/HER PLAN OF CARE?YES HAS THE PATIENT BEEN EDUCATED REGARDING PAIN, THE RISK FOR PAIN, THE IMPORTANCE OF EFFECTIVE PAIN MANAGEMENT, AND THE PAIN ASSESSMENT PROCESS?YES HOUSING: PARENTS HOME. ADVANCE DIRECTIVE ADVANCE DIRECTIVE DISCUSSED WITH PATIENT:YES HCP IS PARENTS [facility] PORTER [phone] HOSPITALIZATION/MAJOR DIAGNOSTIC PROCEDURE SURGERIES ABOVE REACTION TO RUBELLA VACCINE AGE 9 REVIEW OF SYSTEMS GLAUCOMA: NOTHYROID DISEASE: NOHYPERTENSION: NOHEART DISEASE: NOLUNG DISEASE: NODIABETES: NOGI DISEASE: NO LIVER DISEASE: NO KIDNEY DISEASE: NOSTERIOD USE: NONEUROLOGICAL DISEASE: NOBACK PROBLEMS: YES, PAINEXTREMITIES: YES, PAINGENITOURINARY: NOBLEEDING DISORDER: NOASA CLASS: IIAIRWAY CLASS: II. VITAL SIGNS WT 226.2 LBS, HT 63 IN, BMI 40.07 INDEX, BP 141/91 MM HG, HR 76 /MIN, RR 18 /MIN, TEMP 96.7 F, OXYGEN SAT % 95% RA, BLOOD GLUCOSE LEVEL N/A, SAFE IN ENV? (Y/N) YES, NA INITIALS MT, REVIEWED BY: Sharon HICKEY RN. EXAMINATION GENERAL EXAMINATION: THE PATIENT IS ALERT, ORIENTED TIMES THREE AND COOPERATIVE. LUNGS ARE CLEAR TO AUSCULTATION. HEART SHOWS REGULAR RHYTHM, NO MURMURS AND NO GALLOPS. THERE IS TENDERNESS IN THE CERVICAL AREA IN THE PARASPINAL MUSCLE GROUP IN THE CERVICAL AREA. CT WITH AND WITHOUT CONTRAST OF THE CERVICAL SPINE DATED 04/02/2020 SHOWS FACET ARTHROPATHY CHANGES. THERE IS SOME ANTEROLISTHESIS AT L3-L4. THERE IS A FUSION FROM C2 TO C3. 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 PORTER. WE AGREE ON MOVING FORWARD WITH A BILATERAL THERAPEUTIC CERVICAL FACET BLOCK C3-C4, C4-C5. THE PATIENT IS REQUESTING IV SEDATION DUE TO THE ANXIETY AND DISCOMFORT ASSOCIATED WITH THE PROCEDURE. THE PATIENT IS HAVING AN EXACERBATION OF THE PAIN IN THE LAST FEW MONTHS SO WE WOULD LIKE TO PERFORM THIS PROCEDURE FOR THE ACUTE PAIN. THE PATIENT AGREES WITH THE PLAN. I, CELESTE WOLFF, DOCUMENTED THE ABOVE INFORMATION ACTING A SCRIBE FOR DR. TEMPLE. I HAVE REVIEWED THE ABOVE DOCUMENT, WRITTEN BY CELESTE WOLFF, AERONAUTICAL PROJECT ENGINEER, AND I VERIFY THAT IT IS ACCURATE. PROCEDURES PN WORKMANS' COMP OPINION IN YOUR OPINION, WAS THE INCIDENT THAT THE PATIENT DESCRIBED THE COMPETENT MEDICAL CAUSE OF THIS INJURY/ILLNESS? YES ARE THE PATIENT'S COMPLAINTS CONSISTENT WITH HIS/HER HISTORY OF THE INJURY/ILLNESS? YES IS THE PATIENT'S HISTORY OF THE INJURY/ILLNESS CONSISTENT WITH YOUR OBJECTIVE FINDING? YES WHAT IS THE PERCENTAGE OF TEMPORARY IMPAIRMENT? MODERATE TO MARKED = 66.7% . IS THE PATIENT WORKING? NO . DOCTOR ON SITE: ILENE CHEW MD PROCEDURE CODES FA211 ESTABILISHED PATIENT [facility] FACILITY CHARGE [address] OFFICE/OUTPATIENT VISIT EST DISPOSITION & COMMUNICATION FOLLOW UP OKAY TO BOOK (REASON: BILATERAL THERAPEUTIC CERVICAL FACET BLOCK C3-C4, C4-C5) ELECTRONICALLY SIGNED BY ILENE TEMPLE MD, MD ON 05/10/2020 AT 01:25 PM EST DISCLAIMER : THIS IS A VISIT SUMMARY EXTRACTED FROM THE [email or web address] CHART. IT IS NOT A COPY OF THE [email or web address] PROGRESS NOTE. DAVIDD
== END ==
LOC: M PAIN 15:00
PROVIDERS: ATTEND Anesthesiology
DX: M47.812 Spondylosis without myelopathy or radiculopathy, cervical region (principal); M96.1 Postlaminectomy syndrome, not elsewhere classified; K21.9 Gastro-esophageal reflux disease without esophagitis; E66.9 Obesity, unspecified; F32.89 Other specified depressive episodes; M15.9 Polyosteoarthritis, unspecified; Z79.899 Other long term (current) drug therapy; Z88.5 Allergy status to narcotic agent; Z88.7 Allergy status to serum and vaccine; Z88.8 Allergy status to other drugs, medicaments and biological substances; Z68.41 Body mass index [BMI] 40.0-44.9, adult

== ENCOUNTER → 2020-05-10 | Outpatient (CLI) | payer OTHER, MEDICARE | LOC: M LABSMTC 09:35 | PROVIDERS: ATTEND Anesthesiology | DX: Z20.822 Contact with and (suspected) exposure to COVID-19 (principal) ==

== ENCOUNTER → 2020-05-15 | Outpatient (CLI) | payer OTHER, MEDICARE ==
[~2020-05-15] MED LIST changes: +BUPIVACAINE HCL 0.25% 30ML VIAL As Ordered ONE; +ISOVUE-M 300 61% 15ML VIAL As Ordered ONE; +LIDOCAINE 1% SDV 30ML VIAL As Ordered ONE; +MIDAZOLAM INJ 2MG/2ML VIAL (J2250 PER 1MG) As Ordered ONE; +TRIAMCINOLONE ACETONIDE SUSP 40 MG/ML VIAL (J3301) As Ordered ONE; +fentaNYL 100 MCG/2 ML INJECTION (J3010) As Ordered ONE
--- NOTE | 2020-05-15 14:40 | REP ---
INDICATION: PAIN. COMPARISON: None. TECHNIQUE: One views. 15.2 seconds of fluoroscopy time is reported. FINDINGS: A single last image hold fluoroscopically obtained spot radiograph(s) of the cervical spine document(s) needle position(s) and contrast injection associated with injection procedure. IMPRESSION: Procedural imaging. <Electronically signed by Bryan Sanchez > 05/15/20 [id number]
--- NOTE | 2020-05-16 02:28 | ECWPNPC ---
PATIENT NAME: JANAE PORTER : 1960 GENDER: FEMALE VISIT DATE: 05/15/2020 DISCHARGE DATE: 05/15/20 1435 VISIT LOCKED DATE TIME: PHYSICIAN: ILENE TEMPLE MD PHYSICIAN PAGER NO: ACTIVE RESOURCE: ILENE TEMPLE MD REASON FOR APPOINTMENT 1. BILATERAL THERAPEUTIC CERVICAL FACET BLOCK C4-C5, C5-C6 HISTORY OF PRESENT ILLNESS GENERAL: -. FALL RISK SCREENING: SCREENING :NO FALLS REPORTED IN THE LAST YEAR PAIN SCREENING: PATIENT HAS A COMPLAINT OF ACUTE OR CHRONIC PAIN :YES LOCATION OF PAIN:NECK, RIGHT SHOULDER INTENSITY OF PAIN (SCALE OF 1 TO 10):10 WHAT DOES YOUR PAIN FEEL LIKE:CONTINOUS, SHARP, TENDER, SORE DURATION:CONTINOUS, CONSTANT PAIN IS INCREASED BY:ACTIVITIES PAIN IS DECREASED BY:USE OF PAIN MEDICATIONS, OTHERS HEAT, ICE, REST NURSING NOTE: -. PAIN CENTER INTAKE QUESTIONS: DO YOU HAVE A HISTORY OF MRSA? :NO DO YOU TAKE A BLOOD THINNERS? :NO DO YOU HAVE ANY BLEEDING DISORDERS? :NO ANY NEW NUMBNESS OR WEAKNESS IN YOUR LEGS OR ARMS? :NO ANY PACEMAKER,DEFIBRILLATOR, OR DORSAL COLUMN STIMULATOR? :NO DO YOU HAVE ANY RASHES OR OPEN SORES? :YES PINK OPEN AREA RIGHT NECK ARE YOU ALLERGIC TO IV DYE? :NO ARE YOU DIABETIC? :NO ANY NEW PROBLEMS WITH YOUR MEDICATIONS? :NO HAVE YOU RECEIVED A VACCINE IN THE PAST 30 DAYS? :YES IF SO WHAT VACCINE AND WHEN? PNEUMONIA VACCINE 05/03/20. HUMIRA 05/06. DO YOU PLAN TO RECEIVE A VACCINE IN THE NEXT 21 DAYS? :NO DO YOU TAKE ANY IMMUNOSUPPRESSIVE MEDICATIONS? :NO ANY HISTORY OF SEIZURES? :NO ANY HISTORY OF CARDIAC ISSUES OR EVENTS? :NO DO YOU HAVE SLEEP APNEA? :NO ANY RECENT HEAD INJURY? :NO DO YOU HAVE ANY NEW INFECTIONS? :NO IS THERE A CHANCE YOU COULD BE ? :NO ARE YOU BREAST FEEDING? :NO WHEN DID YOU LAST EAT? : -05/14 1999 WHEN DID YOU LAST DRINK? : -05/15 08 WHAT DID YOU LAST DRINK? : -WATER NAME OF PERSON DRIVING YOU HOME? : -[facility] [employer] [facility] PORTER DO YOU HAVE ANY OTHER QUESTIONS OR CONCERNS? : - CURRENT MEDICATIONS TAKING FISH OIL 1200 MG CAPSULE 1 CAPSULE ORALLY ONCE A DAY TAKING ESTRADIOL 1 MG TABLET [address] BUSBY ORALLY ONCE A DAY TAKING LYSINE 500 MG TABLET 1 TABLET ORALLY TWICE DAILY TAKING BIOTIN 5000 MCG TABLET 1 TABLET ORALLY ONCE A DAY TAKING COLACE 100 MG CAPSULE 1 CAPSULE NEEDED ORALLY ONCE A DAY TAKING CINNAMON 500 MG CAPSULE 1 CAP ORALLY DAILY TAKING METHYLPREDNISOLONE 4 MG TABLET 1/2 TABLET ORALLY DAILY, NOTES: 05/10 TAKING VITAMIN D3 5000 UNIT CAPSULE 2 CAPS ORALLY 5 DAYS A WEEK TAKING CALCIUM CITRATE PLUS TABLET 1 TAB ORALLY THREE TIMES DAILY TAKING FERROUS SULFATE 325 (65 FE) MG TABLET 1 TABLET ORALLY THREE TIMES A WEEK TAKING MULTIVITAMINS TABLET 1 TAB ORALLY DAILY TAKING MAGNESIUM-ZINC 133.33-5 MG TABLET 1 TABLET ORALLY TWICE A DAY TAKING VITAMIN B-12 500 MCG TABLET SUBLINGUAL 1 TABLET UNDER THE TONGUE AND ALLOW TO DISSOLVE SUBLINGUAL ONCE A DAY TAKING OMEPRAZOLE 20 MG CAPSULE DELAYED RELEASE 1 CAP ORALLY TWICE A DAY TAKING FOLIC ACID 1 MG TABLET 1 TABLET ORALLY ONCE A DAY TAKING DULOXETINE HCL 60 MG CAPSULE DELAYED RELEASE PARTICLES 1 CAPSULE ORALLY ONCE A DAY TAKING METHOTREXATE SODIUM 2.5 MG TABLET 5 TABLETS DIRECTED ORALLY ONCE WEEKLY, NOTES: SEE ECW NOTE [id number] LAST DOSE 05/06 TAKING PLAQUENIL 200 MG TABLET 1 TAB ORALLY TWICE DAILY, NOTES: SEE EC NOTE [id number] LAST DOSE 05/10 TAKING NUCYNTA 50 MG TABLET 1 ORALLY NEEDED FOR PAIN Q8H MDD2, NOTES: 05/14 1700 TAKING HUMIRA PEN 40 MG/0.4ML PEN-INJECTOR KIT 1 INJECTION SUBCUTANEOUS QOW, NOTES: 05/06 MEDICATION LIST REVIEWED AND RECONCILED WITH THE PATIENT PAST MEDICAL HISTORY CHRONIC PAIN: BACK, NECK, R SHOULDER- FOLLOWS WITH PAIN CLINIC, UNDER WORKER'S COMP ESOPHAGEAL REFLUX - (PULMONARY EVAL FOR COUGH NEG.) OBESITY ENVIRONMENTAL AND SEASONAL ALLERGIES RIGHT SHOULDER SURGERY OTHER DEPRESSION POLYARTHRITIS ALLERGIES RUBELLA VIRUS VACCINE: KNEES LOCKED - ALLERGY FOSAMAX: HAND SWELLING - ALLERGY CODEINE SULFATE: NAUSEA/VOMITING - SIDE EFFECTS VOLTAREN: BLOOD IN STOOL - ALLERGY T-DAP VACCINE: JOINT PAIN/SWELLING - ALLERGY SURGICAL HISTORY R ANKLE SURGERY RECONSTRUCTION - DR Virginia MABRY WRIST SURGERY R (DE QUERVAINS) - DR Virginia MABRY REMOVAL OF SCAR TISSUE FROM RIGHT WRIST - DR. VALDEZ R FOOT NERVE BX - DR Virginia MABRY BREAST REDUCTION - CARLOS A R FOOT SCAR TISSUE - DR WILLS ZAID & BSO Manuel PILLAI R KNEE ARTHROSCOPY- SHAVED CONDROMALACIA - DR Virginia MABRY -2003 L FOOT HEEL SPUR - MICH -2004 RIGHT ROTATOR CUFF REPAIR R - DR Virginia MABRY -2007 EXCISION OF SCALP CYST - BENIGN, DR WADSWORTH 10/2009 CERVICAL DORSAL COLUMN STIMULATOR (TRIAL) - TEMPLE -2010 SPINAL CORD STIMULATOR IMPLANT - DR GIBSON --2010 COLONOSCOPY, INTERNAL HEMORRHOIDS - ABELARDO -2011 KNEE SURGERY L MICROFRACTURING - DR YUNIER MABRY -2011 L WRIST DEQUERVAINS RELEASE - DR SHANA RIVERO -2012 LAP VERTICAL SLEEVE GASTRECTOMY - DR BEST - LEFT BREAST BIOPSY - BENIGN, INTERVENTIONAL RADIOLOGY F/UP PER DR PARSONS 04/2014 LEFT ROTATOR CUFF REPAIR - DR. YUNIER MABRY -2014 L THUMB/WRIST [facility] ARTHOPLASTY - DR YUNIER MABRY -2015 R ROTATOR CUFF REPAIR - DR YUNIER MABRY -2016 RIGHT SHOULDER SURGERY 08/19/17 RIGHT SHOULDER AND BICEP SURGERY 06/28/18 NEG STRESS TEST, HOLTER - DE JESUS 05/2018 LEFT KNEE ARTHROSCOPY 11/28/2019 FAMILY HISTORY FATHER: ALIVE 87 YRS, DIAGNOSED WITH HYPERTENSION, UNSPECIFIED HEART DISEASE MOTHER: ALIVE 85 YRS, AORTIC STENOSIS, CVA, HYPERTENSION SIBLINGS: HTN - 2 BROTHERS, HEART DISEASE/ CABG - 1BR, UNSPECIFIED HEART DISEASE 2 BROTHER(S) , 1 SISTER(S) . MOTHER - STROKE. SOCIAL HISTORY GENERAL: TOBACCO USE ARE YOU A:NONSMOKER LATEX QUESTIONNAIRE LATEX ALLERGY : HAVE YOU EVER DEVELOPED ANY TYPE OF REACTION AFTER HANDLING LATEX PRODUCTS SUCH RUBBER GLOVES, CONDOMS, DIAPHRAGMS, BALLOONS, SOCKS, OR UNDERWEAR?NO LATEX ALLERGY : HAVE YOU EVER DEVELOPED ANY TYPE OF REACTION DURING OR AFTER DENTAL APPOINTMENT, VAGINAL/RECTAL EXAMINATION, SURGICAL PROCEDURE, OR ANY OTHER EXPOSURE?NO LATEX RISK : HAVE YOU EVER HAD ANY DIFFICULTY BREATHING OR HIVES AFTER EATING OR HANDLING ANY FRUITS, OR VEGETABLES; SUCH KIWI, BANANAS, STONE FRUITS, OR CHESTNUTSNO LATEX RISK : DO YOU HAVE A PREVIOUS PERSONAL HISTORY OF MORE THAN NINE SURGERIES, SPINA BIFIDA, OR REPEATED CATHERIZATIONS? YES - PLEASE INDICATE : > 9 SURGERIES LATEX RISK : ARE YOU FREQUENTLY EXPOSED TO LATEX PRODUCTS IN YOUR OCCUPATION?NO DATE ASKED : 05/15/2020 BMI CARE GOAL FOLLOW-UP ABOVE NORMAL BMI FOLLOW-UPGIVING ENCOURAGEMENT TO EXERCISE ALCOHOL SCREENING DID YOU HAVE A DRINK CONTAINING ALCOHOL IN THE PAST YEAR?NO POINTS0 INTERPRETATIONNEGATIVE RECREATIONAL DRUG USE DRUG USE?NO CAFFEINE CAFFEINE USE?YES SODA OCC SEXUAL HX HAD SEX IN THE LAST 12 MONTHS (VAGINAL, ORAL, OR ANAL)?NO HAVE YOU EVER HAD AN STD?NO HIV / HEP-C SCREENING HIV TEST OFFERED TO PATIENT:YES DATE OFFERED:03/21/2013 TEST ACCEPTED:YES HEP-C TEST OFFERED TO PATIENT:NO EVANGELICAL [id number] NONE LANGUAGE LANGUAGES SPOKEN:[place] [place] EDUCATION 2 YEARS OF COLLEGE. LEARNING BARRIERS / SPECIAL NEEDS CHANGE FROM LAST VISIT?NO BARRIERS TO LEARNING?NO HEARING IMPAIRED?NO VISION IMPAIRED?YES :CORRECTIVE LENSES COGNITIVELY IMPAIRED?NO READINESS TO LEARN?YES LEARNING PREFERENCES?YES :TAPES/VIDEOS, BOOKLETS, HANDOUTS LEARNING CAPABILITIES PRESENT?YES EMOTIONAL BARRIERS?NO SPECIAL DEVICES?NO BODY LINE FINISHER NEEDED?NO OCCUPATION: DISABLED. DIET: REGULAR BARIATRIC DIET CURRENTLY. EXERCISE: WALKING AND OCCASIONAL SNOWSHOEING. MARITAL STATUS: .. OTHERS AT HOME: FATHER, MOTHER. - PFS REFERRAL NEEDED?NO CLERGY REFERRAL NEEDED?NO PUBLIC HEALTH REFERRAL NEEDED?NO WAS THE PROVIDER NOTIFIED OF ANY PERTINENT INFO? N/A HAS THE PATIENT BEEN EDUCATED REGARDING HIS/HER PLAN OF CARE?YES HAS THE PATIENT BEEN EDUCATED REGARDING PAIN, THE RISK FOR PAIN, THE IMPORTANCE OF EFFECTIVE PAIN MANAGEMENT, AND THE PAIN ASSESSMENT PROCESS?YES HOUSING: PARENTS HOME. ADVANCE DIRECTIVE ADVANCE DIRECTIVE DISCUSSED WITH PATIENT:YES HCP IS PARENTS CARLIN PORTER [phone] HOSPITALIZATION/MAJOR DIAGNOSTIC PROCEDURE SURGERIES ABOVE REACTION TO RUBELLA VACCINE AGE 9 VITAL SIGNS WT 226.6 LBS, HT 63 IN, BMI 40.14 INDEX, BP 169.93 MM HG, HR 76 /MIN, RR 18 /MIN, TEMP 97.6 F, OXYGEN SAT % 100%, NA INITIALS SC 11:40. EXAMINATION GENERAL EXAMINATION: A HISTORY AND PHYSICAL EXAM ON THE PATIENT WAS DONE ON 05/09/2020 (DATE OF ORIGINAL ASSESSMENT) IN PREPARATION OF SURGERY/PROCEDURE. I HAVE NOW REASSESSED THIS PATIENT'S HEALTH STATUS AND PERFORMED AN UPDATED EXAM TODAY. ALL CHANGES IN THE PATIENT'S HISTORY, PHYSICAL EXAM, PRE-EXISTING CONDITONS, AND INDICATIONS/CONTRAINDICATIONS TO THE PLANNED PROCEDURE AND ANESTHESIA ARE DOCUMENTED AND EVALUATED BELOW. I ATTEST TO THE ADEQUACY AND APPROPRIATENESS OF MY ASSESSMENT, AND CONFIRM THE NECESSITY FOR THE PLANNED PROCEDURE. THE PATIENT IS ALERT, ORIENTED TIMES THREE AND COOPERATIVE. LUNGS ARE CLEAR TO AUSCULTATION. HEART SHOWS REGULAR RHYTHM, NO MURMURS AND NO GALLOPS. ASSESSMENTS SPONDYLOSIS WITHOUT MYELOPATHY OR RADICULOPATHY, CERVICAL REGION - M47.812 (PRIMARY) TREATMENT SPONDYLOSIS WITHOUT MYELOPATHY OR RADICULOPATHY, CERVICAL REGION SMC FACET BLOCK (PAIN)[id number] MEDICATION: FENTANYL CITRATE 25MCG IVDILECELESTE PIKE 05/15/2020 01:57:23 PM - SECOND DOSE ORDERED, VERIFIED WITH SAY HO 05/15/2020 2:25:24 PM > FIRST DOSE 1355, SECOND DOSE 1357 COMPLETION OF PROCEDURAL VISIT WHEN MEETS CRITERIA MEDICATION: VERSED 1MG IV (MIDAZOLAM)JUDI LYNN 05/15/2020 1:06:38 PM > VERIFIED VIAL # 1 LOT # [id number], EXP 07/2022 HUMBLE #2 LOT # [id number], EXP 07/2022 SAY LOPES 05/15/2020 2:16:20 PM > 1348- 1 MG GIVEN MEDICATION: FENTANYL CITRATE 50MCG IV JUDI LYNN 05/15/2020 1:09:13 PM > VERIFIED VIAL # 1 LOT # [id number], EXP 11/2021 VIAL #2 LOT# [id number], EXP 12/2021 CELESTE WOLFF 05/15/2020 01:57:00 PM - SECOND DOSE ORDERED, VERIFIED WITH CELESTE TEJEDA 05/15/2020 01:59:37 PM - THIRD DOSE ORDERED, VERIFIED WITH SAY HO 05/15/2020 2:23:44 PM > 1349- 50MCG GIVEN, 1358 50MCG GIVEN, 1359 50MCG GIVEN, FOR A TOTAL OF 200MCG COMBINED WITH 25MCG DOSES. OXYGEN AT 2 LITERS PER NASAL CANNULASAY LOPES 05/15/2020 2:26:16 PM > O2 2L ON AT 1330, OFF AT 1400 IV LACTATED RINGER'S AT SAY PRITCHETT 05/15/2020 2:28:28 PM > 1315 IV ACCESS 22G OBTAINED FIRST ATTEMPT IN RFA. LR RUNNING AT Michelle. SAY LOPES 05/15/2020 2:28:51 PM > SITE ASYMPTOMATIC SAY LOPES 05/15/2020 2:29:30 PM > 400 CC LR TOTAL. PROCEDURES PAIN NURSING RECORD PROCEDURE IN ROOM 1325, PHYSICIAN IN ROOM 1348, START 1351, FINISH 1401, PHYSICIAN OUT OF ROOM 1404, OUT OF ROOM 1410, ECG NORMAL SINUS, PATIENT SHIELDED YES, SAFETY STRAP YES, PREP CHLOROPREP BY Sean KITCHEN RN, DRESSING TEGADERM BY DR TEMPLE LOC: MP PARKINSON 05/15/2020 1:28:18 PM > , 1. ALERT, ORIENTED RESP: MP PARKINSON 05/15/2020 1:28:23 PM > , 1. REGULAR, NO DYSPNEA, COLOR: MP PARKINSON 05/15/2020 1:28:43 PM > , 1. PINK SKIN: MP PARKINSON 05/15/2020 1:28:47 PM > , 1. WARM, DRY POSITION: MP PARKINSON 05/15/2020 1:28:51 PM > , 1. PRONE VITALS: MP PARKINSON 05/15/2020 1:30:24 PM > 137/80 HR 67 16 99% 2L N/C , TESHAMP 05/15/2020 1:35:33 PM > 141/84 HR 66 16 100% 2L N/C , TESHAMP 05/15/2020 1:40:31 PM > 142/82 HR 71 16 100% 2L N/C , TESHAMP 05/15/2020 1:45:41 PM > 140/88 HR 78 16 100% 2L N/C , TESHAMP 05/15/2020 1:50:15 PM > 136/85 HR 74 16 100% 2L N/C , TESHAMP 05/15/2020 1:55:31 PM > 140/88 HR 75 16 99% 2L N/C , TESHAMP 05/15/2020 2:00:10 PM > 136/88 HR 73 16 99% 2L N/C TESHAMP 05/15/2020 2:05:17 PM > 135/90 HR 72 16 99% R/A. , TESHAMP 05/15/2020 2:15:00 PM > 121/70 HR 69 16 98% R/A D/C V/S NOTES PROCEDURE TRAY AND PROEDURE MEDS COMPLETED BY Leslie LOPES RN. COMPLETION OF PROCEDURE APPOINTMENT: POST PAIN 0, DRESSING SITE DRY AND INTACT, IV DISCONTINUED, SITE CLEAR, CATHETER INTACT, GAIT STEADY PATIENT TRANASFERRED FROM PROCEDURE ROOM TO RECOVERY VIA STRETCHER. PATIENT TRANSPORTED TO CAR/FAMILY VIA WHEELCHAIR., TEACHING COMPLETED, PATIENT ACKNOWLEDGES UNDERSTANDING YES, PROCEDURE APPOINTMENT COMPLETED AT 1430 BY: Sharon PARKINSON RN PN CERVICAL FACET BLOCK LOW BILATERAL CERVICAL PRE PROCEDURE DIAGNOSIS CERVICAL SPONDYLOSIS POST PROCEDURE DIAGNOSIS CERVICAL SPONDYLOSIS PROCEDURE BILATERAL C4-C5 AND BILATERAL C5-C6 THERAPEUTIC CERVICAL FACET BLOCK SURGEON DR. ILENE TEMPLE MILK PICKUP TRUCK DRIVER NONE ANESTHESIA LOCAL WITH IV SEDATION PRE PROCEDURE NOTE THE PATIENT HAS HISTORY OF CHRONIC CERVICAL PAIN. I EVALUATED THE PATIENT AND REVIEWED THE CHART. I WENT OVER THE RISKS, ALTERNATIVES, AND BENEFITS ASSOCIATED WITH THIS PROCEDURE. THE PATIENT WOULD LIKE TO PROCEED AND GIVE CONSENT TO PERFORMED THE PROCEDURE. THE PATIENT WOULD LIKE TO MOVE FORWARD WITH IV SEDATION DUE TO ANXIETY AND DISCOMFORT ASSOCIATED WITH THE PROCEDURE. THE PATIENT DENIES UNEXPLAINABLE WEIGHT LOSS, FEVER, CHILLS, OR NEW CHANGES IN URINARY OR BOWEL CONTROL. THE PATIENT IS COVID-19 NEGATIVE DESCRIPTION OF PROCEDURE THE PATIENT WAS BROUGHT TO THE PROCEDURE ROOM AND PLACED IN THE PRONE POSITION. THE CERVICOTHORACIC AREA WAS CLEANED WITH CHLORAPREP SOLUTION AND DRAPED ASEPTICALLY. THE PROCEDURE WAS DONE UNDER STERILE CONDITIONS. A TIMEOUT WAS PERFORMED WHERE LATERALITY AND THE SITE OF THE PROCEDURE WERE CHECKED AND CONFIRMED WITH EVERYONE IN THE ROOM. UNDER FLUOROSCOPIC GUIDANCE, TARGET POINT WAS SELECTED AT THE RIGHT AND LEFT C4-C5 AND RIGHT AND LEFT C5-C6 CERVICAL FACET JOINT. TARGET POINTS WERE SELECTED AFTER LATERAL ROTATION AND TILT OF THE MAGNIFIER OF THE C-ARM. I CONFIRMED AGAIN WITH EVERYONE IN THE ROOM THE LATERALITY AND SITE OF THE TARGET AT 1351. LIDOCAINE 0.5% WAS USED TO NUMB THE SKIN AND THE SUBCUTANEOUS TISSUE BELOW IT. SPINAL NEEDLES, 22-GAUGE, WERE ADVANCED UNDER FLUOROSCOPIC GUIDANCE AND FOLLOWING PATIENT FEEDBACK UNTIL THE TARGETS WERE TOUCHED. THE POSITION OF THE NEEDLES WAS VERIFIED WITH AP AND LATERAL VIEWS. AFTER PROPER POSITION OF THE NEEDLES WAS ACHIEVED, ISOVUE-M DYE 30%, 0.1 ML, WAS INJECTED SHOWING SPREAD OF THE DYE. KENALOG 20 MG WAS INJECTED AT EACH SITE. THEN A SOLUTION OF 6 ML OF BUPIVACAINE 0.125% WAS USED TO FLUSH EACH SITE. THE MEDICATIONS WERE VERIFIED WITH THE NURSE. THERE WAS NO EVIDENCE OF BLOOD, PARESTHESIA OR CEREBROSPINAL FLUID DURING THE PROCEDURE. THE PATIENT WAS SENT TO THE RECOVERY ROOM. THE PATIENT WAS MOVING THE EXTREMITIES AND DOING WELL. THERE WERE NO COMPLICATIONS DURING THE PROCEDURE. ESTIMATED BLOOD LOSS WAS LESS THAN 5 ML. FLUOROSCOPY TIME WAS 15 SECONDS. THE PATIENT RECEIVED VERSED 1 MG AND FENTANYL 200 MCG IV IN DIVIDED DOSES. FACE TO FACE START TIME: 1349 FACE TO FACE END TIME: 1403 TOTAL FACE TO FACE TIME: 14 MINUTES POST PROCEDURE NOTE THE PATIENT WILL BE SEEN IN A FOLLOW UP IN THE NEXT FEW WEEKS. I AM LOOKING FOR LONG LASTING RELIEF FOR THE PATIENT WITH THIS INTERVENTION. INSTRUCTIONS WERE GIVEN, QUESTIONS WERE ANSWERED, AND THE PATIENT EXPRESSED UNDERSTANDING AND AGREES WITH THE PLAN. I, CELESTE WOLFF, DOCUMENTED THE ABOVE INFORMATION ACTING A SCRIBE FOR DR. TEMPLE. I HAVE REVIEWED THE ABOVE DOCUMENT, WRITTEN BY CELESTE WOLFF, LEAD NUCLEAR MEDICINE TECHNOLOGIST, AND I VERIFY THAT IT IS ACCURATE PROCEDURE CODES 94875 INJ PARAVERT F JNT C/T 1 LEV, MODIFIERS: 50 [id number] INJ PARAVERT F JNT C/T 2 LEV, MODIFIERS: 50 [id number] MOD SED SAME PHYS/QHP 5/>YRS DISPOSITION & COMMUNICATION FOLLOW UP FOLLOW UP WITH TRAVEL COUNSELOR [employer] (REASON: POST BILATERAL THERAPEUTIC CERVICAL FACET BLOCK C4-C5, C5-C6) ELECTRONICALLY SIGNED BY ILENE TEMPLE MD, MD ON 05/15/2020 AT 05:21 PM EST DISCLAIMER : THIS IS A VISIT SUMMARY EXTRACTED FROM THE [employer] CHART. IT IS NOT A COPY OF THE [employer] PROGRESS NOTE. MTDFannie
== END ==
LOC: M PAIN 11:30
PROVIDERS: ATTEND Anesthesiology
DX: M47.812 Spondylosis without myelopathy or radiculopathy, cervical region (principal); K21.9 Gastro-esophageal reflux disease without esophagitis; E66.9 Obesity, unspecified; Z68.41 Body mass index [BMI] 40.0-44.9, adult; J30.2 Other seasonal allergic rhinitis; F32.89 Other specified depressive episodes; M15.9 Polyosteoarthritis, unspecified; Z79.899 Other long term (current) drug therapy; Z88.7 Allergy status to serum and vaccine; Z88.5 Allergy status to narcotic agent; Z88.8 Allergy status to other drugs, medicaments and biological substances
CPT/HCPCS: 64490; 64491; 99152; J2250; J3010; J3301; Q9967

== ENCOUNTER → 2020-06-14 | Outpatient (CLI) | payer OTHER, MEDICARE ==
[~2020-06-14] MED LIST changes: -BUPIVACAINE HCL 0.25% 30ML VIAL As Ordered ONE; -ISOVUE-M 300 61% 15ML VIAL As Ordered ONE; -LIDOCAINE 1% SDV 30ML VIAL As Ordered ONE; -MIDAZOLAM INJ 2MG/2ML VIAL (J2250 PER 1MG) As Ordered ONE; -TRIAMCINOLONE ACETONIDE SUSP 40 MG/ML VIAL (J3301) As Ordered ONE; -fentaNYL 100 MCG/2 ML INJECTION (J3010) As Ordered ONE
--- NOTE | 2020-06-16 23:45 | ECWPNPC ---
PATIENT NAME: JANAE OPRTER : 1960 GENDER: FEMALE VISIT DATE: 06/14/2020 DISCHARGE DATE: 06/14/20 1052 VISIT LOCKED DATE TIME: PHYSICIAN: KIMBER ENCINAS PHYSICIAN PAGER NO: ACTIVE RESOURCE: KIMBER ENCINAS REASON FOR APPOINTMENT 1. POST BILATERAL C4-5 C5-C6 CERVICAL THERAPEUTIC FACET BLOCK WITH IV SEDATION HISTORY OF PRESENT ILLNESS GENERAL: HERE FOR POST PROCEDURE F/U.HAD BILATERAL C4/5-C5/6,C6/7 CERVICAL FACET BLOCK THERAPEUTIC W IV SEDATION ON 05/15/20.REPORTING IMPROVED ABILITY TO TOLERATE DOING PHYSICAL ACTIVITIES IE LAUNDRY AND VACUUMING SINCE INJECTIONS.REPORTING FEWER AWAKENINGS AT NIGHT DUE TO NECK PAIN.THIS IS A WORK RELATED INJURY :2005.FINDS NUCYNTA 50MG TABLET THAT SHE TAKES INFREQUENTLY FOR SEVERE PAIN EPISODES HELPFUL AT REDUCING PAIN WITHOUT SIDE EFFECTS.SHE TOOK OXYCODONE 5MG TAB AFTER SURGERY IN THE RECENT PAST THAT CAUSED GENERALIZED NAUSEA AND MALAISE SO SHE HAD TO STOP THIS. FALL RISK SCREENING: SCREENING :ONE FALL WITHOUT INJURY IN THE PAST YEAR PAIN SCREENING: PATIENT HAS A COMPLAINT OF ACUTE OR CHRONIC PAIN :YES LOCATION OF PAIN:NECK INTENSITY OF PAIN (SCALE OF 1 TO 10):3 WHAT DOES YOUR PAIN FEEL LIKE:ACHING DURATION:CONTINOUS, CONSTANT, ALL DAY PAIN IS INCREASED BY:ACTIVITIES PAIN IS DECREASED BY:USE OF PAIN MEDICATIONS NURSING NOTE: -. PAIN CENTER INTAKE QUESTIONS: DO YOU HAVE A HISTORY OF MRSA? :NO DO YOU TAKE A BLOOD THINNERS? :NO DO YOU HAVE ANY BLEEDING DISORDERS? :NO ANY NEW NUMBNESS OR WEAKNESS IN YOUR LEGS OR ARMS? :NO ANY PACEMAKER,DEFIBRILLATOR, OR DORSAL COLUMN STIMULATOR? :YES DCS DO YOU HAVE ANY RASHES OR OPEN SORES? :NO ARE YOU ALLERGIC TO IV DYE? :NO ARE YOU DIABETIC? :NO ANY NEW PROBLEMS WITH YOUR MEDICATIONS? :NO HAVE YOU RECEIVED A VACCINE IN THE PAST 30 DAYS? :NO DO YOU PLAN TO RECEIVE A VACCINE IN THE NEXT 21 DAYS? :NO DO YOU NEED ANY PRESCRIPTION? :NO DO YOU TAKE ANY IMMUNOSUPPRESSIVE MEDICATIONS? :NO IS THERE A CHANCE YOU COULD BE ? :NO ARE YOU BREAST FEEDING? :NO CURRENT MEDICATIONS TAKING FISH OIL 1200 MG CAPSULE 1 CAPSULE ORALLY ONCE A DAY TAKING ESTRADIOL 1 MG TABLET [address] BUSBY ORALLY ONCE A DAY TAKING LYSINE 500 MG TABLET 1 TABLET ORALLY TWICE DAILY TAKING BIOTIN 5000 MCG TABLET 1 TABLET ORALLY ONCE A DAY TAKING COLACE 100 MG CAPSULE 1 CAPSULE NEEDED ORALLY ONCE A DAY TAKING CINNAMON 500 MG CAPSULE 1 CAP ORALLY DAILY TAKING METHYLPREDNISOLONE 4 MG TABLET 1/2 TABLET ORALLY DAILY, NOTES: 05/10 TAKING VITAMIN D3 5000 UNIT CAPSULE 2 CAPS ORALLY 5 DAYS A WEEK TAKING CALCIUM CITRATE PLUS TABLET 1 TAB ORALLY THREE TIMES DAILY TAKING FERROUS SULFATE 325 (65 FE) MG TABLET 1 TABLET ORALLY THREE TIMES A WEEK TAKING MULTIVITAMINS TABLET 1 TAB ORALLY DAILY TAKING MAGNESIUM-ZINC 133.33-5 MG TABLET 1 TABLET ORALLY TWICE A DAY TAKING VITAMIN B-12 500 MCG TABLET SUBLINGUAL 1 TABLET UNDER THE TONGUE AND ALLOW TO DISSOLVE SUBLINGUAL ONCE A DAY TAKING OMEPRAZOLE 20 MG CAPSULE DELAYED RELEASE 1 CAP ORALLY TWICE A DAY TAKING FOLIC ACID 1 MG TABLET 1 TABLET ORALLY ONCE A DAY TAKING METHOTREXATE SODIUM 2.5 MG TABLET 5 TABLETS DIRECTED ORALLY ONCE WEEKLY TAKING PLAQUENIL 200 MG TABLET 1 TAB ORALLY TWICE DAILY TAKING NUCYNTA 50 MG TABLET 1 ORALLY NEEDED FOR PAIN Q8H MDD2 TAKING DULOXETINE HCL 60 MG CAPSULE DELAYED RELEASE PARTICLES 1 CAPSULE ORALLY ONCE A DAY TAKING HUMIRA PEN 40 MG/0.4ML PEN-INJECTOR KIT INJECT UNDER THE SKIN ONCE EVERY OTHER WEEK TAKING CYMBALTA 30 MG CAPSULE DELAYED RELEASE PARTICLES 1 CAPSULE ORALLY BID MEDICATION LIST REVIEWED AND RECONCILED WITH THE PATIENT PAST MEDICAL HISTORY CHRONIC PAIN: BACK, NECK, R SHOULDER- FOLLOWS WITH PAIN CLINIC, UNDER WORKER'S COMP ESOPHAGEAL REFLUX - (PULMONARY EVAL FOR COUGH NEG.) OBESITY ENVIRONMENTAL AND SEASONAL ALLERGIES RIGHT SHOULDER SURGERY OTHER DEPRESSION POLYARTHRITIS ALLERGIES RUBELLA VIRUS VACCINE: KNEES LOCKED - ALLERGY FOSAMAX: HAND SWELLING - ALLERGY CODEINE SULFATE: NAUSEA/VOMITING - SIDE EFFECTS VOLTAREN: BLOOD IN STOOL - ALLERGY T-DAP VACCINE: JOINT PAIN/SWELLING - ALLERGY SOCIAL HISTORY GENERAL: TOBACCO USE ARE YOU A:NONSMOKER LATEX QUESTIONNAIRE LATEX ALLERGY : HAVE YOU EVER DEVELOPED ANY TYPE OF REACTION AFTER HANDLING LATEX PRODUCTS SUCH RUBBER GLOVES, CONDOMS, DIAPHRAGMS, BALLOONS, SOCKS, OR UNDERWEAR?NO LATEX ALLERGY : HAVE YOU EVER DEVELOPED ANY TYPE OF REACTION DURING OR AFTER DENTAL APPOINTMENT, VAGINAL/RECTAL EXAMINATION, SURGICAL PROCEDURE, OR ANY OTHER EXPOSURE?NO LATEX RISK : HAVE YOU EVER HAD ANY DIFFICULTY BREATHING OR HIVES AFTER EATING OR HANDLING ANY FRUITS, OR VEGETABLES; SUCH KIWI, BANANAS, STONE FRUITS, OR CHESTNUTSNO LATEX RISK : DO YOU HAVE A PREVIOUS PERSONAL HISTORY OF MORE THAN NINE SURGERIES, SPINA BIFIDA, OR REPEATED CATHERIZATIONS? YES - PLEASE INDICATE : > 9 SURGERIES LATEX RISK : ARE YOU FREQUENTLY EXPOSED TO LATEX PRODUCTS IN YOUR OCCUPATION?NO DATE ASKED : 06/14/2020 ALCOHOL USE: NO. BMI CARE GOAL FOLLOW-UP ABOVE NORMAL BMI FOLLOW-UPGIVING ENCOURAGEMENT TO EXERCISE ALCOHOL SCREENING DID YOU HAVE A DRINK CONTAINING ALCOHOL IN THE PAST YEAR?NO POINTS0 INTERPRETATIONNEGATIVE RECREATIONAL DRUG USE DRUG USE?NO CAFFEINE CAFFEINE USE?YES SODA OCC SEXUAL HX HAD SEX IN THE LAST 12 MONTHS (VAGINAL, ORAL, OR ANAL)?NO HAVE YOU EVER HAD AN STD?NO HIV / HEP-C SCREENING HIV TEST OFFERED TO PATIENT:YES DATE OFFERED:03/21/2013 TEST ACCEPTED:YES HEP-C TEST OFFERED TO PATIENT:NO SPIRITISM [id number] NONE LANGUAGE LANGUAGES SPOKEN:AMERICAN EDUCATION 2 YEARS OF COLLEGE. LEARNING BARRIERS / SPECIAL NEEDS CHANGE FROM LAST VISIT?NO BARRIERS TO LEARNING?NO HEARING IMPAIRED?NO VISION IMPAIRED?YES :CORRECTIVE LENSES COGNITIVELY IMPAIRED?NO READINESS TO LEARN?YES LEARNING PREFERENCES?YES :TAPES/VIDEOS, BOOKLETS, HANDOUTS LEARNING CAPABILITIES PRESENT?YES EMOTIONAL BARRIERS?NO SPECIAL DEVICES?NO DRAFTER CONSTRUCTION NEEDED?NO OCCUPATION: DISABLED. DIET: REGULAR BARIATRIC DIET CURRENTLY. EXERCISE: WALKING AND OCCASIONAL SNOWSHOEING. MARITAL STATUS: .. OTHERS AT HOME: FATHER, MOTHER. - PFS REFERRAL NEEDED?NO CLERGY REFERRAL NEEDED?NO PUBLIC HEALTH REFERRAL NEEDED?NO WAS THE PROVIDER NOTIFIED OF ANY PERTINENT INFO? N/A HAS THE PATIENT BEEN EDUCATED REGARDING HIS/HER PLAN OF CARE?YES HAS THE PATIENT BEEN EDUCATED REGARDING PAIN, THE RISK FOR PAIN, THE IMPORTANCE OF EFFECTIVE PAIN MANAGEMENT, AND THE PAIN ASSESSMENT PROCESS?YES HOUSING: PARENTS HOME. ADVANCE DIRECTIVE ADVANCE DIRECTIVE DISCUSSED WITH PATIENT:YES HCP IS [facility]ENTS [facility] [phone] REVIEW OF SYSTEMS CONSTITUTIONAL: ANY RECENT FEVER NO . CHILLS NO . WEIGHT CHANGE OF UNKNOWN REASONS NO . GASTROENTEROLOGY: NEW UNEXPLAINABLE CHANGES IN BOWEL CONTROL NO . CONSTIPATION NO . GENITOURINARY: ANY NEW CHANGE IN BLADDER CONTROL? NO . NEUROLOGY: NEW ONSET DIZZINESS OR NEUROLOGICAL CHANGES NOT MENTIONED NO . NEW NUMBNESS OR PAIN PATTERNS NOT MENTIONED AND PERTINENT TO TODAY'S VISIT NO . CARDIOLOGY: NEW CHEST PRESSURE NO . NEW CHEST PAIN NO . RESPIRATORY: UNEXPLAINABLE COUGH NO . NEW SHORTNESS OF BREATH NO . VITAL SIGNS WT 224.4 LBS, HT 63 IN, BMI 39.75 INDEX, BP 134/82 MM HG, HR 88 /MIN, RR 18 /MIN, TEMP 96.0 F, OXYGEN SAT % 98%, NA INITIALS AW 1010. EXAMINATION GENERAL EXAMINATION: GENERALAWAKE,ALERT ,PLEASANT . PSYCHAFFECT NORMAL . LUNGS:LUNG FENG ARE CLEAR TO AUSCULTATION BILATERALLY. GOOD MOVEMENT OF AIR . HEART:S1, S2 IN A REGULAR RATE AND RHYTHM. NO SIGNIFICANT MURMURS, RUBS OR GALLOPS NOTED . ASSESSMENTS OTHER CHRONIC PAIN - G89.29 (PRIMARY) SPONDYLOSIS WITHOUT MYELOPATHY OR RADICULOPATHY, CERVICAL REGION - M47.812 TREATMENT OTHER CHRONIC PAIN CONTINUE NUCYNTA TABLET, 50 MG, 1, ORALLY NEEDED FOR PAIN, Q8H MDD2 CONTINUE DULOXETINE HCL CAPSULE DELAYED RELEASE PARTICLES, 60 MG, 1 CAPSULE, ORALLY, ONCE A DAY PAIN PROCEDURE LOGDATE OF PROCEDURE1PROCEDURE:BILATERAL THERAPEUTIC CERVICAL FACET BLOCK C4-C5,C5-G3OJZTIC OF PRE SEDATEFENTYNAL CRITE 25MG, FENTYNAL CITRATE 50MGRESULT:MARKED IMPROVEMENT IN PAIN AND IMPROVED ACTIVITY TOLERANCE CONTINUES TODAY PROCEDURES PN WORKMANS' COMP OPINION IN YOUR OPINION, WAS THE INCIDENT THAT THE PATIENT DESCRIBED THE COMPETENT MEDICAL CAUSE OF THIS INJURY/ILLNESS? YES ARE THE PATIENT'S COMPLAINTS CONSISTENT WITH HIS/HER HISTORY OF THE INJURY/ILLNESS? YES IS THE PATIENT'S HISTORY OF THE INJURY/ILLNESS CONSISTENT WITH YOUR OBJECTIVE FINDING? YES WHAT IS THE PERCENTAGE OF TEMPORARY IMPAIRMENT? MODERATE TO MARKED = 66.7% IS THE PATIENT WORKING? NO DOCTOR ON SITE: ILENE CHEW MD PROCEDURE CODES FA211 ESTABILISHED PATIENT [facility] FACILITY CHARGE DISPOSITION & COMMUNICATION FOLLOW UP 3 MONTHS (REASON: W/C NECK PAIN/UTOX/PILL COUNT ID) ELECTRONICALLY SIGNED BY MARISA MICHAUD ON 06/16/2020 AT 07:12 PM EST DISCLAIMER : THIS IS A VISIT SUMMARY EXTRACTED FROM THE niiu CHART. IT IS NOT A COPY OF THE niiu PROGRESS NOTE. AUDREY
== END ==
LOC: M PAIN 10:15
PROVIDERS: ATTEND Nurse Practitioner Family
DX: G89.29 Other chronic pain (principal); M47.812 Spondylosis without myelopathy or radiculopathy, cervical region; K21.9 Gastro-esophageal reflux disease without esophagitis; E66.9 Obesity, unspecified; Z68.39 Body mass index [BMI] 39.0-39.9, adult; J30.2 Other seasonal allergic rhinitis; F32.9 Major depressive disorder, single episode, unspecified; M15.9 Polyosteoarthritis, unspecified; Z79.899 Other long term (current) drug therapy; Z88.7 Allergy status to serum and vaccine; Z88.5 Allergy status to narcotic agent; Z88.8 Allergy status to other drugs, medicaments and biological substances

== ENCOUNTER → 2020-06-21 | Outpatient (REF) | payer OTHER, MEDICARE ==
[2020-06-21 14:48] LABS: BASO # 0.1 10^3/uL (0.0-0.2); BASO % 1.2 % (0.0-1.0); EOS # 0.2 10^3/uL (0.0-0.5); EOS % 4.1 % (0.0-3.0); HEMATOCRIT 44.1 % (36.0-47.0); HEMOGLOBIN 14.2 g/dl (12.0-15.5); LYMPH % 41.7 % (24.0-44.0); MEAN CORPUSCULAR HEMOGLOBIN 31.5 pg (27.0-33.0); MEAN CORPUSCULAR HGB CONC 32.2 g/dl (32.0-36.5); MEAN CORPUSCULAR VOLUME 97.8 fl (80.0-96.0); MONO # 0.4 10^3/uL (0.0-0.8); MONO % 8.1 % (2.0-8.0); NEUTROPHILS # 2.2 10^3/uL (1.5-8.5); NEUTROPHILS % 44.7 % (36.0-66.0); PLATELET COUNT, AUTOMATED 251 10^3/uL (150-450); RED BLOOD COUNT 4.51 10^6/uL (4.00-5.40); WHITE BLOOD COUNT 4.8 10^3/uL (4.0-10.0)
[2020-06-21 15:17] LABS: ALBUMIN 3.7 GM/DL (3.2-5.2); ALT/SGPT 38 U/L (12-78); BILIRUBIN,TOTAL 0.4 MG/DL (0.2-1.0); BLOOD UREA NITROGEN 18 MG/DL (7-18); CALCIUM LEVEL 9.6 MG/DL (8.5-10.1); CARBON DIOXIDE LEVEL 30 MEQ/L (21-32); CHLORIDE LEVEL 108 MEQ/L (98-107); CREATININE FOR GFR 1.07 MG/DL (0.55-1.30); GLOMERULAR FILTRATION RATE 55.9 (>51); GLUCOSE, FASTING 81 MG/DL (70-100); POTASSIUM SERUM 4.2 MEQ/L (3.5-5.1); SODIUM LEVEL 142 MEQ/L (136-145)
[2020-06-21 15:35] LABS: HEPATITIS B SURFACE ANTIGEN NEGATIVE (NEGATIVE)
[2020-06-21 15:37] LABS: ERYTHROCYTE SEDIMENTATION RATE 8 mm/hr (0-30)
[2020-06-21 16:04] LABS: HEPATITIS C VIRUS ABY INDEX < 0.0 INDEX (<0.8)
[2020-06-25 11:09] LABS: HEPATITIS B CORE ANTIBODY IGG Negative (Negative)
== END ==
LOC: M PLALAB 11:49
PROVIDERS: ATTEND Internal Medicine
DX: M06.09 Rheumatoid arthritis without rheumatoid factor, multiple sites (principal)

== ENCOUNTER → 2020-09-11 | Outpatient (CLI) | payer OTHER ==
--- NOTE | 2020-09-12 05:51 | ECWPNPC ---
PATIENT NAME: JANAE PORTER : 1960 GENDER: FEMALE VISIT DATE: 09/11/2020 DISCHARGE DATE: 09/11/20 1014 VISIT LOCKED DATE TIME: PHYSICIAN: KIMBER ENCINAS PHYSICIAN PAGER NO: ACTIVE RESOURCE: KIMBER ENCINAS REASON FOR APPOINTMENT 1. W/C NECK PAIN/UTOX/PILL COUNT ID HISTORY OF PRESENT ILLNESS DEPRESSION SCREENING: PHQ-9 LITTLE INTEREST OR PLEASURE IN DOING THINGSNEARLY EVERY DAY FEELING DOWN, DEPRESSED, OR HOPELESSMORE THAN HALF THE DAYS TROUBLE FALLING OR STAYING ASLEEP, OR SLEEPING TOO MUCHSEVERAL DAYS FEELING TIRED OR HAVING LITTLE ENERGYSEVERAL DAYS POOR APPETITE OR OVEREATING SEVERAL DAYS FEELING BAD ABOUT YOURSELF-OR THAT YOU ARE A FAILURE OR HAVE LET YOURSELF OR YOUR FAMILY DOWN SEVERAL DAYS TROUBLE CONCENTRATING ON THINGS, SUCH READING THE NEWSPAPER OR WATCHING TELEVISION SEVERAL DAYS MOVING OR SPEAKING SO SLOWLY THAT OTHER PEOPLE COULD HAVE NOTICED. OR THE OPPOSITE- BEING SO FIDGETY OR RESTLESS THAT YOU HAVE BEEN MOVING AROUND A LOT MORE THAN USUALNOT AT ALL THOUGHTS THAT YOU WOULD BE BETTER OFF , OR OF HURTING YOURSELF IN SOME WAY?NOT AT ALL TOTAL SCORE:10 INTERPRETATIONMODERATE DEPRESSION PHQ-2 (2015 EDITION) LITTLE INTEREST OR PLEASURE IN DOING THINGS?NEARLY EVERY DAY FEELING DOWN, DEPRESSED, OR HOPELESS?MORE THAN HALF THE DAYS TOTAL SCORE5 GENERAL: HERE FOR FOLLOW-UP OF CHRONIC NECK PAIN. THIS IS A WORK RELATED INJURY WITH DATE OF INJURY 2005. CONTINUES TO BENEFIT FROM CERVICAL THERAPEUTIC BLOCK DONE GREATER THAN 3 MONTHS AGO. FINDS CURRENT CHRONIC PAIN MEDICATION NUCYNTA AND CYMBALTA HELPFUL AT REDUCING PAIN AND KEEPING HER FUNCTIONAL. USING NUCYNTA PERIODICALLY FOR SEVERE PAIN EPISODES. BRINGS IN HER MEDICATION WHICH DEMONSTRATES PERIODIC USE AND HAS PLENTY LEFT IN THE BOTTLE. FORMAL PILL COUNT AND IDENTIFICATION WAS DONE TODAY. -. FALL RISK SCREENING: SCREENING COUPLE OF TIMES FALLS REPORTED IN THE LAST YEAR NO INJURIES. PAIN SCREENING: PATIENT HAS A COMPLAINT OF ACUTE OR CHRONIC PAIN :YES LOCATION OF PAIN:NECK INTENSITY OF PAIN (SCALE OF 1 TO 10):6 WHAT DOES YOUR PAIN FEEL LIKE:CONTINOUS, SHARP DURATION:CONTINOUS, CONSTANT, ONLY WITH SPECIFIC ACTIVITIES PAIN IS INCREASED BY:ACTIVITIES, PROLONGED STANDING PAIN IS DECREASED BY:USE OF PAIN MEDICATIONS NURSING NOTE: -. PAIN CENTER INTAKE QUESTIONS: DO YOU HAVE A HISTORY OF MRSA? :NO DO YOU TAKE A BLOOD THINNERS? :NO DO YOU HAVE ANY BLEEDING DISORDERS? :NO ANY NEW NUMBNESS OR WEAKNESS IN YOUR LEGS OR ARMS? :NO ANY PACEMAKER,DEFIBRILLATOR, OR DORSAL COLUMN STIMULATOR? :YES DCS DO YOU HAVE ANY RASHES OR OPEN SORES? :NO ARE YOU ALLERGIC TO IV DYE? :NO ARE YOU DIABETIC? :NO ANY NEW PROBLEMS WITH YOUR MEDICATIONS? :NO HAVE YOU RECEIVED A VACCINE IN THE PAST 30 DAYS? :NO DO YOU PLAN TO RECEIVE A VACCINE IN THE NEXT 21 DAYS? :NO DO YOU NEED ANY PRESCRIPTION? :NO DO YOU TAKE ANY IMMUNOSUPPRESSIVE MEDICATIONS? :YES PLAQUENIL 200 MG, IS THERE A CHANCE YOU COULD BE ? :NO ARE YOU BREAST FEEDING? :NO CURRENT MEDICATIONS TAKING FISH OIL 1200 MG CAPSULE 1 CAPSULE ORALLY ONCE A DAY TAKING ESTRADIOL 1 MG TABLET [address] BUSBY ORALLY ONCE A DAY TAKING LYSINE 500 MG TABLET 1 TABLET ORALLY TWICE DAILY TAKING BIOTIN 5000 MCG TABLET 1 TABLET ORALLY ONCE A DAY TAKING COLACE 100 MG CAPSULE 1 CAPSULE NEEDED ORALLY ONCE A DAY TAKING CINNAMON 500 MG CAPSULE 1 CAP ORALLY DAILY TAKING VITAMIN D3 5000 UNIT CAPSULE 2 CAPS ORALLY 5 DAYS A WEEK TAKING CALCIUM CITRATE PLUS TABLET 1 TAB ORALLY THREE TIMES DAILY TAKING FERROUS SULFATE 325 (65 FE) MG TABLET 1 TABLET ORALLY THREE TIMES A WEEK TAKING MULTIVITAMINS TABLET 1 TAB ORALLY DAILY TAKING MAGNESIUM-ZINC 133.33-5 MG TABLET 1 TABLET ORALLY TWICE A DAY TAKING VITAMIN B-12 500 MCG TABLET SUBLINGUAL 1 TABLET UNDER THE TONGUE AND ALLOW TO DISSOLVE SUBLINGUAL ONCE A DAY TAKING HUMIRA PEN 40 MG/0.4ML PEN-INJECTOR KIT INJECT UNDER THE SKIN ONCE EVERY OTHER WEEK TAKING FOLIC ACID 1 MG TABLET 1 TABLET ORALLY ONCE A DAY TAKING OMEPRAZOLE 20 MG CAPSULE DELAYED RELEASE 1 CAP ORALLY TWICE A DAY TAKING NUCYNTA 50 MG TABLET 1 TABLET ORALLY Q8H PRN MDD3 TAKING CYMBALTA 30 MG CAPSULE DELAYED RELEASE PARTICLES 1 CAPSULE ORALLY BID TAKING METHOTREXATE SODIUM 2.5 MG TABLET 5 TABLETS DIRECTED ORALLY ONCE WEEKLY TAKING PLAQUENIL 200 MG TABLET 1 TAB ORALLY BID NOT-TAKING METHYLPREDNISOLONE 4 MG TABLET -1 1/2 TABLET ORALLY DAILY, NOTES: 06/28/20 NOT-TAKING NUCYNTA 50 MG TABLET 1 ORALLY NEEDED FOR PAIN Q8H MDD2 MEDICATION LIST REVIEWED AND RECONCILED WITH THE PATIENT PAST MEDICAL HISTORY CHRONIC PAIN: BACK, NECK, R SHOULDER- FOLLOWS WITH PAIN CLINIC, UNDER WORKER'S COMP ESOPHAGEAL REFLUX - (PULMONARY EVAL FOR COUGH NEG.) OBESITY ENVIRONMENTAL AND SEASONAL ALLERGIES RIGHT SHOULDER SURGERY OTHER DEPRESSION POLYARTHRITIS ALLERGIES RUBELLA VIRUS VACCINE: KNEES LOCKED - ALLERGY FOSAMAX: HAND SWELLING - ALLERGY CODEINE SULFATE: NAUSEA/VOMITING - SIDE EFFECTS VOLTAREN: BLOOD IN STOOL - ALLERGY T-DAP VACCINE: JOINT PAIN/SWELLING - ALLERGY SURGICAL HISTORY R ANKLE SURGERY RECONSTRUCTION - DR Virginia MABRY -1982 WRIST SURGERY R (DE QUERVAINS) - DR Virginia MABRY -1992 REMOVAL OF SCAR TISSUE FROM RIGHT WRIST - DR. VALDEZ R FOOT NERVE BX - DR Virginia MABRY -1999 BREAST REDUCTION - CARLOS A R FOOT SCAR TISSUE - DR WILLS ZAID & BSO - ROSAS R KNEE ARTHROSCOPY- SHAVED CONDROMALACIA - DR Virginia MABRY -2003 L FOOT HEEL SPUR - MICH RIGHT ROTATOR CUFF REPAIR R - DR Virginia MABRY -2007 EXCISION OF SCALP CYST - BENIGN, DR WADSWORTH 10/2009 CERVICAL DORSAL COLUMN STIMULATOR (TRIAL) - MAVERICK SPINAL CORD STIMULATOR IMPLANT - DR GIBSON --2010 COLONOSCOPY, INTERNAL HEMORRHOIDS - ABELARDO KNEE SURGERY L MICROFRACTURING - DR YUNIER MABRY -2011 L WRIST DEQUERVAINS RELEASE - DR SHANA RIVERO LAP VERTICAL SLEEVE GASTRECTOMY - DR BEST - LEFT BREAST BIOPSY - BENIGN, INTERVENTIONAL RADIOLOGY F/UP PER DR PARSONS 04/2014 LEFT ROTATOR CUFF REPAIR - DR. YUNIER MABRY -2014 L THUMB/WRIST CMC ARTHOPLASTY - DR YUNIER MABRY -2015 R ROTATOR CUFF REPAIR - DR YUNIER MABRY -2016 RIGHT SHOULDER SURGERY 08/19/17 RIGHT SHOULDER AND BICEP SURGERY 06/28/18 NEG STRESS TEST, ANTON DE JESUS 05/2018 LEFT KNEE ARTHROSCOPY 11/28/2019 SOCIAL HISTORY GENERAL: TOBACCO USE ARE YOU A:NONSMOKER LATEX QUESTIONNAIRE LATEX ALLERGY : HAVE YOU EVER DEVELOPED ANY TYPE OF REACTION AFTER HANDLING LATEX PRODUCTS SUCH RUBBER GLOVES, CONDOMS, DIAPHRAGMS, BALLOONS, SOCKS, OR UNDERWEAR?NO LATEX ALLERGY : HAVE YOU EVER DEVELOPED ANY TYPE OF REACTION DURING OR AFTER DENTAL APPOINTMENT, VAGINAL/RECTAL EXAMINATION, SURGICAL PROCEDURE, OR ANY OTHER EXPOSURE?NO LATEX RISK : HAVE YOU EVER HAD ANY DIFFICULTY BREATHING OR HIVES AFTER EATING OR HANDLING ANY FRUITS, OR VEGETABLES; SUCH KIWI, BANANAS, STONE FRUITS, OR CHESTNUTSNO LATEX RISK : DO YOU HAVE A PREVIOUS PERSONAL HISTORY OF MORE THAN NINE SURGERIES, SPINA BIFIDA, OR REPEATED CATHERIZATIONS? YES - PLEASE INDICATE : > 9 SURGERIES LATEX RISK : ARE YOU FREQUENTLY EXPOSED TO LATEX PRODUCTS IN YOUR OCCUPATION?NO DATE ASKED : 09/11/2020 ALCOHOL USE: NO. BMI CARE GOAL FOLLOW-UP ABOVE NORMAL BMI FOLLOW-UPGIVING ENCOURAGEMENT TO EXERCISE ALCOHOL SCREENING DID YOU HAVE A DRINK CONTAINING ALCOHOL IN THE PAST YEAR?NO POINTS0 INTERPRETATIONNEGATIVE RECREATIONAL DRUG USE DRUG USE?NO CAFFEINE CAFFEINE USE?YES SODA OCC SEXUAL HX HAD SEX IN THE LAST 12 MONTHS (VAGINAL, ORAL, OR ANAL)?NO HAVE YOU EVER HAD AN STD?NO HIV / HEP-C SCREENING HIV TEST OFFERED TO PATIENT:YES DATE OFFERED:03/21/2013 TEST ACCEPTED:YES HEP-C TEST OFFERED TO PATIENT:NO JEHOVAH'S WITNESS [id number] NONE LANGUAGE LANGUAGES SPOKEN:[place] EDUCATION 2 YEARS OF COLLEGE. LEARNING BARRIERS / SPECIAL NEEDS CHANGE FROM LAST VISIT?NO BARRIERS TO LEARNING?NO HEARING IMPAIRED?NO VISION IMPAIRED?YES :CORRECTIVE LENSES COGNITIVELY IMPAIRED?NO READINESS TO LEARN?YES LEARNING PREFERENCES?YES :TAPES/VIDEOS, BOOKLETS, HANDOUTS LEARNING CAPABILITIES PRESENT?YES EMOTIONAL BARRIERS?NO SPECIAL DEVICES?NO COSMETICS COUNTER MANAGER NEEDED?NO OCCUPATION: DISABLED. DIET: REGULAR BARIATRIC DIET CURRENTLY. EXERCISE: WALKING AND OCCASIONAL SNOWSHOEING. MARITAL STATUS: .. OTHERS AT HOME: FATHER, MOTHER. - PFS REFERRAL NEEDED?NO CLERGY REFERRAL NEEDED?NO PUBLIC HEALTH REFERRAL NEEDED?NO WAS THE PROVIDER NOTIFIED OF ANY PERTINENT INFO? N/A HAS THE PATIENT BEEN EDUCATED REGARDING HIS/HER PLAN OF CARE?YES HAS THE PATIENT BEEN EDUCATED REGARDING PAIN, THE RISK FOR PAIN, THE IMPORTANCE OF EFFECTIVE PAIN MANAGEMENT, AND THE PAIN ASSESSMENT PROCESS?YES HOUSING: PARENTS HOME. ADVANCE DIRECTIVE ADVANCE DIRECTIVE DISCUSSED WITH PATIENT:YES HCP IS [facility] [phone] HOSPITALIZATION/MAJOR DIAGNOSTIC PROCEDURE SURGERIES ABOVE REACTION TO RUBELLA VACCINE AGE 9 REVIEW OF SYSTEMS CONSTITUTIONAL: ANY RECENT FEVER NO . CHILLS NO . WEIGHT CHANGE OF UNKNOWN REASONS NO . GASTROENTEROLOGY: NEW UNEXPLAINABLE CHANGES IN BOWEL CONTROL NO . CONSTIPATION NO . GENITOURINARY: ANY NEW CHANGE IN BLADDER CONTROL? NO . NEUROLOGY: NEW ONSET DIZZINESS OR NEUROLOGICAL CHANGES NOT MENTIONED NO . NEW NUMBNESS OR PAIN PATTERNS NOT MENTIONED AND PERTINENT TO TODAY'S VISIT NO . CARDIOLOGY: NEW CHEST PRESSURE NO . PATIENT DENIES NO . RESPIRATORY: UNEXPLAINABLE COUGH NO . NEW SHORTNESS OF BREATH NO . VITAL SIGNS WT 222 LBS, HT 63 IN, BMI 39.32 INDEX, BP 130/89 MM HG, HR 81 /MIN, TEMP 97.5 F, OXYGEN SAT % 100, SAFE IN ENV? (Y/N) YEST.SYLVIA MONTALVO. EXAMINATION GENERAL EXAMINATION: GENERALAWAKE,ALERT ,PLEASANT . PSYCHAFFECT NORMAL . LUNGS:LUNG FENG ARE CLEAR TO AUSCULTATION BILATERALLY. GOOD MOVEMENT OF AIR . HEART:S1, S2 IN A REGULAR RATE AND RHYTHM. NO SIGNIFICANT MURMURS, RUBS OR GALLOPS NOTED . ASSESSMENTS CHRONIC PRESCRIPTION OPIATE USE - Z79.899 (PRIMARY) SPONDYLOSIS WITHOUT MYELOPATHY OR RADICULOPATHY, CERVICAL REGION - M47.812 TREATMENT CHRONIC PRESCRIPTION OPIATE USE LAB: URINE TEST GROUP CAROL ANN WARD 09/11/2020 10:03:46 AM > LAST DOSE: TRAMADOL 09/08/2020 PATIENT MEDICATION INVENTORY #1PRESCRIPTON #[id number] OF RX ON BOTTLE1DRUG AND STRENGTHNUCYNTA 50MGFORMULATIONYELLOW TAB 50VERIFIED DRUG IDENTITYT.SYLVIA MONTALVO,P. [id number] NOTES: PILL COUNT AND IDENTIFICATION TODAY/NUCYNTA RECOMMEND CONTINUING NUCYNTA 50 MG TABLET PERIODICALLY FOR SEVERE EPISODES OF NECK PAIN. HAS ADVERSE SIDE EFFECTS WITH OTHER OPIOIDS TO INCLUDE OXYCODONE WITH POTENTIAL CROSS-REACTION WITH USE OF OTHER OPIOIDS IN FORMULARY. THIS IS DOCUMENTED IN A RECENT COURT APPROVAL TO CONTINUE THESE MEDICATIONS. CONTINUE CYMBALTA DAILY FOR CHRONIC JOINT PAIN OF THE CERVICAL SPINE. PROCEDURES PN WORKMANS' COMP OPINION IN YOUR OPINION, WAS THE INCIDENT THAT THE PATIENT DESCRIBED THE COMPETENT MEDICAL CAUSE OF THIS INJURY/ILLNESS? YES ARE THE PATIENT'S COMPLAINTS CONSISTENT WITH HIS/HER HISTORY OF THE INJURY/ILLNESS? YES IS THE PATIENT'S HISTORY OF THE INJURY/ILLNESS CONSISTENT WITH YOUR OBJECTIVE FINDING? YES WHAT IS THE PERCENTAGE OF TEMPORARY IMPAIRMENT? MODERATE TO MARKED = 66.7% IS THE PATIENT WORKING? NO DOCTOR ON SITE: ILENE CHEW MD PROCEDURE CODES FA211 ESTABILISHED PATIENT [facility] FACILITY CHARGE DISPOSITION & COMMUNICATION FOLLOW UP 3 MONTHS (REASON: MEDICATION MANAGEMENT/WORKMEN'S COMP/NECK PAIN) ELECTRONICALLY SIGNED BY MARISA MICHAUD ON 09/11/2020 AT 09:04 PM EDT DISCLAIMER : THIS IS A VISIT SUMMARY EXTRACTED FROM THE [employer] CHART. IT IS NOT A COPY OF THE [employer] PROGRESS NOTE. AUDREY
== END ==
LOC: M PAIN 09:15
PROVIDERS: ATTEND Nurse Practitioner Family
DX: M47.812 Spondylosis without myelopathy or radiculopathy, cervical region (principal); G89.29 Other chronic pain; K21.9 Gastro-esophageal reflux disease without esophagitis; Z96.89 Presence of other specified functional implants; Z86.59 Personal history of other mental and behavioral disorders; Z88.5 Allergy status to narcotic agent; Z88.6 Allergy status to analgesic agent; Z88.7 Allergy status to serum and vaccine; Z88.8 Allergy status to other drugs, medicaments and biological substances; Z79.891 Long term (current) use of opiate analgesic; Z79.899 Other long term (current) drug therapy

== ENCOUNTER → 2020-09-17 | Outpatient (REF) | payer MEDICARE, OTHER ==
[2020-09-17 14:10] LABS: BASO # 0.1 10^3/uL (0.0-0.2); BASO % 1.3 % (0.0-1.0); EOS # 0.1 10^3/uL (0.0-0.5); EOS % 3.4 % (0.0-3.0); HEMATOCRIT 42.2 % (36.0-47.0); HEMOGLOBIN 14.1 g/dl (12.0-15.5); LYMPH # 1.6 10^3/uL (1.5-5.0); MEAN CORPUSCULAR HEMOGLOBIN 32.6 pg (27.0-33.0); MEAN CORPUSCULAR HGB CONC 33.4 g/dl (32.0-36.5); MEAN CORPUSCULAR VOLUME 97.7 fl (80.0-96.0); MONO # 0.4 10^3/uL (0.0-0.8); MONO % 9.3 % (2.0-8.0); NEUTROPHILS # 1.7 10^3/uL (1.5-8.5); NEUTROPHILS % 43.7 % (36.0-66.0); PLATELET COUNT, AUTOMATED 217 10^3/uL (150-450); RED BLOOD COUNT 4.32 10^6/uL (4.00-5.40); WHITE BLOOD COUNT 3.9 10^3/uL (4.0-10.0)
[2020-09-17 14:37] LABS: ALBUMIN 3.7 GM/DL (3.2-5.2); ALT/SGPT 22 U/L (12-78); BILIRUBIN,TOTAL 0.6 MG/DL (0.2-1.0); BLOOD UREA NITROGEN 16 MG/DL (7-18); CALCIUM LEVEL 9.5 MG/DL (8.5-10.1); CARBON DIOXIDE LEVEL 25 MEQ/L (21-32); CHLORIDE LEVEL 108 MEQ/L (98-107); CREATININE FOR GFR 0.94 MG/DL (0.55-1.30); GLOMERULAR FILTRATION RATE > 60.0 (>51); GLUCOSE, FASTING 84 MG/DL (70-100); POTASSIUM SERUM 4.4 MEQ/L (3.5-5.1); SODIUM LEVEL 139 MEQ/L (136-145); TOTAL PROTEIN 6.8 GM/DL (6.4-8.2)
[2020-09-17 16:07] LABS: ERYTHROCYTE SEDIMENTATION RATE 6 mm/hr (0-30)
== END ==
LOC: M PLALAB 12:43
PROVIDERS: ATTEND Internal Medicine
DX: M06.09 Rheumatoid arthritis without rheumatoid factor, multiple sites (principal)

== ENCOUNTER → 2020-11-22 | Outpatient (CLI) | payer MEDICARE ==
[2020-11-22 16:09] LABS: BASO # 0.1 10^3/uL (0.0-0.2); BASO % 1.4 % (0.0-1.0); EOS # 0.1 10^3/uL (0.0-0.5); EOS % 3.8 % (0.0-3.0); HEMATOCRIT 42.9 % (36.0-47.0); HEMOGLOBIN 14.2 g/dl (12.0-15.5); LYMPH # 1.5 10^3/uL (1.5-5.0); LYMPH % 41.2 % (24.0-44.0); MEAN CORPUSCULAR HEMOGLOBIN 31.9 pg (27.0-33.0); MEAN CORPUSCULAR HGB CONC 33.1 g/dl (32.0-36.5); MEAN CORPUSCULAR VOLUME 96.4 fl (80.0-96.0); MONO # 0.3 10^3/uL (0.0-0.8); MONO % 7.7 % (2.0-8.0); NEUTROPHILS # 1.7 10^3/uL (1.5-8.5); NEUTROPHILS % 45.6 % (36.0-66.0); PLATELET COUNT, AUTOMATED 228 10^3/uL (150-450); RED BLOOD COUNT 4.45 10^6/uL (4.00-5.40); WHITE BLOOD COUNT 3.6 10^3/uL (4.0-10.0)
[2020-11-22 16:22] LABS: ALBUMIN 3.9 GM/DL (3.2-5.2); ALT/SGPT 26 U/L (12-78); BILIRUBIN,TOTAL 0.5 MG/DL (0.2-1.0); BLOOD UREA NITROGEN 18 MG/DL (7-18); C REACTIVE PROTEIN QUANTITATIV 0.53 MG/DL (0.00-0.30); CALCIUM LEVEL 9.4 MG/DL (8.5-10.1); CARBON DIOXIDE LEVEL 28 MEQ/L (21-32); CHLORIDE LEVEL 107 MEQ/L (98-107); CREATININE FOR GFR 0.98 MG/DL (0.55-1.30); GLOMERULAR FILTRATION RATE > 60.0 (>51); GLUCOSE, FASTING 81 MG/DL (70-100); POTASSIUM SERUM 4.6 MEQ/L (3.5-5.1); SODIUM LEVEL 139 MEQ/L (136-145); TOTAL PROTEIN 7.3 GM/DL (6.4-8.2)
[2020-11-22 20:02] LABS: ERYTHROCYTE SEDIMENTATION RATE 7 mm/hr (0-30)
== END ==
LOC: M PLALAB 12:48
PROVIDERS: ATTEND Internal Medicine
DX: M06.09 Rheumatoid arthritis without rheumatoid factor, multiple sites (principal)

== ENCOUNTER → 2020-12-12 | Outpatient (CLI) | payer OTHER ==
--- NOTE | 2020-12-23 00:16 | ECWPNPC ---
PATIENT NAME: JANAE PORTER : 1960 GENDER: FEMALE VISIT DATE: 12/12/2020 DISCHARGE DATE: 12/12/20 1026 VISIT LOCKED DATE TIME: PHYSICIAN: ILENE TEMPLE MD PHYSICIAN PAGER NO: ACTIVE RESOURCE: ILENE TEMPLE MD REASON FOR APPOINTMENT 1. MEDICATION MANAGEMENT/WORKMEN'S COMP/NECK PAIN HISTORY OF PRESENT ILLNESS GENERAL: 60-YEAR-OLD FEMALE PATIENT WITH A HISTORY OF CHRONIC NECK PAIN. THE PATIENT DESCRIBES THE PAIN ACHING AND SHARP AND PRESENT ALL DAY WITH A PAIN SCORE RANGING FROM 4-9/10. 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 THE PATIENT HAS RECEIVED THERAPEUTIC FACET BLOCKS. THE LAST ONE WAS DONE IN APRIL. SHE STATES THAT SHE STILL FEELS THE BENEFIT FROM THE INJECTION. SHE IS CURRENTLY USING NUCYNTA FOR THIS WHICH SHE USING ON A PRN BASIS. SHE HAS A SPINAL COLUMN STIMULATOR THAT IS WORKING FOR HER BUT WHEN SHE HAS TO TURN IT TO HIGH, SHE FEELS TOO MUCH STIMULATION OVER HER EXTREMITIES. FALL RISK SCREENING: SCREENING : NO FALLS REPORTED IN THE LAST YEAR. PAIN SCREENING: PATIENT HAS A COMPLAINT OF ACUTE OR CHRONIC PAIN :YES LOCATION OF PAIN:NECK BILATERAL SHOULDER BLADES INTENSITY OF PAIN (SCALE OF 1 TO 10):7 WHAT DOES YOUR PAIN FEEL LIKE:ACHING, SHARP DURATION:CONTINOUS, CONSTANT, STEADY, ALL DAY PAIN IS INCREASED BY:PROLONGED STANDING, OTHERS PROLONGED WALKING PAIN IS DECREASED BY:USE OF PAIN MEDICATIONS, OTHERS HEAT/ICE NURSING NOTE: -. PAIN CENTER INTAKE QUESTIONS: DO YOU HAVE A HISTORY OF MRSA? :NO DO YOU TAKE A BLOOD THINNERS? :NO DO YOU HAVE ANY BLEEDING DISORDERS? :NO ANY NEW NUMBNESS OR WEAKNESS IN YOUR LEGS OR ARMS? :NO ANY PACEMAKER,DEFIBRILLATOR, OR DORSAL COLUMN STIMULATOR? :YES DCS- AUGUST 2010 DO YOU HAVE ANY RASHES OR OPEN SORES? :NO ARE YOU ALLERGIC TO IV DYE? :NO ARE YOU DIABETIC? :NO ANY NEW PROBLEMS WITH YOUR MEDICATIONS? :NO HAVE YOU RECEIVED A VACCINE IN THE PAST 30 DAYS? :NO DO YOU PLAN TO RECEIVE A VACCINE IN THE NEXT 21 DAYS? :NO DO YOU NEED ANY PRESCRIPTION? :NO DO YOU TAKE ANY IMMUNOSUPPRESSIVE MEDICATIONS? :NO DO YOU HAVE ANY KIDNEY OR LIVER DISEASE? :NO IS THERE A CHANCE YOU COULD BE ? :NO ARE YOU BREAST FEEDING? :NO CURRENT MEDICATIONS TAKING MELOXICAM 15 MG TABLET 1 TABLET ORALLY ONCE A DAY TAKING FISH OIL 1200 MG CAPSULE 1 CAPSULE ORALLY ONCE A DAY TAKING ESTRADIOL 1 MG TABLET [address] BUSBY ORALLY ONCE A DAY TAKING LYSINE 500 MG TABLET 1 TABLET ORALLY TWICE DAILY TAKING BIOTIN 5000 MCG TABLET 1 TABLET ORALLY ONCE A DAY TAKING COLACE 100 MG CAPSULE 1 CAPSULE NEEDED ORALLY ONCE A DAY TAKING VITAMIN D3 5000 UNIT CAPSULE 2 CAPS ORALLY 5 DAYS A WEEK TAKING CALCIUM CITRATE PLUS TABLET 1 TAB ORALLY THREE TIMES DAILY TAKING FERROUS SULFATE 325 (65 FE) MG TABLET 1 TABLET ORALLY THREE TIMES A WEEK TAKING MULTIVITAMINS TABLET 1 TAB ORALLY DAILY TAKING MAGNESIUM-ZINC 133.33-5 MG TABLET 1 TABLET ORALLY TWICE A DAY TAKING VITAMIN B-12 500 MCG TABLET SUBLINGUAL 1 TABLET UNDER THE TONGUE AND ALLOW TO DISSOLVE SUBLINGUAL ONCE A DAY TAKING FOLIC ACID 1 MG TABLET 1 TABLET ORALLY ONCE A DAY TAKING OMEPRAZOLE 20 MG CAPSULE DELAYED RELEASE 1 CAP ORALLY TWICE A DAY TAKING NUCYNTA 50 MG TABLET 1 TABLET ORALLY Q8H PRN MDD3 TAKING CYMBALTA 30 MG CAPSULE DELAYED RELEASE PARTICLES 1 CAPSULE ORALLY BID TAKING HUMIRA PEN 40 MG/0.4ML PEN-INJECTOR KIT INJECT UNDER THE SKIN ONCE EVERY OTHER WEEK SUBCUTANEOUS EVERY OTHER WEEK TAKING METHOTREXATE SODIUM 2.5 MG TABLET 5 TABLETS DIRECTED ORALLY ONCE WEEKLY TAKING PLAQUENIL 200 MG TABLET 2 TAB ORALLY DAILY NOT-TAKING CINNAMON 500 MG CAPSULE 1 CAP ORALLY DAILY NOT-TAKING METHYLPREDNISOLONE 4 MG TABLET -1 1/2 TABLET ORALLY DAILY, NOTES: 06/28/20 NOT-TAKING NUCYNTA 50 MG TABLET 1 ORALLY NEEDED FOR PAIN Q8H MDD2 MEDICATION LIST REVIEWED AND RECONCILED WITH THE PATIENT PAST MEDICAL HISTORY CHRONIC PAIN: BACK, NECK, R SHOULDER- FOLLOWS WITH PAIN CLINIC, UNDER WORKER'S COMP ESOPHAGEAL REFLUX - (PULMONARY EVAL FOR COUGH NEG.) OBESITY ENVIRONMENTAL AND SEASONAL ALLERGIES RIGHT SHOULDER SURGERY OTHER DEPRESSION POLYARTHRITIS ALLERGIES RUBELLA VIRUS VACCINE: KNEES LOCKED - ALLERGY FOSAMAX: HAND SWELLING - ALLERGY CODEINE SULFATE: NAUSEA/VOMITING - SIDE EFFECTS VOLTAREN: BLOOD IN STOOL - ALLERGY T-DAP VACCINE: JOINT PAIN/SWELLING - ALLERGY SOCIAL HISTORY GENERAL: TOBACCO USE ARE YOU A:NONSMOKER LATEX QUESTIONNAIRE LATEX ALLERGY : HAVE YOU EVER DEVELOPED ANY TYPE OF REACTION AFTER HANDLING LATEX PRODUCTS SUCH RUBBER GLOVES, CONDOMS, DIAPHRAGMS, BALLOONS, SOCKS, OR UNDERWEAR?NO LATEX ALLERGY : HAVE YOU EVER DEVELOPED ANY TYPE OF REACTION DURING OR AFTER DENTAL APPOINTMENT, VAGINAL/RECTAL EXAMINATION, SURGICAL PROCEDURE, OR ANY OTHER EXPOSURE?NO LATEX RISK : HAVE YOU EVER HAD ANY DIFFICULTY BREATHING OR HIVES AFTER EATING OR HANDLING ANY FRUITS, OR VEGETABLES; SUCH KIWI, BANANAS, STONE FRUITS, OR CHESTNUTSNO LATEX RISK : DO YOU HAVE A PREVIOUS PERSONAL HISTORY OF MORE THAN NINE SURGERIES, SPINA BIFIDA, OR REPEATED CATHERIZATIONS? YES - PLEASE INDICATE : > 9 SURGERIES LATEX RISK : ARE YOU FREQUENTLY EXPOSED TO LATEX PRODUCTS IN YOUR OCCUPATION?NO DATE ASKED : 11/26/2020 ALCOHOL USE: NO. BMI CARE GOAL FOLLOW-UP ABOVE NORMAL BMI FOLLOW-UPGIVING ENCOURAGEMENT TO EXERCISE ALCOHOL SCREENING DID YOU HAVE A DRINK CONTAINING ALCOHOL IN THE PAST YEAR?NO POINTS0 INTERPRETATIONNEGATIVE RECREATIONAL DRUG USE DRUG USE?NO CAFFEINE CAFFEINE USE?YES VERY LITTLE SEXUAL HX HAD SEX IN THE LAST 12 MONTHS (VAGINAL, ORAL, OR ANAL)?NO HAVE YOU EVER HAD AN STD?NO HIV / HEP-C SCREENING HIV TEST OFFERED TO PATIENT:YES DATE OFFERED:03/21/2013 TEST ACCEPTED:YES HEP-C TEST OFFERED TO PATIENT:NO MOSQUE [id number] NONE LANGUAGE LANGUAGES SPOKEN:GABONESE EDUCATION 2 YEARS OF COLLEGE. LEARNING BARRIERS / SPECIAL NEEDS CHANGE FROM LAST VISIT?NO BARRIERS TO LEARNING?NO HEARING IMPAIRED?NO VISION IMPAIRED?YES :CORRECTIVE LENSES COGNITIVELY IMPAIRED?NO READINESS TO LEARN?YES LEARNING PREFERENCES?YES :TAPES/VIDEOS, BOOKLETS, HANDOUTS LEARNING CAPABILITIES PRESENT?YES EMOTIONAL BARRIERS?NO SPECIAL DEVICES?NO INTENSIVIST NEEDED?NO OCCUPATION: DISABLED. DIET: REGULAR BARIATRIC DIET CURRENTLY. EXERCISE: WALKING AND OCCASIONAL SNOWSHOEING. MARITAL STATUS: .. OTHERS AT HOME: FATHER, MOTHER. - PFS REFERRAL NEEDED?NO CLERGY REFERRAL NEEDED?NO PUBLIC HEALTH REFERRAL NEEDED?NO WAS THE PROVIDER NOTIFIED OF ANY PERTINENT INFO? N/A HAS THE PATIENT BEEN EDUCATED REGARDING HIS/HER PLAN OF CARE?YES HAS THE PATIENT BEEN EDUCATED REGARDING PAIN, THE RISK FOR PAIN, THE IMPORTANCE OF EFFECTIVE PAIN MANAGEMENT, AND THE PAIN ASSESSMENT PROCESS?YES HOUSING: PARENTS HOME. ADVANCE DIRECTIVE ADVANCE DIRECTIVE DISCUSSED WITH PATIENT:YES HCP IS PARENTS CARLIN PORTER [phone] REVIEW OF SYSTEMS CONSTITUTIONAL: ANY RECENT FEVER NO . CHILLS NO . WEIGHT CHANGE OF UNKNOWN REASONS NO . GASTROENTEROLOGY: NEW UNEXPLAINABLE CHANGES IN BOWEL CONTROL NO . CONSTIPATION NO . GENITOURINARY: ANY NEW CHANGE IN BLADDER CONTROL? NO . NEUROLOGY: NEW ONSET DIZZINESS OR NEUROLOGICAL CHANGES NOT MENTIONED NO . NEW NUMBNESS OR PAIN PATTERNS NOT MENTIONED AND PERTINENT TO TODAY'S VISIT NO . CARDIOLOGY: NEW CHEST PRESSURE NO . PATIENT DENIES NO . RESPIRATORY: UNEXPLAINABLE COUGH NO . NEW SHORTNESS OF BREATH NO . VITAL SIGNS WT 219.0 LBS, WT-KG 99.34 KG, HT 63 IN, BMI 38.79 INDEX, BP 159/88 MM HG, HR 75 /MIN, RR 18 /MIN, TEMP 98.1 F, OXYGEN SAT % 98%, SAFE IN ENV? (Y/N) YES, NA INITIALS AW 0959, REVIEWED BY: APA. SHRUTHI RN. EXAMINATION GENERAL: THE PATIENT IS ALERT, ORIENTED TIMES THREE AND COOPERATIVE. THERE IS TENDERNESS OVER THE CERVICAL FACET AREA BELOW THE SCAR WHICH WAS PRODUCED BY THE SPINAL COLUMN STIMULATOR. CT OF THE NECK DATED 04/02/2020 SHOWS SOME FACET ARTHROPATHY CHANGES. THERE IS EVIDENCE OF THE SPINAL COLUMN STIMULATOR PADDLE. ASSESSMENTS CERVICALGIA - M54.2 (PRIMARY) FACET ARTHROPATHY, CERVICAL - M47.812 TREATMENT CERVICALGIA CLINICAL NOTES: I DISCUSSED ALTERNATIVES WITH MS. PORTER. SHE FEELS THAT FOR NOW SHE IS OKAY AND THAT SHE CAN MANAGE THE SITUATION. SHE WILL FOLLOW UP NEXT AVAILABLE. SHE IS USING NUCYNTA. THE PATIENT FEELS THAT SHE DOES NOT NEED A REFILL. WHEN WE GIVE HER 55 TABLETS, THE PRESCRIPTION LASTS FOR HER FOR MANY MONTHS, SO SHE USES IT SPARINGLY. URINE TOX DATED 08/2020 SHOWS CONCORDANT RESULTS. SHE IS VERY CAREFUL WITH THE USE OF THE NUCYNTA. SHE IS GOING TO CONTACT WILLIE UPTON FROM [employer] ([employer]) TO PERFORM SOME ADJUSTMENTS OF THE SPINAL COLUMN STIMULATOR TO TRY TO GET BETTER COVERAGE WITH THE STIMULATOR I WILL FOLLOW UP WITH HER IN THE NEXT AVAILABLE. THE PATEINT REPORTS UNDERSTANDING AND AGREES WITH THE PLAN. I, CELESTE WOLFF, DOCUMENTED THE ABOVE INFORMATION ACTING A SCRIBE FOR DR. TEMPLE. I HAVE REVIEWED THE ABOVE DOCUMENT, WRITTEN BY CELESTE WOLFF, PERMIT COORDINATOR, AND I VERIFY THAT IT IS ACCURATE. PROCEDURES PN WORKMANS' COMP OPINION IN YOUR OPINION, WAS THE INCIDENT THAT THE PATIENT DESCRIBED THE COMPETENT MEDICAL CAUSE OF THIS INJURY/ILLNESS? YES ARE THE PATIENT'S COMPLAINTS CONSISTENT WITH HIS/HER HISTORY OF THE INJURY/ILLNESS? YES IS THE PATIENT'S HISTORY OF THE INJURY/ILLNESS CONSISTENT WITH YOUR OBJECTIVE FINDING? YES WHAT IS THE PERCENTAGE OF TEMPORARY IMPAIRMENT? MODERATE TO MARKED = 66.7% IS THE PATIENT WORKING? NO DOCTOR ON SITE: ILENE CHEW MD VISIT CODES PROCEDURE CODES FA211 ESTABILISHED PATIENT [facility] FACILITY CHARGE 68764 OFFICE/OUTPATIENT VISIT EST DISPOSITION & COMMUNICATION FOLLOW UP NEXT AVAILBLE (REASON: NECK PAIN) ELECTRONICALLY SIGNED BY ILENE TEMPLE MD, MD ON 12/22/2020 AT 07:17 PM EDT DISCLAIMER : THIS IS A VISIT SUMMARY EXTRACTED FROM THE [employer] CHART. IT IS NOT A COPY OF THE [employer] PROGRESS NOTE. AUDREY
== END ==
LOC: M PAIN 10:00
PROVIDERS: ATTEND Anesthesiology
DX: M54.2 Cervicalgia (principal); M47.812 Spondylosis without myelopathy or radiculopathy, cervical region; M25.511 Pain in right shoulder; K21.9 Gastro-esophageal reflux disease without esophagitis; E66.9 Obesity, unspecified; J30.2 Other seasonal allergic rhinitis; F32.89 Other specified depressive episodes; M15.9 Polyosteoarthritis, unspecified; Z79.899 Other long term (current) drug therapy; Z88.7 Allergy status to serum and vaccine; Z88.5 Allergy status to narcotic agent; Z88.8 Allergy status to other drugs, medicaments and biological substances; Z68.38 Body mass index [BMI] 38.0-38.9, adult

== ENCOUNTER → 2021-01-08 | Outpatient (CLI) | payer OTHER | LOC: M PAIN 09:00 | PROVIDERS: ATTEND Anesthesiology | DX: M96.1 Postlaminectomy syndrome, not elsewhere classified (principal); G89.29 Other chronic pain; M25.511 Pain in right shoulder; M54.2 Cervicalgia; K21.9 Gastro-esophageal reflux disease without esophagitis; E66.9 Obesity, unspecified; J30.2 Other seasonal allergic rhinitis; F32.89 Other specified depressive episodes; M15.9 Polyosteoarthritis, unspecified; Z68.38 Body mass index [BMI] 38.0-38.9, adult; Z79.1 Long term (current) use of non-steroidal anti-inflammatories (NSAID); Z79.899 Other long term (current) drug therapy; Z88.7 Allergy status to serum and vaccine; Z88.5 Allergy status to narcotic agent; Z88.8 Allergy status to other drugs, medicaments and biological substances ==

== ENCOUNTER → 2021-01-15 | Outpatient (REF) | payer MEDICARE ==
[2021-01-15 16:38] LABS: BASO # 0.1 10^3/uL (0.0-0.2); BASO % 1.5 % (0.0-1.0); EOS # 0.2 10^3/uL (0.0-0.5); EOS % 3.9 % (0.0-3.0); HEMOGLOBIN 13.5 g/dl (12.0-15.5); LYMPH # 1.5 10^3/uL (1.5-5.0); LYMPH % 36.3 % (24.0-44.0); MEAN CORPUSCULAR HEMOGLOBIN 32.5 pg (27.0-33.0); MEAN CORPUSCULAR HGB CONC 32.9 g/dl (32.0-36.5); MEAN CORPUSCULAR VOLUME 98.8 fl (80.0-96.0); MONO # 0.3 10^3/uL (0.0-0.8); MONO % 7.3 % (2.0-8.0); NEUTROPHILS # 2.1 10^3/uL (1.5-8.5); NEUTROPHILS % 50.5 % (36.0-66.0); PLATELET COUNT, AUTOMATED 221 10^3/uL (150-450); RED BLOOD COUNT 4.15 10^6/uL (4.00-5.40); WHITE BLOOD COUNT 4.1 10^3/uL (4.0-10.0)
== END ==
LOC: M SFHCRHEU 12:48
PROVIDERS: ATTEND Internal Medicine Rheumatology
DX: D72.819 Decreased white blood cell count, unspecified (principal)

== ENCOUNTER → 2021-02-24 | Outpatient (CLI) | payer MEDICARE ==
[2021-02-24 15:50] LABS: BASO # 0.1 10^3/uL (0.0-0.2); BASO % 1.4 % (0.0-1.0); EOS # 0.2 10^3/uL (0.0-0.5); HEMATOCRIT 44.2 % (36.0-47.0); HEMOGLOBIN 14.9 g/dl (12.0-15.5); LYMPH # 1.9 10^3/uL (1.5-5.0); LYMPH % 44.7 % (24.0-44.0); MEAN CORPUSCULAR HEMOGLOBIN 33.5 pg (27.0-33.0); MEAN CORPUSCULAR HGB CONC 33.7 g/dl (32.0-36.5); MEAN CORPUSCULAR VOLUME 99.3 fl (80.0-96.0); MONO # 0.3 10^3/uL (0.0-0.8); MONO % 7.7 % (2.0-8.0); NEUTROPHILS # 1.8 10^3/uL (1.5-8.5); PLATELET COUNT, AUTOMATED 237 10^3/uL (150-450); RED BLOOD COUNT 4.45 10^6/uL (4.00-5.40); WHITE BLOOD COUNT 4.3 10^3/uL (4.0-10.0)
[2021-02-24 16:26] LABS: ALBUMIN 3.6 GM/DL (3.2-5.2); BILIRUBIN,TOTAL 0.4 MG/DL (0.2-1.0); C REACTIVE PROTEIN QUANTITATIV 0.3 MG/DL (0.00-0.30); CALCIUM LEVEL 9.6 MG/DL (8.5-10.1); CREATININE FOR GFR 1.11 MG/DL (0.55-1.30); GLOMERULAR FILTRATION RATE 53.6 (>51); POTASSIUM SERUM 4.8 MEQ/L (3.5-5.1); TOTAL PROTEIN 7.4 GM/DL (6.4-8.2)
[2021-02-24 17:00] LABS: ERYTHROCYTE SEDIMENTATION RATE 5 mm/hr (0-30)
== END ==
LOC: M PLALAB 11:58
PROVIDERS: ATTEND Internal Medicine Rheumatology
DX: M06.4 Inflammatory polyarthropathy (principal)

== ENCOUNTER → 2021-03-12 | Outpatient (CLI) | payer OTHER | LOC: M PAIN 11:30 | PROVIDERS: ATTEND Anesthesiology | DX: M47.812 Spondylosis without myelopathy or radiculopathy, cervical region (principal); Z79.891 Long term (current) use of opiate analgesic; G89.29 Other chronic pain; K21.9 Gastro-esophageal reflux disease without esophagitis; E66.9 Obesity, unspecified; J30.2 Other seasonal allergic rhinitis; F32.89 Other specified depressive episodes; M15.9 Polyosteoarthritis, unspecified; Z68.38 Body mass index [BMI] 38.0-38.9, adult; Z88.7 Allergy status to serum and vaccine; Z88.5 Allergy status to narcotic agent; Z88.8 Allergy status to other drugs, medicaments and biological substances; Z79.1 Long term (current) use of non-steroidal anti-inflammatories (NSAID); Z79.899 Other long term (current) drug therapy ==

== ENCOUNTER → 2021-04-30 | Outpatient (CLI) | payer OTHER, MEDICARE ==
--- NOTE | 2021-04-30 10:20 | REPMRS ---
Patient History The patient states she had a clinical breast exam in January 2021. Patient is postmenopausal and is nulliparous. Family history of prostate cancer at age 50 or over in paternal uncle, prostate cancer at age 50 or over in paternal uncle, endometrial cancer at age 50 or over in paternal grandmother. US Guided Breast Biopsy of the left breast, May 07, 2014. Reductions of both breasts, 2000. Took hormonal contraceptives for 4 years. Taking unspecified hormones for 11 years. Patient states no breast complaints today. Patient has signed MRS History Sheet. Digital Woman Screen Mammo: April 30, 2021 - Exam #: [id number] Bilateral CC and MLO view(s) were taken. Technologist: Alysha Isabel, Technologist Prior study comparison: April 29, 2020, bilateral digital woman screen mammo performed at [facility]. April 24, 2019, bilateral digital woman screen mammo performed at [facility]. FINDINGS: The breast tissue is almost entirely fat. Screening. Digital screening (2D) mammography was performed bilaterally in the CC and MLO projections. Additionally, breast tomosynthesis (3D mammography) was performed bilaterally in the CC and MLO projections. Todays exam was compared to the prior exam/exams. By history, the patient has no complaints of a palpable breast abnormality or other significant breast complaints. The breasts are unchanged in size and shape. There are no mayela-soft tissue densities or spiculated masses. There is no internal architectural distortion. There are no suspicious mayela-calcific clusters. Skin thickening or nipple retraction is not present. IMPRESSION: BI-RADS Category 2- Benign Findings. There is no evidence of malignant alteration of the breasts. Followup examination recommended in one year. The Volpara volumetric breast density category is A, the breasts are almost entirely fatty. This mammogram was read with the assistance of [employer],an FDA approved computer aided detection system for mammography. The lifetime Tyrer-Cuzick score is 7.8 % Negative x-ray reports should not delay surgical consultation if a dominant or clinically suspicious mass is present. Not all breast cancers can be identified by mammography. Therefore, we recommend that you continue to perform regular breast self-examination and physical examination and then promptly contact your physician of any concerns or changes. Adenosis and dense breasts may obscure an underlying neoplasm. Assessment: BI-RADS/ACR category 2 mammogram. Benign Findings. Recommendation Routine screening mammogram of both breasts in 1 year. Electronically Signed By: Osbaldo Elise DO 04/30/21 0365
== END ==
LOC: M WHC 09:33
PROVIDERS: ATTEND Obstetrics & Gynecology
DX: Z12.31 Encounter for screening mammogram for malignant neoplasm of breast (principal)

== ENCOUNTER → 2021-06-16 | Outpatient (CLI) | payer MEDICARE ==
[2021-06-16 13:37] LABS: BASO # 0.1 10^3/uL (0.0-0.2); BASO % 1.1 % (0.0-1.0); EOS # 0.3 10^3/uL (0.0-0.5); EOS % 5.7 % (0.0-3.0); HEMATOCRIT 43.5 % (36.0-47.0); HEMOGLOBIN 14.5 g/dl (12.0-15.5); LYMPH # 1.9 10^3/uL (1.5-5.0); LYMPH % 44.1 % (24.0-44.0); MEAN CORPUSCULAR HEMOGLOBIN 33.2 pg (27.0-33.0); MEAN CORPUSCULAR HGB CONC 33.3 g/dl (32.0-36.5); MEAN CORPUSCULAR VOLUME 99.5 fl (80.0-96.0); MONO # 0.4 10^3/uL (0.0-0.8); MONO % 9.4 % (2.0-8.0); NEUTROPHILS # 1.7 10^3/uL (1.5-8.5); NEUTROPHILS % 39.5 % (36.0-66.0); PLATELET COUNT, AUTOMATED 222 10^3/uL (150-450); RED BLOOD COUNT 4.37 10^6/uL (4.00-5.40); WHITE BLOOD COUNT 4.4 10^3/uL (4.0-10.0)
[2021-06-16 14:17] LABS: ALBUMIN 3.7 GM/DL (3.2-5.2); BILIRUBIN,TOTAL 0.4 MG/DL (0.2-1.0); C REACTIVE PROTEIN QUANTITATIV 0.3 MG/DL (0.00-0.30); CALCIUM LEVEL 9.4 MG/DL (8.8-10.2); CREATININE FOR GFR 1.08 MG/DL (0.55-1.30); GLOMERULAR FILTRATION RATE 55.1 (>45); POTASSIUM SERUM 4.5 MEQ/L (3.5-5.1)
[2021-06-16 14:31] LABS: ERYTHROCYTE SEDIMENTATION RATE 8 mm/hr (0-30)
== END ==
LOC: M PLALAB 09:20
PROVIDERS: ATTEND Internal Medicine Rheumatology
DX: Z79.899 Other long term (current) drug therapy (principal)

== ENCOUNTER → 2021-07-09 | Outpatient (CLI) | payer MEDICARE ==
[2021-07-09 10:59] LABS: CHOLESTEROL RISK RATIO 2.516 (<5); FREE T4 0.84 NG/DL (0.76-1.46); THYROID STIMULATING HORMONE 2.53 uIU/ML (0.358-3.740)
== END ==
LOC: M PLALAB 08:26
PROVIDERS: ATTEND Physician Assistant
DX: E66.9 Obesity, unspecified (principal); Z68.39 Body mass index [BMI] 39.0-39.9, adult; E07.9 Disorder of thyroid, unspecified

== ENCOUNTER → 2021-07-09 | Outpatient (CLI) | payer MEDICARE ==
[2021-07-09 10:21] LABS: BASO # 0.1 10^3/uL (0.0-0.2); EOS # 0.2 10^3/uL (0.0-0.5); EOS % 4.6 % (0.0-3.0); HEMATOCRIT 43.3 % (36.0-47.0); HEMOGLOBIN 14.8 g/dl (12.0-15.5); LYMPH # 2.1 10^3/uL (1.5-5.0); LYMPH % 42.4 % (24.0-44.0); MEAN CORPUSCULAR HEMOGLOBIN 33.2 pg (27.0-33.0); MEAN CORPUSCULAR HGB CONC 34.2 g/dl (32.0-36.5); MEAN CORPUSCULAR VOLUME 97.1 fl (80.0-96.0); MONO # 0.4 10^3/uL (0.0-0.8); MONO % 8.3 % (2.0-8.0); NEUTROPHILS # 2.2 10^3/uL (1.5-8.5); NEUTROPHILS % 43.5 % (36.0-66.0); PLATELET COUNT, AUTOMATED 220 10^3/uL (150-450); RED BLOOD COUNT 4.46 10^6/uL (4.00-5.40)
[2021-07-09 10:47] LABS: ERYTHROCYTE SEDIMENTATION RATE 7 mm/hr (0-30)
[2021-07-09 11:02] LABS: ALBUMIN 3.6 GM/DL (3.2-5.2); BILIRUBIN,TOTAL 0.4 MG/DL (0.2-1.0); C REACTIVE PROTEIN QUANTITATIV 0.3 MG/DL (0.00-0.30); CALCIUM LEVEL 9.7 MG/DL (8.8-10.2); CREATININE FOR GFR 1.07 MG/DL (0.55-1.30); GLOMERULAR FILTRATION RATE 55.7 (>45); POTASSIUM SERUM 4.2 MEQ/L (3.5-5.1); TOTAL PROTEIN 7.2 GM/DL (6.4-8.2)
== END ==
LOC: M PLAIMG 08:29
PROVIDERS: ATTEND Internal Medicine Rheumatology
DX: M06.4 Inflammatory polyarthropathy (principal); E66.9 Obesity, unspecified; E07.9 Disorder of thyroid, unspecified; Z68.39 Body mass index [BMI] 39.0-39.9, adult

== ENCOUNTER → 2021-07-11 | Outpatient (CLI) | payer OTHER, MEDICARE | LOC: M PAIN 14:15 | PROVIDERS: ATTEND Anesthesiology | DX: M47.812 Spondylosis without myelopathy or radiculopathy, cervical region (principal); E78.00 Pure hypercholesterolemia, unspecified; K21.9 Gastro-esophageal reflux disease without esophagitis; E66.9 Obesity, unspecified; J30.2 Other seasonal allergic rhinitis; F32.A Depression, unspecified; Z88.7 Allergy status to serum and vaccine; Z88.5 Allergy status to narcotic agent; Z88.8 Allergy status to other drugs, medicaments and biological substances; Z79.899 Other long term (current) drug therapy; Z68.39 Body mass index [BMI] 39.0-39.9, adult ==

== ENCOUNTER → 2021-08-25 | Outpatient (CLI) | payer MEDICARE, OTHER ==
[2021-08-25 11:03] LABS: BASO # 0.1 10^3/uL (0.0-0.2); BASO % 1.1 % (0.0-1.0); EOS # 0.2 10^3/uL (0.0-0.5); HEMATOCRIT 39.7 % (36.0-47.0); HEMOGLOBIN 13.4 g/dl (12.0-15.5); LYMPH # 2.2 10^3/uL (1.5-5.0); MEAN CORPUSCULAR HEMOGLOBIN 33.2 pg (27.0-33.0); MEAN CORPUSCULAR HGB CONC 33.8 g/dl (32.0-36.5); MEAN CORPUSCULAR VOLUME 98.3 fl (80.0-96.0); MONO # 0.4 10^3/uL (0.0-0.8); MONO % 8.4 % (2.0-8.0); NEUTROPHILS # 1.5 10^3/uL (1.5-8.5); NEUTROPHILS % 35.3 % (36.0-66.0); PLATELET COUNT, AUTOMATED 209 10^3/uL (150-450); RED BLOOD COUNT 4.04 10^6/uL (4.00-5.40); WHITE BLOOD COUNT 4.4 10^3/uL (4.0-10.0)
[2021-08-25 11:04] LABS: ALBUMIN 3.5 GM/DL (3.2-5.2); BILIRUBIN,TOTAL 0.6 MG/DL (0.2-1.0); C REACTIVE PROTEIN QUANTITATIV 0.3 MG/DL (0.00-0.30); CALCIUM LEVEL 9.4 MG/DL (8.8-10.2); CREATININE FOR GFR 1.15 MG/DL (0.55-1.30); GLOMERULAR FILTRATION RATE 51.2 (>45); POTASSIUM SERUM 4.5 MEQ/L (3.5-5.1); TOTAL PROTEIN 6.8 GM/DL (6.4-8.2)
[2021-08-25 11:45] LABS: ERYTHROCYTE SEDIMENTATION RATE 7 mm/hr (0-30)
== END ==
LOC: M PLALAB 08:19
PROVIDERS: ATTEND Internal Medicine Rheumatology
DX: M06.4 Inflammatory polyarthropathy (principal); Z79.899 Other long term (current) drug therapy; M79.7 Fibromyalgia; M89.49 Other hypertrophic osteoarthropathy, multiple sites

== ENCOUNTER → 2021-09-04 | Outpatient (CLI) | payer OTHER ==
[2021-09-04 13:50] LABS: APPEARANCE, URINE HAZY (CLEAR); BACTERIA, URINE AUTO NEGATIVE (NEGATIVE); BILIRUBIN, URINE AUTO NEGATIVE (NEGATIVE); BLOOD, URINE BLOOD NEGATIVE (NEGATIVE); COLOR, URINE AMBER (YELLOW); GLUCOSE, URINE (UA) AUTO NEGATIVE (NEGATIVE); KETONE, URINE AUTO NEGATIVE (NEGATIVE); LEUKOCYTE ESTERASE, URINE AUTO NEGATIVE (NEGATIVE); MUCUS, URINE SMALL (NEGATIVE); NITRITE, URINE AUTO NEGATIVE (NEGATIVE); PROTEIN, URINE AUTO 1+ mg/dL (NEGATIVE); RBC, URINE AUTO 1 /HPF (0-3); SPECIFIC GRAVITY URINE AUTO 1.034 (1.002-1.035); SQUAMOUS EPITHELIAL CELL UR AU 2 /HPF (0-6); WBC, URINE AUTO 1 /HPF (0-3)
[2021-09-04 13:55] LABS: BASO # 0.1 10^3/uL (0.0-0.2); BASO % 1.2 % (0.0-1.0); EOS # 0.1 10^3/uL (0.0-0.5); EOS % 1.8 % (0.0-3.0); HEMATOCRIT 40.7 % (36.0-47.0); HEMOGLOBIN 13.8 g/dl (12.0-15.5); LYMPH # 1.7 10^3/uL (1.5-5.0); LYMPH % 33.6 % (24.0-44.0); MEAN CORPUSCULAR HEMOGLOBIN 33.7 pg (27.0-33.0); MEAN CORPUSCULAR HGB CONC 33.9 g/dl (32.0-36.5); MEAN CORPUSCULAR VOLUME 99.5 fl (80.0-96.0); MONO # 0.4 10^3/uL (0.0-0.8); MONO % 7.2 % (2.0-8.0); NEUTROPHILS # 2.9 10^3/uL (1.5-8.5); PLATELET COUNT, AUTOMATED 216 10^3/uL (150-450); RED BLOOD COUNT 4.09 10^6/uL (4.00-5.40); WHITE BLOOD COUNT 5.1 10^3/uL (4.0-10.0)
[2021-09-04 14:03] LABS: INR 0.94; PARTIAL THROMBOPLASTIN TIME 28.6 SECONDS (25.9-37.0)
[2021-09-04 14:20] LABS: CALCIUM LEVEL 10.7 MG/DL (8.8-10.2); CREATININE FOR GFR 1.09 MG/DL (0.55-1.30); GLOMERULAR FILTRATION RATE 54.5 (>45)
== END ==
LOC: M PLALAB 11:23
PROVIDERS: ATTEND Physician Assistant
DX: Z01.818 Encounter for other preprocedural examination (principal)

== ENCOUNTER → 2021-12-30 | Outpatient (CLI) | payer MEDICARE ==
[2021-12-30 10:36] LABS: BASO % 1.1 % (0.0-1.0); EOS # 0.2 10^3/uL (0.0-0.5); EOS % 5.1 % (0.0-3.0); HEMATOCRIT 42.3 % (36.0-47.0); HEMOGLOBIN 14.5 g/dl (12.0-15.5); LYMPH # 1.9 10^3/uL (1.5-5.0); LYMPH % 51.2 % (24.0-44.0); MEAN CORPUSCULAR HEMOGLOBIN 33.4 pg (27.0-33.0); MEAN CORPUSCULAR HGB CONC 34.3 g/dl (32.0-36.5); MEAN CORPUSCULAR VOLUME 97.5 fl (80.0-96.0); MONO # 0.3 10^3/uL (0.0-0.8); MONO % 8.9 % (2.0-8.0); NEUTROPHILS # 1.2 10^3/uL (1.5-8.5); NEUTROPHILS % 33.4 % (36.0-66.0); PLATELET COUNT, AUTOMATED 211 10^3/uL (150-450); RED BLOOD COUNT 4.34 10^6/uL (4.00-5.40); WHITE BLOOD COUNT 3.7 10^3/uL (4.0-10.0)
[2021-12-30 10:56] LABS: ERYTHROCYTE SEDIMENTATION RATE 6 mm/hr (0-30)
[2021-12-30 11:16] LABS: ALBUMIN 3.7 GM/DL (3.2-5.2); BILIRUBIN,TOTAL 0.4 MG/DL (0.2-1.0); C REACTIVE PROTEIN QUANTITATIV 0.37 MG/DL (0.00-0.30); CALCIUM LEVEL 9.7 MG/DL (8.8-10.2); CREATININE FOR GFR 1.06 MG/DL (0.55-1.30); GLOMERULAR FILTRATION RATE 56.3 (>45); POTASSIUM SERUM 4.4 MEQ/L (3.5-5.1); TOTAL PROTEIN 7.3 GM/DL (6.4-8.2)
== END ==
LOC: M PLALAB 08:37
PROVIDERS: ATTEND Nurse Practitioner Family
DX: M06.4 Inflammatory polyarthropathy (principal); M79.7 Fibromyalgia; R76.8 Other specified abnormal immunological findings in serum; M89.49 Other hypertrophic osteoarthropathy, multiple sites; Z79.899 Other long term (current) drug therapy

== ENCOUNTER → 2022-01-06 | Outpatient (REF) | payer MEDICARE ==
[2022-01-06 11:52] LABS: BASO % 1.3 % (0.0-1.0); EOS # 0.1 10^3/uL (0.0-0.5); EOS % 4.1 % (0.0-3.0); HEMATOCRIT 40.2 % (36.0-47.0); HEMOGLOBIN 13.5 g/dl (12.0-15.5); LYMPH # 1.4 10^3/uL (1.5-5.0); LYMPH % 44.3 % (24.0-44.0); MEAN CORPUSCULAR HEMOGLOBIN 32.9 pg (27.0-33.0); MEAN CORPUSCULAR HGB CONC 33.6 g/dl (32.0-36.5); MONO # 0.3 10^3/uL (0.0-0.8); MONO % 9.1 % (2.0-8.0); NEUTROPHILS # 1.3 10^3/uL (1.5-8.5); NEUTROPHILS % 40.9 % (36.0-66.0); PLATELET COUNT, AUTOMATED 209 10^3/uL (150-450); WHITE BLOOD COUNT 3.2 10^3/uL (4.0-10.0)
== END ==
LOC: M SFHCRHEU 10:15
PROVIDERS: ATTEND Internal Medicine Rheumatology
DX: M06.4 Inflammatory polyarthropathy (principal); R76.8 Other specified abnormal immunological findings in serum; M89.49 Other hypertrophic osteoarthropathy, multiple sites; Z79.899 Other long term (current) drug therapy; M79.7 Fibromyalgia; D70.8 Other neutropenia

== ENCOUNTER 2022-01-22 11:25 | Emergency (ER) | payer MEDICARE ==
[~2022-01-22] VITALS: Ht 160 cm; Wt 96.4 kg
[~2022-01-22 11:25] MED LIST changes: +guaiFENesin ER 600 MG TAB PO SCH
[2022-01-22 12:05] LABS: BASO # 0.1 10^3/uL (0.0-0.2); BASO % 1.3 % (0.0-1.0); EOS # 0.1 10^3/uL (0.0-0.5); EOS % 2.6 % (0.0-3.0); HEMATOCRIT 42.2 % (36.0-47.0); HEMOGLOBIN 14.3 g/dl (12.0-15.5); LYMPH # 1.9 10^3/uL (1.5-5.0); LYMPH % 40.4 % (24.0-44.0); MEAN CORPUSCULAR HEMOGLOBIN 32.8 pg (27.0-33.0); MEAN CORPUSCULAR HGB CONC 33.9 g/dl (32.0-36.5); MEAN CORPUSCULAR VOLUME 96.8 fl (80.0-96.0); MONO # 0.4 10^3/uL (0.0-0.8); MONO % 8.1 % (2.0-8.0); NEUTROPHILS # 2.2 10^3/uL (1.5-8.5); NEUTROPHILS % 47.4 % (36.0-66.0); PLATELET COUNT, AUTOMATED 242 10^3/uL (150-450); RED BLOOD COUNT 4.36 10^6/uL (4.00-5.40); WHITE BLOOD COUNT 4.6 10^3/uL (4.0-10.0)
[2022-01-22] MEDS ORDERED: COMBIVENT RESPIMAT 100-20MCG INHALER 4GM INH SCH (12:15)
[2022-01-22] MEDS ORDERED: BENZONATATE 100MG CAPSULE PO ONE (12:15)
[2022-01-22 12:51] LABS: ALBUMIN 3.7 GM/DL (3.2-5.2); BILIRUBIN,DIRECT 0.1 MG/DL (0.0-0.2); BILIRUBIN,TOTAL 0.4 MG/DL (0.2-1.0); CALCIUM LEVEL 9.8 MG/DL (8.8-10.2); CREATININE FOR GFR 1.01 MG/DL (0.55-1.30); GLOMERULAR FILTRATION RATE 59.5 (>45); POTASSIUM SERUM 4.5 MEQ/L (3.5-5.1); TOTAL PROTEIN 7.6 GM/DL (6.4-8.2)
[2022-01-22] MEDS ORDERED: IPRAINH INH (14:02)
[2022-01-22] MEDS ORDERED: MUCI1TAB16 PO (14:02)
[2022-01-22] MEDS ORDERED: BENZ200C70 PO (14:02)
[2022-01-22 14:16] VITALS: BP 130/82
== END 2022-01-22 14:18 | disposition home or self-care (01) ==
LOC: M ED 11:25
DX: U07.1 COVID-19 (principal); M06.9 Rheumatoid arthritis, unspecified; M19.90 Unspecified osteoarthritis, unspecified site; Z96.82 Presence of neurostimulator; Z98.84 Bariatric surgery status; Z79.899 Other long term (current) drug therapy; Z79.82 Long term (current) use of aspirin; Z79.890 Hormone replacement therapy; Z79.891 Long term (current) use of opiate analgesic; Z88.7 Allergy status to serum and vaccine; Z88.5 Allergy status to narcotic agent; Z88.8 Allergy status to other drugs, medicaments and biological substances

== ENCOUNTER → 2022-02-10 | Outpatient (CLI) | payer OTHER ==
[~2022-02-10] MED LIST changes: +BENZ200C70 PO; +IPRAINH INH; +MUCI1TAB16 PO; -guaiFENesin ER 600 MG TAB PO SCH
== END ==
LOC: M PAIN 13:30
PROVIDERS: ATTEND Anesthesiology
DX: M54.2 Cervicalgia (principal); M96.1 Postlaminectomy syndrome, not elsewhere classified; K21.9 Gastro-esophageal reflux disease without esophagitis; Z96.89 Presence of other specified functional implants; Z86.59 Personal history of other mental and behavioral disorders; Z88.5 Allergy status to narcotic agent; Z88.6 Allergy status to analgesic agent; Z88.7 Allergy status to serum and vaccine; Z88.8 Allergy status to other drugs, medicaments and biological substances; Z79.899 Other long term (current) drug therapy
CPT/HCPCS: 76000; G0463

== ENCOUNTER → 2022-02-11 | Outpatient (CLI) | payer MEDICARE | LOC: M ADAMS 14:43 | PROVIDERS: ATTEND Physician Assistant | DX: R05.3 Chronic cough (principal) ==

== ENCOUNTER → 2022-02-23 | Outpatient (CLI) | payer MEDICARE ==
[2022-02-23 14:37] LABS: BASO # 0.1 10^3/uL (0.0-0.2); BASO % 1.3 % (0.0-1.0); EOS # 0.2 10^3/uL (0.0-0.5); EOS % 4.8 % (0.0-3.0); HEMATOCRIT 44.1 % (36.0-47.0); HEMOGLOBIN 14.4 g/dl (12.0-15.5); LYMPH # 1.7 10^3/uL (1.5-5.0); LYMPH % 43.9 % (24.0-44.0); MEAN CORPUSCULAR HEMOGLOBIN 33.2 pg (27.0-33.0); MEAN CORPUSCULAR HGB CONC 32.7 g/dl (32.0-36.5); MEAN CORPUSCULAR VOLUME 101.6 fl (80.0-96.0); MONO # 0.3 10^3/uL (0.0-0.8); MONO % 8.3 % (2.0-8.0); NEUTROPHILS # 1.6 10^3/uL (1.5-8.5); NEUTROPHILS % 41.4 % (36.0-66.0); PLATELET COUNT, AUTOMATED 243 10^3/uL (150-450); RED BLOOD COUNT 4.34 10^6/uL (4.00-5.40)
[2022-02-23 15:11] LABS: ERYTHROCYTE SEDIMENTATION RATE 12 mm/hr (0-30)
[2022-02-23 15:16] LABS: ALBUMIN 3.8 GM/DL (3.2-5.2); BILIRUBIN,TOTAL 0.4 MG/DL (0.2-1.0); C REACTIVE PROTEIN QUANTITATIV 0.32 MG/DL (0.00-0.30); CALCIUM LEVEL 10.1 MG/DL (8.8-10.2); CREATININE FOR GFR 1.06 MG/DL (0.55-1.30); GLOMERULAR FILTRATION RATE 56.3 (>45); POTASSIUM SERUM 4.8 MEQ/L (3.5-5.1); TOTAL PROTEIN 7.5 GM/DL (6.4-8.2)
== END ==
LOC: M PLALAB 11:04
PROVIDERS: ATTEND Internal Medicine Rheumatology
DX: M06.4 Inflammatory polyarthropathy (principal); R76.8 Other specified abnormal immunological findings in serum; M89.49 Other hypertrophic osteoarthropathy, multiple sites; D70.8 Other neutropenia; Z79.899 Other long term (current) drug therapy

== ENCOUNTER → 2022-03-06 | Outpatient (CLI) | payer OTHER | LOC: M PAIN 09:00 | PROVIDERS: ATTEND Anesthesiology | DX: M47.812 Spondylosis without myelopathy or radiculopathy, cervical region (principal); E78.00 Pure hypercholesterolemia, unspecified; K21.9 Gastro-esophageal reflux disease without esophagitis; E66.9 Obesity, unspecified; J30.2 Other seasonal allergic rhinitis; F32.89 Other specified depressive episodes; M15.9 Polyosteoarthritis, unspecified; G89.29 Other chronic pain; Z79.1 Long term (current) use of non-steroidal anti-inflammatories (NSAID); Z79.891 Long term (current) use of opiate analgesic; Z79.899 Other long term (current) drug therapy; Z88.7 Allergy status to serum and vaccine; Z88.5 Allergy status to narcotic agent; Z88.8 Allergy status to other drugs, medicaments and biological substances ==

== ENCOUNTER → 2022-03-22 | Outpatient (CLI) | payer MEDICARE | LOC: M LABSMTC 10:07 | PROVIDERS: ATTEND Anesthesiology | DX: Z01.812 Encounter for preprocedural laboratory examination (principal); Z11.52 Encounter for screening for COVID-19 ==

== ENCOUNTER → 2022-04-05 | Outpatient (CLI) | payer MEDICARE ==
[~2022-04-05] MED LIST changes: +HUMI40IN2; +MAGN400C PO; +METH2.5T48
== END ==
LOC: M LABSMTC 11:11
PROVIDERS: ATTEND Anesthesiology
DX: Z01.812 Encounter for preprocedural laboratory examination (principal); Z20.822 Contact with and (suspected) exposure to COVID-19

== ENCOUNTER 2022-04-09 08:46 | Day surgery (SDC) | payer MEDICARE ==
[~2022-04-09] VITALS: Ht 160 cm; Wt 92.4 kg
[~2022-04-09 08:46] MED LIST changes: +NS 1,000 ML IV ONE
[2022-04-09] MEDS ORDERED: propofoL 200 MG/20 ML VIAL As Ordered ONE (10:53)
[2022-04-09 11:20] VITALS: BP 125/84
== END 2022-04-09 11:23 | disposition home or self-care (01) ==
LOC: M OPP 08:46
PROVIDERS: ATTEND Surgery
DX: Z12.11 Encounter for screening for malignant neoplasm of colon (principal); K63.89 Other specified diseases of intestine; Z79.899 Other long term (current) drug therapy; Z88.5 Allergy status to narcotic agent; Z88.7 Allergy status to serum and vaccine; Z88.8 Allergy status to other drugs, medicaments and biological substances; I10 Essential (primary) hypertension; K21.9 Gastro-esophageal reflux disease without esophagitis; E32.9 Disease of thymus, unspecified; F41.9 Anxiety disorder, unspecified; Z96.82 Presence of neurostimulator

== ENCOUNTER → 2022-05-01 | Outpatient (CLI) | payer MEDICARE ==
[~2022-05-01] MED LIST changes: -NS 1,000 ML IV ONE
== END ==
LOC: M WHC 10:10
PROVIDERS: ATTEND Obstetrics & Gynecology
DX: Z12.31 Encounter for screening mammogram for malignant neoplasm of breast (principal)

== ENCOUNTER → 2022-05-11 | Outpatient (CLI) | payer OTHER ==
[~2022-05-11] MED LIST changes: +ISOVUE-M 300 61% 15ML VIAL As Ordered ONE
[2022-05-11 11:57] VITALS: BP 134/76
== END ==
LOC: M IRPRO 08:23
PROVIDERS: ATTEND Orthopaedic Surgery Orthopaedic Surgery of the Spine
DX: M47.892 Other spondylosis, cervical region (principal)

== ENCOUNTER → 2022-05-14 | Outpatient (CLI) | payer MEDICARE ==
[~2022-05-14] MED LIST changes: -ISOVUE-M 300 61% 15ML VIAL As Ordered ONE
== END ==
LOC: M RAD 07:34
PROVIDERS: ATTEND Podiatrist
DX: M77.41 Metatarsalgia, right foot (principal); M79.671 Pain in right foot; S92.344A Nondisplaced fracture of fourth metatarsal bone, right foot, initial encounter for closed fracture; W18.30XA Fall on same level, unspecified, initial encounter; Y92.009 Unspecified place in unspecified non-institutional (private) residence as the place of occurrence of the external cause
CPT/HCPCS: 78315; A9503

== ENCOUNTER → 2022-05-15 | Outpatient (CLI) | payer OTHER | LOC: M PAIN 15:15 | PROVIDERS: ATTEND Anesthesiology | DX: M47.812 Spondylosis without myelopathy or radiculopathy, cervical region (principal); G89.29 Other chronic pain; Z96.89 Presence of other specified functional implants; K21.9 Gastro-esophageal reflux disease without esophagitis; Z86.59 Personal history of other mental and behavioral disorders; Z88.5 Allergy status to narcotic agent; Z88.6 Allergy status to analgesic agent; Z88.7 Allergy status to serum and vaccine; Z88.8 Allergy status to other drugs, medicaments and biological substances; Z79.899 Other long term (current) drug therapy ==

== ENCOUNTER → 2022-05-19 | Outpatient (CLI) | payer MEDICARE ==
[2022-05-19 13:16] LABS: BASO # 0.1 10^3/uL (0.0-0.2); BASO % 1.1 % (0.0-1.0); EOS # 0.1 10^3/uL (0.0-0.5); EOS % 2.7 % (0.0-3.0); HEMATOCRIT 43.4 % (36.0-47.0); HEMOGLOBIN 14.2 g/dl (12.0-15.5); LYMPH # 1.8 10^3/uL (1.5-5.0); LYMPH % 41.7 % (24.0-44.0); MEAN CORPUSCULAR HEMOGLOBIN 32.3 pg (27.0-33.0); MEAN CORPUSCULAR HGB CONC 32.7 g/dl (32.0-36.5); MEAN CORPUSCULAR VOLUME 98.9 fl (80.0-96.0); MONO # 0.3 10^3/uL (0.0-0.8); MONO % 6.6 % (2.0-8.0); NEUTROPHILS # 2.1 10^3/uL (1.5-8.5); NEUTROPHILS % 47.7 % (36.0-66.0); PLATELET COUNT, AUTOMATED 201 10^3/uL (150-450); RED BLOOD COUNT 4.39 10^6/uL (4.00-5.40); WHITE BLOOD COUNT 4.4 10^3/uL (4.0-10.0)
[2022-05-19 13:26] LABS: ERYTHROCYTE SEDIMENTATION RATE 12 mm/hr (0-30)
[2022-05-19 13:45] LABS: C REACTIVE PROTEIN QUANTITATIV < 0.40 MG/DL (<1.0)
[2022-05-19 13:46] LABS: ALBUMIN 3.9 G/DL (3.2-5.2); ALKALINE PHOSPHATASE 81 U/L (46-116); ALT/SGPT 22 U/L (7.0-40); AST/SGOT 24 U/L (<34); BILIRUBIN,TOTAL 0.4 MG/DL (0.3-1.2); BLOOD UREA NITROGEN 19 MG/DL (9-23); CALCIUM LEVEL 10.1 MG/DL (8.3-10.6); CARBON DIOXIDE LEVEL 28 MMOL/L (20-31); CHLORIDE LEVEL 106 MMOL/L (98-107); CREATININE FOR GFR 1.01 MG/DL (0.55-1.30); GLOMERULAR FILTRATION RATE 59.5 (>45); GLUCOSE, FASTING 118 MG/DL (74-106); POTASSIUM SERUM 4.2 MMOL/L (3.5-5.1); SODIUM LEVEL 140 MMOL/L (136-145); TOTAL PROTEIN 7.3 G/DL (5.7-8.2)
== END ==
LOC: M PLALAB 10:55
PROVIDERS: ATTEND Internal Medicine Rheumatology
DX: M06.4 Inflammatory polyarthropathy (principal)

== ENCOUNTER → 2022-05-25 | Outpatient (CLI) | payer OTHER, MEDICARE | LOC: M LABSMTC 10:43 | PROVIDERS: ATTEND Anesthesiology | DX: Z01.812 Encounter for preprocedural laboratory examination (principal); Z11.52 Encounter for screening for COVID-19 ==

== ENCOUNTER → 2022-05-29 | Outpatient (CLI) | payer OTHER ==
[~2022-05-29] MED LIST changes: +BUPIVACAINE HCL 0.25% 30ML VIAL As Ordered ONE; +ISOVUE-M 300 61% 15ML VIAL As Ordered ONE; +LIDOCAINE 1% SDV 30ML VIAL As Ordered ONE; +MIDAZOLAM INJ 2MG/2ML VIAL As Ordered ONE; +ONDANSETRON 4MG 2ML VIAL As Ordered ONE; +TRIAMCINOLONE ACETONIDE SUSP 40MG/ML 1ML VIAL As Ordered ONE; +fentaNYL 100 MCG/2 ML INJECTION As Ordered ONE
== END ==
LOC: M PAIN 08:00
PROVIDERS: ATTEND Anesthesiology
DX: M47.812 Spondylosis without myelopathy or radiculopathy, cervical region (principal); G89.29 Other chronic pain; K21.9 Gastro-esophageal reflux disease without esophagitis; Z96.89 Presence of other specified functional implants; Z86.59 Personal history of other mental and behavioral disorders; Z88.5 Allergy status to narcotic agent; Z88.6 Allergy status to analgesic agent; Z88.7 Allergy status to serum and vaccine; Z88.8 Allergy status to other drugs, medicaments and biological substances; Z79.899 Other long term (current) drug therapy
CPT/HCPCS: 64490; 64491; 99152; J2250; J2405; J3010; J3301; S0020

== ENCOUNTER → 2022-06-11 | Outpatient (CLI) | payer OTHER, MEDICARE ==
[~2022-06-11] MED LIST changes: -BUPIVACAINE HCL 0.25% 30ML VIAL As Ordered ONE; -ISOVUE-M 300 61% 15ML VIAL As Ordered ONE; -LIDOCAINE 1% SDV 30ML VIAL As Ordered ONE; -MIDAZOLAM INJ 2MG/2ML VIAL As Ordered ONE; -ONDANSETRON 4MG 2ML VIAL As Ordered ONE; -TRIAMCINOLONE ACETONIDE SUSP 40MG/ML 1ML VIAL As Ordered ONE; -fentaNYL 100 MCG/2 ML INJECTION As Ordered ONE
== END ==
LOC: M PAIN 09:30
PROVIDERS: ATTEND Anesthesiology
DX: G89.29 Other chronic pain (principal); M54.2 Cervicalgia; M96.1 Postlaminectomy syndrome, not elsewhere classified; M47.812 Spondylosis without myelopathy or radiculopathy, cervical region; E78.00 Pure hypercholesterolemia, unspecified; K21.9 Gastro-esophageal reflux disease without esophagitis; E66.9 Obesity, unspecified; J30.2 Other seasonal allergic rhinitis; F32.89 Other specified depressive episodes; M15.9 Polyosteoarthritis, unspecified; Z86.16 Personal history of COVID-19; Z79.899 Other long term (current) drug therapy; Z88.7 Allergy status to serum and vaccine; Z88.5 Allergy status to narcotic agent; Z88.8 Allergy status to other drugs, medicaments and biological substances

== ENCOUNTER → 2022-08-27 | Outpatient (REF) | payer MEDICARE ==
[2022-08-27 12:52] LABS: BASO # 0.1 10^3/uL (0.0-0.2); BASO % 1.3 % (0.0-1.0); EOS # 0.2 10^3/uL (0.0-0.5); EOS % 4.3 % (0.0-3.0); HEMOGLOBIN 14.9 g/dl (12.0-15.5); LYMPH # 1.5 10^3/uL (1.5-5.0); MEAN CORPUSCULAR HEMOGLOBIN 33.9 pg (27.0-33.0); MEAN CORPUSCULAR HGB CONC 34.7 g/dl (32.0-36.5); MEAN CORPUSCULAR VOLUME 97.7 fl (80.0-96.0); MONO # 0.3 10^3/uL (0.0-0.8); NEUTROPHILS # 1.8 10^3/uL (1.5-8.5); NEUTROPHILS % 48.1 % (36.0-66.0); PLATELET COUNT, AUTOMATED 231 10^3/uL (150-450); WHITE BLOOD COUNT 3.7 10^3/uL (4.0-10.0)
[2022-08-27 13:17] LABS: ERYTHROCYTE SEDIMENTATION RATE 24 mm/hr (0-30)
[2022-08-27 13:24] LABS: ALKALINE PHOSPHATASE 83 U/L (46-116); ALT/SGPT 46 U/L (7.0-40); AST/SGOT 23 U/L (<34); BILIRUBIN,TOTAL 0.5 MG/DL (0.3-1.2); BLOOD UREA NITROGEN 22 MG/DL (9-23); CARBON DIOXIDE LEVEL 26 MMOL/L (20-31); CHLORIDE LEVEL 106 MMOL/L (98-107); CREATININE FOR GFR 0.96 MG/DL (0.55-1.30); GLOMERULAR FILTRATION RATE > 60.0 (>45); GLUCOSE, FASTING 95 MG/DL (74-106); POTASSIUM SERUM 4.3 MMOL/L (3.5-5.1); SODIUM LEVEL 137 MMOL/L (136-145); TOTAL PROTEIN 7.2 G/DL (5.7-8.2)
[2022-08-27 13:25] LABS: THYROID STIMULATING HORMONE 1.596 uIU/ML (0.55-4.78)
[2022-08-27 13:29] LABS: CHOLESTEROL RISK RATIO 3.26 (<5); FREE T4 0.93 NG/DL (0.89-1.76); HDL CHOLESTEROL 66.4 MG/DL (>40); LDL CHOLESTEROL 122.8 MG/DL (<100); NON-HDL-C 150.6 MG/DL
[2022-08-27 13:32] LABS: HEMOGLOBIN A1c 5.1 % (4.0-6.0)
[2022-08-27 17:02] LABS: C REACTIVE PROTEIN QUANTITATIV < 0.40 MG/DL (<1.0)
== END ==
LOC: M SFHCRHEU 10:47
PROVIDERS: ATTEND Internal Medicine Rheumatology
DX: R76.8 Other specified abnormal immunological findings in serum (principal); M06.4 Inflammatory polyarthropathy; M89.49 Other hypertrophic osteoarthropathy, multiple sites; M79.7 Fibromyalgia; D70.8 Other neutropenia; E78.00 Pure hypercholesterolemia, unspecified; E55.9 Vitamin D deficiency, unspecified; Z79.899 Other long term (current) drug therapy

== ENCOUNTER → 2022-09-09 | Outpatient (CLI) | payer OTHER | LOC: M PAIN 09:30 | PROVIDERS: ATTEND Anesthesiology | DX: B33.0 Epidemic myalgia (principal); E78.00 Pure hypercholesterolemia, unspecified; K21.9 Gastro-esophageal reflux disease without esophagitis; E66.9 Obesity, unspecified; F32.A Depression, unspecified; M15.9 Polyosteoarthritis, unspecified; G89.29 Other chronic pain; E55.9 Vitamin D deficiency, unspecified; Z68.35 Body mass index [BMI] 35.0-35.9, adult; Z79.899 Other long term (current) drug therapy; Z88.7 Allergy status to serum and vaccine; Z88.5 Allergy status to narcotic agent; Z88.8 Allergy status to other drugs, medicaments and biological substances ==

== ENCOUNTER → 2022-11-24 | Outpatient (CLI) | payer MEDICARE ==
[2022-11-24 14:08] LABS: ALBUMIN 3.9 G/DL (3.2-5.2); ALKALINE PHOSPHATASE 87 U/L (46-116); ALT/SGPT 20 U/L (7.0-40); AST/SGOT 16 U/L (<34); BILIRUBIN,TOTAL 0.5 MG/DL (0.3-1.2); BLOOD UREA NITROGEN 15 MG/DL (9-23); C REACTIVE PROTEIN QUANTITATIV < 0.40 MG/DL (<1.0); CALCIUM LEVEL 10.4 MG/DL (8.3-10.6); CARBON DIOXIDE LEVEL 27 MMOL/L (20-31); CHLORIDE LEVEL 107 MMOL/L (98-107); CREATININE FOR GFR 1.02 MG/DL (0.55-1.30); GLOMERULAR FILTRATION RATE 58.7 (>45); GLUCOSE, FASTING 90 MG/DL (74-106); POTASSIUM SERUM 4.7 MMOL/L (3.5-5.1); SODIUM LEVEL 142 MMOL/L (136-145); TOTAL PROTEIN 7.2 G/DL (5.7-8.2)
[2022-11-24 14:11] LABS: BASO % 0.9 % (0.0-1.0); EOS # 0.2 10^3/uL (0.0-0.5); EOS % 3.7 % (0.0-3.0); HEMATOCRIT 41.6 % (36.0-47.0); HEMOGLOBIN 14.2 g/dl (12.0-15.5); LYMPH # 1.9 10^3/uL (1.5-5.0); LYMPH % 44.4 % (24.0-44.0); MEAN CORPUSCULAR HEMOGLOBIN 34.5 pg (27.0-33.0); MEAN CORPUSCULAR HGB CONC 34.1 g/dl (32.0-36.5); MONO # 0.4 10^3/uL (0.0-0.8); MONO % 9.1 % (2.0-8.0); NEUTROPHILS # 1.8 10^3/uL (1.5-8.5); NEUTROPHILS % 41.7 % (36.0-66.0); PLATELET COUNT, AUTOMATED 202 10^3/uL (150-450); RED BLOOD COUNT 4.12 10^6/uL (4.00-5.40); WHITE BLOOD COUNT 4.3 10^3/uL (4.0-10.0)
[2022-11-24 14:48] LABS: ERYTHROCYTE SEDIMENTATION RATE 19 mm/hr (0-30)
== END ==
LOC: M PLALAB 10:03
PROVIDERS: ATTEND Internal Medicine Rheumatology
DX: M06.4 Inflammatory polyarthropathy (principal); R76.8 Other specified abnormal immunological findings in serum; M89.49 Other hypertrophic osteoarthropathy, multiple sites; Z79.899 Other long term (current) drug therapy; M79.7 Fibromyalgia; D70.8 Other neutropenia

== ENCOUNTER → 2022-11-25 | Outpatient (CLI) | payer OTHER | LOC: M PAIN 09:45 | PROVIDERS: ATTEND Anesthesiology | DX: M47.812 Spondylosis without myelopathy or radiculopathy, cervical region (principal); M54.2 Cervicalgia; E78.00 Pure hypercholesterolemia, unspecified; K21.9 Gastro-esophageal reflux disease without esophagitis; E66.9 Obesity, unspecified; Z68.34 Body mass index [BMI] 34.0-34.9, adult; J30.2 Other seasonal allergic rhinitis; F32.89 Other specified depressive episodes; M15.9 Polyosteoarthritis, unspecified; M25.511 Pain in right shoulder; E55.9 Vitamin D deficiency, unspecified; Z79.899 Other long term (current) drug therapy; Z88.5 Allergy status to narcotic agent; Z88.7 Allergy status to serum and vaccine; Z88.8 Allergy status to other drugs, medicaments and biological substances ==

== ENCOUNTER → 2023-02-22 | Outpatient (CLI) | payer MEDICARE ==
[2023-02-22 13:47] LABS: CHOLESTEROL LEVEL 233 MG/DL (<200); CHOLESTEROL RISK RATIO 3.61 (<5); HDL CHOLESTEROL 64.4 MG/DL (>40); IRON (FE) 121 UG/DL (50-170); LDL CHOLESTEROL 138.2 MG/DL (<100); NON-HDL-C 168.6 MG/DL; PERCENT SATURATION 42.6 % (13.2-45.0); TOTAL IRON BINDING CAPACITY 284 UG/DL (250-425); TRIGLYCERIDES LEVEL 152 MG/DL (<150)
[2023-02-22 13:50] LABS: THYROID STIMULATING HORMONE 2.258 uIU/ML (0.55-4.78); TOTAL 25(OH) VITAMIN D 61.7 NG/ML (20.0-100.0)
[2023-02-22 13:58] LABS: VITAMIN B12 LEVEL > 2000 PG/ML (211-911)
== END ==
LOC: M PLALAB 11:17
PROVIDERS: ATTEND Nurse Practitioner Family
DX: E78.00 Pure hypercholesterolemia, unspecified (principal); D50.9 Iron deficiency anemia, unspecified; M06.4 Inflammatory polyarthropathy

== ENCOUNTER → 2023-02-22 | Outpatient (CLI) | payer MEDICARE ==
[2023-02-22 13:45] LABS: C REACTIVE PROTEIN QUANTITATIV < 0.40 MG/DL (<1.0)
[2023-02-22 13:47] LABS: ALBUMIN 3.6 G/DL (3.2-5.2); ALKALINE PHOSPHATASE 83 U/L (46-116); ALT/SGPT 16 U/L (7.0-40); AST/SGOT 18 U/L (<34); BILIRUBIN,TOTAL 0.5 MG/DL (0.3-1.2); BLOOD UREA NITROGEN 18 MG/DL (9-23); CARBON DIOXIDE LEVEL 29 MMOL/L (20-31); CHLORIDE LEVEL 105 MMOL/L (98-107); CREATININE FOR GFR 0.96 MG/DL (0.55-1.30); GLOMERULAR FILTRATION RATE > 60.0 (>45); GLUCOSE, FASTING 90 MG/DL (74-106); POTASSIUM SERUM 4.5 MMOL/L (3.5-5.1); SODIUM LEVEL 141 MMOL/L (136-145); TOTAL PROTEIN 7.2 G/DL (5.7-8.2)
[2023-02-22 13:52] LABS: BASO % 0.7 % (0.0-1.0); EOS # 0.2 10^3/uL (0.0-0.5); EOS % 4.1 % (0.0-3.0); HEMATOCRIT 41.1 % (36.0-47.0); LYMPH # 1.9 10^3/uL (1.5-5.0); LYMPH % 44.7 % (24.0-44.0); MEAN CORPUSCULAR HEMOGLOBIN 33.5 pg (27.0-33.0); MEAN CORPUSCULAR HGB CONC 34.1 g/dl (32.0-36.5); MEAN CORPUSCULAR VOLUME 98.3 fl (80.0-96.0); MONO # 0.3 10^3/uL (0.0-0.8); MONO % 6.9 % (2.0-8.0); NEUTROPHILS # 1.8 10^3/uL (1.5-8.5); NEUTROPHILS % 43.4 % (36.0-66.0); PLATELET COUNT, AUTOMATED 219 10^3/uL (150-450); RED BLOOD COUNT 4.18 10^6/uL (4.00-5.40); WHITE BLOOD COUNT 4.2 10^3/uL (4.0-10.0)
[2023-02-22 14:17] LABS: ERYTHROCYTE SEDIMENTATION RATE 23 mm/hr (0-30)
== END ==
LOC: M PLALAB 11:14
PROVIDERS: ATTEND Internal Medicine Rheumatology
DX: M06.4 Inflammatory polyarthropathy (principal)

== ENCOUNTER → 2023-02-24 | Outpatient (CLI) | payer MEDICARE | LOC: M PAIN 08:45 | PROVIDERS: ATTEND Anesthesiology | DX: M54.2 Cervicalgia (principal); M79.12 Myalgia of auxiliary muscles, head and neck; E78.00 Pure hypercholesterolemia, unspecified; K21.9 Gastro-esophageal reflux disease without esophagitis; E66.9 Obesity, unspecified; J30.2 Other seasonal allergic rhinitis; F32.89 Other specified depressive episodes; M15.9 Polyosteoarthritis, unspecified; G89.29 Other chronic pain; E55.9 Vitamin D deficiency, unspecified; Z68.34 Body mass index [BMI] 34.0-34.9, adult; Z79.899 Other long term (current) drug therapy; Z88.7 Allergy status to serum and vaccine; Z88.5 Allergy status to narcotic agent; Z88.8 Allergy status to other drugs, medicaments and biological substances ==

== ENCOUNTER → 2023-03-26 | Outpatient (CLI) | payer MEDICARE | LOC: M PAIN 13:45 | PROVIDERS: ATTEND Anesthesiology | DX: M54.2 Cervicalgia (principal); M79.10 Myalgia, unspecified site; M96.1 Postlaminectomy syndrome, not elsewhere classified; E78.00 Pure hypercholesterolemia, unspecified; K21.9 Gastro-esophageal reflux disease without esophagitis; E66.9 Obesity, unspecified; J30.2 Other seasonal allergic rhinitis; F32.89 Other specified depressive episodes; M15.9 Polyosteoarthritis, unspecified; G89.29 Other chronic pain; E55.9 Vitamin D deficiency, unspecified; Z86.16 Personal history of COVID-19; Z79.899 Other long term (current) drug therapy; Z88.7 Allergy status to serum and vaccine; Z88.5 Allergy status to narcotic agent; Z88.8 Allergy status to other drugs, medicaments and biological substances ==

== ENCOUNTER → 2023-05-03 | Outpatient (CLI) | payer MEDICARE | LOC: M WHC 08:42 | PROVIDERS: ATTEND Obstetrics & Gynecology | DX: Z12.31 Encounter for screening mammogram for malignant neoplasm of breast (principal); M81.0 Age-related osteoporosis without current pathological fracture ==

== ENCOUNTER → 2023-06-02 | Outpatient (CLI) | payer OTHER, MEDICARE | LOC: M PAIN 09:30 | PROVIDERS: ATTEND Anesthesiology | DX: M54.2 Cervicalgia (principal); G89.29 Other chronic pain; M96.1 Postlaminectomy syndrome, not elsewhere classified; Z96.89 Presence of other specified functional implants; Z88.5 Allergy status to narcotic agent; Z88.6 Allergy status to analgesic agent; Z88.7 Allergy status to serum and vaccine; Z88.8 Allergy status to other drugs, medicaments and biological substances; Z79.899 Other long term (current) drug therapy ==

== ENCOUNTER → 2023-07-02 | Outpatient (CLI) | payer MEDICARE ==
[2023-07-02 16:04] LABS: BASO % 0.5 % (0.0-1.0); EOS # 0.1 10^3/uL (0.0-0.5); EOS % 1.1 % (0.0-3.0); HEMATOCRIT 41.8 % (36.0-47.0); LYMPH # 1.8 10^3/uL (1.5-5.0); LYMPH % 31.4 % (24.0-44.0); MEAN CORPUSCULAR HEMOGLOBIN 33.7 pg (27.0-33.0); MEAN CORPUSCULAR HGB CONC 33.5 g/dl (32.0-36.5); MEAN CORPUSCULAR VOLUME 100.5 fl (80.0-96.0); MONO # 0.3 10^3/uL (0.0-0.8); MONO % 5.1 % (2.0-8.0); NEUTROPHILS # 3.5 10^3/uL (1.5-8.5); NEUTROPHILS % 61.7 % (36.0-66.0); PLATELET COUNT, AUTOMATED 240 10^3/uL (150-450); RED BLOOD COUNT 4.16 10^6/uL (4.00-5.40); WHITE BLOOD COUNT 5.7 10^3/uL (4.0-10.0)
[2023-07-02 16:10] LABS: ERYTHROCYTE SEDIMENTATION RATE 15 mm/hr (0-30)
[2023-07-02 16:45] LABS: C REACTIVE PROTEIN QUANTITATIV < 0.40 MG/DL (<1.0)
[2023-07-02 16:46] LABS: ALKALINE PHOSPHATASE 85 U/L (46-116); ALT/SGPT 27 U/L (7.0-40); AST/SGOT 21 U/L (<34); BILIRUBIN,TOTAL 0.4 MG/DL (0.3-1.2); BLOOD UREA NITROGEN 18 MG/DL (9-23); CALCIUM LEVEL 9.7 MG/DL (8.3-10.6); CARBON DIOXIDE LEVEL 28 MMOL/L (20-31); CHLORIDE LEVEL 107 MMOL/L (98-107); CREATININE FOR GFR 0.96 MG/DL (0.55-1.30); GLOMERULAR FILTRATION RATE > 60.0 (>45); GLUCOSE, FASTING 98 MG/DL (74-106); POTASSIUM SERUM 4.8 MMOL/L (3.5-5.1); SODIUM LEVEL 138 MMOL/L (136-145); TOTAL PROTEIN 7.4 G/DL (5.7-8.2)
== END ==
LOC: M PLALAB 12:08
PROVIDERS: ATTEND Internal Medicine Rheumatology
DX: M06.4 Inflammatory polyarthropathy (principal); R76.8 Other specified abnormal immunological findings in serum; M89.49 Other hypertrophic osteoarthropathy, multiple sites; Z79.899 Other long term (current) drug therapy; M79.7 Fibromyalgia; D70.8 Other neutropenia

== ENCOUNTER → 2023-09-01 | Outpatient (CLI) | payer OTHER | LOC: M PAIN 10:00 | PROVIDERS: ATTEND Anesthesiology | DX: M96.1 Postlaminectomy syndrome, not elsewhere classified (principal); M54.12 Radiculopathy, cervical region; E78.00 Pure hypercholesterolemia, unspecified; K21.9 Gastro-esophageal reflux disease without esophagitis; E66.9 Obesity, unspecified; F32.89 Other specified depressive episodes; M15.9 Polyosteoarthritis, unspecified; E55.9 Vitamin D deficiency, unspecified; Z86.16 Personal history of COVID-19; Z79.899 Other long term (current) drug therapy; Z88.7 Allergy status to serum and vaccine; Z88.2 Allergy status to sulfonamides; Z88.8 Allergy status to other drugs, medicaments and biological substances; Z68.34 Body mass index [BMI] 34.0-34.9, adult ==

== ENCOUNTER → 2023-10-11 | Outpatient (CLI) | payer MEDICARE ==
[2023-10-11 16:00] LABS: CHOLESTEROL RISK RATIO 3.13 (<5); FREE T4 1.05 NG/DL (0.89-1.76); HDL CHOLESTEROL 67.9 MG/DL (>40); LDL CHOLESTEROL 122.9 MG/DL (<100); NON-HDL-C 145.1 MG/DL; THYROID STIMULATING HORMONE 1.689 uIU/ML (0.55-4.78)
[2023-10-11 16:01] LABS: TOTAL 25(OH) VITAMIN D 58.4 NG/ML (20.0-100.0)
== END ==
LOC: M PLALAB 11:45
PROVIDERS: ATTEND Nurse Practitioner Family
DX: E78.00 Pure hypercholesterolemia, unspecified (principal); E55.9 Vitamin D deficiency, unspecified; M06.4 Inflammatory polyarthropathy; R76.8 Other specified abnormal immunological findings in serum; M89.49 Other hypertrophic osteoarthropathy, multiple sites; M79.7 Fibromyalgia; D70.8 Other neutropenia; Z79.899 Other long term (current) drug therapy; Z98.84 Bariatric surgery status

== ENCOUNTER → 2023-10-11 | Outpatient (CLI) | payer MEDICARE ==
[2023-10-11 15:25] LABS: BASO % 1.1 % (0.0-1.0); EOS # 0.2 10^3/uL (0.0-0.5); EOS % 4.4 % (0.0-3.0); HEMATOCRIT 41.2 % (36.0-47.0); HEMOGLOBIN 13.8 g/dl (12.0-15.5); LYMPH # 1.5 10^3/uL (1.5-5.0); LYMPH % 41.8 % (24.0-44.0); MEAN CORPUSCULAR HEMOGLOBIN 33.4 pg (27.0-33.0); MEAN CORPUSCULAR HGB CONC 33.5 g/dl (32.0-36.5); MEAN CORPUSCULAR VOLUME 99.8 fl (80.0-96.0); MONO # 0.3 10^3/uL (0.0-0.8); MONO % 8.5 % (2.0-8.0); NEUTROPHILS # 1.6 10^3/uL (1.5-8.5); NEUTROPHILS % 43.9 % (36.0-66.0); PLATELET COUNT, AUTOMATED 223 10^3/uL (150-450); RED BLOOD COUNT 4.13 10^6/uL (4.00-5.40); WHITE BLOOD COUNT 3.7 10^3/uL (4.0-10.0)
[2023-10-11 15:57] LABS: C REACTIVE PROTEIN QUANTITATIV 0.5 MG/DL (<1.0)
[2023-10-11 15:59] LABS: ALBUMIN 3.7 G/DL (3.2-5.2); BILIRUBIN,TOTAL 0.6 MG/DL (0.3-1.2); CALCIUM LEVEL 9.7 MG/DL (8.3-10.6); GLOMERULAR FILTRATION RATE 59.8 (>45); POTASSIUM SERUM 4.2 MMOL/L (3.5-5.1)
[2023-10-11 16:03] LABS: ERYTHROCYTE SEDIMENTATION RATE 22 mm/hr (0-30)
== END ==
LOC: M PLALAB 11:43
PROVIDERS: ATTEND Internal Medicine Rheumatology
DX: M06.4 Inflammatory polyarthropathy (principal)

== ENCOUNTER → 2023-11-08 | Outpatient (REF) | payer MEDICARE | LOC: M SFHCRHEU 11:11 | PROVIDERS: ATTEND Internal Medicine Rheumatology | DX: D70.8 Other neutropenia (principal) ==

== ENCOUNTER → 2023-11-29 | Outpatient (CLI) | payer MEDICARE ==
[2023-11-29 15:54] LABS: EOS # 0.2 10^3/uL (0.0-0.5); EOS % 3.8 % (0.0-3.0); HEMATOCRIT 41.3 % (36.0-47.0); HEMOGLOBIN 14.1 g/dl (12.0-15.5); LYMPH # 1.7 10^3/uL (1.5-5.0); LYMPH % 43.5 % (24.0-44.0); MEAN CORPUSCULAR HEMOGLOBIN 33.8 pg (27.0-33.0); MEAN CORPUSCULAR HGB CONC 34.1 g/dl (32.0-36.5); MONO # 0.3 10^3/uL (0.0-0.8); MONO % 8.4 % (2.0-8.0); NEUTROPHILS # 1.7 10^3/uL (1.5-8.5); NEUTROPHILS % 43.3 % (36.0-66.0); PLATELET COUNT, AUTOMATED 223 10^3/uL (150-450); RED BLOOD COUNT 4.17 10^6/uL (4.00-5.40)
[2023-11-29 16:05] LABS: ERYTHROCYTE SEDIMENTATION RATE 17 mm/hr (0-30)
== END ==
LOC: M PLALAB 12:35
PROVIDERS: ATTEND Internal Medicine Rheumatology
DX: D70.8 Other neutropenia (principal)

== ENCOUNTER → 2023-11-30 | Outpatient (CLI) | payer MEDICARE | LOC: M RAD 10:05 | PROVIDERS: ATTEND Orthopaedic Surgery | DX: M79.671 Pain in right foot (principal) | CPT/HCPCS: 78315; A9503 ==

== ENCOUNTER → 2023-12-02 | Outpatient (CLI) | payer OTHER | LOC: M PAIN 11:45 | PROVIDERS: ATTEND Nurse Practitioner Family | DX: M47.812 Spondylosis without myelopathy or radiculopathy, cervical region (principal); M96.1 Postlaminectomy syndrome, not elsewhere classified; G89.29 Other chronic pain; E78.00 Pure hypercholesterolemia, unspecified; K21.9 Gastro-esophageal reflux disease without esophagitis; E66.9 Obesity, unspecified; E55.9 Vitamin D deficiency, unspecified; M15.9 Polyosteoarthritis, unspecified; Z79.899 Other long term (current) drug therapy; Z88.5 Allergy status to narcotic agent; Z88.7 Allergy status to serum and vaccine; Z88.8 Allergy status to other drugs, medicaments and biological substances; Z68.34 Body mass index [BMI] 34.0-34.9, adult ==

== ENCOUNTER → 2024-01-24 | Outpatient (CLI) | payer MEDICARE ==
[2024-01-24 16:23] LABS: CHOLESTEROL RISK RATIO 3.25 (<5); HDL CHOLESTEROL 63.5 MG/DL (>40); LDL CHOLESTEROL 119.7 MG/DL (<100); NON-HDL-C 143.5 MG/DL
[2024-01-24 16:26] LABS: FREE T4 1.25 NG/DL (0.89-1.76); THYROID STIMULATING HORMONE 2.292 uIU/ML (0.55-4.78)
== END ==
LOC: M PLALAB 13:36
PROVIDERS: ATTEND Nurse Practitioner Family
DX: E78.00 Pure hypercholesterolemia, unspecified (principal); E55.9 Vitamin D deficiency, unspecified; F32.89 Other specified depressive episodes; M06.4 Inflammatory polyarthropathy

== ENCOUNTER → 2024-01-24 | Outpatient (CLI) | payer MEDICARE ==
[2024-01-24 16:15] LABS: HEMOGLOBIN 13.8 g/dl (12.0-15.5); MEAN CORPUSCULAR HEMOGLOBIN 33.7 pg (27.0-33.0); MEAN CORPUSCULAR HGB CONC 34.5 g/dl (32.0-36.5); MEAN CORPUSCULAR VOLUME 97.8 fl (80.0-96.0); PLATELET COUNT, AUTOMATED 254 10^3/uL (150-450); RED BLOOD COUNT 4.09 10^6/uL (4.00-5.40); WHITE BLOOD COUNT 4.6 10^3/uL (4.0-10.0)
[2024-01-24 16:22] LABS: C REACTIVE PROTEIN QUANTITATIV 0.4 MG/DL (<1.0)
[2024-01-24 16:23] LABS: ALBUMIN 3.9 G/DL (3.2-5.2); BILIRUBIN,TOTAL 0.6 MG/DL (0.3-1.2); CALCIUM LEVEL 10.3 MG/DL (8.3-10.6); GLOMERULAR FILTRATION RATE 59.8 (>45); POTASSIUM SERUM 4.1 MMOL/L (3.5-5.1); TOTAL PROTEIN 7.8 G/DL (5.7-8.2)
[2024-01-24 16:28] LABS: ERYTHROCYTE SEDIMENTATION RATE 35 mm/hr (0-30)
== END ==
LOC: M PLALAB 13:38
PROVIDERS: ATTEND Internal Medicine Rheumatology
DX: M06.4 Inflammatory polyarthropathy (principal)

== ENCOUNTER → 2024-01-25 | Outpatient (CLI) | payer MEDICARE | LOC: M EKG 13:32 | PROVIDERS: ATTEND Orthopaedic Surgery | DX: Z01.818 Encounter for other preprocedural examination (principal) ==

== ENCOUNTER → 2024-02-04 | Outpatient (CLI) | payer MEDICARE ==
[~2024-02-04] MED LIST changes: +ISOVUE-300 61% 100ML VIAL As Ordered ONE; +LIDOCAINE 1% MDV 20ML VIAL As Ordered ONE; +TRIAMCINOLONE ACETONIDE SUSP 40MG/ML 1ML VIAL As Ordered ONE
== END ==
LOC: M RAD 12:46
PROVIDERS: ATTEND Orthopaedic Surgery
DX: M19.071 Primary osteoarthritis, right ankle and foot (principal)
CPT/HCPCS: 20600; 77002; J3301; Q9967

== ENCOUNTER → 2024-05-04 | Outpatient (CLI) | payer OTHER ==
[~2024-05-04] MED LIST changes: -ISOVUE-300 61% 100ML VIAL As Ordered ONE; -LIDOCAINE 1% MDV 20ML VIAL As Ordered ONE; -TRIAMCINOLONE ACETONIDE SUSP 40MG/ML 1ML VIAL As Ordered ONE
== END ==
LOC: M PAIN 09:30
PROVIDERS: ATTEND Nurse Practitioner Family
DX: M47.812 Spondylosis without myelopathy or radiculopathy, cervical region (principal); M96.1 Postlaminectomy syndrome, not elsewhere classified; G89.29 Other chronic pain; E78.00 Pure hypercholesterolemia, unspecified; K21.9 Gastro-esophageal reflux disease without esophagitis; E66.9 Obesity, unspecified; F32.89 Other specified depressive episodes; E55.9 Vitamin D deficiency, unspecified; Z79.891 Long term (current) use of opiate analgesic; Z79.899 Other long term (current) drug therapy; Z88.7 Allergy status to serum and vaccine; Z88.5 Allergy status to narcotic agent; Z88.8 Allergy status to other drugs, medicaments and biological substances

== ENCOUNTER → 2024-05-04 | Outpatient (CLI) | payer MEDICARE | LOC: M WHC 07:52 | PROVIDERS: ATTEND Obstetrics & Gynecology | DX: Z12.31 Encounter for screening mammogram for malignant neoplasm of breast (principal) ==

== ENCOUNTER → 2024-06-06 | Outpatient (CLI) | payer MEDICARE ==
[2024-06-06 14:06] LABS: BASO # 0.1 10^3/uL (0.0-0.2); BASO % 1.3 % (0.0-1.0); EOS # 0.1 10^3/uL (0.0-0.5); EOS % 2.1 % (0.0-3.0); HEMATOCRIT 42.3 % (36.0-47.0); HEMOGLOBIN 14.3 g/dl (12.0-15.5); LYMPH # 1.6 10^3/uL (1.5-5.0); LYMPH % 40.6 % (24.0-44.0); MEAN CORPUSCULAR HEMOGLOBIN 33.5 pg (27.0-33.0); MEAN CORPUSCULAR HGB CONC 33.8 g/dl (32.0-36.5); MEAN CORPUSCULAR VOLUME 99.1 fl (80.0-96.0); MONO # 0.3 10^3/uL (0.0-0.8); MONO % 8.6 % (2.0-8.0); NEUTROPHILS # 1.8 10^3/uL (1.5-8.5); NEUTROPHILS % 47.1 % (36.0-66.0); PLATELET COUNT, AUTOMATED 207 10^3/uL (150-450); RED BLOOD COUNT 4.27 10^6/uL (4.00-5.40); WHITE BLOOD COUNT 3.8 10^3/uL (4.0-10.0)
[2024-06-06 14:19] LABS: ERYTHROCYTE SEDIMENTATION RATE 23 mm/hr (0-30)
[2024-06-06 14:38] LABS: C REACTIVE PROTEIN QUANTITATIV < 0.50 MG/DL (<1.0)
[2024-06-06 14:39] LABS: ALBUMIN 3.8 G/DL (3.2-5.2); ALKALINE PHOSPHATASE 88 U/L (35-104); ALT/SGPT 17 U/L (7.0-40); AST/SGOT 18 U/L (<34); BILIRUBIN,TOTAL 0.7 MG/DL (0.3-1.2); BLOOD UREA NITROGEN 16 MG/DL (9-23); CALCIUM LEVEL 10.3 MG/DL (8.3-10.6); CARBON DIOXIDE LEVEL 27 MMOL/L (20-31); CHLORIDE LEVEL 107 MMOL/L (98-107); GLOMERULAR FILTRATION RATE 59.8 (>45); GLUCOSE, FASTING 82 MG/DL (74-106); POTASSIUM SERUM 4.8 MMOL/L (3.5-5.1); SODIUM LEVEL 141 MMOL/L (136-145); TOTAL PROTEIN 7.6 G/DL (5.7-8.2)
== END ==
LOC: M PLALAB 11:52
PROVIDERS: ATTEND Internal Medicine Rheumatology
DX: D70.8 Other neutropenia (principal)

== ENCOUNTER → 2024-06-19 | Outpatient (CLI) | payer OTHER | LOC: M PAIN 09:30 | PROVIDERS: ATTEND Nurse Practitioner Family | DX: M50.10 Cervical disc disorder with radiculopathy, unspecified cervical region (principal); M96.1 Postlaminectomy syndrome, not elsewhere classified; M47.812 Spondylosis without myelopathy or radiculopathy, cervical region; G89.29 Other chronic pain; E78.00 Pure hypercholesterolemia, unspecified; K21.9 Gastro-esophageal reflux disease without esophagitis; Z79.899 Other long term (current) drug therapy; Z88.5 Allergy status to narcotic agent; Z88.7 Allergy status to serum and vaccine; Z88.8 Allergy status to other drugs, medicaments and biological substances ==

== ENCOUNTER → 2024-07-10 | Outpatient (REF) | payer MEDICARE, OTHER | LOC: M SFHCPLAZ 13:05 | PROVIDERS: ATTEND Nurse Practitioner Family | DX: R09.89 Other specified symptoms and signs involving the circulatory and respiratory systems (principal) ==

== ENCOUNTER → 2024-07-24 | Outpatient (CLI) | payer MEDICARE ==
[2024-07-24 15:12] LABS: BASO % 0.8 % (0.0-1.0); EOS # 0.2 10^3/uL (0.0-0.5); EOS % 5.1 % (0.0-3.0); HEMATOCRIT 42.7 % (36.0-47.0); HEMOGLOBIN 14.5 g/dl (12.0-15.5); LYMPH # 1.6 10^3/uL (1.5-5.0); LYMPH % 43.3 % (24.0-44.0); MEAN CORPUSCULAR HEMOGLOBIN 33.6 pg (27.0-33.0); MEAN CORPUSCULAR VOLUME 98.8 fl (80.0-96.0); MONO # 0.4 10^3/uL (0.0-0.8); MONO % 10.8 % (2.0-8.0); NEUTROPHILS # 1.5 10^3/uL (1.5-8.5); NEUTROPHILS % 39.7 % (36.0-66.0); PLATELET COUNT, AUTOMATED 238 10^3/uL (150-450); RED BLOOD COUNT 4.32 10^6/uL (4.00-5.40); WHITE BLOOD COUNT 3.7 10^3/uL (4.0-10.0)
[2024-07-24 15:17] LABS: ALBUMIN 3.6 G/DL (3.2-5.2); ALKALINE PHOSPHATASE 96 U/L (35-104); ALT/SGPT 24 U/L (7.0-40); AST/SGOT 20 U/L (<34); BILIRUBIN,TOTAL 0.5 MG/DL (0.3-1.2); BLOOD UREA NITROGEN 14 MG/DL (9-23); C REACTIVE PROTEIN QUANTITATIV < 0.50 MG/DL (<1.0); CALCIUM LEVEL 9.8 MG/DL (8.3-10.6); CARBON DIOXIDE LEVEL 28 MMOL/L (20-31); CHLORIDE LEVEL 107 MMOL/L (98-107); CREATININE FOR GFR 0.98 MG/DL (0.55-1.30); GLOMERULAR FILTRATION RATE > 60.0 (>45); GLUCOSE, FASTING 89 MG/DL (74-106); POTASSIUM SERUM 4.4 MMOL/L (3.5-5.1); SODIUM LEVEL 140 MMOL/L (136-145); TOTAL PROTEIN 7.5 G/DL (5.7-8.2)
[2024-07-24 15:25] LABS: ERYTHROCYTE SEDIMENTATION RATE 28 mm/hr (0-30)
== END ==
LOC: M PLALAB 12:15
PROVIDERS: ATTEND Internal Medicine Rheumatology
DX: D70.8 Other neutropenia (principal); M06.4 Inflammatory polyarthropathy

== ENCOUNTER → 2024-08-08 | Outpatient (CLI) | payer MEDICARE | LOC: M PLAIMG 09:02 | PROVIDERS: ATTEND Physician Assistant Medical | DX: R05.8 Other specified cough (principal); R05.2 Subacute cough | CPT/HCPCS: 71046; 87486; 87581; 87633; 87798; G0463 ==

== ENCOUNTER → 2025-03-06 | Outpatient (CLI) | payer MEDICARE ==
[2025-03-06 13:52] LABS: CHOLESTEROL LEVEL 210.0 MG/DL (<200); CHOLESTEROL RISK RATIO 3.13 (<5); LDL CHOLESTEROL 119.6 MG/DL (<100); NON-HDL-C 143.0 MG/DL; TRIGLYCERIDES LEVEL 117.0 MG/DL (<150)
[2025-03-06 13:54] LABS: IRON (FE) 87.0 UG/DL (50-170)
[2025-03-06 13:56] LABS: FREE T4 1.03 NG/DL (0.89-1.76)
[2025-03-06 13:59] LABS: VITAMIN B12 LEVEL 1292.0 PG/ML (211-911)
== END ==
LOC: M PLALAB 09:58
PROVIDERS: ATTEND Nurse Practitioner Family
DX: Z98.84 Bariatric surgery status (principal); E55.9 Vitamin D deficiency, unspecified; E78.00 Pure hypercholesterolemia, unspecified

== ENCOUNTER → 2025-03-09 | Outpatient (CLI) | payer MEDICARE ==
[2025-03-09 14:24] LABS: ALT/SGPT 17 U/L (7.0-40); AST/SGOT 26 U/L (<34); C REACTIVE PROTEIN QUANTITATIV < 0.50 MG/DL (<1.0); CALCIUM LEVEL 10.0 MG/DL (8.3-10.6); CARBON DIOXIDE LEVEL 28 MMOL/L (20-31); CHLORIDE LEVEL 106 MMOL/L (98-107); CREATININE FOR GFR 1.07 MG/DL (0.55-1.30); GLOMERULAR FILTRATION RATE 58.4 (>45); POTASSIUM SERUM 4.6 MMOL/L (3.5-5.1); SODIUM LEVEL 143 MMOL/L (136-145)
[2025-03-09 14:25] LABS: BASO # 0.0 10^3/uL (0.0-0.2); BASO % 0.7 % (0.0-1.0); EOS # 0.1 10^3/uL (0.0-0.5); EOS % 2.6 % (0.0-3.0); LYMPH # 1.9 10^3/uL (1.5-5.0); LYMPH % 44.9 % (24.0-44.0); MONO # 0.3 10^3/uL (0.0-0.8); MONO % 7.8 % (2.0-8.0); NEUTROPHILS # 1.9 10^3/uL (1.5-8.5); NEUTROPHILS % 43.8 % (36.0-66.0); PLATELET COUNT, AUTOMATED 214 10^3/uL (150-450)
== END ==
LOC: M PLALAB 11:22
PROVIDERS: ATTEND Internal Medicine Rheumatology
DX: D70.8 Other neutropenia (principal); M06.4 Inflammatory polyarthropathy